=== PATIENT | male | born 1940 | race Caucasian/White ===

== ENCOUNTER 2022-09-11 13:30 | Inpatient (IN) | payer MEDICARE ==
[~2022-09-11] VITALS: Ht 167.6 cm; Wt 92.0 kg
[2022-09-11] MEDS ORDERED: NS IV 1000 ML 1,000 ML IV SCH (13:45)
[2022-09-11 13:49] LABS: BASOPHILS # (AUTO) 0.1 10^3/uL (0.0-0.1); BASOPHILS % (AUTO) 0 % (0-10); EOSINOPHILS % (AUTO) 0 % (0-10); HEMATOCRIT 35 % (40-54); HEMOGLOBIN 11.2 g/dL (13.3-17.7); LYMPHOCYTES % (AUTO) 7 % (12-44); MEAN CORPUSCULAR HEMOGLOBIN 28 pg (25-34); MEAN CORPUSCULAR HGB CONC 32 g/dL (32-36); MEAN CORPUSCULAR VOLUME 89 fL (80-99); MEAN PLATELET VOLUME 10.9 fL (9.0-12.2); MONOCYTES # (AUTO) 1.4 10^3/uL (0.0-1.0); MONOCYTES % (AUTO) 10 % (0-12); NEUTROPHILS # (AUTO) 12.5 10^3/uL (1.8-7.8); NEUTROPHILS % (AUTO) 83 % (42-75); PLATELET COUNT 343 10^3/uL (130-400); WHITE BLOOD COUNT 15.2 10^3/uL (4.3-11.0)
[2022-09-11 13:54] LABS: ALBUMIN 3.2 GM/DL (3.2-4.5)
--- NOTE | 2022-09-11 13:54 | ED General ---
General Chief Complaint: Trauma-Non Activation Stated Complaint: FALL Nursing Triage Note: PT IS BROUGHT ALS BY [employer]. FOR A FALL. PT WAS AT [facility] USING THE BATHROOM WHEN HE FELL. PT WAS FOUND BY EMS ON HIS KNEES WITH THE L SHAPED SIDE RAIL ON THE GROUND. DENIED HEAD INJURY OR LOC TO EMS. PT ALERT AND ORIENTED UPON ARRIVAL. Source of Information: Patient Exam Limitations: No Limitations (BRUCE JONES) History of Present Illness Date Seen by Provider: Sep 11, 2022 Time Seen by Provider: 13:51 Initial Comments Patient is 82-year-old male with a history of diabetes, coronary artery disease, hypertension who presents ED by EMS secondary to a fall. [facility] went to [facility] this morning with daughter. Around 45 minutes ago daughter states patient fell in the bathroom. States he walked to the bathroom without much assistance but was taking smaller strides than normal. Patient went into the bathroom and supposedly fell. Patient Was found on both of his knees and holding onto a rail that broke. This was a unwitnessed fall. He denied of any loss of consciousness or hitting his head. According to EMS who was called to the scene states patient appeared slightly confused. Patient was nable to recall certain events but could not remember how he fell. They checked his blood sugar which read 357. Patient was tachycardic on arrival. Patient on arrival denies of any current complaints. According to daughter patient lives alone at [facility]. Recently returned from [place] and did have a wound to his left foot at that time. She noted patient been having drainage from a left foot ulcer. He does have a history of tremors but more pronounced today. He did appear slightly confused this morning. He does take warfarin which daughter is unsure why he takes. Patient does appear altered. Alert and orient x2. Able to recall his name and date of . Patient cannot recall what happened before the fall or where he is currently at. He does not live in this area. Patient denies visual changes, headache, dizziness, chest pain, cough, abdominal pain, vomiting. Did have a few episodes of diarrhea over the past few days. According to daughter patient has been sleeping 20 hours a day since last week. He has been complaining that he is feels more tired and fatigued. (BRUCE JONES) Allergies and Home Medications Allergies Coded Allergies: No Allergy Information Available (Unverified , 09/11/22) Patient Home Medication List Home Medication List Reviewed: Yes (BRUCE JONES) Acetaminophen (Tylenol Extra Strength) 500 Mg Tablet, 1,000 MG PO Q8H PRN for PAIN-MILD (1-4), (Reported) Entered as Reported by: NESTOR CACERES on 09/13/221327 Last Action: Reviewed Atorvastatin Calcium (Atorvastatin Calcium) 40 Mg Tablet, 20 MG PO DAILY, (Reported) Entered as Reported by: NESTOR CACERES on 09/13/221327 Last Action: Reviewed Diltiazem HCl (Diltiazem 24Hr ER) 240 Mg Cap.er.24h, 240 MG PO BID, (Reported) Entered as Reported by: NESTOR CACERES on 09/13/221327 Last Action: Reviewed Diphenhydramine HCl (Benadryl Allergy) 25 Mg Tablet, 25 MG PO Q6H PRN for ALLERGY SYMPTOMS, (Reported) Entered as Reported by: NESTOR CACERES on 09/13/221327 Last Action: Reviewed Glipizide (Glipizide ER) 10 Mg Tab.er.24, 10 MG PO BID, (Reported) Entered as Reported by: NESTOR CACERES on 09/13/221327 Last Action: Reviewed Hydrochlorothiazide (Hydrochlorothiazide) 12.5 Mg Tablet, 12.5 MG PO DAILY, (Reported) Entered as Reported by: NESTOR CACERES on 09/13/221327 Last Action: Reviewed Lisinopril (Lisinopril) 20 Mg Tablet, 20 MG PO DAILY, (Reported) Entered as Reported by: NESTOR CACERES on 09/13/221327 Last Action: Reviewed Metformin HCl (Metformin HCl) 500 Mg Tablet, 500 MG PO BID, (Reported) Entered as Reported by: NESTOR CACERES on 09/13/221327 Last Action: Reviewed Tamsulosin HCl (Flomax) 0.4 Mg Cap, 0.4 MG PO HS, (Reported) Entered as Reported by: NESTOR CACERES on 09/13/221327 Last Action: Reviewed Timolol Maleate (Timolol Maleate 0.5%) 0.5 % Drops, 1 DROP OU HS, (Reported) Entered as Reported by: NESTOR CACERES on 09/13/221327 Last Action: Reviewed Warfarin Sodium (Warfarin Sodium) 3 Mg Tablet, 3 MG PO HS, (Reported) Entered as Reported by: NESTOR CACERES on 09/13/221327 Last Action: Reviewed Review of Systems Review of Systems Constitutional: No chills, No malaise, No weakness EENTM: No hearing loss, No ear pain, No blurred vision, No hoarseness, No mouth pain, No mouth swelling Respiratory: No cough, No dyspnea on exertion Cardiovascular: No chest pain, No edema Gastrointestinal: No abdominal pain, No diarrhea, No nausea, No vomiting Genitourinary: No decreased output, No discharge Musculoskeletal: No back pain, No joint pain Skin: No change in color Psychiatric/Neurological: Denies Headache, Denies Numbness, Denies Paresthesia; Tremors, Weakness (BRUCE JONES) Past Avrncyr-Zuxnnz-Mztnaz Hx Patient Social History Tobacco Use?: No Substance use?: No Alcohol Use?: No (BRUCE JONES) Immunizations Up To Date First/Initial COVID19 Vaccinat: UNKNOWN Second COVID19 Vaccination Luciano: UNKNOWN COVID19 Vaccine Research Professional: SAMIA (BRUCE JONES) Past Medical History Surgery/Hospitalization HX: HTN, HX OF [facility], AND DM (BRUCE JONES) Physical Exam Vital Signs Vital Signs - First Documented 09/11/22 09/11/22 09/11/22 13:30 13:52 15:57 Temp 38.8 Pulse 124 Resp 18 B/P (MAP) 147/80 (102) Pulse Ox 93 O2 Delivery Room Air O2 Flow Rate 2.00 FiO2 21 (YOVANY,PRIYANKA K DO) Vital Signs Capillary Refill : Less Than 3 Seconds (BRUCE JONES) Height, Weight, BMI Height: '" Weight: lbs. oz. kg; 28.00 BMI Method: General Appearance: No Apparent Distress, WD/WN Eyes: Bilateral Eye Normal Inspection, Bilateral Eye PERRL, Bilateral Eye EOMI HEENT: PERRL/EOMI, TMs Normal, Normal ENT Inspection, Pharynx Normal Neck: Full Range of Motion, Normal Inspection, Non Tender, Supple Respiratory: Chest Non Tender, Lungs Clear, Normal Breath Sounds, No Accessory Muscle Use, No Respiratory Distress Cardiovascular: Regular Rate, Rhythm, No Edema, No Gallop, No JVD Gastrointestinal: Normal Bowel Sounds, No Organomegaly, No Pulsatile Mass, Non Tender, Soft Back: Normal Inspection, No CVA Tenderness, No Vertebral Tenderness Extremity: Normal Capillary Refill, Normal Range of Motion, Other (Ulcer noted to the left plantar foot. Amputation of second toe. Surrounding redness. Odor noted.) Neurologic/Psychiatric: Disoriented, Motor Weakness (Bilateral and upper extremity), Other (Alert and orient x2) Skin: Normal Color, Warm/Dry (BRUCE JONES) Focused Exam Sepsis Stage: Severe Sepsis Possible Source: Bone/Joint (BRUCE JONES) Lactate Level 09/11/22 13:35: Lactic Acid Level 5.13*H 09/11/22 15:55: Lactic Acid Level 1.48 (PRIYANKA PEDROZA DO) Time of Focused Exam: 14:00 Respiratory: Chest Non Tender Cardiovascular: Tachycardia Capillary Refill: Less Than 3 Seconds Peripheral Pulses: 2+ Dorsalis Pedis (R), 2+ Left Dors-Pedis (L), 2+ Radial Pulses (R), 2+ Radial Pulses (L) Skin: ulcerations (Ulceration left foot with erythema), other (BRUCE JONES) Lactic Acid Level Laboratory Tests Test 09/11/22 13:35 09/11/22 15:55 Lactic Acid Level 5.13 MMOL/L (0.50-2.00) *H 1.48 MMOL/L (0.50-2.00) (PRIYANKA PEDROZA DO) Within 3hrs of presentation: Admin fluids, Admin ABX, Blood cultures prior to ABX's, Lactate level, Other (Improvement of his heart rate after 30 mils per kilogram bolus. Patient received cefepime and vancomycin.) (BRUCE JONES) Progress/Results/Core Measures Suspected Sepsis SIRS Temperature: Pulse: 124 Respiratory Rate: 18 Blood Pressure 147 /80 Mean: 102 09/11/22 13:35: Lactic Acid Level 5.13*H 09/11/22 15:55: Lactic Acid Level 1.48 Laboratory Tests 09/11/22 13:35: INR Comment 3.0H (BRUCE JONES) Results/Orders Lab Results Laboratory Tests Test 09/11/22 13:35 09/11/22 13:38 09/11/22 13:40 09/11/22 15:10 Range/Units White Blood Count 15.2 H 4.3-11.0 10^3/uL Red Blood Count 4.00 L 4.30-5.52 10^6/uL Hemoglobin 11.2 L 13.3-17.7 g/dL Hematocrit 35 L 40-54 % Mean Corpuscular Volume 89 80-99 fL Mean Corpuscular Hemoglobin 28 25-34 pg Mean Corpuscular Hemoglobin Concent 32 32-36 g/dL Red Cell Distribution Width 14.1 10.0-14.5 % Platelet Count 343 130-400 10^3/uL Mean Platelet Volume 10.9 9.0-12.2 fL Immature Granulocyte % (Auto) 1 % Neutrophils (%) (Auto) 83 H 42-75 % Lymphocytes (%) (Auto) 7 L 12-44 % Monocytes (%) (Auto) 10 0-12 % Eosinophils (%) (Auto) 0 0-10 % Basophils (%) (Auto) 0 0-10 % Neutrophils # (Auto) 12.5 H 1.8-7.8 10^3/uL Lymphocytes # (Auto) 1.0 1.0-4.0 10^3/uL Monocytes # (Auto) 1.4 H 0.0-1.0 10^3/uL Eosinophils # (Auto) 0.0 0.0-0.3 10^3/uL Basophils # (Auto) 0.1 0.0-0.1 10^3/uL Immature Granulocyte # (Auto) 0.1 0.0-0.1 10^3/uL Neutrophils % (Manual) 82 % Lymphocytes % (Manual) 12 % Monocytes % (Manual) 6 % Platelet Estimate ADEQUATE Blood Morphology Comment NORMAL Prothrombin Time 31.7 H 12.2-14.7 SEC INR Comment 3.0 H 0.8-1.4 Activated Partial Thromboplast Time 55 H 24-35 SEC Sodium Level 139 135-145 MMOL/L Potassium Level 4.9 3.6-5.0 MMOL/L Chloride Level 109 H 98-107 MMOL/L Carbon Dioxide Level 15 L 21-32 MMOL/L Anion Gap 15 H 5-14 MMOL/L Blood Urea Nitrogen 51 H 7-18 MG/DL Creatinine 3.23 H 0.60-1.30 MG/DL Estimat Glomerular Filtration Rate 19 BUN/Creatinine Ratio 16 Glucose Level 321 H 70-105 MG/DL Lactic Acid Level 5.13 *H 0.50-2.00 MMOL/L Calcium Level 9.4 8.5-10.1 MG/DL Corrected Calcium 10.0 8.5-10.1 MG/DL Magnesium Level 1.6 1.6-2.4 MG/DL Total Bilirubin 0.7 0.1-1.0 MG/DL Aspartate Amino Transf (AST/SGOT) 14 5-34 U/L Alanine Aminotransferase (ALT/SGPT) 15 0-55 U/L Alkaline Phosphatase 91 40-136 U/L Total Creatine Kinase 88 30-200 U/L Creatine Kinase MB 2.4 <6.6 NG/ML Myoglobin 233.0 H 10.0-92.0 NG/ML Troponin I < 0.028 <0.028 NG/ML B-Type Natriuretic Peptide 32.7 <100.0 PG/ML Total Protein 7.5 6.4-8.2 GM/DL Albumin 3.2 3.2-4.5 GM/DL Amylase Level 49 25-125 U/L Lipase 21 8-78 U/L Influenza Type A (RT-PCR) Not Detected Not Detecte Influenza Type B (RT-PCR) Not Detected Not Detecte SARS-CoV-2 RNA (RT-PCR) Not Detected Not Detecte Glucometer 291 H 70-110 MG/DL Urine Color YELLOW Urine Clarity CLEAR Urine pH 5.5 5-9 Urine Specific [place] 1.025 H 1.016-1.022 Urine Protein 1+ H NEGATIVE Urine Glucose (UA) 1+ H NEGATIVE Urine Ketones NEGATIVE NEGATIVE Urine Nitrite NEGATIVE NEGATIVE Urine Bilirubin NEGATIVE NEGATIVE Urine Urobilinogen 0.2 < = 1.0 MG/DL Urine Leukocyte Esterase NEGATIVE NEGATIVE Urine RBC (Auto) 1+ H NEGATIVE Urine RBC 5-10 H /HPF Urine WBC NONE /HPF Urine Crystals NONE /LPF Urine Bacteria NEGATIVE /HPF Urine Casts NONE /LPF Urine Mucus NEGATIVE /LPF Urine Culture Indicated NO Test 09/11/22 15:55 Range/Units Lactic Acid Level 1.48 0.50-2.00 MMOL/L (PRIYANKA PEDROZA DO) Micro Results Microbiology 09/11/22 Gram Stain - Final, Resulted 09/11/22 Wound Culture - Preliminary, Resulted Staphylococcus aureus Streptococcus mitis group Gram Negative Cornelius 09/11/22 Blood Culture - Preliminary, Resulted No growth 09/11/22 Blood Culture - Preliminary, Resulted Streptococcus mitis group See Comments (PRIYANKA PEDROZA DO) My Orders Orders - PRIYANKA PEDROZA DO Accucheck Stat ONCE (09/11/22 13:37) Ed Iv/Invasive Line Start (09/11/22 13:37) Ekg Tracing (09/11/22 13:37) O2 (09/11/22 13:37) Monitor-Rhythm Ecg Trace Only (09/11/22 13:37) Chest 1 View, Ap/Pa Only (09/11/22 13:37) Amylase (09/11/22 13:37) Bnp Posey (09/11/22 13:37) Cbc With Automated Diff (09/11/22 13:37) Comprehensive Metabolic Panel (09/11/22 13:37) Creatine Kinase (09/11/22 13:37) Creatine Kinase Mb (09/11/22 13:37) Lactic Acid Analyzer (09/11/22 13:37) Lipase (09/11/22 13:37) Magnesium (09/11/22 13:37) Protime With Inr (09/11/22 13:37) Partial Thromboplastin Time (09/11/22 13:37) Ua Culture If Indicated (09/11/22 13:37) Myoglobin Serum (09/11/22 13:37) Troponin I Posey (09/11/22 13:37) Ed Iv/Invasive Line Start (09/11/22 13:37) Ed Iv/Invasive Line Start (09/11/22 13:37) Ns Iv 1000 Ml (Sodium Chloride 0.9%) (09/11/22 13:45) Ct Head/Cervical Spine Wo (09/11/22 13:37) Pelvis 1 To 2 Views (09/11/22 13:37) Manual Differential (09/11/22 13:35) (PRIYANKA PEDROZA DO) Vital Signs/I&O 09/11/22 09/11/22 09/11/22 09/11/22 13:30 13:52 15:57 16:09 Temp 38.8 38.8 Pulse 124 124 112 Resp 18 26 B/P (MAP) 147/80 (102) 112/75 Pulse Ox 93 94 93 97 O2 Delivery Room Air Nasal Cannula O2 Flow Rate 2.00 FiO2 21 (PRIYANKA PEDROZA DO) Vital Signs/I&O Capillary Refill : Less Than 3 Seconds (BRUCE JONES) Blood Pressure Mean: 102 Point of Care Testing Finger Stick Blood Glucose: 291 Blood Glucose Action Taken: PROVIDER NOTIFIED. (BRUCE JONES) ECG Comment Sinus tachycardia, ventricular premature complexes, rate 125 bpm, QRS duration 103 MS, QTc 423 MS. (BRUCE JONES) Departure Communication (Admissions) Time/Spoke to Admitting Phy: 15:[address] Dwyer hospitalist who accepts patient (BRUCE JONES) Communication (PCP) No previous ER visits. Patient was brought to the ED for [facility] Increased confusion this morning and worse after the fall. Patient was brought to ED by EMS. Blood sugar 357. History of coronary artery disease, hypertension, DVT currently on warfarin, diabetes. Patient on arrival appears disoriented and more confused at times. Able to recall his name and date of but cannot recall what happened today, were he is at. According to daughter patient had a fall in the bathroom. Patient was found on his knees, hold on the rails. Patient denies hitting his head or loss of conscious. Patient had no current complaint for EMS or myself on arrival. On arrival patient was tachycardic but afebrile. Normal blood pressure. Patient with a diabetic wound to left foot with purulent drainage. Concerning for sepsis secondary to osteomyelitis of left foot. X-ray of the left foot without evidence of cortical destruction. unclear length of having this ulcer. He does have normal sensation in lower extremities. Blood cultures were ordered, lactic acid, lab work. Due to unclear cause of his fall. CT scan of the head and neck and Cardiac work-up was started. EKG showed sinus tachycardia without evidence of ST elevation or depression. Cardiac enzymes troponin BNP unremarkable. Chest x-ray unremarkable. CT scan of the head and cervical neck unremarkable. Attempted a NIH stroke scale which was 12. This does not appear to be acute stroke. Significant weakness throughout his extremities. Unclear when his initial symptoms started. Does not appear to have any focal unilateral weakness. Patient does have notable tremoring more prominent today according to daughter. Patient has been feeling weak and fatigue since last Monday or accordign to daughter. Appeared slightly altered this morning unclear start of symptoms. Concerning for more infectious etiology resulting in change in his mental status, fatigue and possible fall. Patient white blood count was 15. Hemoglobin 11. Normal platelets. INR 3.0. Creatinine 3.23, GFR of 19. Concerning for acute kidney injury. Patient Was started on a liter of fluid. Lactic acid of 5. Cardiac enzymes unremarkable. X-ray of the left foot negative for fracture or osteomyelitis. destruction of the first MTP suggesting potential gout. Denies history of gout. Patient was given cefepime and vancomycin for infection. Patient was given 2500 ml of normal saline for the 30 mL/kg fluid. Concerning for severe sepsis. Maintaining adequate blood pressure. Patient had 2 IV accesses. improvement of his heart rate from 125-108 before admission. Ralph catheter was placed without evidence of urinary tract infection. Managing input and output. He was able to produce urine here. No abdominal tenderness, chest pain, headache, dizziness. Patient neuro status continue to improve after fluids. Lactic acid improved to 1. patient was discussed with hospitalist Dr. Dwyer who agrees to accept patient. Concerning for infectious and potentially osteomyelitis of that left foot. 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 Patient and daughter agree with admission. Patient is a full code (BRUCE JONES) Impression Primary Impression: Sepsis Additional Impressions: Foot ulcer [place] (acute kidney injury) Disposition: ADMITTED INPATIENT Condition: Stable Admissions Decision to Admit Reason: Admit from ER (General) Decision to Admit/Date: Sep 11, 2022 Time/Decision to Admit Time: 14:40 (BRUCE JONES) ATTENDING PHYSICIAN NOTE: I WAS PHYSICALLY PRESENT ER PHYSICIAN, BUT I WAS NOT INVOLVED IN ANY DECISION MAKING OR ANY CARE OF THIS PATIENT, AND I AM NOT COLLABORATING PHYSICIAN. (PRIYANKA PEDROZA DO) BRUCE OJNES Sep 11, 2022 13:54 PRIYANKA PEDROZA DO Sep 15, 2022 01:51
[2022-09-11 13:55] LABS: CHLORIDE 109 MMOL/L (98-107); POTASSIUM 4.9 MMOL/L (3.6-5.0); SODIUM 139 MMOL/L (135-145)
[2022-09-11 13:56] LABS: AMYLASE 49 U/L (25-125); CALCIUM 9.4 MG/DL (8.5-10.1)
[2022-09-11 13:57] LABS: GLUCOSE 321 MG/DL (70-105); TOTAL PROTEIN 7.5 GM/DL (6.4-8.2)
[2022-09-11 13:58] LABS: CARBON DIOXIDE 15 MMOL/L (21-32)
[2022-09-11 13:59] LABS: BILIRUBIN,TOTAL 0.7 MG/DL (0.1-1.0)
[2022-09-11 14:00] LABS: ALKALINE PHOSPHATASE 91 U/L (40-136)
[2022-09-11 14:01] LABS: CREATININE SERUM 3.23 MG/DL (0.60-1.30); GFR ESTIMATED 19
[2022-09-11 14:02] LABS: BUN/CREATININE RATIO 16
[2022-09-11 14:04] LABS: ALANINE AMINOTRANSFERASE 15 U/L (0-55); MAGNESIUM 1.6 MG/DL (1.6-2.4)
[2022-09-11 14:05] LABS: CREATINE KINASE 88 U/L (30-200); LIPASE 21 U/L (8-78); LYMPHOCYTES % (MANUAL) 12 %; MONOCYTES % (MANUAL) 6 %; NEUTROPHILS % (MANUAL) 82 %
[2022-09-11 14:06] LABS: PLATELET ESTIMATE ADEQUATE; RBC MORPH NORMAL
[2022-09-11] MEDS ORDERED: NS IV 1000 ML 1,000 ML IV STA (14:06)
[2022-09-11 14:07] LABS: PROTHROMBIN TIME PATIENT 31.7 SEC (12.2-14.7)
[2022-09-11 14:12] LABS: CREATINE KINASE MB 2.4 NG/ML (<6.6)
[2022-09-11] MEDS ORDERED: CEFEPIME INJECTION 1,000 MG in NS (IVPB) 50 ML IV ONE (14:15)
[2022-09-11] MEDS ORDERED: CEFEPIME 1 GM/10 ML (MAXIPIME) VIAL ONE (14:17)
[2022-09-11] MEDS ORDERED: NS (IVPB) 50 ML ONE (14:17)
--- NOTE | 2022-09-11 14:18 | Diagnostic Imaging Report ---
PROCEDURE: CT head and CT cervical spine without contrast. TECHNIQUE: Multiple contiguous axial images were obtained through the brain and cervical spine without the use of intravenous contrast. Sagittal and coronal reformations through the cervical spine were then performed. Auto Exposure Controls were utilized during the CT exam to meet ALARA standards for radiation dose reduction. INDICATION: Head and neck pain after trauma. FINDINGS: There is prominence of ventricles and sulci. There is mild chronic microvascular ischemic disease. There is no hydrocephalus. No midline shift. There is no intracranial mass, hemorrhage or extra-axial fluid collection. There is opacification of frontal sinus and left maxillary sinus. This extends into the ethmoid air cells and left sphenoid sinus. Mastoid air cells are clear. The alignment of cervical spine is normal. The vertebral body heights are well maintained. There is some posterior facet arthropathy. There is multilevel degenerative disc disease. There is no fracture or traumatic subluxation. Odontoids intact and lateral masses well aligned. The prevertebral soft tissues are within normal limits. The lung apices are clear. IMPRESSION: Atrophy and chronic microvascular ischemic disease. Moderately severe paranasal sinus disease as described. Diffuse cervical spondylosis and multilevel degenerative disc disease without acute fracture or traumatic subluxation. Dictated by: Dictated on workstation # [id number]
--- NOTE | 2022-09-11 14:25 | Diagnostic Imaging Report ---
INDICATION: Fall. FINDINGS: Heart size is normal. Lungs are clear. There is no pleural effusion or pneumothorax. Mediastinum is unremarkable. IMPRESSION: No acute cardiopulmonary abnormality. Dictated by: Dictated on workstation # [id number]
--- NOTE | 2022-09-11 14:25 | Diagnostic Imaging Report ---
INDICATION: Fall. FINDINGS: The bony pelvis is intact. Hips are intact. Lumbar spine is intact. No fracture or dislocation. Soft tissues are unremarkable. IMPRESSION: No acute fracture or dislocation. Dictated by: Dictated on workstation # [id number]
[2022-09-11] MEDS ORDERED: NS IV 500 ML 500 ML IV STA (14:51)
[2022-09-11] MEDS ORDERED: LIDOCAINE UROJET 2% GEL 10 ML PKG TOP ONE (15:00)
--- NOTE | 2022-09-11 15:15 | Diagnostic Imaging Report ---
INDICATION: Foot pain. COMPARISON: No prior examination is available for comparison. FINDINGS: There is severe osteoarthritic change in the 1st metatarsal phalangeal joint. There appear to be some erosions. The possibility of gout certainly cannot be excluded. There is no acute fracture. There has been amputation of the left 2nd toe. 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 No definitive radiographic evidence of osteomyelitis although there has been previous amputation of the left 2nd toe. Dictated by: Dictated on workstation # [id number]
[2022-09-11 15:17] LABS: BILIRUBIN,URINE NEGATIVE (NEGATIVE); CLARITY,URINE CLEAR; COLOR,URINE YELLOW; GLUCOSE, URINE (UA) 1+ (NEGATIVE); KETONES,URINE NEGATIVE (NEGATIVE); LEUKOCYTE ESTERASE ,URINE NEGATIVE (NEGATIVE); NITRITE,URINE NEGATIVE (NEGATIVE); PH,URINE 5.5 (5-9); PROTEIN,URINE 1+ (NEGATIVE)
[2022-09-11 15:23] LABS: BACTERIA,URINE NEGATIVE /HPF
[2022-09-11] MEDS ORDERED: BISACODYL 10 MG SUPP (DULCOLAX) PR PRN (15:45)
[2022-09-11] MEDS ORDERED: MELATONIN 3 MG TABLET PO PRN (15:45)
[2022-09-11] MEDS ORDERED: MILK OF MAGNESIA 400 MG/5 ML 30 ML UDC PO PRN (15:45)
[2022-09-11] MEDS ORDERED: polyethylene glycoL POWDER 17 GM (MIRALAX) PACK PO PRN (15:45)
[2022-09-11] MEDS ORDERED: CALCIUM CARBONATE 500 MG (TUMS) TAB.CHEW PO PRN (15:45)
[2022-09-11] MEDS ORDERED: NS IV ONE (15:45)
[2022-09-11] MEDS ORDERED: VANCOMYCIN INJECTION 1,000 MG in NS (IVPB) 250 ML IV ONE (15:45)
[2022-09-11] MEDS ORDERED: ANTACID SUSP 30 ML UDC (MYLANTA) PO PRN (15:45)
[2022-09-11] MEDS ORDERED: ONDANSETRON 4 MG/2 ML (SDV) Z0FRAN IV PRN (15:45)
[2022-09-11] MEDS ORDERED: VANCOMYCIN INJECTION 0.1 MG in NS (IVPB) 250 ML IV SCH (15:45)
[2022-09-11 15:57] VITALS: BP 147/80
[2022-09-11] MEDS ORDERED: RT-ALBUTEROL SULF 2.5 MG/3 ML PRE-MIX VIAL INH PRN (16:00)
[2022-09-11 16:34] VITALS: BP 112/53
[2022-09-11] MEDS ORDERED: VANCOMYCIN 750 MG/NS 250 ML IVPB IV NR ×2 (17:00)
[2022-09-11] MEDS ORDERED: ENOXAPARIN INJECTION 30 MG/0.3 ML SYR SC SCH (17:00)
[2022-09-11] MEDS: NS IV 1000 ML 1,000 ML IV SCH (17:22)
[2022-09-11] MEDS: inSUlin ASPART (NovoLOG) 1 UNIT/0.01 ML (CHARGE PER UNIT) SC SCH ×2 (17:23→20:53)
[2022-09-11 20:00] VITALS: BP 135/74
[2022-09-11] MEDS: ACETAMINOPHEN 325 MG TABLET PO PRN (20:54)
[2022-09-12] VITALS: BP 119/69
[2022-09-12] MEDS: NS IV 1000 ML 1,000 ML IV SCH ×4 (00:02→17:55)
[2022-09-12] MEDS: CEFEPIME INJECTION 1,000 MG in NS (IVPB) 50 ML IV SCH ×2 (02:01→13:39)
[2022-09-12 05:16] LABS: BASOPHILS % (AUTO) 0 % (0-10); EOSINOPHILS # (AUTO) 0.1 10^3/uL (0.0-0.3); EOSINOPHILS % (AUTO) 1 % (0-10); HEMATOCRIT 29 % (40-54); LYMPHOCYTES # (AUTO) 1.7 10^3/uL (1.0-4.0); LYMPHOCYTES % (AUTO) 12 % (12-44); MEAN CORPUSCULAR HEMOGLOBIN 28 pg (25-34); MEAN CORPUSCULAR HGB CONC 32 g/dL (32-36); MEAN CORPUSCULAR VOLUME 88 fL (80-99); MEAN PLATELET VOLUME 10.6 fL (9.0-12.2); MONOCYTES # (AUTO) 1.4 10^3/uL (0.0-1.0); MONOCYTES % (AUTO) 10 % (0-12); NEUTROPHILS # (AUTO) 10.7 10^3/uL (1.8-7.8); NEUTROPHILS % (AUTO) 77 % (42-75); PLATELET COUNT 278 10^3/uL (130-400)
[2022-09-12 05:24] LABS: ALBUMIN 2.4 GM/DL (3.2-4.5)
[2022-09-12 05:25] LABS: CALCIUM 8.3 MG/DL (8.5-10.1)
[2022-09-12 05:26] LABS: TOTAL PROTEIN 5.8 GM/DL (6.4-8.2)
[2022-09-12 05:28] LABS: BILIRUBIN,TOTAL 0.5 MG/DL (0.1-1.0)
[2022-09-12 05:30] LABS: CREATININE SERUM 2.37 MG/DL (0.60-1.30)
[2022-09-12] MEDS: inSUlin ASPART (NovoLOG) 1 UNIT/0.01 ML (CHARGE PER UNIT) SC SCH ×4 (05:40→21:30)
[2022-09-12] MEDS: ACETAMINOPHEN 325 MG TABLET PO PRN ×2 (07:51→21:35)
[2022-09-12] MEDS: metroNIDAZOLE 500MG/100ML IVPB 100 ML IV SCH ×2 (11:36→17:54)
--- NOTE | 2022-09-12 13:06 | History & Physical-Hospitalist ---
MAURICIO PARKINSON 09/12/22 1306: History of Present Illness HPI/Chief Complaint Yemi Freedman is a 82yo male poor historian w/ past medical history of DM and CAD whom presented to ED due to fall and confusion occurring September 11, 2022. Pt denied any LOC but doesn't recall all the details about his fall. Upon being admitted pt was diagnosed Severe Sepsis Secondary to L. Foot Ulcer. Pt didn't state length of time since ulcer first presented, but recently came back from [place] and stated that it was there since. Per ED, pt's daughter claimed there was drainage from the ulcer. Pt was A&O x2, person and place, but didn't know why he was admitted. Pt denied any N/V/D, Fever, Dizziness, Pain, and numbness and tingling. Date Seen 09/12/22 Time Seen by a Provider: 07:00 Attending Physician No,Local Physician PCP Admitting Physician: Arelis Dwyer MD Attending Physician: Kemar Ortiz MD Referring Physician Date of Admission Sep 11, 2022 at 16:19 Home Medications & Allergies Home Medications Reviewed patient Home Medication Reconciliation performed by pharmacy medication reconciliations rim technician and/or nursing. Patients Allergies have been reviewed. Allergies Allergies Coded Allergies No Allergy Information Available (Unverified09/11/22) Past Pdeptkp-Invaha-Qdfryw Hx Patient Social History Tobacco Use?: No Smoking Status: Former Smoker Use of E-Cig and/or Vaping dev: No Substance use?: No Alcohol Use?: Yes Alcohol type: Beer, Hard Liquor Alcohol Frequency: Rarely Pt feels they are or have been: No Immunizations Up To Date First/Initial COVID19 Vaccinat: UNKNOWN Second COVID19 Vaccination Luciano: UNKNOWN Current Status Advance Directives: No Communicates: Verbally Primary Language: Surinamese Preferred Spoken Language: Surinamese Sensory deficits: Vision impairment Implanted or Applied Medical D: None Past Medical History Surgeries: Amputation Coronary Artery Disease, Hypertension Family Medical History No Pertinent Family Hx Review of Systems Constitutional: No chills, No fever Respiratory: No cough, No dyspnea on exertion, No phlegm Cardiovascular: No chest pain, No edema, No palpitations Gastrointestinal: No abdominal pain, No diarrhea, No nausea, No vomiting Musculoskeletal: No gout Physical Exam Physical Exam Vital Signs Vital Signs - First Documented 09/11/22 09/11/22 09/11/22 13:30 13:52 15:57 Temp 38.8 Pulse 124 Resp 18 B/P (MAP) 147/80 (102) Pulse Ox 93 O2 Delivery Room Air O2 Flow Rate 2.00 FiO2 21 Capillary Refill : Less Than 3 Seconds Height, Weight, BMI Height: '" Weight: lbs. oz. kg; 32.64 BMI Method: General Appearance: No Apparent Distress Respiratory: Lungs Clear, Normal Breath Sounds Cardiovascular: No Edema, Normal Peripheral Pulses, Irregularly Irregular Gastrointestinal: Normal Bowel Sounds, No Organomegaly, Non Tender, Soft Extremity: No Calf Tenderness, Other (L. Foot Ulcer w/ Dressing) Neurologic/Psychiatric: Alert Skin: Normal Color, Warm/Dry Lymphatic: No Adenopathy Results Results/Procedures Labs Laboratory Tests 09/11/22 13:35 09/12/22 05:02 Patient resulted labs reviewed. Imaging Date of Exam:09/11/22 FOOT, LEFT, 3 VIEWS INDICATION: Foot pain. COMPARISON: No prior examination is available for comparison. FINDINGS: There is severe osteoarthritic change in the 1st metatarsal phalangeal joint. There appear to be some erosions. The possibility of gout certainly cannot be excluded. There is no acute fracture. There has been amputation of the left 2nd toe. 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 No definitive radiographic evidence of osteomyelitis although there has been previous amputation of the left 2nd toe. Date of Exam:09/11/22 PELVIS 1 TO 2 VIEWS INDICATION: Fall. FINDINGS: The bony pelvis is intact. Hips are intact. Lumbar spine is intact. No fracture or dislocation. Soft tissues are unremarkable. IMPRESSION: No acute fracture or dislocation. Date of Exam:09/11/22 CT HEAD/CERVICAL SPINE WO PROCEDURE: CT head and CT cervical spine without contrast. TECHNIQUE: Multiple contiguous axial images were obtained through the brain and cervical spine without the use of intravenous contrast. Sagittal and coronal reformations through the cervical spine were then performed. Auto Exposure Controls were utilized during the CT exam to meet ALARA standards for radiation dose reduction. INDICATION: Head and neck pain after trauma. FINDINGS: There is prominence of ventricles and sulci. There is mild chronic microvascular ischemic disease. There is no hydrocephalus. No midline shift. There is no intracranial mass, hemorrhage or extra-axial fluid collection. There is opacification of frontal sinus and left maxillary sinus. This extends into the ethmoid air cells and left sphenoid sinus. Mastoid air cells are clear. The alignment of cervical spine is normal. The vertebral body heights are well maintained. There is some posterior facet arthropathy. There is multilevel degenerative disc disease. There is no fracture or traumatic subluxation. Odontoids intact and lateral masses well aligned. The prevertebral soft tissues are within normal limits. The lung apices are clear. IMPRESSION: Atrophy and chronic microvascular ischemic disease. Moderately severe paranasal sinus disease as described. Diffuse cervical spondylosis and multilevel degenerative disc disease without acute fracture or traumatic subluxation. Date of Exam:09/11/22 CHEST 1 VIEW, AP/PA ONLY INDICATION: Fall. FINDINGS: Heart size is normal. Lungs are clear. There is no pleural effusion or pneumothorax. Mediastinum is unremarkable. IMPRESSION: No acute cardiopulmonary abnormality. Assessment/Plan Admission Diagnosis Severe Sepsis Secondary to L. Foot Ulcer Assessment and Plan Yemi Freedman is a 82yo male presenting with Severe Sepsis Secondary to L. Foot Ulcer. Severe Sepsis SIRS +: Elevated WBC, Elevated Pulse Elevated Lactic Acid Started IVF Started Vancomycin and Cefepime Start Metronidazole L. Foot Ulcer PMHx Diabetes Mellitus L. 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 suspicious for gout; no signs of osteomyelitis Ordered MRI - Elevated ESR and C-Reactive Protein suspicious for possible ost eomyelitis General Surgery Consult Atrial Fibrillation Start Diltiazem Start Warfarin DESTINEE Started IVF Anemia Monitor H&H and Transfuse as needed KEMAR ORTIZ MD 09/12/22 1634: History of Present Illness Source: patient, family Exam Limitations: no limitations Time Seen by a Provider: 10:50 Past Fgvgtoh-Mwoohi-Hbvjfp Hx Family Medical History No Pertinent Family Hx Results Results/Procedures Imaging: Reviewed Imaging Report Assessment/Plan Admission Diagnosis Admission Status: Inpatient Order (span 2 midnights) Reason for Inpatient Admission: IV antibiotics Assessment and Plan Admitted with severe sepsis due to diabetic foot infection. Started on IV antibiotics with Vanc and Cefepime. Add Flagyl. MRI ordered. Wound care consulted. Definitive plan pending further workup. Resume home meds for AFib. Diagnosis/Problems Diagnosis/Problems (1) Severe sepsis Status: Acute (2) Diabetic foot infection Status: Acute (3) DESTINEE (acute kidney injury) Status: Acute (4) Lactic acidosis Status: Acute (5) T2DM (type 2 diabetes mellitus) Status: Acute Qualifiers: Diabetes mellitus longterm insulin use: without terminal system operator use Diabetes mellitus complication status: with skin complications Diabetes mellitus complication detail: with foot ulcer Qualified Codes: E11.621 - Type 2 diabetes mellitus with foot ulcer; L97.509 - Non-pressure chronic ulcer of other part of unspecified foot with unspecified severity (6) HTN (hypertension) Status: Chronic (7) HLD (hyperlipidemia) Status: Chronic (8) CAD (coronary artery disease) Status: Chronic (9) History of venous thromboembolism Status: Chronic (10) On Coumadin for atrial fibrillation Status: Chronic (11) Afib Status: Chronic (12) BPH (benign prostatic hyperplasia) Status: Chronic Supervisory-Addendum Brief Verification & Attestation Participated in pt care: history, MDM, physical Personally performed: exam, history, MDM, supervision of care Care discussed with: Medical Student Procedures: n/a Results interpretation: Verified all documentation A medical student performed and documented this service in my presence. I reviewed and verified all information documented by the medical student and made modifications to such information, when appropriate. I personally performed the physical exam and medical decision making. MAURICIO PARKINSON Sep 12, 2022 13:06 KEMAR ORTIZ MD Sep 12, 2022 16:34
--- NOTE | 2022-09-12 14:36 | Wound Care Assessment ---
Wound Care Assessment Date Seen by Provider: Sep 12, 2022 Time Seen by Provider: 14:31 Chief Complaint Deep space infection HPI This pleasant 82 year old gentleman was visiting his daughter (lives in [place]) and fell while attending [facility] services at [facility]. P er daughter he has been somnalent and has a wound on his foot (chronicity uncertain). He did have amputation of L. 2 toe in past due to osteomyelitis and admits to failure of follow up following surgery. He has known DM2 but does not check his FSBS (he states he is a "bad patient"). Labs are concerning for osteomyelitis. He does have some confusion noted per daughter as well. His recently and care at home is uncertain. He is noted to have PEM, sepsis, atrial fibrillation with h/o CAD and DM2. Plain films with some concern for fortunato destruction. MRI has appropriately been ordered and surgery consulted. On exam he is noted to have open wounds at 2 MTH on both plantar and dorsal surfaces. On probing with Qtip, it is noted that these wound communicate with copious amounts of purulent drainage. We will continue with gauze dressing until evaluated by surgery and move forward from that point. He will likely need chronic wound care (whether here or in his home town). Past Medical History: Admits Diabetes Type II, Admits Heart Disease Altered mental status, PEM, Sepsis, Atrial fibrillation Smoking Status: Former Smoker Review of Systems General: Fatigue Cardiovascular: Other (tachycardia) Gastrointestinal: Diarrhea Neurological: Weakness, Confusion Exam Vital Signs Date Time Temp Pulse Resp B/P (MAP) Pulse Ox O2 Delivery O2 Flow Rate FiO2 09/12/22 13:16 80 09/12/22 12:04 36.9 09/12/22 08:00 98 Nasal Cannula 2.00 09/12/22 00:00 119/69 (86) 09/11/22 20:00 16 09/11/22 15:57 21 Capillary Refill : Less Than 3 Seconds General Appearance: no apparent distress HEENT: other (hearing wnl) Neck: full range of motion Cardiovascular: tachycardia Respiratory: no respiratory distress, no accessory muscle use Extremities: pedal edema, swelling Neurologic/Psychiatric: alert, normal mood/affect, other (poor historian) Skin Character: abscess, drainage (purulent), swelling Wound assessment: The epithelialization is none. There is tunneling which communicates from dorsal ulcer to plantar ulcer at 2 MTH. Drainage is purulent and large (foul smelling). Granulation is small and pink. Necrotic is large and slough. The margins show epibole. Bone is exposed on probing. Results Laboratory Tests 09/11/22 15:10: Urine Color YELLOW, Urine Clarity CLEAR, Urine pH 5.5, Urine Specific [place] 1.025H, Urine Protein 1+H, Urine Glucose (UA) 1+H, Urine Ketones NEGATIVE, Urine Nitrite NEGATIVE, Urine Bilirubin NEGATIVE, Urine Urobilinogen 0.2, Urine Leukocyte Esterase NEGATIVE, Urine RBC (Auto) 1+H, Urine RBC 5-10H, Urine WBC NONE, Urine Crystals NONE, Urine Bacteria NEGATIVE, Urine Casts NONE, Urine Mucus NEGATIVE, Urine Culture Indicated NO 09/11/22 15:55: Lactic Acid Level 1.48 09/11/22 16:52: Glucometer 221H 09/11/22 20:16: Glucometer 153H 09/12/22 05:02: White Blood Count 14.0H, Red Blood Count 3.25L, Hemoglobin 9.0L, Hematocrit 29L, Mean Corpuscular Volume 88, Mean Corpuscular Hemoglobin 28, Mean Corpuscular Hemoglobin Concent 32, Red Cell Distribution Width 14.2, Platelet Count 278, Mean Platelet Volume 10.6, Immature Granulocyte % (Auto) 1, Neutrophils (%) (Auto) 77H, Lymphocytes (%) (Auto) 12, Monocytes (%) (Auto) 10, Eosinophils (%) (Auto) 1, Basophils (%) (Auto) 0, Neutrophils # (Auto) 10.7H, Lymphocytes # (Auto) 1.7, Monocytes # (Auto) 1.4H, Eosinophils # (Auto) 0.1, Basophils # (Auto) 0.0, Immature Granulocyte # (Auto) 0.1, Erythrocyte Sedimentation Rate 72H, Sodium Level 144, Potassium Level 4.0, Chloride Level 120#H, Carbon Dioxide Level 16L, Anion Gap 8, Blood Urea Nitrogen 37H, Creatinine 2.37H, Estimat Glomerular Filtration Rate 27, BUN/Creatinine Ratio 16, Glucose Level 103, Calcium Level 8.3L, Corrected Calcium 9.6, Total Bilirubin 0.5, Aspartate Amino Transf (AST/SGOT) 12, Alanine Aminotransferase (ALT/SGPT) 12, Alkaline Phos phatase 65, C-Reactive Protein High Sensitivity 25.11H, Total Protein 5.8L, Albumin 2.4L 09/12/22 11:59: Glucometer 165H Microbiology 09/11/22 Blood Culture - Preliminary, Resulted Gram Positive Cocci in Chains See Comments Microbiology 09/11/22 Blood Culture - Preliminary, Resulted Gram Positive Cocci in Chains See Comments Assessment/Plan/Dx Assessment: 1. WG3 DFU 2 MTH with h/o amputation of 2 digit for osteomyelitis 2. DM2 with hyperglycemia 3. PEM 4. Sepsis with altered mental status likely secondary to osteomyelitis 5. Acute renal injury 6. Atrial fibrillation with RVR 7. Anemia Plan: 1. MRI ordered. General surgery consulted. Agree with broad spectrum antibiotics 2. Defer to primary team. Will check A1C if not already done 3. Protein supplementation with diabetic diet 4. Defer to primary team 5. Defer to primary team 6. Defer to primary team 7. Defer to primary team 8. I do think Mr. Freedman will require nursing home upon discharge to aide with wound care for a period of time. I did encourage him to discuss with his daughter. MONTY CASTRO MD Sep 12, 2022 14:36
[2022-09-12] MEDS ORDERED: TROUGH ORDER-PHARMACY XX ONE (15:00)
[2022-09-12] MEDS: VANCOMYCIN 1 GM/NS 250 ML IVPB IV SCH ×2 (15:56)
--- NOTE | 2022-09-12 17:19 | Diagnostic Imaging Report ---
PROCEDURE: MR imaging left lower extremity without contrast. TECHNIQUE: Multiplanar, multisequence non contrast enhanced MR imaging of the left lower extremity was accomplished. INDICATION: Dermal ulcer. Pain and swelling. COMPARISON: Left foot series of 09/11/2022. FINDINGS: Amputation of the second toe has been performed at the level of the MTP. A dermal ulcer is present with associated heterogeneous T2 hyperintense collection at the amputation stump. The collection measures approximately 1.8 x 2.0 x 1.9 cm and suspicious for abscess formation. The proximal aspect of this presumed abscess abuts the second metatarsal head and there are patchy areas of marrow replacement and T2 hyperintense edema, suggestive of osteomyelitis. The base of the second metatarsal has normal marrow signal. Severe degenerative changes at the first MTP with associated subchondral cystic change and sclerosis on both sides of the joint. Due to the degenerative changes, superimposed infection would be difficult to exclude, although the lack of contact of this first MTP joint with the abscess makes infection unlikely in this region. No osteomyelitis within the lateral aspect of the forefoot. Fatty atrophy of the intrinsic musculature of the foot is likely due to a longstanding chronic denervation injury. No nodular thickening of the plantar fascia to indicate fibromatosis. IMPRESSION: 1. Dermal ulcer at the dorsal aspect of the amputation stump of the second toe. There is likely associated abscess within the soft tissues at the amputation stump and osteomyelitis involving the distal aspect of the second metatarsal. Dictated by: Dictated on workstation # [id number]
[2022-09-12] MEDS: warFARin 3 MG (COUMADIN) TAB PO SCH (17:55)
[2022-09-12 20:00] VITALS: BP 139/70
[2022-09-12] MEDS: HYPOCHLOROUS ACID/NaCl (VASHE) 250 ML IR PRN (21:45)
--- NOTE | 2022-09-12 22:56 | Consultation - Surgery ---
History of Present Illness History of Present Illness Patient Consulted On(ronna/time) 09/12/22 22:51 Date Seen by Provider: Sep 12, 2022 Time Seen by Provider: 20:22 History of Present Illness Consult requested for left foot abscess/osteomyelitis. Patient is an 82 year old male who is visiting his daughter. He was at [employer] and got confused and was on the ground. He was awake and did not have loc. Patient with left foot wound on plantar and dorsal aspect. He had 2nd toe amputation on left previously. Last couple weeks he thinks the area has worsened. He does have puruent drainage from the area currently. He had plain films left foot that are sug gestive of osteo. Mri was done of left foot: Dermal ulcer at the dorsal aspect of the amputation stump of the second toe. There is likely associated abscess within the soft tissues at the amputation stump and osteomyelitis involving the distal aspect of the second metatarsal. He is on coumadin. Allergies and Home Medications Allergies Coded Allergies: No Allergy Information Available (Unverified , 09/11/22) Patient Home Medication List Home Medication List Reviewed: Yes Past Jlvkpku-Wbjkwt-Mxznhq Hx Patient Social History Smoking Status: Former Smoker Alcohol Use?: Yes Have you traveled recently?: Yes Surgeries Surgeries: Amputation Cardiovascular Cardiac Disorders: Coronary Artery Disease, Hypertension Reviewed Nursing Assessment Reviewed/Agree w Nursing PMH: Yes Family Medical History Significant Family History: No Pertinent Family Hx Review of Systems-General Constitutional: No diaphoresis; weakness EENTM: No blurred vision, No double vision Respiratory: No cough, No dyspnea on exertion Cardiovascular: No chest pain, No palpitations Gastrointestinal: No abdominal pain, No nausea, No vomiting Genitourinary: No decreased output, No discharge Musculoskeletal: No back pain, No joint pain Skin: change in color; No change in hair/nails Psychiatric/Neurological: Denies Anxiety, Denies Depressed, Denies Emotional Problems All Other Systems Reviewed Negative Unless Noted: Yes (Negative excepted noted.) Physical Exam-General Problems Physical Exam Vital Signs Vital Signs - First Documented 09/11/22 09/11/22 09/11/22 13:30 13:52 15:57 Temp 38.8 Pulse 124 Resp 18 B/P (MAP) 147/80 (102) Pulse Ox 93 O2 Delivery Room Air O2 Flow Rate 2.00 FiO2 21 Capillary Refill : Less Than 3 Seconds General Appearance: WD/WN, no apparent distress HEENT: PERRL/EOMI, normal ENT inspection Neck: non-tender, supple Respiratory: chest non-tender, no respiratory distress, no accessory muscle use Cardiovascular: regular rate, rhythm, no JVD Gastrointestinal: non tender, no organomegaly Rectal: deferred Back: no CVA tenderness, no vertebral tenderness Extremities: swelling, other (left foot open wound x 2 fluctuance and erythema. left 2nd toe amputated) Neurologic/Psychiatric: alert, normal mood/affect, oriented x 3 Skin: warm/dry, other (erythema left 2nd ray) Lymphatic: no adenopathy Data Review Labs Laboratory Tests 09/12/22 05:02: White Blood Count 14.0H, Red Blood Count 3.25L, Hemoglobin 9.0L, Hematocrit 29L, Mean Corpuscular Volume 88, Mean Corpuscular Hemoglobin 28, Mean Corpuscular Hemoglobin Concent 32, Red Cell Distribution Width 14.2, Platelet Count 278, Mean Platelet Volume 10.6, Immature Granulocyte % (Auto) 1, Neutrophils (%) (Auto) 77H, Lymphocytes (%) (Auto) 12, Monocytes (%) (Auto) 10, Eosinophils (%) (Auto) 1, Basophils (%) (Auto) 0, Neutrophils # (Auto) 10.7H, Lymphocytes # (Auto) 1.7, Monocytes # (Auto) 1.4H, Eosinophils # (Auto) 0.1, Basophils # (Auto) 0.0, Immature Granulocyte # (Auto) 0.1, Erythrocyte Sedimentation Rate 72H, Sodium Level 144, Potassium Level 4.0, Chloride Level 120#H, Carbon Dioxide Level 16L, Anion Gap 8, Blood Urea Nitrogen 37H, Creatinine 2.37H, Estimat Glomerular Filtration Rate 27, BUN/Creatinine Ratio 16, Glucose Level 103, Mean Blood Glucose 174H, Hemoglobin A1c 7.7H, Calcium Level 8.3L, Corrected Calcium 9.6, Total Bilirubin 0.5, Aspartate Amino Transf (AST/SGOT) 12, Alanine Aminotransferase (ALT/SGPT) 12, Alkaline Phosphatase 65, C-Reactive Protein High Sensitivity 25.11H, Total Protein 5.8L, Albumin 2.4L 09/12/22 11:59: Glucometer 165H 09/12/22 15:07: Vancomycin Level Trough 13.5 09/12/22 16:00: Glucometer 170H 09/12/22 21:05: Glucometer 243H Microbiology 09/11/22 Gram Stain, Resulted Pending 09/11/22 Wound Culture - Preliminary, Resulted Culture In Progress 09/11/22 Blood Culture - Preliminary, Resulted No growth Assessment/Plan Assessment/Plan Assessment/Plan left foot abscess with osteomyelitis DM Long-term anticoagulation 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 He is anticoagulated, will hold COumadin and recheck INR in am. WIll need to reverse to go to OR tomorrow. Clear liquids in am then likely NPO at noon. May need FFP to reverse coumadin. Patient and family understand need for surgical intervention and will need wound care postoperatively. They understand and agree with plan. MAKAYLA FLORES DO Sep 12, 2022 22:56
[2022-09-13] VITALS (14 sets, daily range): BP systolic 113–167; BP diastolic 57–97
[2022-09-13] MEDS: CEFEPIME INJECTION 1,000 MG in NS (IVPB) 50 ML IV SCH ×2 (01:58→16:41)
[2022-09-13] MEDS: NS IV 1000 ML 1,000 ML IV SCH (02:16)
[2022-09-13] MEDS: metroNIDAZOLE 500MG/100ML IVPB 100 ML IV SCH ×3 (02:42→18:42)
[2022-09-13 05:26] LABS: BASOPHILS % (AUTO) 0 % (0-10); EOSINOPHILS # (AUTO) 0.2 10^3/uL (0.0-0.3); EOSINOPHILS % (AUTO) 2 % (0-10); HEMATOCRIT 28 % (40-54); HEMOGLOBIN 8.8 g/dL (13.3-17.7); LYMPHOCYTES # (AUTO) 1.5 10^3/uL (1.0-4.0); LYMPHOCYTES % (AUTO) 13 % (12-44); MEAN CORPUSCULAR HEMOGLOBIN 28 pg (25-34); MEAN CORPUSCULAR HGB CONC 32 g/dL (32-36); MEAN CORPUSCULAR VOLUME 88 fL (80-99); MEAN PLATELET VOLUME 10.8 fL (9.0-12.2); MONOCYTES % (AUTO) 8 % (0-12); NEUTROPHILS # (AUTO) 9.3 10^3/uL (1.8-7.8); NEUTROPHILS % (AUTO) 76 % (42-75); PLATELET COUNT 276 10^3/uL (130-400); WHITE BLOOD COUNT 12.1 10^3/uL (4.3-11.0)
[2022-09-13 05:33] LABS: INR 3.4 (0.8-1.4); PROTHROMBIN TIME PATIENT 34.3 SEC (12.2-14.7)
[2022-09-13 05:40] LABS: ALBUMIN 2.2 GM/DL (3.2-4.5); BILIRUBIN,TOTAL 0.4 MG/DL (0.1-1.0); CALCIUM 8.3 MG/DL (8.5-10.1); CREATININE SERUM 2.17 MG/DL (0.60-1.30); POTASSIUM 3.9 MMOL/L (3.6-5.0); TOTAL PROTEIN 5.6 GM/DL (6.4-8.2)
[2022-09-13] MEDS: inSUlin ASPART (NovoLOG) 1 UNIT/0.01 ML (CHARGE PER UNIT) SC SCH ×4 (05:45→21:39)
--- NOTE | 2022-09-13 07:37 | Progress Note - Surgery ---
THUAN PERSAUD 09/13/22 0737: Subjective Date Seen by a Provider: Sep 13, 2022 Time Seen by a Provider: 07:15 Subjective/Events-last exam Patient says he feels fine this morning. He claims he is in no pain and has no pain in his foot or toe. He has a sofia in place and has no complaints. He thi nks his last BM was yesterday but not sure. He is on 2L O2 by [place] but he denies SOB. His INR today is 3.4, it was 3.0 on admission. Order was placed last night for patient to be NPO, Patient was drinking water this morning when I was in the room. Review of Systems General: No Chills, No Night Sweats HEENT: No Head Aches, No Dysphasia Pulmonary: No Dyspnea, No Cough Cardiovascular: No: Chest Pain, Palpitations, Lt Headedness Gastrointestinal: No: Nausea, Vomiting, Abdominal Pain Genitourinary: No Hematuria; Other (sofia in place) Musculoskeletal: No: leg pain, foot pain Neurological: No: Numbness Focused Exam Lactate Level 09/11/22 13:35: Lactic Acid Level 5.13*H 09/11/22 15:55: Lactic Acid Level 1.48 Objective Exam Vital Signs Date Time Temp Pulse Resp B/P (MAP) Pulse Ox O2 Delivery O2 Flow Rate FiO2 09/13/22 04:00 82 23 128/64 (91) 95 Nasal Cannula 2.00 09/13/22 01:00 80 09/13/22 00:00 72 22 113/57 (74) 96 Nasal Cannula 2.00 09/12/22 22:05 98 Nasal Cannula 2.00 09/12/22 20:55 97 Nasal Cannula 2.00 09/12/22 20:00 37.5 96 18 139/70 (93) 93 Room Air 09/12/22 19:00 86 09/12/22 16:33 37.4 09/12/22 13:16 80 09/12/22 12:04 36.9 09/12/22 08:21 37.4 09/12/22 08:00 98 Nasal Cannula 2.00 09/12/22 07:58 107 I & O 09/13/22 07:00 Intake Total 4820 ml Output Total 2150 ml Balance 2670 ml Capillary Refill : Less Than 3 Seconds General Appearance: No Apparent Distress, Chronically ill, Obese HEENT: PERRL/EOMI, Moist Mucous Membranes Neck: Non Tender, Supple Respiratory: Lungs Clear, Normal Breath Sounds Cardiovascular: Regular Rate, Rhythm, No Murmur, Normal Peripheral Pulses, Irregularly Irregular Gastrointestinal: non tender, soft, hernia (umbilical) Extremity: No Calf Tenderness, Other (L. Foot Ulcer w/ Dressing on) Neurologic/Psychiatric: Alert Skin: Normal Color, Warm/Dry Lymphatic: No Adenopathy Results Lab Laboratory Tests 09/12/22 11:59: Glucometer 165H 09/12/22 15:07: Vancomycin Level Trough 13.5 09/12/22 16:00: Glucometer 170H 09/12/22 21:05: Glucometer 243H 09/13/22 05:13: White Blood Count 12.1H, Red Blood Count 3.16L, Hemoglobin 8.8L, Hematocrit 28L, Mean Corpuscular Volume 88, Mean Corpuscular Hemoglobin 28, Mean Corpuscular Hemoglobin Concent 32, Red Cell Distribution Width 14.3, Platelet Count 276, Mean Platelet Volume 10.8, Immature Granulocyte % (Auto) 1, Neutrophils (%) ( Auto) 76H, Lymphocytes (%) (Auto) 13, Monocytes (%) (Auto) 8, Eosinophils (%) (Auto) 2, Basophils (%) (Auto) 0, Neutrophils # (Auto) 9.3H, Lymphocytes # (Auto) 1.5, Monocytes # (Auto) 1.0, Eosinophils # (Auto) 0.2, Basophils # (Auto) 0.0, Immature Granulocyte # (Auto) 0.1, Prothrombin Time 34.3H, INR Comment 3.4H , Sodium Level 142, Potassium Level 3.9, Chloride Level 118H, Carbon Dioxide Level 14L, Anion Gap 10, Blood Urea Nitrogen 28H, Creatinine 2.17H, Estimat Glomerular Filtration Rate 30, BUN/Creatinine Ratio 13, Glucose Level 136H, Calcium Level 8.3L, Corrected Calcium 9.7, Total Bilirubin 0.4, Aspartate Amino Transf (AST/SGOT) 12, Alanine Aminotransferase (ALT/SGPT) 12, Alkaline Janes sphatase 63, Total Protein 5.6L, Albumin 2.2L Microbiology 09/11/22 Gram Stain, Resulted Pending 09/11/22 Wound Culture - Preliminary, Resulted Culture In Progress 09/11/22 Blood Culture - Preliminary, Resulted No growth Assessment/Plan Assessment/Plan Assessment/Plan Left foot abscess with osteomyelitis DM Long-term anticoagulation 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 He is anticoagulated with Coumadin, which was given last night at 1800. INR this AM is increased at 3.4 from 3.0 on admission. Will hold COumadin now. Need to reverse to go to OR today if possible. Clear liquids in am then likely NPO at noon. May need FFP to reverse coumadin. Patient and family understand need for surgical intervention and will need wound care postoperatively. They understand and agree with plan. MAKAYLA NIELSON DO 09/13/22 1452: Subjective Subjective/Events-last exam Doing well. No pain in left foot ath this time. NPO. Received FFP. Plan to or today. Denies n/v fever sweats chills shortness of breath or chest pain at this time. Objective Exam General Appearance: Chronically ill, Obese HEENT: Moist Mucous Membranes Neck: Non Tender, Supple Respiratory: Chest Non Tender, No Accessory Muscle Use Cardiovascular: No JVD, Irregularly Irregular Gastrointestinal: non tender, soft, hernia (umbilical) Extremity: Non Tender, No Calf Tenderness, Other (L. Foot Ulcer/ open wounds) Neurologic/Psychiatric: Alert, Oriented x3 Skin: Normal Color, Warm/Dry Lymphatic: No Adenopathy Assessment/Plan Assessment/Plan Assessment/Plan Left foot abscess with osteomyelitis of 2nd metatarsal head DM Long-term anticoagulation 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 He is anticoagulated with Coumadin, which was given last night at 1800. INR this AM is increased at 3.4 from 3.0 on admission. Will hold COumadin now. Need to reverse to go to OR today, give ffp NPO at noon. Patient and family understand need for surgical intervention and will need wound care postoperatively. They understand and agree with plan. Supervisory-Addendum Brief Verification & Attestation Participated in pt care: history, MDM, physical Personally performed: exam, history, MDM, supervision of care Care discussed with: Medical Student Procedures: n/a Results interpretation: Verified all documentation Verification and Attestation of Medical Student E/M Service A medical student performed and documented this service in my presence. I review ed and verified all information documented by the medical student and made modifications to such information, when appropriate. I personally performed the physical exam and medical decision making. Makayla Nielson, Sep 13, 2022,14:52 THUAN PERSAUD Sep 13, 2022 07:37 MAKAYLA NIELSON DO Sep 13, 2022 14:52
[2022-09-13] MEDS ORDERED: NS IV 500 ML 500 ML IV SCH (08:45)
--- NOTE | 2022-09-13 12:31 | Progress Note - Hospitalist ---
MAURICIO PARKINSON 09/13/22 1231: Subjective HPI/CC On Admission Date Seen by Provider: Sep 13, 2022 Time Seen by Provider: 08:00 Subjective/Events-last exam Pt states that he is doing well today. Tolerating pain; Pain of L. Foot is about 2/10 at rest and doesn't notice increase of pain when dressing are changed. General Surgery started patient on clears last night and planned for NPO status at noon. Pt denies fever, N/V/D, cough, congestion, and chest pain. Review of Systems General: No Chills, No Fatigue Pulmonary: No Dyspnea, No Cough, No Pleuritic Chest Pain Cardiovascular: No: Chest Pain Gastrointestinal: No: Nausea, Vomiting, Abdominal Pain, Diarrhea Focused Exam Lactate Level 09/11/22 13:35: Lactic Acid Level 5.13*H 09/11/22 15:55: Lactic Acid Level 1.48 Objective Exam Vital Signs Vital Signs Date Time Temp Pulse Resp B/P (MAP) Pulse Ox O2 Delivery O2 Flow Rate FiO2 09/13/22 08:00 Nasal Cannula 2.00 09/13/22 07:57 37.3 81 20 127/77 (94) 97 09/11/22 15:57 21 Capillary Refill : Less Than 3 Seconds General Appearance: No Apparent Distress Respiratory: Chest Non Tender, Lungs Clear, Normal Breath Sounds Cardiovascular: Regular Rate, Rhythm, Normal Peripheral Pulses Gastrointestinal: Non Tender, Soft Extremity: Inflammation (Osteomyletis of L. foot; Pain 2/10 ) Neurologic/Psychiatric: Alert, Oriented x3 Lymphatic: No Adenopathy Results/Procedures Lab Laboratory Tests 09/13/22 05:13 Patient resulted labs reviewed. Imaging: Reviewed Imaging Report Assessment/Plan Assessment and Plan Assess & Plan/Chief Complaint Yemi Freedman is a 82yo male presenting with Severe Sepsis Secondary to L. Foot Ulcer. Severe Sepsis SIRS +: Elevated WBC, Elevated Pulse Elevated Lactic Acid Continue IVF Continue Vancomycin and Cefepime Continue Metronidazole L. Foot Ulcer PMHx Diabetes Mellitus L. 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 suspicious for gout; no signs of osteomyelitis Ordered MRI 09/12/22 - Elevated ESR and C-Reactive Protein suspicious for possible osteomyelitis MRI- Abscess at stump and Osteomyelitis at distal 2nd metatarsal General Surgery Consulted Clears until Noon 09/13/22 then NPO FFP Warfarin Reversal Atrial Fibrillation Contine Diltiazem Warfarin Held DESTINEE on CKD BUN and Cr Improving Continue IVF Anemia Monitor H&H and Transfuse as needed KEMAR ORTIZ MD 09/13/22 1620: Subjective HPI/CC On Admission Time Seen by Provider: 10:20 Objective Exam General Appearance: No Apparent Distress, Obese Respiratory: Lungs Clear, No Respiratory Distress Cardiovascular: Regular Rate, Rhythm, No Murmur Gastrointestinal: Normal Bowel Sounds, Soft Extremity: Inflammation (Osteomyletis of L. foot; Pain 2/10 ), Other (bandage in place) Neurologic/Psychiatric: Alert, Oriented x3, Normal Mood/Affect Skin: Other (foot ulcer) Results/Procedures Imaging: Reviewed Imaging Films, Reviewed Imaging Report Assessment/Plan Assessment and Plan Assess & Plan/Chief Complaint MRI revealed abscess and osteomyelitis. Surgery consulted and planning for surgery today. Continue antibiotics. Diagnosis/Problems Diagnosis/Problems (1) Severe sepsis Status: Acute (2) Diabetic foot infection Status: Acute (3) Osteomyelitis of left foot Status: Acute (4) Abscess of left foot Status: Acute (5) T2DM (type 2 diabetes mellitus) Status: Acute Qualifiers: Qualified Codes: E11.621 - Type 2 diabetes mellitus with foot ulcer; L97.509 - Non-pressure chronic ulcer of other part of unspecified foot with unspecified severity (6) Afib Status: Chronic (7) On Coumadin for atrial fibrillation Status: Chronic (8) History of venous thromboembolism Status: Chronic (9) BPH (benign prostatic hyperplasia) Status: Chronic (10) CAD (coronary artery disease) Status: Chronic (11) HLD (hyperlipidemia) Status: Chronic (12) HTN (hypertension) Status: Chronic (13) Acute kidney injury superimposed on chronic kidney disease Status: Acute Supervisory-Addendum Brief Verification & Attestation Participated in pt care: history, MDM, physical Personally performed: exam, history, MDM, supervision of care Care discussed with: Medical Student Procedures: n/a Results interpretation: Verified all documentation A medical student performed and documented this service in my presence. I reviewed and verified all information documented by the medical student and made modifications to such information, when appropriate. I personally performed the physical exam and medical decision making. MAURICIO PARKINSON Sep 13, 2022 12:31 KEMAR ORTIZ MD Sep 13, 2022 16:20
[2022-09-13] MEDS ORDERED: LACTATED RINGERS 1,000 ML IV PRN (12:45)
[2022-09-13] MEDS ORDERED: WARF3TAB56 PO (13:28)
[2022-09-13] MEDS ORDERED: HYDR12.56 PO (13:28)
[2022-09-13] MEDS ORDERED: TIMO5DRO16 OU (13:28)
[2022-09-13] MEDS ORDERED: ATOR40TA70 PO (13:28)
[2022-09-13] MEDS ORDERED: GLIP10TA24 PO (13:28)
[2022-09-13] MEDS ORDERED: DIPH25TA65 PO (13:28)
[2022-09-13] MEDS ORDERED: METF-397 PO (13:28)
[2022-09-13] MEDS ORDERED: DILT240C91 PO (13:28)
[2022-09-13] MEDS ORDERED: TMSL.4C PO (13:28)
[2022-09-13] MEDS ORDERED: ACET-2267 PO (13:28)
[2022-09-13] MEDS ORDERED: LISI20TA26 PO (13:28)
[2022-09-13] MEDS ORDERED: fentaNYL INJ 100 MCG/2 ML AMP ONE (14:20)
[2022-09-13] MEDS ORDERED: BUPIVACAINE 0.5% 30 ML (SENSORCAINE) VIAL ONE (14:24)
[2022-09-13] MEDS ORDERED: NS IV 500 ML 500 ML IV PRN (14:45)
[2022-09-13] MEDS ORDERED: ONDANSETRON 4 MG/2 ML (SDV) Z0FRAN ONE (14:55)
[2022-09-13] MEDS ORDERED: proPOfol 200 MG/20 ML (DIPRIVAN) VIAL IV ONE (14:55)
[2022-09-13] MEDS ORDERED: TROUGH ORDER-PHARMACY XX ONE (15:00)
[2022-09-13] MEDS ORDERED: SEVOFLURANE (ULTANE) 15 ML INHAL SOLN ONE (15:29)
--- NOTE | 2022-09-13 15:33 | Progress Note-Post Operative ---
Post-Operative Progess Note Surgeon (s)/Sort Worker (s) Surgeon MAKAYLA FLORES DO Sort Worker: na Pre-Operative Diagnosis abscess and ulcer left foot, osteomyelitis of 2nd metatrsal head Post-Operative Diagnosis same Procedure & Operative Findings Date of Procedure 09/13/22 Procedure Performed/Findings Left ankle block, incision and drainage of left foot and 2nd metatarsal head amputation Anesthesia Type general Estimated Blood Loss Estimated blood loss (mL): minimal Specimens/Packing Specimens Removed 2nd metatarsal head left, culture abscess Packing: iodoform MAKAYLA FLORES DO Sep 13, 2022 15:33
[2022-09-13] MEDS: warFARin 3 MG (COUMADIN) TAB PO SCH (16:16)
[2022-09-13] MEDS: VANCOMYCIN 1 GM/NS 250 ML IVPB IV SCH ×2 (17:29)
[2022-09-13] MEDS: ACETAMINOPHEN 325 MG TABLET PO PRN (18:41)
--- NOTE | 2022-09-13 18:55 | Anesthesia-General Post-Op ---
General Patient Condition Mental Status/LOC: Same as Preop Cardiovascular: Satisfactory Nausea/Vomiting: Absent Respiratory: Satisfactory Pain: Controlled Complications: Absent Post Op Complications Complications None Follow Up Care/Instructions Patient Instructions None needed. Anesthesia/Patient Condition Patient Condition Patient is doing well, no complaints, stable vital signs, no apparent adverse anesthesia problems. No complications reported per nursing. VIRY SPENCER CRNA Sep 13, 2022 18:55
[2022-09-14] MEDS: metroNIDAZOLE 500MG/100ML IVPB 100 ML IV SCH (02:22)
[2022-09-14] MEDS: CEFEPIME INJECTION 1,000 MG in NS (IVPB) 50 ML IV SCH ×2 (02:23→13:53)
[2022-09-14 03:07] VITALS: BP 133/76
--- NOTE | 2022-09-14 03:26 | OPERATIVE REPORT ---
DATE OF SERVICE: 09/13/2022 P REOPERATIVE DIAGNOSES: 1. Abscess and ulcer, left foot. 2. Osteomyelitis, second metatarsal head. POSTOPERATIVE DIAGNOSES: 1. Abscess and ulcer, left foot. 2. Osteomyelitis, second metatarsal head. PROCEDURE: Left ankle block with incision and drainage of the left foot and second metatarsal head amputation. SURGEON: Makayla Nielson DO. ANESTHESIA: General. ESTIMATED BLOOD LOSS: Minimal. COMPLICATIONS: None. INDICATIONS: The patient is an 82-year-old male with abscess of the left foot. Also, MRI findings consistent with osteomyelitis. He had a previous second toe amputation. He has got an two open wounds, one on the dorsal aspect of the left foot at approximately the second metatarsal head and also one on the plantar surface that is near the second metatarsal head. The patient understands risks and benefits of procedure and wished to proceed. Consent was signed in chart. DESCRIPTION OF PROCEDURE: The patient was taken to the operating suite where he was prepped and draped in sterile fashion. Timeout was performed. Left ankle block was performed using Marcaine, a total of 20 mL was used in total posterior to the medial and lateral malleolus. Local anesthetic was infiltrated and then also infiltrated on the dorsum of the foot, pinning it across the top on the proximal portion. The area of fluctuance was present, which a tear drop incision was made around the area of fluctuance. Cautery was used to dissect down to subcutaneous tissues and purulent material erupted, culture was obtained. All this tissue was debrided and removed. This was extended to the plantar surface excising the open ulceration, this exposed the second metatarsal head well, which was rough and consistent with osteomyelitis. Proximal to this area, a cordless power saw was used to cut through the bone, removing the bone just proximal and the second metatarsal head. Hemostasis was achieved. The wound was irrigated with copious amounts of irrigation and packed with iodoform and sterile bandage was applied. The patient tolerated the procedure well without complications, taken to recovery room in stable condition. Job ID: [id number] DocumentID: [id number] Dictated Date: 09/13/2022 20:38:52 [employer] Specialist Date: 09/13/2022 23:59:00 Dictated By: MAKAYLA NIELSON DO [facility]
[2022-09-14] MEDS: inSUlin ASPART (NovoLOG) 1 UNIT/0.01 ML (CHARGE PER UNIT) SC SCH ×4 (05:23→20:55)
[2022-09-14 05:56] LABS: BASOPHILS % (AUTO) 0 % (0-10); EOSINOPHILS # (AUTO) 0.1 10^3/uL (0.0-0.3); EOSINOPHILS % (AUTO) 1 % (0-10); HEMATOCRIT 29 % (40-54); HEMOGLOBIN 9.2 g/dL (13.3-17.7); LYMPHOCYTES # (AUTO) 1.7 10^3/uL (1.0-4.0); LYMPHOCYTES % (AUTO) 12 % (12-44); MEAN CORPUSCULAR HEMOGLOBIN 28 pg (25-34); MEAN CORPUSCULAR HGB CONC 32 g/dL (32-36); MEAN CORPUSCULAR VOLUME 88 fL (80-99); MEAN PLATELET VOLUME 10.7 fL (9.0-12.2); MONOCYTES % (AUTO) 7 % (0-12); NEUTROPHILS # (AUTO) 11.2 10^3/uL (1.8-7.8); NEUTROPHILS % (AUTO) 79 % (42-75); PLATELET COUNT 311 10^3/uL (130-400); WHITE BLOOD COUNT 14.2 10^3/uL (4.3-11.0)
[2022-09-14 06:00] LABS: INR 2.5 (0.8-1.4); PROTHROMBIN TIME PATIENT 27.3 SEC (12.2-14.7)
[2022-09-14 06:13] LABS: ALBUMIN 2.3 GM/DL (3.2-4.5); BILIRUBIN,TOTAL 0.4 MG/DL (0.1-1.0); CALCIUM 8.5 MG/DL (8.5-10.1); CREATININE SERUM 2.18 MG/DL (0.60-1.30)
--- NOTE | 2022-09-14 07:24 | Progress Note - Surgery ---
THUAN PERSAUD 09/14/22 0723: Subjective Date Seen by a Provider: Sep 14, 2022 Time Seen by a Provider: 07:00 Subjective/Events-last exam Patient says he has no pain in his foot today. He has a sofia catheter in place. Last BM was yesterday afternoon prior to surgery according to patient. His r esponse to most questions was limited and he answered most with, "it's not too bad". Believe this is his baseline. Review of Systems General: No Chills, No Night Sweats HEENT: No Head Aches, No Dysphasia, No Sore Throat Pulmonary: Dyspnea; No Cough Cardiovascular: No: Chest Pain, Palpitations Gastrointestinal: No: Nausea, Vomiting, Abdominal Pain Genitourinary: No Hematuria; Other (sofia in place, no complaints) Musculoskeletal: No: neck pain, back pain Neurological: Confusion; No: Weakness, Numbness Focused Exam Lactate Level 09/11/22 13:35: Lactic Acid Level 5.13*H 09/11/22 15:55: Lactic Acid Level 1.48 Objective Exam Vital Signs Date Time Temp Pulse Resp B/P (MAP) Pulse Ox O2 Delivery O2 Flow Rate FiO2 09/14/22 03:07 37.0 88 22 133/76 (95) 98 Nasal Cannula 2.00 2.00 09/14/22 01:00 88 09/13/22 23:22 36.3 87 22 137/83 (101) 95 Nasal Cannula 2.00 2.00 09/13/22 20:43 124/60 (81) 09/13/22 20:00 Nasal Cannula 2.00 09/13/22 19:22 38.0 110 24 127/66 (86) 93 Nasal Cannula 2.00 09/13/22 19:00 118 09/13/22 18:28 Nasal Cannula 2.00 09/13/22 16:53 37.4 61 22 167/87 (113) 95 Nasal Cannula 2.00 09/13/22 16:46 118 09/13/22 16:35 Nasal Cannula 2.00 09/13/22 16:30 37.2 20 139/82 (101) 96 Nasal Cannula 2.00 09/13/22 16:30 Nasal Cannula 2.00 09/13/22 16:20 20 130/82 (98) 97 Nasal Cannula 2.00 09/13/22 16:15 Nasal Cannula 2.00 09/13/22 16:10 20 139/82 (101) 96 Nasal Cannula 3.00 09/13/22 16:00 Nasal Cannula 3.00 09/13/22 16:00 20 138/97 (111) 97 Nasal Cannula 3.00 09/13/22 15:50 20 120/70 (87) 98 OxyMask 6.00 09/13/22 15:45 OxyMask 6.00 09/13/22 15:38 OxyMask 6.00 09/13/22 15:38 37.2 21 118/77 (91) 100 OxyMask 6.00 09/13/22 13:09 84 09/13/22 12:00 36.8 74 20 142/71 (94) 98 Nasal Cannula 2.00 09/13/22 08:00 Nasal Cannula 2.00 09/13/22 07:57 37.3 81 20 127/77 (94) 97 Nasal Cannula 2.00 09/13/22 07:19 82 I & O 09/14/22 07:00 Intake Total 1740 ml Output Total 1325 ml Balance 415 ml Capillary Refill : Less Than 3 SecondsLess Than 3 Seconds General Appearance: No Apparent Distress, Obese HEENT: PERRL/EOMI, Moist Mucous Membranes Neck: Non Tender, Supple Respiratory: No Accessory Muscle Use, No Respiratory Distress, Wheezing (right lung) Cardiovascular: Regular Rate, Rhythm, No Murmur Gastrointestinal: non tender, soft, hernia (umbilical) Extremity: No Calf Tenderness, Inflammation (Osteomyletis of L. foot; Pain 2/10 ), Other (bandage in place) Neurologic/Psychiatric: Alert, Other (in response to orientation questions he just replied yes) Skin: Warm/Dry, Other (foot ulcer) Lymphatic: No Adenopathy Results Lab Laboratory Tests 09/13/22 11:13: Glucometer 183H 09/13/22 16:45: Vancomycin Level Trough 15.1 09/13/22 21:24: Glucometer 181H 09/14/22 05:05: Glucometer 125H 09/14/22 05:38: White Blood Count 14.2H, Red Blood Count 3.28L, Hemoglobin 9.2L, Hematocrit 29L, Mean Corpuscular Volume 88, Mean Corpuscular Hemoglobin 28, Mean Corpuscular Hemoglobin Concent 32, Red Cell Distribution Width 14.4, Platelet Count 311, Mean Platelet Volume 10.7, Immature Granulocyte % (Auto) 1, Neutrophils (%) (Auto) 79H, Lymphocytes (%) (Auto) 12, Monocytes (%) (Auto) 7, Eosinophils (%) (Auto) 1, Basophils (%) (Auto) 0, Neutrophils # (Auto) 11.2H, Lymphocytes # (Auto) 1.7, Monocytes # (Auto) 1.0, Eosinophils # (Auto) 0.1, Basophils # (Auto) 0.0, Immature Granulocyte # (Auto) 0.1, Prothrombin Time 27.3H, INR Comment 2.5H , Sodium Level 144, Potassium Level 4.0, Chloride Level 119H, Carbon Dioxide L evel 15L, Anion Gap 10, Blood Urea Nitrogen 26H, Creatinine 2.18H, Estimat G lomerular Filtration Rate 30, BUN/Creatinine Ratio 12, Glucose Level 130H, Calcium Level 8.5, Corrected Calcium 9.9, Total Bilirubin 0.4, Aspartate Amino Transf (AST/SGOT) 13, Alanine Aminotransferase (ALT/SGPT) 13, Alkaline Phosphatase 60, Total Protein 6.0L, Albumin 2.3L Microbiology 09/11/22 Gram Stain - Final, Resulted 09/11/22 Wound Culture - Preliminary, Resulted Gram Pos Mixed Bacterial Brie Staphylococcus aureus Testing In Progress 09/11/22 Blood Culture - Preliminary, Resulted No growth Assessment/Plan Assessment/Plan Assessment/Plan S/P I&D, 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 Left foot abscess with osteomyelitis of 2nd metatarsal head DM Long-term anticoagulation 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 He is anticoagulated with Coumadin, which was given last night at 1800. INR this AM is at 2.5 from 3.0 on admission, can restart Coumadin now Advance diet Wound care MAKAYLA NIELSON DO 09/14/222039: Subjective Subjective/Events-last exam No pain in foot currently. Doing well. Going to work with PT today. No new complaints. No family at bedside. Denies n/v fever sweats chills shortness of breath or chest pain. Objective Exam General Appearance: No Apparent Distress, Obese HEENT: PERRL/EOMI, Moist Mucous Membranes Neck: Non Tender, Supple Respiratory: Chest Non Tender, No Accessory Muscle Use, No Respiratory Distress Cardiovascular: Regular Rate, Rhythm, No JVD Gastrointestinal: non tender, soft, hernia (umbilical) Extremity: No Calf Tenderness, Other (bandage intact) Neurologic/Psychiatric: Alert, Normal Mood/Affect Skin: Warm/Dry Lymphatic: No Adenopathy Assessment/Plan Assessment/Plan Assessment/Plan S/P I&D, 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 Left foot abscess with osteomyelitis of 2nd metatarsal head DM Long-term anticoagulation Hx of 2nd left toe ampuation Abscess culture was positive for Staph aureus as well as gram positive mixed brie Antibiotic regimen- vancomycin, flagyl, cefepime doni to cultures He is anticoagulated with Coumadin, which was given last night at 1800. INR this AM is at 2.5 from 3.0 on admission, can restart Coumadin now Pain control Wound care Supervisory-Addendum Brief Verification & Attestation Participated in pt care: history, MDM, physical Personally performed: exam, history, MDM, supervision of care Care discussed with: Medical Student Procedures: n/a Results interpretation: Verified all documentation Verification and Attestation of Medical Student E/M Service A medical student performed and documented this service in my presence. I reviewed and verified all information documented by the medical student and made modifications to such information, when appropriate. I personally performed the physical exam and medical decision making. Makayla Nielson, Sep 14, 2022,20:40 THUAN PERSAUD Sep 14, 2022 07:23 MAKAYLA NIELSON DO Sep 14, 2022 20:40
[2022-09-14 07:25] VITALS: BP 129/64
[2022-09-14 08:28] VITALS: BP 129/64
--- NOTE | 2022-09-14 10:10 | Physical Therapy Evaluation ---
PT Evaluation-General Medical Diagnosis Admission Date Sep 11, 2022 at 16:19 Medical Diagnosis: Severe Sepsis Secondary to L. Foot Ulcer Onset Date: Sep 11, 2022 Therapy Diagnosis Therapy Diagnosis: Gait deficit, strength deficit Precautions Precautions/Isolations: Fall Prevention, Standard Precautions Weight Bear Status Right Lower Extremity: Right Full Weight Bearing Left Lower Extremity: Left Partial Weight Bearing Per Dr. Nielson verbal orders, heel-only weight bearing Referral Physician: Dr. Duke Reason for Referral: Evaluation/Treatment Medical History Reviewed History: Yes Social History Home: Multilevel Current Living Status: Alone Entry Into Home: Level Entry PT Steps Into Home: 0 PT Steps Inside Home: 14 Patient reports he has 14 steps inside his home to a second level and 3 steps down into his bedroom. Prior Prior Level of Function SCALE: Activities may be completed with or without assistive devices. 7-Hxqlsibvtz-xfyvicm completes the activity by him/herself with no assistance from a helper. 5-Set-up or Clean-up Assistance-helper sets up or cleans up; patient completes activity. [place] assists only prior to or following the activity. 4-Supervision or Touching Assistance-helper provides verbal cues and/or touching/steadying and/or contact guard assistance as patient completes activity. Assistance may be provided throughout the activity or intermittently. 3-Partial/Moderate Assistance-helper does LESS THAN HALF the effort. [place] lifts, holds or supports trunk or limbs, but provides less than half the effort. 2-Substantial/Maximal Assistance-helper does MORE THAN HALF the effort. [place] lifts or holds trunk or limbs and provides more than half the effort. 5-Kotfabbsd-yayzve does ALL the effort. Patient does none of the effort to complete the activity. Or, the assistance of 2 or more helpers is required for the patient to complete the activity. If activity was not attempted, code reason: 7-Patient Refused. 9-Not Applicable-not attempted and the patient did not perform the activity before the current illness, exacerbation or injury. 10-Not Attempted due to Environmental Limitations-(lack of equipment, weather restraints, etc.). 88-Not Attempted due to Medical Conditions or Safety Concerns. Bed Mobility: 6 Transfers (B,C,W/C): 6 Gait: 6 Stairs: 6 Indoor Mobility (Ambulation): Independent Stairs: Independent Prior Devices Use: None PT Evaluation-Current Objective Patient Orientation: Person, Place, Time, Situation Attachments: Ralph Catheter, IV ROM/Strength ROM Lower Extremities Left Ankle N/A; all other ROMs WFLs BLEs Strength Lower Extremities BLEs 3+/5 all planes except for left ankle, N/A Sensory Vision: Functional Hearing: Impaired Sensation Right Lower Extremit: Intact Sensation Left Lower Extremity: Intact Transfers Roll Left to Right (QC): 3 Sit to Lying (QC): 3 Lying to Sitting/Side of Bed(Q: 3 Sit to Stand (QC): 3 Chair/Qrb-hu-Hipir Xfer(QC): 3 Toilet Transfer (QC): 3 Gait Does the Patient Walk?: Yes Mode of Locomotion: Walk Anticipated Mode of Locomotion: Walk Walk 10 feet (QC): 3 Distance: 15 x 2 Gait Assistive Device: FWW Balance Sitting Static: Fair Sitting Dynamic: Fair Standing Static: Fair Standing Dynamic: Poor Assessment/Needs Patient performs all observed bed mobility and transfers with min A. Spoke with DR. Nielson regarding WBAT left LE order. Dr. Nielson states he wants the patient heel-only weight bearing. Patient was educated and given demonstration regarding heel only weight bearing with FWW. Patient ambulates 15 feet to the BR with FWW, with min a and verbal cues for safety, progression, heel-only weight bearing. Patient in chair post treatment with all needs met, nurse in the room and call light in reach. Rehab Potential: Fair PT Summer Internship Goals Long-Term Goals PT Summer Internship Goals Time Frame: Oct 01, 2022 Roll Left & Right (QC): 6 Sit to Lying (QC): 6 Lying-Sitting on Side/Bed(QC): 6 Sit to Stand (QC): 6 Chair/Tpo-os-Hndxe Xfer(QC): 6 Toilet Transfer (QC): 6 Does the Patient Walk: Yes Walk 10 feet (QC): 6 Walk 50ft with 2 Turns (QC): 6 Walk 150 ft (QC): 4 1 Step (curb) (QC): 4 4 Steps (QC): 4 PT Plan Problem List Problem List: Activity Tolerance, Functional Strength, Safety, Balance, Gait, Transfer, Bed Mobility, ROM Treatment/Plan Treatment Plan: Continue Plan of Care Treatment Plan: Bed Mobility, Education, Functional Activity Shin, Functional Strength, Group Therapy, Gait, Safety, Therapeutic Exercise, Transfers Treatment Duration: Oct 01, 2022 Frequency: 6 times per week Estimated Hrs Per Day: .25 hour per day Safety Risks/Education Patient Education: Gait Training, Transfer Techniques Teaching Recipient: Patient Teaching Methods: Demonstration, Discussion Response to Teaching: Verbalize Understanding, Return Demonstration Time Time In: 856 Time Out: 920 DATE: Sep 14, 2022 Total Billed Treatment Time: 24 Total Billed Treatment Visit, ASHER FIGUEROA JOHN A PT Sep 14, 2022 10:10
[2022-09-14 11:09] VITALS: BP 148/72
--- NOTE | 2022-09-14 12:08 | Progress Note - Hospitalist ---
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 Pt states that he is doing well and is breathing normal. Pt states L. Foot is about a 2/10. Pt was able to ambulate to restroom today. Pt denies fever, chills, N/V/D, and abdominal pain. Review of Systems General: No Chills HEENT: No Head Aches, No Visual Changes Pulmonary: No Dyspnea, No Cough Cardiovascular: No: Chest Pain Gastrointestinal: No: Nausea, Vomiting, Abdominal Pain, Diarrhea Focused Exam Lactate Level 09/11/22 13:35: Lactic Acid Level 5.13*H 09/11/22 15:55: Lactic Acid Level 1.48 Time of Focused Exam: 14:00 Objective Exam Vital Signs Vital Signs Date Time Temp Pulse Resp B/P (MAP) Pulse Ox O2 Delivery O2 Flow Rate FiO2 09/14/22 11:09 36.6 89 14 148/72 (97) 97 Nasal Cannula 2.00 09/11/22 15:57 21 Capillary Refill : Less Than 3 SecondsLess Than 3 Seconds Results/Procedures Lab Laboratory Tests 09/14/22 05:38 Patient resulted labs reviewed. Imaging: Reviewed Imaging Films, Reviewed Imaging Report Assessment/Plan Assessment and Plan Assess & Plan/Chief Complaint Yemi Freedman is a 82yo male presenting with Severe Sepsis Secondary to Abscess and Osteomyelitis. Severe Sepsis SIRS +: Elevated WBC, Elevated Pulse Elevated Lactic Acid Continue IVF Continue Vancomycin and Cefepime Continue Metronidazole Abscess and Acute Osteomyelitis MRI- Abscess at stump and Osteomyelitis at distal 2nd metatarsal General Surgery Consulted S/P I&D, Amputation distal 2nd metatarsal head Diabetes Mellitus Insulin Determir Insulin Sliding Scale Atrial Fibrillation Continue Diltiazem Restart Warfarin 24hr post Surgery DESTINEE on CKD BUN and Cr Improving Continue IVF Anemia Hgb Improved to 9.2 from 8.8 Monitor H&H and Transfuse as needed KEMAR ORTIZ MD 09/14/22 1540: Subjective HPI/CC On Admission Time Seen by Provider: 09:50 Objective Exam General Appearance: No Apparent Distress, Obese Respiratory: Lungs Clear, No Respiratory Distress Cardiovascular: Regular Rate, Rhythm, No Murmur Gastrointestinal: Normal Bowel Sounds, Soft Extremity: No Pedal Edema, Other (bandage in place) Neurologic/Psychiatric: Alert, Normal Mood/Affect Assessment/Plan Assessment and Plan Assess & Plan/Chief Complaint Continue antibiotics. Cultures growing Staph aureus, Strep mitus, gram negative carissa. Will adjust antibiotics when final cultures return. Increase insulin to improve glycemic control. IRU evaluation ordered. Diagnosis/Problems Diagnosis/Problems (1) Severe sepsis Status: Acute (2) Diabetic foot infection Status: Acute (3) Osteomyelitis of left foot Status: Acute (4) Abscess of left foot Status: Acute (5) T2DM (type 2 diabetes mellitus) Status: Acute Qualifiers: Qualified Codes: E11.621 - Type 2 diabetes mellitus with foot ulcer; L97.509 - Non-pressure chronic ulcer of other part of unspecified foot with unspecified severity (6) Acute kidney injury superimposed on chronic kidney disease Status: Acute (7) Afib Status: Chronic (8) On Coumadin for atrial fibrillation Status: Chronic (9) History of venous thromboembolism Status: Chronic Supervisory-Addendum Brief Verification & Attestation Participated in pt care: history, MDM, physical Personally performed: exam, history, MDM, supervision of care Care discussed with: Medical Student Procedures: n/a Results interpretation: Verified all documentation A medical student performed and documented this service in my presence. I reviewed and verified all information documented by the medical student and made modifications to such information, when appropriate. I personally performed the physical exam and medical decision making. MAURICIO PARKINSON Sep 14, 2022 12:08 KEMAR ORTIZ MD Sep 14, 2022 15:40
[2022-09-14] MEDS: HYPOCHLOROUS ACID/NaCl (VASHE) 250 ML IR PRN ×2 (13:51→22:09)
--- NOTE | 2022-09-14 13:52 | Occupational Therapy Eval ---
OT Evaluation-General/PLF Medical Diagnosis Admission Date Sep 11, 2022 at 16:19 Medical Diagnosis: Severe Sepsis Secondary to L. Foot Ulcer Onset Date: Sep 11, 2022 Therapy Diagnosis Therapy Diagnosis: weakness, need for assistance with personal care Precautions Precautions/Isolations: Fall Prevention, Standard Precautions, Pressure Ulcer Weight Bear Status Weight Bearing Restriction: Non Weight Bearing Location Restriction: LT FOOT (may WB on heel only) Referral Physician: Dr. Duke Referral Reason: Self Care, Evaluation/Treatment, Strengthening/ROM Medical History Additional Medical History DM, CKD Current History 82yo male presenting with Severe Sepsis Secondary to Abscess and Osteomyelitis. 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 7-Otxqykieun-gjvgghj completes the activity by him/herself with no assistance from a helper. 5-Set-up or Clean-up Assistance-helper sets up or cleans up; patient completes activity. [place] assists only prior to or following the activity. 4-Supervision or Touching Assistance-helper provides verbal cues and/or touching/steadying and/or contact guard assistance as patient completes activity. Assistance may be provided throughout the activity or intermittently. 3-Partial/Moderate Assistance-helper does LESS THAN HALF the effort. [place] lifts, holds or supports trunk or limbs, but provides less than half the effort. 2-Substantial/Maximal Assistance-helper does MORE THAN HALF the effort. [place] lifts or holds trunk or limbs and provides more than half the effort. 6-Gqnryqclv-ytyzrz does ALL the effort. Patient does none of the effort to complete the activity. Or, the assistance of 2 or more helpers is required for the patient to complete the activity. If activity was not attempted, code reason: 7-Patient Refused. 9-Not Applicable-not attempted and the patient did not perform the activity before the current illness, exacerbation or injury. 10-Not Attempted due to Environmental Limitations-(lack of equipment, weather restraints, etc.). 88-Not Attempted due to Medical Conditions or Safety Concerns. Self Care: Independent Functional Cognition: Independent Patient reports he is making grandchildren rounds throughout the [facility] OT Current Status Subjective Up in recliner, agreeable to OT Pain Numeric Pain Scale: 2 Mental Status/Objective Patient Orientation: Person, Place, Situation Current Upper Extremity ROM BUE ROM WFLS Upper Extremity Coordination INTACT Upper Extremity Sensation IMPAIRED LE SENSATION Upper Extremity Strength -4/5 BUE ADL-Treatment Eating (QC): 6 Oral Hygiene (QC): 5 (SITTING) Shower/Bathe Self (QC): 7 (WOUND) Upper Body Dressing (QC): 4 Lower Body Dressing (QC): 3 On/Off Footwear (QC): 3 Toileting Hygiene (QC): 3 Education OT Patient Education: Correct positioning, Energy conservation, Exercise program, Modified ADL techniques, Progress toward Goal/Update tx plan, Purpose of tx/functional activities, Reviewed precautions, Rehab process, Safety issues, Transfer techniques Teaching Recipient: Patient, Family (DAUGHTER) Teaching Methods: Demonstration, Discussion Response to Teaching: Reinforcement Needed OT Jail Goals Jail Goals Eating (QC): 6 Oral Hygiene (QC): 6 Toileting Hygiene (QC): 6 Shower/Bathe Self (QC): 6 Upper Body Dressing (QC): 6 Lower Body Dressing (QC): 6 On/Off Footwear (QC): 6 1=Demonstrate adherence to instructed precautions during ADL tasks. 2=Patient will verbalize/demonstrate understanding of assistive devices/modifications for ADL. 3=Patient will improve strength/tolerance for activity to enable patient to perform ADL's. OT Education/Plan Problem List/Assessment Assessment: Decreased Activ Tolerance, Decreased Safety Aware, Decreased UE Strength, Impaired Self-Care Skills Discharge Recommendations Plan/Recommendations: Continue POC Treatment Plan/Plan of Care Treatment,Training & Education: Yes Patient would benefit from OT for education, treatment and training to promote independence in ADL's, mobility, safety and/or upper extremity function for ADL's. Plan of Care: ADL Retraining, Caregiver Training, Functional Mobility, Group Exercise/Act as Ind, UE Funct Exercise/Act Treatment Duration: Sep 24, 2022 Frequency: 3 times per week (3-5 TIMES PER WEEK) Estimated Hrs Per Day: .25 hour per day Rehab Potential: Fair Time Start Time: 11:27 Stop Time: 11:40 DATE: Sep 14, 2022 Total Time Billed (hr/min): 13 Billed Treatment Time EVM 13 MIN JAMISON HERRING OT Sep 14, 2022 13:52
[2022-09-14] MEDS: ceFAZolin INJECTION 2,000 MG in NS (IVPB) 50 ML IV SCH ×2 (13:53→23:53)
[2022-09-14] MEDS ORDERED: TROUGH ORDER-PHARMACY XX ONE (15:00)
[2022-09-14 15:20] VITALS: BP 126/69
[2022-09-14] MEDS: VANCOMYCIN 1 GM/NS 250 ML IVPB IV SCH ×2 (17:06)
[2022-09-14] MEDS: warFARin 3 MG (COUMADIN) TAB PO SCH (17:17)
[2022-09-14 20:06] VITALS: BP 117/73
[2022-09-15] VITALS: BP 119/72
[2022-09-15] MEDS: CEFEPIME INJECTION 1,000 MG in NS (IVPB) 50 ML IV SCH (02:11)
[2022-09-15 04:00] VITALS: BP 126/64
[2022-09-15 05:20] LABS: BASOPHILS % (AUTO) 0 % (0-10); EOSINOPHILS # (AUTO) 0.4 10^3/uL (0.0-0.3); EOSINOPHILS % (AUTO) 3 % (0-10); HEMATOCRIT 26 % (40-54); HEMOGLOBIN 8.2 g/dL (13.3-17.7); LYMPHOCYTES # (AUTO) 1.8 10^3/uL (1.0-4.0); LYMPHOCYTES % (AUTO) 15 % (12-44); MEAN CORPUSCULAR HEMOGLOBIN 28 pg (25-34); MEAN CORPUSCULAR HGB CONC 32 g/dL (32-36); MEAN CORPUSCULAR VOLUME 88 fL (80-99); MEAN PLATELET VOLUME 10.6 fL (9.0-12.2); MONOCYTES # (AUTO) 0.7 10^3/uL (0.0-1.0); MONOCYTES % (AUTO) 6 % (0-12); NEUTROPHILS # (AUTO) 9.5 10^3/uL (1.8-7.8); NEUTROPHILS % (AUTO) 75 % (42-75); PLATELET COUNT 299 10^3/uL (130-400); WHITE BLOOD COUNT 12.6 10^3/uL (4.3-11.0)
[2022-09-15 05:29] LABS: INR 2.6 (0.8-1.4); PROTHROMBIN TIME PATIENT 28.6 SEC (12.2-14.7)
[2022-09-15 05:44] LABS: ALBUMIN 2.1 GM/DL (3.2-4.5); BILIRUBIN,TOTAL 0.2 MG/DL (0.1-1.0); CALCIUM 8.3 MG/DL (8.5-10.1); CREATININE SERUM 2.27 MG/DL (0.60-1.30); POTASSIUM 3.7 MMOL/L (3.6-5.0); TOTAL PROTEIN 5.7 GM/DL (6.4-8.2)
[2022-09-15] MEDS: inSUlin ASPART (NovoLOG) 1 UNIT/0.01 ML (CHARGE PER UNIT) SC SCH (05:53)
[2022-09-15 08:15] VITALS: BP 143/72
--- NOTE | 2022-09-15 08:51 | Progress Note - Surgery ---
THUAN PERSAUD 09/15/22 0851: Subjective Date Seen by a Provider: Sep 15, 2022 Time Seen by a Provider: 07:35 Subjective/Events-last exam Patient resting comfortably in bed. Denies any pain to his left foot or toe. Dressing was taken down today, there was a small amount of purulent fluid presen t in the wound. Patient does not have any other complaints at this time. Review of Systems General: No Chills, No Night Sweats HEENT: No Head Aches, No Visual Changes Pulmonary: No Dyspnea, No Cough Cardiovascular: No: Chest Pain, Palpitations Gastrointestinal: No: Nausea, Vomiting, Abdominal Pain Genitourinary: No Hematuria; Other (sofia in place) Musculoskeletal: No: leg pain, foot pain Neurological: Confusion; No: Change in speech Focused Exam Time of Focused Exam: 14:00 Objective Exam Vital Signs Date Time Temp Pulse Resp B/P (MAP) Pulse Ox O2 Delivery O2 Flow Rate FiO2 09/15/22 08:15 36.7 88 16 143/72 (95) 97 Nasal Cannula 2.00 09/15/22 07:00 77 09/15/22 04:00 36.6 85 20 126/64 (84) 96 Nasal Cannula 2.00 09/15/22 01:00 80 09/15/22 00:00 36.9 83 20 119/72 (88) 97 Nasal Cannula 2.00 09/14/22 20:55 Nasal Cannula 2.00 09/14/22 20:06 36.4 90 22 117/73 (88) 97 Nasal Cannula 2.00 09/14/22 19:00 90 09/14/22 15:20 37.4 90 20 126/69 (88) 98 Nasal Cannula 2.00 09/14/22 13:02 88 09/14/22 11:09 36.6 89 14 148/72 (97) 97 Nasal Cannula 2.00 09/14/22 09:11 95 Nasal Cannula 2.00 I & O 09/15/22 07:00 Intake Total 1930 ml Output Total 1450 ml Balance 480 ml Capillary Refill : Less Than 3 SecondsLess Than 3 Seconds General Appearance: No Apparent Distress, Chronically ill, Obese HEENT: PERRL/EOMI, Moist Mucous Membranes Neck: Non Tender, Supple Respiratory: No Accessory Muscle Use, No Respiratory Distress Cardiovascular: Regular Rate, Rhythm, No Murmur Peripheral Pulses: 2+ Dorsalis Pedis (R), 2+ Left Dors-Pedis (L), 2+ Radial Pulses (R), 2+ Radial Pulses (L) Gastrointestinal: non tender, soft, hernia (umbilical) Extremity: No Calf Tenderness, Other (dressing and bandage taken down this AM, purulent fluid can be expressed from the proximal edge of the wound) Neurologic/Psychiatric: Alert, Normal Mood/Affect Skin: Normal Color, Warm/Dry Lymphatic: No Adenopathy Results Lab Laboratory Tests 09/14/22 11:34: Glucometer 193H 09/14/22 15:15: Vancomycin Level Trough 11.7 09/14/22 15:18: Glucometer 190H 09/14/22 20:27: Glucometer 192H 09/15/22 05:03: White Blood Count 12.6H, Red Blood Count 2.94L, Hemoglobin 8.2L, Hematocrit 26L, Mean Corpuscular Volume 88, Mean Corpuscular Hemoglobin 28, Mean Corpuscular Hemoglobin Concent 32, Red Cell Distribution Width 14.9H, Platelet Count 299, Mean Platelet Volume 10.6, Immature Granulocyte % (Auto) 1, Neutrophils (%) (Auto) 75, Lymphocytes (%) (Auto) 15, Monocytes (%) (Auto) 6, Eosinophils (%) (Auto) 3, Basophils (%) (Auto) 0, Neutrophils # (Auto) 9.5H, Lymphocytes # (Auto) 1.8, Monocytes # (Auto) 0.7, Eosinophils # (Auto) 0.4H, Basophils # (Auto) 0.0, Immature Granulocyte # (Auto) 0.2H, Prothrombin Time 28.6H, INR Comment 2.6H, Sodium Level 141, Potassium Level 3.7, Chloride Level 116H, Carbon Dioxide Level 16L, Anion Gap 9, Blood Urea Nitrogen 28H, Creatinine 2.27H, Estimat Glomerular Filtration Rate 28, BUN/Creatinine Ratio 12, Glucose Level 120H, Calcium Level 8.3L, Corrected Calcium 9.8, Total Bilirubin 0.2, Aspartate Amino Transf (AST/SGOT) 15, Alanine Aminotransferase (ALT/SGPT) 12, Alkaline Phosphatase 58, Total Protein 5.7L, Albumin 2.1L Microbiology 09/13/22 Gram Stain - Final, Resulted 09/13/22 Anaerobic Culture, Resulted Pending 09/13/22 Surgical Culture - Preliminary, Resulted Staphylococcus aureus Streptococcus mitis 09/11/22 Blood Culture - Preliminary, Resulted No growth Assessment/Plan Assessment/Plan Assessment/Plan S/P I&D, 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 Will change if needed based on culture and sensitivity He is anticoagulated with Coumadin, which was given last night at 1800. INR this AM is at 2.6 from 3.0 on admission, can restart Coumadin now Pain control as needed, has not needed anything for pain for last 2 days Wound care MAKAYLA NIELSON DO 09/15/22 0946: Subjective Subjective/Events-last exam Pain controlled. No pain in left foot. Denies n/v fever sweats chills shortness of breath or chest pain. Objective Exam General Appearance: No Apparent Distress, Chronically ill, Obese HEENT: PERRL/EOMI, Normal ENT Inspection Neck: Non Tender, Supple Respiratory: Chest Non Tender, No Accessory Muscle Use, No Respiratory Distress Cardiovascular: Regular Rate, Rhythm, No JVD Gastrointestinal: non tender, soft, hernia (umbilical) Extremity: Normal Inspection, No Calf Tenderness, Other (dressing and bandage taken down this AM, scant purulent fluid can be expressed from the proximal edge of the wound) Neurologic/Psychiatric: Alert, Normal Mood/Affect Skin: Normal Color, Warm/Dry Lymphatic: No Adenopathy Assessment/Plan Assessment/Plan Assessment/Plan S/P I&D, 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 Left foot abscess with osteomyelitis of 2nd metatarsal head DM Long-term anticoagulation Hx of 2nd left toe ampuation Abscess culture was positive for Staph aureus, Strep mitis, and a gram negative carissa Antibiotics He is anticoagulated with Coumadin Pain control as needed, has not needed anything for pain for last 2 days Wound care Supervisory-Addendum Brief Verification & Attestation Participated in pt care: history, MDM, physical Personally performed: exam, history, MDM, supervision of care Care discussed with: Medical Student Procedures: n/a Results interpretation: Verified all documentation Verification and Attestation of Medical Student E/M Service A medical student performed and documented this service in my presence. I reviewed and verified all information documented by the medical student and made modifications to such information, when appropriate. I personally performed the physical exam and medical decision making. Makayla Nielson, Sep 15, 2022,09:46 THUAN PERSAUD Sep 15, 2022 08:51 MAKAYLA NIELSON DO Sep 15, 2022 09:46
[2022-09-15 09:58] VITALS: BP 143/72
--- NOTE | 2022-09-15 10:09 | Physician Query Clarification ---
Physician Query-General Query to Physician: The medical record reflects the following clinical evidence: Clinical Indicators: Documentation by nursing confusion with GCS of 14 on admission, after of treatment several days Treatment oriented x4 with GCS of 15, presented to ER due to fall and confusion, CT head cervical spine with no findings to explain acute confusion Risk Factor(s): Severe diabetic foot infection with sepsis, advanced age Treatment: Neuro monitoring, CT head and spine, IV antibiotics and fluids for sepsis, surgery consult for foot infection management Metabolic encephalopathy, present on admission now resolved Other explanation of clinical findings Unable to determine (no explanation for clinical findings) Please clarify and document your clinical opinion in the progress notes and discharge summary including the definitive and/or presumptive diagnosis, (suspected or probable), related to the above clinical findings. Please include clinical findings supporting your diagnosis. Kristina Chauhan, MSN, RN Clinical [employer] Person [phone] [email or web address] PHYSICIAN RESPONSE: Based on the clinical findings in the record, please respond to the query above on this document as an addendum. Physician Response: Physician Response Septic encephalopathy, resolved If you have questions please contact: Donor Relations Manager: Ext: Thank you for your time and cooperation. Clinical [employer] Person/Donor Relations Manager This is a permanent part of the medical record KRISTINA CHAUHAN Sep 15, 2022 10:09 KEMAR ORTIZ MD October 12, 2022 17:27
--- NOTE | 2022-09-15 13:59 | Discharge Summary ---
MAURICIO PARKINSON 09/15/22 1359: Diagnosis/Chief Complaint Date of Admission Sep 11, 2022 at 16:19 Date of Discharge Sep 15, 2022 at 10:00 Discharge Date: Sep 15, 2022 Admission Diagnosis Severe Sepsis secondary to Left Foot Ulcer Primary Care No,Local Physician Discharge Diagnosis (1) Severe sepsis Status: Acute (2) Diabetic foot infection Status: Acute (3) Osteomyelitis of left foot Status: Acute (4) Abscess of left foot Status: Acute (5) T2DM (type 2 diabetes mellitus) Status: Acute (6) Acute kidney injury superimposed on chronic kidney disease Status: Acute (7) Afib Status: Chronic (8) On Coumadin for atrial fibrillation Status: Chronic (9) History of venous thromboembolism Status: Chronic Discharge Summary Discharge Physical Exam Allergies: Coded Allergies: No Known Drug Allergies (Unverified , 09/15/22) Vitals & I&Os Vital Signs Date Time Temp Pulse Resp B/P (MAP) Pulse Ox O2 Delivery O2 Flow Rate FiO2 09/15/22 09:58 36.7 88 16 143/72 97 Nasal Cannula 2.00 09/11/22 15:57 21 General Appearance: No Apparent Distress Respiratory: Chest Non Tender, Lungs Clear, Normal Breath Sounds Cardiovascular: Regular Rate, Rhythm, Normal Peripheral Pulses Gastrointestinal: Normal Bowel Sounds, Non Tender, Soft Extremity: No Calf Tenderness, Pedal Edema (2+), Other (Tenderness of L. Tibia; 2/10 pain ) Skin: Normal Color, Warm/Dry Neurologic/Psychiatric: Alert, Oriented x3 Hospital Course Yemi Freedman is a 82yo male poor historian w/ past medical history of DM and CAD whom presented to ED due to fall and confusion occurring September 11, 2022. Pt denied any LOC but doesn't recall all the details about his fall. Upon being admitted pt was diagnosed Severe Sepsis Secondary to L. Foot Ulcer. Pt didn't s milligan length of time since ulcer first presented, but recently came back from [place] and stated that it was there since. Per ED, pt's daughter claimed there was drainage from the ulcer. L. Foot X-ray didn't show signs of osteomyelitits, but due to elevated inflammatory markers an MRI was ordered. MRI showed abscess on stump and osteomyelitis of 2nd metatarsal. Surgery consulted 09/12/22; Warfarin was held but due to elevated INR patient received FFP for reversal. I&D of abscess and amputation of metatarsal head was performed by General Surgery 09/13/22. Since procedure pt has been doing well and ambulating on heel of left foot. While Yemi Freedman was admitted, we also treated his Diabetes Mellitus, Atrial Fibrillation, and DESTINEE on CKD. DESTINEE on CKD continued to improve during his stay. Pt in set for inpatient rehab today. Labs (last 24 hrs) Laboratory Tests 09/14/22 15:15: Vancomycin Level Trough 11.7 09/14/22 15:18: Glucometer 190H 09/14/22 20:27: Glucometer 192H 09/15/22 05:03: White Blood Count 12.6H, Red Blood Count 2.94L, Hemoglobin 8.2L, Hematocrit 26L, Mean Corpuscular Volume 88, Mean Corpuscular Hemoglobin 28, Mean Corpuscular Hemoglobin Concent 32, Red Cell Distribution Width 14.9H, Platelet Count 299, Mean Platelet Volume 10.6, Immature Granulocyte % (Auto) 1, Neutrophils (%) (Auto) 75, Lymphocytes (%) (Auto) 15, Monocytes (%) (Auto) 6, Eosinophils (%) (Auto) 3, Basophils (%) (Auto) 0, Neutrophils # (Auto) 9.5H, Lymphocytes # (Auto) 1.8, Monocytes # (Auto) 0.7, Eosinophils # (Auto) 0.4H, Basophils # (Auto) 0.0, Immature Granulocyte # (Auto) 0.2H, Prothrombin Time 28.6H, INR Comment 2.6H, Sodium Level 141, Potassium Level 3.7, Chloride Level 116H, Carbon Dioxide Level 16L, Anion Gap 9, Blood Urea Nitrogen 28H, Creatinine 2.27H, Estimat Glomerular Filtration Rate 28, BUN/Creatinine Ratio 12, Glucose Level 120H, Calcium Level 8.3L, Corrected Calcium 9.8, Total Bilirubin 0.2, Aspartate Amino Transf (AST/SGOT) 15, Alanine Aminotransferase (ALT/SGPT) 12, Alkaline Phosphatase 58, Total Protein 5.7L, Albumin 2.1L Microbiology 09/13/22 Gram Stain - Final, Resulted 09/13/22 Anaerobic Culture, Resulted Pending 09/13/22 Surgical Culture - Preliminary, Resulted Staphylococcus aureus Streptococcus mitis 09/11/22 Blood Culture - Preliminary, Resulted No growth Patient resulted labs reviewed. Imaging: Reviewed Imaging Films, Reviewed Imaging Report Discussion & Recommendations Discharge Planning: <30 minutes discharge planning Discharge Home Medications: Active Scripts Active Reported Benadryl Allergy (Diphenhydramine HCl) 25 Mg Tablet 25 Mg PO Q6H PRN Tylenol Extra Strength (Acetaminophen) 500 Mg Tablet 1,000 Mg PO Q8H PRN Flomax (Tamsulosin HCl) 0.4 Mg Cap 0.4 Mg PO HS Timolol Maleate 0.5% (Timolol Maleate) 0.5 % Drops 1 Drop OU HS Hydrochlorothiazide 12.5 Mg Tablet 12.5 Mg PO DAILY Atorvastatin Calcium 40 Mg Tablet 20 Mg PO DAILY TAKES OF A 40NG Glipizide ER (Glipizide) 10 Mg Tab.er.24 10 Mg PO BID Warfarin Sodium 3 Mg Tablet 3 Mg PO HS Diltiazem 24Hr ER (Diltiazem HCl) 240 Mg Cap.er.24h 240 Mg PO BID Metformin HCl 500 Mg Tablet 500 Mg PO BID Lisinopril 20 Mg Tablet 20 Mg PO DAILY Instructions to patient/family Please see electronic discharge instructions given to patient. KEMAR ORTIZ MD 09/15/22 1440: Diagnosis/Chief Complaint Discharge Time: 10:30 Discharge Summary Discharge Physical Exam Allergies: Coded Allergies: No Known Drug Allergies (Unverified , 09/15/22) Hospital Course Imaging: Reviewed Imaging Films, Reviewed Imaging Report Discussion & Recommendations Discharge Planning: >30 minutes discharge planning Supervisory-Addendum Brief Verification & Attestation Participated in pt care: history, MDM, physical Personally performed: exam, history, MDM, supervision of care Care discussed with: Medical Student Procedures: n/a Results interpretation: Verified all documentation A medical student performed and documented this service in my presence. I revie wed and verified all information documented by the medical student and made modifications to such information, when appropriate. I personally performed the physical exam and medical decision making. Problem Qualifiers (1) T2DM (type 2 diabetes mellitus): Diabetes mellitus longterm insulin use: without longterm use Diabetes mellitus complication status: with skin complications Diabetes mellitus complication detail: with foot ulcer Qualified Codes: E11.621 - Type 2 diabetes mellitus with foot ulcer; L97.509 - Non-pressure chronic ulcer of other part of unspecified foot with unspecified severity MAURICIO PARKINSON Sep 15, 2022 13:59 KEMAR ORTIZ MD Sep 15, 2022 14:40
[2022-09-24] MEDS ORDERED: TIMO5DRO16 OU (12:39)
--- NOTE | 2022-09-26 15:05 | Physician Query Clarification ---
PQ-Further Specificity Admission/Discharge Admission Date: Sep 11, 2022 at 16:19 Discharge Date: Sep 15, 2022 at 10:00 Dr. Castro, The medical record reflects the following clinical scenario: History/Risk Factors: Severe sepsis, DM ulcer Lt foot, abscess Lt 2nd toe amputation site, DM acute osteomyelitis Lt 2nd metatarsal head Clinical Findings: Albumin 2.4 > 2.1 Treatment: Protein supplementation Question: Can you further specify the severity of the PEM per the clinical indicators above? Please document a response in the Progress Notes or Discharge Summary. 1. Severe 2. Moderate 3. Mild 4. Other, with explanation of the clinical findings. 5. Clinically undetermined, no explanation for the clinical findings. PHYSICIAN RESPONSE Can you specify per above: Other, explanation/clinical finding (See explanation) Explanation/Clinical Findings I amended my notes to reflect moderate protein energy malnutrition based on lowest albumin of 2.1. Thanks! In responding to this query, please exercise your independent professional judgment. The purpose of this communication is to more accurately reflect the complexity of your patients condition. The fact that a question is asked does not imply that any particular answer is desired or expected. Thank you for your timely response to this clarification. Requestors name: Jeison THIS PHYSICIAN QUERY FORM IS A PERMANENT PART OF THE MEDICAL RECORD JEISON ROTHMAN Sep 26, 2022 15:05 MONTY CASTRO MD October 06, 2022 09:11
== END 2022-09-15 10:00 | DRG 853 ==
LOC: ER 13:32 → CSD 16:19 → 4TH 09-13 15:00
PROVIDERS: ADMIT Family Medicine; ATTEND Internal Medicine
PROC: 0JBR0ZZ Excision of Left Foot Subcutaneous Tissue and Fascia, Open Approach (ICD-10-PCS; 2022-09-13)
PROC: 0J9R0ZZ Drainage of Left Foot Subcutaneous Tissue and Fascia, Open Approach (ICD-10-PCS; 2022-09-13)
PROC: 0Y6N0ZB Detachment at Left Foot, Partial 2nd Ray, Open Approach (ICD-10-PCS; principal; 2022-09-13 14:51)
DX: A41.01 Sepsis due to Methicillin susceptible Staphylococcus aureus (principal); G93.41 Metabolic encephalopathy; E44.0 Moderate protein-calorie malnutrition; E87.20 Acidosis, unspecified; T87.44 Infection of amputation stump, left lower extremity; L02.612 Cutaneous abscess of left foot; M86.172 Other acute osteomyelitis, left ankle and foot; N17.9 Acute kidney failure, unspecified; A40.8 Other streptococcal sepsis; R65.20 Severe sepsis without septic shock; E11.69 Type 2 diabetes mellitus with other specified complication; Z79.84 Long term (current) use of oral hypoglycemic drugs; E11.65 Type 2 diabetes mellitus with hyperglycemia; I12.9 Hypertensive chronic kidney disease with stage 1 through stage 4 chronic kidney disease, or unspecified chronic kidney disease; E11.22 Type 2 diabetes mellitus with diabetic chronic kidney disease; N18.9 Chronic kidney disease, unspecified; I25.10 Atherosclerotic heart disease of native coronary artery without angina pectoris; I48.91 Unspecified atrial fibrillation; Z79.01 Long term (current) use of anticoagulants; D64.9 Anemia, unspecified; Z68.32 Body mass index [BMI] 32.0-32.9, adult; H54.7 Unspecified visual loss; N40.0 Benign prostatic hyperplasia without lower urinary tract symptoms; Z87.891 Personal history of nicotine dependence; Z86.718 Personal history of other venous thrombosis and embolism; Z20.822 Contact with and (suspected) exposure to COVID-19; Z79.899 Other long term (current) drug therapy
CPT/HCPCS: 36415; 51702; 70450; 71045; 72125; 72170; 73630; 80053; 80202; 81000; 82150; 82550; 82553; 82728; 82947; 83036; 83540; 83550; 83605; 83690; 83735; 83874; 83880; 84484; 85007; 85025; 85027; 85610; 85652; 85730; 86141; 86900; 86901; 87040; 87070; 87075; 87076; 87077; 87185; 87186; 87205; 87636; 88305; 88311; 93005; 93041; 96361; 96365; 96375

== ENCOUNTER 2022-09-15 10:30 | Inpatient (IN) | payer MEDICARE ==
[~2022-09-15] VITALS: Ht 170.2 cm; Wt 87.5 kg
--- NOTE | 2022-09-15 09:10 | Progress Note ---
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 He had an I&D of his foot abscess, and amputation of his 2nd metatarsal on 09/[address] Nielson. Cultures from his wound and 2nd metatarsal on 09/11 have revealed S. aureus and S. mitis in both, with Gram (-) carissa also in the wound culture. Final results and sensitivities are still pending at this time. He has been receiving IV abx. When seen this morning, he was lying in bed doing well on 2L O2. He reports living at home by himself and being independent in all activities. He is not on O2 at home. He reports having some SOB this morning and have 2-3/10 left foot pain at site of amputation. He denied headache, CP, palpitations, SOB, abd pain, N/V/D. He had some difficulties answering questions about his medical history this morning so what information I have comes from a mixture of Pt. and previous reports. MED: Home Meds Active Reported Benadryl Allergy (Diphenhydramine HCl) 25 Mg Tablet 25 Mg PO Q6H PRN Tylenol Extra Strength (Acetaminophen) 500 Mg Tablet 1,000 Mg PO Q8H PRN Flomax (Tamsulosin HCl) 0.4 Mg Cap 0.4 Mg PO HS Timolol Maleate 0.5% (Timolol Maleate) 0.5 % Drops 1 Drop OU HS Hydrochlorothiazide 12.5 Mg Tablet 12.5 Mg PO DAILY Atorvastatin Calcium 40 Mg Tablet 20 Mg PO DAILY TAKES OF A 40NG Glipizide ER (Glipizide) 10 Mg Tab.er.24 10 Mg PO BID Warfarin Sodium 3 Mg Tablet 3 Mg PO HS Diltiazem 24Hr ER (Diltiazem HCl) 240 Mg Cap.er.24h 240 Mg PO BID Metformin HCl 500 Mg Tablet 500 Mg PO BID Lisinopril 20 Mg Tablet 20 Mg PO DAILY ALL: NKDA PMH: CAD, Afib, DM, BPH, HLD, HTN PSH: Left 2nd metatarsal amputation, TURP, Cataract FH: Mother: CVA Father: Heart disease SH: former light smoker, rarely drinks alcohol, no illicit drug use. ROS: (+) SOB, 2-3/10 left foot pain. (-) LH, CP, palpitations, cough, abd pain, N/V/D, weakness/numbness extremities. O: Temp: 36.6 HR: 86 RR: 18 BP: 135/74 Pulse Ox: 97% 2L O2 General: A/O x 3. No acute distress. Patient has some difficulties answering q uestions. appears to be his baseline per previous notes. HEENT: PERRLA, EOMI Neck: supple, no thyromegally Lungs: clear to auscultation bilaterally, no wheezes Heart: RRR, no murmurs Abd: soft, nontender, nondistended Extremities: open wound with serosanguinous drainage present at base of left 2nd metatarsal. No significant erythema spreadig from wound. No peripheral swelling. Skin: Warm, Dry, and intact except as above. 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 mitis, S. aureus) Left Foot abscess --> (prelim report: S. mitis, S. aureus, Gram (-) carissa) Bactermia --> (prelim report: S. mitis) DM CAD HTN HLD BPH Paroxysmal Afib P: PT/OT Wound care for open wound left foot Continue abx. and adjust pending final cultures and sensitivities. Diet as tolerated Restart home medications & monitor INR DVT Proph: coumadin DIALLO PEACE DO 09/16/22 0454: Supervisory-Addendum Brief Verification & Attestation Participated in pt care: history, MDM, physical Personally performed: exam, history, MDM, supervision of care Care discussed with: Medical Student Procedures: n/a Results interpretation: Verified all documentation Verification and Attestation of Medical Student E/M Service A medical student performed and documented this service in my presence. I reviewed and verified all information documented by the medical student and made modifications to such information, when appropriate. I personally performed the physical exam and medical decision making. Diallo Peace, Sep 16, 2022,04:53 FELIX PEREZ Sep 15, 2022 09:10 DIALLO PEACE DO Sep 16, 2022 04:54
[~2022-09-15 10:30] MED LIST: ACET-2267 PO; ALPRAZolam 0.25 MG (XANAX) TAB PO PRN; ATOR40TA70 PO; BISACODYL 10 MG SUPP (DULCOLAX) PR PRN; CALCIUM CARBONATE 500 MG (TUMS) TAB.CHEW PO PRN; DILT240C91 PO; DIPH25TA65 PO; DOCUSATE SODIUM 100 MG (COLACE) CAP PO PRN; FLEET ENEMA ADULT 1 EA BTL PR PRN; GLIP10TA24 PO; HYDR12.56 PO; LACTULOSE SYRUP 10GM/15ML (ENULOSE) 30ML UDC PO PRN; LISI20TA26 PO; LOPERAMIDE 2 MG (IMODIUM) TABLET PO PRN; MELATONIN 3 MG TABLET PO PRN; METF-397 PO; ONDANSETRON 4 MG (ZOFRAN) ORAL DISSOLVE TAB PO PRN; TIMO5DRO5 OU; TMSL.4C PO; WARF3TAB56 PO; diphenhydrAMINE 25 MG TAB (BENADRYL) PO PRN; guaiFENesin/CODEINE (ROBITUSSIN AC) 10ML UDC PO PRN
--- OUTSIDE RECORDS SUMMARY | 2022-09-15 10:58 | XMS REPORT | Clinical Summary ---
Author Author [facility] Address Unknown Phone Unavailable Care Team Providers Care Application Specialist Name Role Phone Yemi Petty DC PCP Unavailable Allergies No known active allergies Medications End Date Status Medication Sig Dispensed Refills Start Date Active brimonidine (ALPHAGAN) Place 1 drop 0 02/16/ 01 0.15 % ophthalmic into both 5 solution eyes daily. Active timolol (TIMOPTIC) 0.5 % Place 1 drop 0 ophthalmic solution into both eyes 2 (two) times daily. Active atorvastatin (LIPITOR) 40 Take 1/2 0 MG tablet tablet every other day. Active docusate sodium (COLACE) Take 1 30 capsule 0 1 100 MG capsule (100 7 capsuleIndications: mg total) by Benign prostatic mouth 2 (two) hyperplasia with urinary times daily. retention Active Blood Glucose Monitoring Use as 1 each 0 1 Suppl w/Device directed, 7 KITIndications: Type 2 E11.65 diabetes mellitus with stage 3 chronic kidney disease, without long-term current use of insulin ([facility]) Active lancetsIndications: Type Use up to 2 100 each 3 1 2 diabetes mellitus with times per day 7 stage 3 chronic kidney to monitor disease, without blood sugar long-term current use of insulin ([facility]) Active glucose blood test Monitor blood 100 each 6 04/21 stripIndications: Type 2 sugar in the 7 diabetes mellitus with am and one stage 3 chronic kidney other time disease, without during the long-term current use of day, E11.65 insulin ([facility]) Active tamsulosin (FLOMAX) 0.4 Take 0.4 mg 0 MG CAPS by mouth daily. Active SITagliptin (JANUVIA) 50 Take 0.5 30 tablet 0 0 MG tabletIndications: tablets (25 9 Uncontrolled type 2 mg total) by diabetes mellitus with mouth daily. stage 3 chronic kidney disease, without long-term current use of insulin Active dilTIAZem (CARDIZEM CD) Take 1 30 capsule 0 120 MG 24 hr capsule (120 9 capsuleIndications: mg total) by Uncontrolled type 2 mouth daily. diabetes mellitus with stage 3 chronic kidney disease, without long-term current use of insulin Active GLIPIZIDE ER PO Take 10 mg by 0 mouth daily. Active lisinopril Take 10 mg by 0 (PRINIVIL,ZESTRIL) 10 MG mouth daily. tablet Active prochlorperazine Take 5 mg by 0 (COMPAZINE) 10 MG tablet mouth every 6 (six) hours as needed for Nausea. Active traMADol (ULTRAM) 50 MG Take 50 mg by 0 tablet mouth at bedtime. Active Problems Problem Noted Date Diagnosed Date Hydronephrosis, left 11/22/2018 Acute on chronic renal failure 11/22/2018 Type 2 diabetes mellitus with renal complication Chronic renal failure, stage 3 (moderate) 11/22/2018 BPH (benign prostatic hyperplasia) 11/22/2018 HTN (hypertension) 11/22/2018 Ureteric stone 11/22/2018 Acute encephalopathy 11/22/2018 Acute hyperkalemia 06/18/2018 DESTINEE (acute kidney injury) 06/17/2018 Complicated UTI (urinary tract infection) 06/16/2018 Right nephrolithiasis 06/16/2018 Uncontrolled type 2 diabetes mellitus with stage 3 ch ronic 04/21/2017 kidney disease, without long-term curre nt use of insulin Benign prostatic hyperplasia with urinary retention 04/05/2017 Overview: Serial retention, TURP in [place] 04/21/17 Family History Medical History Relation Comments Diabetes type II Father Stroke Father Diabetes type II Mother Relation Status Comments Father Mother Social History Date Tobacco Use Types Packs/Day Years Used Smoking Tobacco: Never Smokeless Tobacco: Never Tobacco Cessation: Counseling Given: No Comments Alcohol Use Standard Drinks/Week No 0 (1 standard drink = 0.6 o z pure alcohol) Date Recorded PHQ-2 Answer PHQ-2 Score 0 Control Partners Comments Sexually Active Not Currently Date Recorded Sex and Gender Information Value 06/17/2018 7:52 AM COMPLIANCE PARALEGAL Sex Assigned at Male 06/17/2018 7:52 AM COMPLIANCE PARALEGAL Gender Identity Male 06/17/2018 7:52 AM COMPLIANCE PARALEGAL Sexual Orientation Straight Last Filed Vital Signs Reading Time Taken Comments Vital Sign 140/64 11/24/2018 10:08 AM CDT Blood Pressure 93 11/24/2018 10:08 AM CDT Pulse 36.5 C (97.7 F) 11/24/2018 9:19 AM CDT Temperature 17 11/24/2018 9:19 AM CDT Respiratory Rate 96% 11/24/2018 10:08 AM CDT Oxygen Saturation - - Inhaled Oxygen Concentration 89.9 kg (198 lb 1.6 oz) 11/22/2018 7:47 PM CDT Weight 170.2 cm (5' 7") 11/22/2018 7:47 PM CDT Height 31.03 11/22/2018 7:47 PM CDT Body Mass Index Plan of Treatment Health Maintenance Due Date Last Done Comments Diabetic Eye Exam 1951 Diabetic Foot Exam 1950 Annual Wellness Visit 1959 DTaP,Tdap,and Td Vaccines 1960 (1 - Tdap) Zoster Vaccine (1 of 2) 1991 Pneumo-Vaccine: 65+Yrs (1 2006 - PCV) COVID-19 Vaccine (4 - 06/10/2021 04/15/2021, Booster for Moderna 08/14/2020, series) 07/17/2020 Influenza Vaccine (Season 02/03/2023 Ended) HIB Vaccines Aged Out No longer eligible based on patient's age to complete this topic IPV Vaccines Aged Out No longer eligible based on patient's age to complete this topic Meningococcal Vaccine Aged Out No longer eligib le based on patient's age to complete this topic Rotavirus Vaccines Aged Out No longer eligible based on patient's age to complete this topic Medical Devices Device Identifier Shelf Expiration Date Model / Serial / L ot Implanted Type Area Manufactur er [id number] / / [id number] Percuflex Plus 6 X 24 - [id number] Right: Ureter * Re tired Implanted: Qty: 1 on 06/17/2018 by *Jorge Restrepo MD at [facility] Scientific Results Not on filefrom Last 3 Months Insurance Type Payer Benefit Subscriber ID Effective Phone Address Plan / Dates Group Medicare MEDICARE MEDICARE [id number] 2006- [address] Present [address] [place] [address] [facility] 65 [id number] 2014-P [phone] [address] ([place], [place]) [address] Advance Directives For more information, please contact: [phone] Date Inactivated Comments Code Status Date Activated 11/24/2018 3:31 PM Full Code 11/22/2018 7:52 PM Date Inactivated Comments Code Status Date Activated 11/22/2018 7:38 PM Full Code 06/18/2018 10:45 AM 06/18/2018 10:45 AM Full Code 06/16/2018 3:56 PM Care Teams Start Date End Date Application Specialist Relationship Specialty 04/14/17 Yemi Petty DC PCP - General Internal Medicine
[2022-09-15 11:00] VITALS: BP 135/74
--- NOTE | 2022-09-15 11:40 | Physical Therapy Evaluation ---
PT Evaluation-General Medical Diagnosis Admission Date Sep 15, 2022 at 10:30 Medical Diagnosis: s/p (L) met head amputation Onset Date: Sep 13, 2022 Therapy Diagnosis Therapy Diagnosis: impaired gait/functional mobility, balance deficits, transfer deficits Precautions Precautions/Isolations: Fall Prevention, Standard Precautions wound/incision precautions (L) foot Weight Bear Status Full Weight Bearing (L) japh-nhdu-cgyl weight bearing Referral Physician: Lucy Medical History Pertinent Medical History: Atrial Fib, CAD, DM, HTN Additional Medical History s/p (L) toe amputation in ~2019 per daughter. Current condition started with a blister on the ball of the left foot. Has black sore of great toe IP of (R) foot - nursing notified. Cataract surgery. TURP ~ 10 years ago. Current History Bactermia -- prelim report of (L) foot wound : S. mitis, S. aureus, Gram (-) carissa) HLD, BPH, Paroxysmal Afib Reviewed History: Yes Social History Home: Single Level Current Living Status: Alone Entry Into Home: Level Entry PT Steps Inside Home: 3 (has 3 steps down to 1 bedroom, but has another bedroom available on main level.) Lives in [facility]. Is here visiting daughter - will be able to stay with daughter. She has 1 step to enter her home or level entry in garage. Prior Prior Level of Function SCALE: Activities may be completed with or without assistive devices. 7-Cfxlwmmsbq-fdeuvzp completes the activity by him/herself with no assistance from a helper. 5-Set-up or Clean-up Assistance-helper sets up or cleans up; patient completes activity. Clyde assists only prior to or following the activity. 4-Supervision or Touching Assistance-helper provides verbal cues and/or touching/steadying and/or contact guard assistance as patient completes activity. Assistance may be provided throughout the activity or intermittently. 3-Partial/Moderate Assistance-helper does LESS THAN HALF the effort. Clyde lifts, holds or supports trunk or limbs, but provides less than half the effort. 2-Substantial/Maximal Assistance-helper does MORE THAN HALF the effort. Clyde lifts or holds trunk or limbs and provides more than half the effort. 9-Dfksdexaz-ufqemn does ALL the effort. Patient does none of the effort to c omplete the activity. Or, the assistance of 2 or more helpers is required for the patient to complete the activity. If activity was not attempted, code reason: 7-Patient Refused. 9-Not Applicable-not attempted and the patient did not perform the activity before the current illness, exacerbation or injury. 10-Not Attempted due to Environmental Limitations-(lack of equipment, weather restraints, etc.). 88-Not Attempted due to Medical Conditions or Safety Concerns. Bed Mobility: 6 Transfers (B,C,W/C): 6 Gait: 6 Stairs: 6 Wheelchair Mobility: 9 Indoor Mobility (Ambulation): Independent Stairs: Independent Prior Devices Use: None Patient has DME available that belonged to : w/c, shower chairs. Daughter has an old walker - she will check to see if it is a SW or a FWW. PT Evaluation-Current Subjective Patient has lived alone x 3 years - passed in April 2019. Lives in [place], [place]. Patient rates his current pain at the (L) amputation site as 3-4/10 sitting at rest in w/c. States pain does increase when he stands up. He sleeps in a regular bed and used no AD prior. Has no O2 at home. Has a tub/shower combination with a seat if needed. Is right handed. Wears glasses for reading. He was doing his own cooking, cleaning, laundry, shopping, and drove prior to this surgery. His daughter lives in [place], [place] and patient will be able to stay with her after d/c - daughter states patient is very (I) and will be eager to go to his own home [place], but daughter was told by surgeon that it would be at least 6 weeks until the wound is healed adequately. She is able to take some time off work to stay with him some if needed after d/c. Pain Numeric Pain Scale: 4 Location: Left Location Body Site: Foot Section J - Health Conditions 1. Rarely or not at all 2. Occasionally 3. Frequently 4. Almost constantly 8. Unable to answer Pain Effect on Sleep: 2 Pain Interference with Therapy: 2 Pain Interference w/Day-to-Day: 2 Pt/Family Goals To eventually return to his own home and live (I). Objective Patient Orientation: Person, Place, Time, Situation Attachments: Saline Lock, Oxygen, Ralph Catheter Telemetry, wound dressing (L) foot(saturated with pink drainage). ROM/Strength ROM Lower Extremities WFL at hips/knees/(R) ankle. (L) ankle not tested due to wound dressing at (L) foot. Strength Lower Extremities MMT sitting in w/c: (R) ankle 5/5 DF/PF, (R) knee flexion/ext 4+/5, (R) hip flexion 4/5, (R) hip abd/add 4/5. (L) ankle NT due to dressing from foot amputation. (L) knee flexion 4/5 with palpable crepitus in knee/lower leg, (L) knee extension 4-/5 with palpable crepitus in knee/lower leg. (L) hip flexion 3+/5, (L) hip abd/add 4-/5. Integumentary/Posture Integumentary Amputation 09/13 (L) 2nd met head. Sensory Vision: Wears Glasses Hearing: Functional Hand Dominance: Right Sensation Lower Extremities Patient states he has no numbness/ tingling/ pins and needles in LE's, however is DM with DM wounds. When questioned about neuropathy, patient denied having any. Transfers Roll Left & Right (QC): 6 Sit to Lying (QC): 5 Lying to Sitting/Side of Bed(Q: 4 Sit to Stand (QC): 3 (min-mod (A) of 1 from w/c to FWW /c vc for hand placement) Chair/Ftn-cc-Fbqlm Xfer(QC): 3 (min (A) with FWW) Toilet Transfer (QC): 3 (min (A) with FWW and grab bar) Car Transfer (QC): 3 (min (A) with FWW) Gait Does the Patient Walk?: Yes Mode of Locomotion: Both Anticipated Mode of Locomotion: Both Walk 10 feet (QC): 3 (min (A) with FWW with cues for jzqt-giqt-amlf WB (L)) Walk 50 ft with 2 Turns(QC): 3 (min (A) with FWW and wb cues) Walk 150 ft (QC): 88 (Patient unable to tolerate distance due to low endurance) Walking 10ft/uneven surface-QC: 3 (min (A) with FWW) Distance: ~60' with w/c back up and portable O2 Gait Assistive Device: FWW Comments/Gait Description Slow roberto, cues for hvsf-nguo-dkxc WB on (L) Wheelchair Training Does the Pt Use a Wheelchair?: Yes Wheel 50 ft with 2 turns (QC): 5 Wheel 150 ft (QC): 88 (unable to tolerate distance due to arm fatigue) Type of Wheelchair: Manual Stairs 1 Step (curb) (QC): 3 (min (A)-mod (A) with mod cues for walker placement) 4 Steps (QC): 88 (not attempted due to fatigue ) 12 Steps (QC): 88 Walking Assistive Device: Walker Balance Sitting Static: Good Sitting Dynamic: Fair Standing Static: Fair Standing Dynamic: Fair Picking up an Object (QC): 6 (with machine chocolate molder and FWW) Special Test Comments Gait speed: 6.1m/46 seconds = 0.13 m/sec Elderly Mobility Index: 12/22 Assessment/Needs Patient demonstrates functional mobility/balance/gait deficits following (L) metarsal head amputation on 09/13/22. Patient would benefit from ARU therapy to maximize safety with functional mobility/gait, balance, activity tolerance in preparation for return home with family, then to his home when able. Patient is (L) cqod-eyql-kybw weight bearing following amputation. Amputation incision weaver s demonstrate significant drainage on wound dressing this am. Rehab Potential: Good Post Rehab Potential-Barriers: wound healing at incision, DM Equipment Needs FWW for gait mobility, possibly W/C (has 's w/c at home) PT Retirement Goals Retirement Goals PT Retirement Goals Time Frame: October 06, 2022 Roll Left to Right (QC): 6 Sit to Lying (QC): 6 Lying-Sitting on Side/Bed(QC): 6 Sit to Stand (QC): 6 Chair/Nkv-mc-Ysbyd Xfer(QC): 6 (with FWW) Toilet/Commode Transfer (QC): 6 (with FWW) Car Transfer (QC): 5 (with FWW) Does the Patient Walk: Yes Walk 10 feet (QC): 6 (with FWW) Walk 10ft-Uneven Surface(QC): 5 (with FWW) Walk 50ft with 2 Turns (QC): 6 (with FWW and (L) heel/down only WB ) Walk 150 ft (QC): 4 (with FWW and (L) sbzk-uumu-cclf WB) Does the Pt use WC or Scooter?: Yes Wheel 50 feet with 2 turns (QC: 6 Type: Manual Wheel 150 feet: 6 Type: Manual 1 Step (curb) (QC): 4 (CGA with FWW and gphg-hdxw-wvnt WB on (L)) 4 Steps (QC): 4 (with (B) rails) 12 Steps (QC): 9 Picking up an Object (QC): 6 (with machine chocolate molder) LTG: Elderly Mobility Scale = 10/20 or higher PT Plan Problem List Problem List: Activity Tolerance, Functional Strength, Safety (w/c mobility and management), Balance, Gait, Transfer, Bed Mobility, Other incisional wound (L) foot - DM Treatment/Plan Treatment Plan: Continue Plan of Care Treatment Plan: Bed Mobility, Education, Functional Activity Shin, Functional Strength, Group Therapy, Gait, Safety, Therapeutic Exercise, Transfers, Other (W/C propulsion and management) Treatment Duration: October 06, 2022 Frequency: At least 5 of 7 days/Wk (IRF) Estimated Hrs Per Day: 1.5 hours per day Patient and/or Family Agrees t: Yes Safety Risks/Education Safety Risk Comments: Incisional wound protection, gkjr-pqkb-uoos weight bearing (L) foot Patient Education: Gait Training, Transfer Techniques, Reviewed Precautions, Safety Issues Teaching Recipient: Patient Teaching Methods: Demonstration, Discussion Response to Teaching: Reinforcement Needed Discharge Recommendations Therapy Discharge Recommendati: Home & Family, Post Acute PT Equpiment Recommendations-D/C: Front Wheeled Walker, Manual Wheelchair Barriers to Progress Wound healing (L) foot incision Time Time In: 1045 (Co treat: 10:55) Time Out: 1055 (Co-treat: 12:00) DATE: Sep 15, 2022 Total Billed Treatment Time: 75 Total Billed Treatment 10:45-10:55 -- EVM 10' 10:55-12:00 Cotreatment with OT, (Gt 30, FA 35) -- co-treatment appropriate and necessary due to patient acuity, weight bearing status, activity tolerance deficits, balance deficits and requiring 2 skilled therapists to address multiple issues Suzan Mix PT Sep 15, 2022 11:40
[2022-09-15] MEDS: DOCUSATE SODIUM 100 MG (COLACE) CAP PO SCH ×2 (11:44→20:45)
[2022-09-15] MEDS: SENNA W/DOCUSATE (SENOKOT S) TABLET PO SCH ×2 (11:44→20:45)
[2022-09-15] MEDS: polyethylene glycoL POWDER 17 GM (MIRALAX) PACK PO SCH ×2 (11:44→20:45)
--- NOTE | 2022-09-15 11:50 | PM&R Post Admission Assessment ---
PM&R Date of Visit: Sep 15, 2022 Time of Visit: 11:30 History of Present Illness CC: Debility S/P amputation left 2nd metatarsal HPI: Patient is a 82 year old male with history of CAD, DM, BPH, HLD, HTN, and paroxysmal Afib, who was found to be in severe sepsis 2nd to left foot ulcer/abscess in the ED on 09/11. He was admitted to [facility] from 09/11-09/15 during which time he was found to also have osteomyelitis of his left 2nd metatarsal head. He had an I&D of his foot abscess, and amputation of his 2nd metatarsal on 09/[address] Nielson. Cultures from his wound and 2nd metatarsal on 09/11 have revealed S. aureus and S. mitis in both, with Gram (-) carissa also in the wound culture. Final results and sensitivities are still pending at this time. He has been receiving IV abx. When seen this morning, he was lying in bed doing well on 2L O2. He reports living at home by himself and being independent in all activities. He is not on O2 at home. He reports having some SOB this morning and have 2-3/10 left foot pain at site of amputation. He denied headache, CP, palpitations, SOB, abd pain, N/V/D. He had some difficulties answering questions about his medical history this morning so what information I have comes from a mixture of Pt. and previous reports. MED: Home Meds Active Reported Benadryl Allergy (Diphenhydramine HCl) 25 Mg Tablet 25 Mg PO Q6H PRN Tylenol Extra Strength (Acetaminophen) 500 Mg Tablet 1,000 Mg PO Q8H PRN Flomax (Tamsulosin HCl) 0.4 Mg Cap 0.4 Mg PO HS Timolol Maleate 0.5% (Timolol Maleate) 0.5 % Drops 1 Drop OU HS Hydrochlorothiazide 12.5 Mg Tablet 12.5 Mg PO DAILY Atorvastatin Calcium 40 Mg Tablet 20 Mg PO DAILY TAKES OF A 40NG Glipizide ER (Glipizide) 10 Mg Tab.er.24 10 Mg PO BID Warfarin Sodium 3 Mg Tablet 3 Mg PO HS Diltiazem 24Hr ER (Diltiazem HCl) 240 Mg Cap.er.24h 240 Mg PO BID Metformin HCl 500 Mg Tablet 500 Mg PO BID Lisinopril 20 Mg Tablet 20 Mg PO DAILY ALL: NKDA PMH: CAD, Afib, DM, BPH, HLD, HTN PSH: Left 2nd metatarsal amputation, TURP, Cataract FH: Mother: CVA Father: Heart disease SH: former light smoker, rarely drinks alcohol, no illicit drug use. ROS: (+) SOB, 2-3/10 left foot pain. (-) LH, CP, palpitations, cough, abd pain, N/V/D, weakness/numbness extremities. O: Temp: 36.6 HR: 86 RR: 18 BP: 135/74 Pulse Ox: 97% 2L O2 General: A/O x 3. No acute distress. Patient has some difficulties answering questions. appears to be his baseline per previous notes. HEENT: PERRLA, EOMI Neck: supple, no thyromegally Lungs: clear to auscultation bilaterally, no wheezes Heart: RRR, no murmurs Abd: soft, nontender, nondistended Extremities: open wound with serosanguinous drainage present at base of left 2nd metatarsal. No significant erythema spreadig from wound. No peripheral swelling. Skin: Warm, Dry, and intact except as above. 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 mitis, S. aureus) Left Foot abscess --> (prelim report: S. mitis, S. aureus, Gram (-) carissa) Bactermia --> (prelim report: S. mitis) DM CAD HTN HLD BPH Paroxysmal Afib P: PT/OT Wound care for open wound left foot Continue abx. and adjust pending final cultures and sensitivities. Diet as tolerated Restart home medications & monitor INR DVT Proph: coumadin Past Gmjjkfu-Vhxuxk-Swlhgl Hx Past Med/Social Hx: Reviewed Nursing Past Med/Soc Hx, Reviewed and Corrections made Patient Social History Marrital Status: single Employed/Student: retired Alcohol Use: Denies Use Smoking Status: Former Smoker Past Medical History Surgeries: Amputation, Orthopedic Currently Using CPAP: No Currently Using BIPAP: No Cardiac: Coronary Artery Disease, Hypertension Endocrine: Diabetes, Non-Insulin dep Family History No Pertinent Family Hx Prior Level of Function Bed Mobility: 6 Transfers: 6 Gait: 6 Stairs: 6 Wheelchair Mobility: 9 Indoor Mobility (Ambulation): Independent Stairs: Independent Prior Devices Use: None PM&R Allergy/Meds/Data Review Allergies Coded Allergies: No Known Drug Allergies (Unverified , 09/15/22) Home Medications Scheduled Atorvastatin Calcium (Atorvastatin Calcium), 20 MG PO DAILY, (Reported) Diltiazem HCl (Diltiazem 24Hr ER), 240 MG PO BID, (Reported) Glipizide (Glipizide ER), 10 MG PO BID, (Reported) Hydrochlorothiazide (Hydrochlorothiazide), 12.5 MG PO DAILY, (Reported) Lisinopril (Lisinopril), 20 MG PO DAILY, (Reported) Metformin HCl (Metformin HCl), 500 MG PO BID, (Reported) Tamsulosin HCl (Flomax), 0.4 MG PO HS, (Reported) Timolol Maleate (Timolol Maleate 0.5%), 1 DROP OU HS, (Reported) Warfarin Sodium (Warfarin Sodium), 3 MG PO HS, (Reported) Scheduled PRN Acetaminophen (Tylenol Extra Strength), 1,000 MG PO Q8H PRN for PAIN-MILD (1-4), (Reported) Diphenhydramine HCl (Benadryl Allergy), 25 MG PO Q6H PRN for ALLERGY SYMPTOMS, (Reported) Current Medications Current Medications Reviewed Review of Systems Constitutional: see HPI, malaise, weakness EENTM: no symptoms reported Respiratory: no symptoms reported Cardiovascular: no symptoms reported Gastrointestinal: constipation Genitourinary: no symptoms reported Musculoskeletal: joint pain Skin: see HPI Psychiatric/Neurological: Depressed All Other Systems Reviewed Negative Unless Noted: Yes Physical Exam Physical Exam Vital Signs Vital Signs - First Documented 09/15/22 11:00 Temp 36.6 Pulse 86 Resp 18 B/P (MAP) 135/74 (94) Pulse Ox 97 O2 Delivery Nasal Cannula O2 Flow Rate 2.00 Capillary Refill : Height, Weight, BMI Height: '" Weight: lbs. oz. kg; 33.25 BMI Method: General Appearance: No Apparent Distress, WD/WN, Chronically ill Eyes: Bilateral Eye Normal Inspection, Bilateral Eye PERRL HEENT: PERRL/EOMI, Normal ENT Inspection, Pharynx Normal Neck: Full Range of Motion, Normal Inspection, Non Tender, Supple, Carotid Bruit Respiratory: Chest Non Tender, Lungs Clear, Normal Breath Sounds, No Accessory Muscle Use, No Respiratory Distress Cardiovascular: No Edema, No Gallop, No JVD, No Murmur, Normal Peripheral P ulses, Irregularly Irregular Gastrointestinal: Normal Bowel Sounds, No Organomegaly, No Pulsatile Mass, Non Tender, Soft Back: Normal Inspection, No CVA Tenderness, No Vertebral Tenderness Extremity: Normal Capillary Refill, Normal Inspection, Normal Range of Motion, Non Tender, No Calf Tenderness, No Pedal Edema Neurologic/Psychiatric: Alert, Oriented x3, skip load driver II-XII Norm as Tested, Abnormal Gait, Depressed Affect, Motor Weakness (generalized) Skin: Normal Color, Warm/Dry Lymphatic: No Adenopathy PM&R Medical Assessment & Plan REHAB/MEDICAL ASSESSMENT AND PLAN: REHAB IMPAIRMENT GROUP: Debility following left DM foot ulcer and subsequent amputation ETIOLOGIC DIAGNOSIS: Debility following left DM foot ulcer and subsequent amputation The comorbidities that impact the patients function and/or functional outcome by: advanced age, DM, amputation, weight bearing restrictions, dementia REHAB PLAN: The patient is being admitted to our comprehensive inpatient rehabilitation facility and can tolerate the intensity of service consisting of at least: 180 minutes of therapy a day, 5 out of 7 days a week Rehab treatment will consist of: PT OT will focus on regaining function with use of AD in order to increase ambulation safety and increased stamina with ADL's The patient/family has a good understanding of our discharge process and will benefit from an interdisciplinary inpatient rehabilitation program. The patient has potential to make improvement and is in need of at least two of the following multidisciplinary therapies including but not limited to physical, occupational, speech, and prosthetics and orthotics. Additionally the patient will need services from respiratory, nutritional services, wound care, psychology, etc. (Customize this to each patient). Given the patients complex condition and risk of further medical complications, rehabilitation services cannot be safely or effectively provided at a lower level of care such as a custodial facility. BARRIERS TO DISCHARGE: Lives alone ESTIMATED LOS: 7 days DISPOSITION: Home RELEVANT CHANGES SINCE PREADMISSION SCREENING: I have compared the patients medical and functional status at the time of the preadmission screening and there are: no changes PROGNOSIS: Fair REHABILITATION GOALS: 1. PT OT will focus on regaining function with use of AD in order to increase ambulation safety and increased stamina with ADL's All the above goals were reviewed with the patient and he/she is in agreement. By signing this document, I acknowledge that I have personally performed a full physical examination on this patient within 24 hours of admission to this inpatient rehabilitation facility and have determined the patient to be able to tolerate the above course of treatment at an intensive level for a reasonable period of time. I will be completing a detailed individualized Plan of Care for this patient by day #4 of the patients stay based upon the Preadmission Screen, the Post-Admission Evaluation, and the therapy evaluations. Admission Dx/Comorbidities: (1) Abscess of left foot Status: Acute ICD Codes: L02.612 - Cutaneous abscess of left foot (2) Acute kidney injury superimposed on chronic kidney disease Status: Acute ICD Codes: N17.9 - Acute kidney failure, unspecified; N18.9 - Chronic kidney disease, unspecified (3) On Coumadin for atrial fibrillation Status: Chronic ICD Codes: I48.91 - Unspecified atrial fibrillation; Z79.01 - skilled nursing (curren t) use of anticoagulants (4) History of venous thromboembolism Status: Chronic ICD Codes: Z86.718 - Personal history of other venous thrombosis and embolism (5) BPH (benign prostatic hyperplasia) Status: Chronic ICD Codes: N40.0 - Benign prostatic hyperplasia without lower urinary tract symptoms (6) Afib Status: Chronic ICD Codes: I48.91 - Unspecified atrial fibrillation (7) HLD (hyperlipidemia) Status: Chronic ICD Codes: E78.5 - Hyperlipidemia, unspecified (8) CAD (coronary artery disease) Status: Chronic ICD Codes: I25.10 - Atherosclerotic heart disease of lummi coronary artery without angina pectoris (9) T2DM (type 2 diabetes mellitus) Status: Acute ICD Codes: E11.9 - Type 2 diabetes mellitus without complications Assessment/Plan Assessment and Plan Assess & Plan/Chief Complaint A: 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 mitis, S. aureus) Left Foot abscess --> (prelim report: S. mitis, S. aureus, Gram (-) carissa) Bactermia --> (prelim report: S. mitis) DM CAD HTN HLD BPH Paroxysmal Afib Dementia P: PT/OT Wound care for open wound left foot Continue abx. and adjust pending final cultures and sensitivities. Diet as tolerated Restart home medications & monitor INR DVT Proph: coumadin DIALLO PEACE DO Sep 15, 2022 11:50
[2022-09-15] MEDS ORDERED: MILK OF MAGNESIA 400 MG/5 ML 30 ML UDC PO PRN (12:00)
[2022-09-15] MEDS ORDERED: CALCIUM CARBONATE 500 MG (TUMS) TAB.CHEW PO PRN (12:00)
[2022-09-15] MEDS ORDERED: polyethylene glycoL POWDER 17 GM (MIRALAX) PACK PO PRN (12:00)
[2022-09-15] MEDS ORDERED: ACETAMINOPHEN 325 MG TABLET PO PRN (12:00)
[2022-09-15] MEDS ORDERED: ONDANSETRON 4 MG/2 ML (SDV) Z0FRAN IV PRN (12:00)
[2022-09-15] MEDS ORDERED: ANTACID SUSP 30 ML UDC (MYLANTA) PO PRN (12:00)
[2022-09-15] MEDS ORDERED: MELATONIN 3 MG TABLET PO PRN (12:00)
[2022-09-15] MEDS ORDERED: BISACODYL 10 MG SUPP (DULCOLAX) PR PRN (12:00)
[2022-09-15] MEDS ORDERED: NS IV 500 ML 500 ML IV PRN (12:00)
--- NOTE | 2022-09-15 12:25 | Speech Therapy Progress Note ---
Therapy Progress Note ST received consultation for cognitive services. At this time, speech pathology has not been contacted with specific cognitive concerns which would warrant skilled speech pathology evaluation and treatment. Please re-consult speech pathology as needed and appropriate. Thank you. OPAL HUDSON Sep 15, 2022 12:25
--- NOTE | 2022-09-15 13:22 | Occupational Therapy Eval ---
OT Evaluation-General/PLF Medical Diagnosis Admission Date Sep 15, 2022 at 10:30 Medical Diagnosis: s/p (L) met head amputation Onset Date: Sep 13, 2022 Therapy Diagnosis Therapy Diagnosis: decreased ADL status Precautions Precautions/Isolations: Fall Prevention, Standard Precautions Weight Bear Status Location Restriction: LT FOOT (heel only weight bearing) Referral Physician: Lucy Burns Reason: Evaluation/Treatment Medical History Pertinent Medical History: DM Additional Medical History DM, HTN, L 2nd toe amputation, HTN Current History ED due to fall and confusion 09/11/22, diagnosed with severe sepsis due to L foot ulcer. s/p I&D and amputation of L 2nd metatarsal head due to osteomyelitis. Transfer to ARU 09/15/22 Social History Home: Single Level Current Living Status: Alone Entry Into Home: Level Entry Steps Inside Home: 3 (has 3 steps down to 1 bedroom, but has another bedroom available on main level.) ADL-Prior Level of Function SCALE: Activities may be completed with or without assistive devices. 8-Rhsebyluwv-pkldgud completes the activity by him/herself with no assistance from a helper. 5-Set-up or Clean-up Assistance-helper sets up or cleans up; patient completes activity. [place] assists only prior to or following the activity. 4-Supervision or Touching Assistance-helper provides verbal cues and/or touching/steadying and/or contact guard assistance as patient completes activity. Assistance may be provided throughout the activity or intermittently. 3-Partial/Moderate Assistance-helper does LESS THAN HALF the effort. [place] lifts, holds or supports trunk or limbs, but provides less than half the effort. 2-Substantial/Maximal Assistance-helper does MORE THAN HALF the effort. [place] lifts or holds trunk or limbs and provides more than half the effort. 7-Hojmbyosz-zzusrd does ALL the effort. Patient does none of the effort to complete the activity. Or, the assistance of 2 or more helpers is required for the patient to complete the activity. If activity was not attempted, code reason: 7-Patient Refused. 9-Not Applicable-not attempted and the patient did not perform the activity before the current illness, exacerbation or injury. 10-Not Attempted due to Environmental Limitations-(lack of equipment, weather restraints, etc.). 88-Not Attempted due to Medical Conditions or Safety Concerns. ADL PLOF Comments Pt reports IND with ADLs and functional mobility at PLOF, no AD. Pt has 3 steps down to his bedroom, but has another bedroom available that does not have any steps. He has a tub/shower. Self Care: Independent Functional Cognition: Independent DME/Equipment: Tub/Shower DME/Equipment Comments SC, w/c OT Current Status Subjective Pt agreeable to OT evaluation followed by OT/PT cotreat. reports pain 3/10 in L foot. Post tx, drainage noted on dressing, RN notified. Mental Status/Objective Patient Orientation: Person, Place, Time, Situation Attachments: Ralph Catheter, Oxygen (2L) Current Glasses/Contacts: Yes Hearing Aids: No Dentures/Partials: Yes Hand Dominance: Right Upper Extremity ROM WFL, BUE shoulder flexion to approx 160 degrees, WFL at elbow/wrist/hand. Upper Extremity Coordination WFL Upper Extremity Sensation WFL Upper Extremity Strength grossly 4-/5 BUEs. ADL-Treatment Eating (QC): 6 Oral Hygiene (QC): 4 Shower/Bathe Self (QC): 4 (SBA in stand) Upper Body Dressing (QC): 5 Lower Body Dressing (QC): 3 (Min A threading LLE into pants.) On/Off Footwear (QC): 4 (SBA, pt able to doff/don R gripper sock, L foot not assessed due to recent surgery/dressing on foot.) Toileting Hygiene (QC): 4 (CGA in stand for pant hike.) Other Treatments OT evaluation complete. Pt transferred supine to sit EOB, SBA, then used FWW to transfer from EOB to w/c, min A. Pt taken to ARU. PT evaluation complete (not billed). OT/PT cotreat due to skill of 2 clinicians required which a workplace rehabilitation officer could not perform in order to coordinate UE/LEs, decrease fall risk, and due to pt's limitations in strength, activity tolerance, mobility and transfers. OT focused on UE placement, cues for sequencing and safety and ADLs, PT focused on LE placement, gross overall movement, transfers and mobility. Pt completed functional mobility and transfers including mobility using FWW (even and uneven surface), car transfer, bed mobility, and w/c mobility. Pt taken to room, completed toileting, showering and dressing as outlined above. Pt transferred to recliner. Post tx, pt in recliner, call light in reach and all needs met. RN notified about drainage noted on pt's L foot dressing. min-mod A sit to stand (VCs for hand placement), min A bed to chair transfer, min-mod A toilet transfer, min A car transfer. min A with functional mobility using FWW ~60' (cues for heel only weight bearing LLE) Education OT Patient Education: Correct positioning, Energy conservation, Modified ADL techniques, Progress toward Goal/Update tx plan, Purpose of tx/functional activities, Rehab process Teaching Recipient: Patient Teaching Methods: Discussion Response to Teaching: Verbalize Understanding BIMS CAM BIMS Expression of Ideas and Wants: Without Difficulty Understanding Verbal Content: Understands Brief Interview/Mental Status: Yes IRF LILIANA BIMS: IRF LILIANA BIMS Response (Comments) Value Repitition of Three Words Three 3 Recalls Socks Yes, No Cue Required 2 Recalls Blue Yes, No Cue Required 2 Recalls Bed Yes, No Cue Required 2 Year Correct 3 Month Accurate Within 5 Days 2 Day Correct 1 Total 15 [address] Mental [address] No CAM Mental Status Change/Baseline: 0 Inattention: 0 Disorganized thinkin Altered level of consciousness: 0 OT Short Term Goals Short Term Goals Time Frame: Sep 23, 2022 Shower/bathe self: 5 Lower body dressin Putting on/taking off footwear: 5 OT Gun Fitter Goals Gun Fitter Goals Time Frame: Sep 30, 2022 Eating (QC): 6 Oral Hygiene (QC): 6 Toileting Hygiene (QC): 6 Shower/Bathe Self (QC): 6 Upper Body Dressing (QC): 6 Lower Body Dressing (QC): 6 On/Off Footwear (QC): 6 Additional Goals: 1-Demonstrate ADL Tasks, 2-Verbalize Understanding, 3- ImproveStrength/Shin 1=Demonstrate adherence to instructed precautions during ADL tasks. 2=Patient will verbalize/demonstrate understanding of assistive dev ices/modifications for ADL. 3=Patient will improve strength/tolerance for activity to enable patient to perform ADL's. OT Education/Plan Problem List/Assessment Assessment: Decreased Activ Tolerance, Decreased UE Strength, Impaired Funct Balance, Impaired I ADL's, Impaired Self-Care Skills Discharge Recommendations Plan/Recommendations: Continue POC Equpiment Recommendations-D/C: Extended Bath Bench Treatment Plan/Plan of Care Patient would benefit from OT for education, treatment and training to promote independence in ADL's, mobility, safety and/or upper extremity function for ADL's. Plan of Care: ADL Retraining, Functional Mobility, Group Exercise/Act as Ind, UE Funct Exercise/Act Treatment Duration: Sep 30, 2022 Frequency: At least 5 of 7 days/Wk (IRF) Estimated Hrs Per Day: 1.5 hours per day Agreement: Yes Rehab Potential: Good Time Start Time: 10:30 ([id number] OT eval) Stop Time: 12:00 ([id number] Cotreat) DATE: Sep 15, 2022 Total Time Billed (hr/min): 80 Billed Treatment Time 8135-1247 OT evaluation, [id number] PT eval (not billed), [id number] Cotreat (65') 1, EVM (15'), ADL 2 (35'), FA 2 (30') DEBI GENTILE OT Sep 15, 2022 13:22
--- NOTE | 2022-09-15 13:27 | Wound Care Assessment ---
Wound Care Assessment Date Seen by Provider: Sep 15, 2022 Time Seen by Provider: 13:21 Chief Complaint Osteomyelitis 2 MTH with associated abscess HPI This pleasant 82 year old gentleman was visiting his daughter (lives in [facility]) and fell while attending [facility] services at [facility]. He did have amputation of L. 2 toe in past due to osteomyelitis and admits to failure of follow up following surgery. He has known DM2 but does not check his FSBS (he states he is a "bad patient"). However, A1C 7.7 on inaptient labs. He does have some confusion noted per daughter as well. His recently and care at home is uncertain. He is noted to have PEM, sepsis, CKD, atrial fibrillation with h/o CAD and DM2. 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 He underwent amputation/debridement on 09-13-22. Bone culture positive for S. aureus and S. mitis. He is also noted to have S. mitis on one blood culture. He remains on Vancomycin and Ancef currently. He will require a total of 6 weeks of targeted antibiotics (may transition to oral based on cultures if able upon d/c home). His post surgical wound is open and he will require continued wound care upon discharge. We will implement wound vac during his hospitalization but will leave continuation up to his outpatient wound care provider upon d/c home as he lives out of town and has a long h/o noncompliance in follow up and care. He is currently with Vashe WTD dressings (appropriately). Since I last saw Yemi he has developed a large blister to his dorsal foot (likely related to cellulitic infection). I did deroof this today and had nursing staff place silver alginate. If needed, will dress with Bessie under draping for wound vac use. We will need to monitor his periwound closely with draping due to this skin breakdown. Past Medical History: Admits Diabetes Type II, Admits Heart Disease PEM, Sepsis, Atrial fibrillation, Altered mental status Exam Vital Signs Date Time Temp Pulse Resp B/P (MAP) Pulse Ox O2 Delivery O2 Flow Rate FiO2 09/15/22 11:00 36.6 86 18 135/74 (94) 97 Nasal Cannula 2.00 Capillary Refill : General Appearance: WD/WN HEENT: other (Hearing wnl) Neck: full range of motion Respiratory: no respiratory distress, no accessory muscle use Extremities: pedal edema Neurologic/Psychiatric: alert, normal mood/affect, other (poor historian) Skin Problem Location: lower extremities Skin Character: bullous, drainage (serous), erythema, swelling, thickening Wound assessment: 8x2.1x1.4cm. The epithelialization is none. There is no tunnelling or undermining. Drainage is large and serousanguinous. Granulation is small and pink. Necrotic is small and slough. The Margins show epibole. There is bone exposed Wound assessment (dors. foot): 3.3n8u1w3.1cm. Drainage is large and serous. Granulation is large and pink. Necrotic is small and slough. The margin is flat. Results Assessment: 1. WG3 DFU L. 2 MTH with associated osteomyelitis s/p amputation 2. S. mitis and S. Aureus osteomyelitis 3. Bacteremia (S. mitis) 4. Dm2 with hyperglycemic 5. CAD with atrial fibrillation 6. Sepsis with altered mental status 7. Severe PEM 8. CKD stage 4 9. Anemia of renal disease Plan: 1. Will attempt wound vac. Will need to monitor periwound closely with draping due to blistering from current cellulitic infection. Bessie to dorsal wound (or silver alginate if wound vac fails and Vashe WTD reimplemented) 2. Will need at least 6 weeks of targeted antibiotic therapy. Would be reasonable to transition to oral antibiotics upon d/c home (if able) 3. Defer to Primary team 4. Defer to primary team. Close follow up with PCP as outpatient for diabetic foot care and improved glycemic control 5. Defer to primary team 6. Defer to primary team 7. Glucerna advisable 8. Defer to primary team 9. Defer to primary team . MONTY CASTRO MD Sep 15, 2022 13:27
[2022-09-15] MEDS ORDERED: HYPOCHLOROUS ACID/NaCl (VASHE) 250 ML IR SCH (13:30)
--- NOTE | 2022-09-15 13:59 | Occupational Ther Daily Note ---
OT Current Status-Daily Note Subjective Pt in recliner, agreeable to OT tx. After tx, OT discussed pt's case with freight adjuster, Jose D, who indicates a wound vac is getting placed to pt's foot this afternoon. At this time, pt is to continue with heel only weight bearing, unless otherwise ordered. Plan for next wound vac change will be MondaySeptember 19. OT will coordinate showering with freight adjuster. Mental Status/Objective Patient Orientation: Normal For Age ADL-Treatment Therapy Code Descriptions/Definitions Functional [place] Measure: 0=Not Assessed/NA 4=Minimal Assistance 1=Total Assistance 5=Supervision or Setup 2=Maximal Assistance 6=Modified [place] 3=Moderate Assistance 7=Complete IndependenceSCALE: Activities may be completed with or without assistive devices. 8-Uqkobdnctu-xcskgjr completes the activity by him/herself with no assistance from a helper. 5-Set-up or Clean-up Assistance-helper sets up or cleans up; patient completes activity. [place] assists only prior to or following the activity. 4-Supervision or Touching Assistance-helper provides verbal cues and/or touching/steadying and/or contact guard assistance as patient completes activity. Assistance may be provided throughout the activity or intermittently. 3-Partial/Moderate Assistance-helper does LESS THAN HALF the effort. [place] lifts, holds or supports trunk or limbs, but provides less than half the effort. 2-Substantial/Maximal Assistance-helper does MORE THAN HALF the effort. [place] lifts or holds trunk or limbs and provides more than half the effort. 7-Mmwluttvy-ruqntc does ALL the effort. Patient does none of the effort to complete the activity. Or, the assistance of 2 or more helpers is required for the patient to complete the activity. If activity was not attempted, code reason: 7-Patient Refused. 9-Not Applicable-not attempted and the patient did not perform the activity before the current illness, exacerbation or injury. 10-Not Attempted due to Environmental Limitations-(lack of equipment, weather restraints, etc.). 88-Not Attempted due to Medical Conditions or Safety Concerns. Other Treatment Pt in recliner, agreeable to OT tx. Pt declined ADLs at this time, but agreeable to UE exercises to increase BUE strength and activity tolerance. Pt completed 5/5 theraband exercises with moderate resistance (red) theraband. Pt provided with written HEP and copy placed in pt's chart. Pt encouraged to complete exercises throughout the evening and weekends. Post tx, pt in recliner, call light in reach and all needs met. Education OT Patient Education: Correct positioning, Energy conservation, Modified ADL techniques, Progress toward Goal/Update tx plan, Purpose of tx/functional activities, Rehab process Teaching Recipient: Patient Teaching Methods: Discussion Response to Teaching: Verbalize Understanding OT Short Term Goals Short Term Goals Time Frame: Sep 23, 2022 Shower/bathe self: 5 Lower body dressin Putting on/taking off footwear: 5 OT Assistant Clinical Nurse Manager Goals Assistant Clinical Nurse Manager Goals Time Frame: Sep 30, 2022 Acute change in mental status: 0 Inattention: 0 Disorganized thinkin Altered level of consciousness: 0 Eating (QC): 6 Oral Hygiene (QC): 6 Toileting Hygiene (QC): 6 Shower/Bathe Self (QC): 6 Upper Body Dressing (QC): 6 Lower Body Dressing (QC): 6 On/Off Footwear (QC): 6 Additional Goals: 1-Demonstrate ADL Tasks, 2-Verbalize Understanding, 3- ImproveStrength/Shin 1=Demonstrate adherence to instructed precautions during ADL tasks. 2=Patient will verbalize/demonstrate understanding of assistive devices/modifications for ADL. 3=Patient will improve strength/tolerance for activity to enable patient to perform ADL's. OT Education/Plan Problem List/Assessment Assessment: Decreased Activ Tolerance, Decreased UE Strength, Impaired Funct Balance, Impaired I ADL's, Impaired Self-Care Skills Discharge Recommendations Plan/Recommendations: Continue POC Treatment Plan/Plan of Care Patient would benefit from OT for education, treatment and training to promote independence in ADL's, mobility, safety and/or upper extremity function for ADL's. Plan of Care: ADL Retraining, Functional Mobility, Group Exercise/Act as Ind, UE Funct Exercise/Act Treatment Duration: Sep 30, 2022 Frequency: At least 5 of 7 days/Wk (IRF) Estimated Hrs Per Day: 1.5 hours per day Agreement: Yes Rehab Potential: Good Time Start Time: 13:35 Stop Time: 13:45 DATE: Sep 15, 2022 Total Time Billed (hr/min): 10 Billed Treatment Time 1, EX DEBI GENTILE OT Sep 15, 2022 13:59
--- NOTE | 2022-09-15 14:14 | Physical Therapy Daily Note ---
PT Daily Note-Current Subjective No new complaints. Patient is ready to rest after therapy. Explained that wound care to be completing dressing change on (L) foot following therapy. Pain Section J - Health Conditions 1. Rarely or not at all 2. Occasionally 3. Frequently 4. Almost constantly 8. Unable to answer Pain Effect on Sleep: 2 Pain Interference with Therapy: 2 Pain Interference w/Day-to-Day: 2 Transfers SCALE: Activities may be completed with or without assistive devices. 0-Upnaxtqjzu-piifqwb completes the activity by him/herself with no assistance from a helper. 5-Set-up or Clean-up Assistance-helper sets up or cleans up; patient completes activity. [place] assists only prior to or following the activity. 4-Supervision or Touching Assistance-helper provides verbal cues and/or touching/steadying and/or contact guard assistance as patient completes activity. Assistance may be provided throughout the activity or intermittently. 3-Partial/Moderate Assistance-helper does LESS THAN HALF the effort. [place] lifts, holds or supports trunk or limbs, but provides less than half the effort. 2-Substantial/Maximal Assistance-helper does MORE THAN HALF the effort. [place] lifts or holds trunk or limbs and provides more than half the effort. 2-Qrpsatefw-rtggrj does ALL the effort. Patient does none of the effort to complete the activity. Or, the assistance of 2 or more helpers is required for the patient to complete the activity. If activity was not attempted, code reason: 7-Patient Refused. 9-Not Applicable-not attempted and the patient did not perform the activity before the current illness, exacerbation or injury. 10-Not Attempted due to Environmental Limitations-(lack of equipment, weather restraints, etc.). 88-Not Attempted due to Medical Conditions or Safety Concerns. Sit to Lying (QC): 5 (down to right side) Sit to Stand (QC): 3 (min (A) from recliner) Chair/Ivf-mo-Dbjyf Xfer(QC): 3 (min (A) with FWW and ttfl-kznh-lngixd bearing only on (L)) Weight Bearing Full Weight Bearing (L) upzx-vwes-ppzi weight bearing Exercises LE exercise in sitting: RTB (R) ankle DF/PF x 15 each (B) ham curls x 15 RTB LAQ x 15 (L), x 15 (R) Alternating hip flexion x 15 (B) Isometric hip adduction(pillow squeeze) x 15 Hip abduction with RTB x 15 (B) Assessment Current Status: Fair Progress Patient tolerated LE exercise well without increased pain at (L) foot. Yellow drainage from stump dressing drained to floor when foot of recliner was put down for exercise. PT Skilled Nursing Goals Wax Pot Tender Goals PT Wax Pot Tender Goals Time Frame: October 06, 2022 Roll Left & Right (QC): 6 Sit to Lying (QC): 6 Lying-Sitting on Side/Bed(QC): 6 Sit to Stand (QC): 6 Chair/Sme-bh-Utnzh Xfer(QC): 6 (with FWW) Toilet Transfer (QC): 6 (with FWW) Car Transfer (QC): 5 (with FWW) Does the Patient Walk: Yes Walk 10 feet (QC): 6 (with FWW) Walk 50ft with 2 Turns (QC): 6 (with FWW and (L) heel/down only WB ) Walk 150 ft (QC): 4 (with FWW and (L) jiuy-nceo-rweg WB) Walking 10ft on Uneven Surface: 5 (with FWW) 1 Step (curb) (QC): 4 (CGA with FWW and ehxf-xrng-qdpp WB on (L)) 4 Steps (QC): 4 (with (B) rails) 12 Steps (QC): 9 Picking up an Object (QC): 6 (with supervisor coil winding) Does the Pt use WC or Scooter?: Yes Wheel 50 feet with 2 turns (QC: 6 Type: Manual Wheel 150 feet: 6 Type: Manual PT Plan Treatment/Plan Treatment Plan: Continue Plan of Care Treatment Plan: Bed Mobility, Education, Functional Activity Shin, Functional Strength, Group Therapy, Gait, Safety, Therapeutic Exercise, Transfers, Other (W/C propulsion and management) Treatment Duration: October 06, 2022 Frequency: At least 5 of 7 days/Wk (IRF) Estimated Hrs Per Day: 1.5 hours per day Patient and/or Family Agrees t: Yes Time Time In: 1347 Time Out: 1405 DATE: Sep 15, 2022 Total Billed Treatment Time: 18 Total Billed Treatment 14' - exercise, 4' transfers/bed mobility = 18' total Suzan Mix PT Sep 15, 2022 14:14
[2022-09-15] MEDS ORDERED: VANCOMYCIN INJECTION 1,000 MG in NS (IVPB) 250 ML IV SCH (16:00)
[2022-09-15] MEDS: inSUlin ASPART (NovoLOG) 1 UNIT/0.01 ML (CHARGE PER UNIT) SC SCH ×2 (16:30→20:44)
[2022-09-15] MEDS ORDERED: warFARin 3 MG (COUMADIN) TAB PO SCH (18:00)
[2022-09-15 20:10] VITALS: BP 122/66
[2022-09-15] MEDS ORDERED: ceFAZolin INJECTION 2,000 MG in NS (IVPB) 50 ML IV SCH (23:00)
[2022-09-16 05:05] LABS: BASOPHILS % (AUTO) 0 % (0-10); EOSINOPHILS # (AUTO) 0.4 10^3/uL (0.0-0.3); EOSINOPHILS % (AUTO) 3 % (0-10); HEMATOCRIT 26 % (40-54); HEMOGLOBIN 8.2 g/dL (13.3-17.7); LYMPHOCYTES # (AUTO) 1.7 10^3/uL (1.0-4.0); LYMPHOCYTES % (AUTO) 16 % (12-44); MEAN CORPUSCULAR HEMOGLOBIN 27 pg (25-34); MEAN CORPUSCULAR HGB CONC 32 g/dL (32-36); MEAN CORPUSCULAR VOLUME 86 fL (80-99); MEAN PLATELET VOLUME 10.7 fL (9.0-12.2); MONOCYTES # (AUTO) 0.6 10^3/uL (0.0-1.0); MONOCYTES % (AUTO) 6 % (0-12); NEUTROPHILS # (AUTO) 7.7 10^3/uL (1.8-7.8); NEUTROPHILS % (AUTO) 73 % (42-75); PLATELET COUNT 303 10^3/uL (130-400); WHITE BLOOD COUNT 10.6 10^3/uL (4.3-11.0)
[2022-09-16 05:16] LABS: INR 3.2 (0.8-1.4); PROTHROMBIN TIME PATIENT 32.9 SEC (12.2-14.7)
[2022-09-16 05:25] LABS: ALBUMIN 2.1 GM/DL (3.2-4.5); BILIRUBIN,TOTAL 0.2 MG/DL (0.1-1.0); CALCIUM 8.4 MG/DL (8.5-10.1); CREATININE SERUM 2.28 MG/DL (0.60-1.30); POTASSIUM 3.8 MMOL/L (3.6-5.0); TOTAL PROTEIN 5.6 GM/DL (6.4-8.2)
[2022-09-16] MEDS: inSUlin ASPART (NovoLOG) 1 UNIT/0.01 ML (CHARGE PER UNIT) SC SCH ×4 (05:32→21:28)
[2022-09-16 08:00] VITALS: BP 130/63
[2022-09-16] MEDS: DOCUSATE SODIUM 100 MG (COLACE) CAP PO SCH ×2 (08:16→21:28)
[2022-09-16] MEDS: polyethylene glycoL POWDER 17 GM (MIRALAX) PACK PO SCH ×2 (08:17→21:28)
[2022-09-16] MEDS: SENNA W/DOCUSATE (SENOKOT S) TABLET PO SCH ×2 (08:18→21:29)
[2022-09-16] MEDS: ACETAMINOPHEN 325 MG TABLET PO PRN ×2 (08:45→17:40)
--- NOTE | 2022-09-16 09:27 | Occupational Ther Daily Note ---
OT Current Status-Daily Note Subjective Pt up in recliner, agreeable to OT Tx. Pt states he doesn't typically sleep well at night and sleeps mostly in the mornings. Mental Status/Objective Patient Orientation: Normal For Age Attachments: Ralph Catheter, Other-See Comments (wound vac L foot.) ADL-Treatment Therapy Code Descriptions/Definitions Functional [place] Measure: 0=Not Assessed/NA 4=Minimal Assistance 1=Total Assistance 5=Supervision or Setup 2=Maximal Assistance 6=Modified [place] 3=Moderate Assistance 7=Complete IndependenceSCALE: Activities may be completed with or without assistive devices. 2-Vqvgrcedzl-hrdsgpp completes the activity by him/herself with no assistance from a helper. 5-Set-up or Clean-up Assistance-helper sets up or cleans up; patient completes activity. [place] assists only prior to or following the activity. 4-Supervision or Touching Assistance-helper provides verbal cues and/or touching/steadying and/or contact guard assistance as patient completes activity. Assistance may be provided throughout the activity or intermittently. 3-Partial/Moderate Assistance-helper does LESS THAN HALF the effort. [place] lifts, holds or supports trunk or limbs, but provides less than half the effort. 2-Substantial/Maximal Assistance-helper does MORE THAN HALF the effort. [place] lifts or holds trunk or limbs and provides more than half the effort. 7-Jkydcwqnj-ifmuxw does ALL the effort. Patient does none of the effort to complete the activity. Or, the assistance of 2 or more helpers is required for the patient to complete the activity. If activity was not attempted, code reason: 7-Patient Refused. 9-Not Applicable-not attempted and the patient did not perform the activity before the current illness, exacerbation or injury. 10-Not Attempted due to Environmental Limitations-(lack of equipment, weather restraints, etc.). 88-Not Attempted due to Medical Conditions or Safety Concerns. Other Treatment Pt in recliner, sit to stand with CGA, then CGA transfer to w/c. Pt performed w/c mobility to therapy gym, min A through doorway of gym due to fatigue with task. OT tx focused on increasing BUE strength and activity tolerance. Pt completed arm bike, x10 mins, 3 rest breaks. Pt then completed UE reaching task, placing/removing nuts/bolts from block, x36 total. Pt performed w/c mobility around [facility] common area/2nd floor and back to his room, frequent rest breaks due to fatigue. sit to stand from w/c, CGA, then CGA from w/c to recliner using FWW. Post tx, pt in recliner, call light in reach and all needs met. Pillow placed u nder LLE for comfort, elevation, and decrease pressure on pt's L foot. Education OT Patient Education: Correct positioning, Exercise program, Modified ADL techniques, Progress toward Goal/Update tx plan, Purpose of tx/functional activities, Rehab process Teaching Recipient: Patient Teaching Methods: Discussion Response to Teaching: Verbalize Understanding OT Short Term Goals Short Term Goals Time Frame: Sep 23, 2022 Shower/bathe self: 5 Lower body dressin Putting on/taking off footwear: 5 OT [place] Goals [place] Goals Time Frame: Sep 30, 2022 Acute change in mental status: 0 Inattention: 0 Disorganized thinkin Altered level of consciousness: 0 Eating (QC): 6 Oral Hygiene (QC): 6 Toileting Hygiene (QC): 6 Shower/Bathe Self (QC): 6 Upper Body Dressing (QC): 6 Lower Body Dressing (QC): 6 On/Off Footwear (QC): 6 Additional Goals: 1-Demonstrate ADL Tasks, 2-Verbalize Understanding, 3- ImproveStrength/Shin 1=Demonstrate adherence to instructed precautions during ADL tasks. 2=Patient will verbalize/demonstrate understanding of assistive devices/modifications for ADL. 3=Patient will improve strength/tolerance for activity to enable patient to perform ADL's. OT Education/Plan Problem List/Assessment Assessment: Decreased Activ Tolerance, Decreased UE Strength, Impaired Funct Balance, Impaired I ADL's, Impaired Self-Care Skills Discharge Recommendations Plan/Recommendations: Continue POC Treatment Plan/Plan of Care Patient would benefit from OT for education, treatment and training to promote independence in ADL's, mobility, safety and/or upper extremity function for ADL's. Plan of Care: ADL Retraining, Functional Mobility, Group Exercise/Act as Ind, UE Funct Exercise/Act Treatment Duration: Sep 30, 2022 Frequency: At least 5 of 7 days/Wk (IRF) Estimated Hrs Per Day: 1.5 hours per day Agreement: Yes Rehab Potential: Good Time Start Time: 09:00 Stop Time: 10:30 DATE: Sep 16, 2022 Total Time Billed (hr/min): 90 Billed Treatment Time 1, EX (15'), FA 5 (75') DEBI GENTILE OT Sep 16, 2022 09:27
--- NOTE | 2022-09-16 10:51 | PM&R Progress Note ---
Subjective HPI/CC On Admission Date Seen by Provider: Sep 16, 2022 Time Seen by Provider: 10:45 Subjective/Events-last exam 09/16/2022: No major events overnight Pain controlled Reviewed labs Eating well BM regimen maintained Glucose noted Added Levemir Cannot go back on Metformin or OHA due to CKD Review of Systems General: Fatigue, Malaise Objective Exam Vital Signs Vital Signs Date Time Temp Pulse Resp B/P (MAP) Pulse Ox O2 Delivery O2 Flow Rate FiO2 09/16/22 08:46 Room Air 09/16/22 08:00 37.0 78 20 130/63 (85) 94 09/15/22 19:03 1.50 Capillary Refill : General Appearance: No Apparent Distress, WD/WN, Chronically ill HEENT: PERRL/EOMI, Normal ENT Inspection, Pharynx Normal Neck: Full Range of Motion, Normal Inspection, Non Tender, Supple, Carotid Bruit Respiratory: Chest Non Tender, Lungs Clear, Normal Breath Sounds, No Accessory Muscle Use, No Respiratory Distress Cardiovascular: No Edema, No Gallop, No JVD, No Murmur, Normal Peripheral Pulses, Irregularly Irregular Gastrointestinal: Normal Bowel Sounds, No Organomegaly, No Pulsatile Mass, Non Tender, Soft Back: Normal Inspection, No CVA Tenderness, No Vertebral Tenderness Extremity: Normal Capillary Refill, Normal Inspection, Normal Range of Motion, Non Tender, No Calf Tenderness, No Pedal Edema Neurologic/Psychiatric: Alert, Oriented x3, heating operators engineer II-XII Norm as Tested, Abnormal Gait, Depressed Affect, Motor Weakness (generalized) Skin: Normal Color, Warm/Dry Lymphatic: No Adenopathy Results/Procedures Lab Laboratory Tests 09/16/22 04:57 Patient resulted labs reviewed. FIM Transfers Therapy Code Descriptions/Definitions Functional [place] Measure: 0=Not Assessed/NA 4=Minimal Assistance 1=Total Assistance 5=Supervision or Setup 2=Maximal Assistance 6=Modified [place] 3=Moderate Assistance 7=Complete IndependenceSCALE: Activities may be completed with or without assistive devices. 7-Ehgcdwwryr-hbdbxfy completes the activity by him/herself with no assistance from a helper. 5-Set-up or Clean-up Assistance-helper sets up or cleans up; patient completes activity. [place] assists only prior to or following the activity. 4-Supervision or Touching Assistance-helper provides verbal cues and/or touching/steadying and/or contact guard assistance as patient completes activity. Assistance may be provided throughout the activity or intermittently. 3-Partial/Moderate Assistance-helper does LESS THAN HALF the effort. [place] lifts, holds or supports trunk or limbs, but provides less than half the effort. 2-Substantial/Maximal Assistance-helper does MORE THAN HALF the effort. [place] lifts or holds trunk or limbs and provides more than half the effort. 5-Fwwprqjvw-bzavii does ALL the effort. Patient does none of the effort to complete the activity. Or, the assistance of 2 or more helpers is required for the patient to complete the activity. If activity was not attempted, code reason: 7-Patient Refused. 9-Not Applicable-not attempted and the patient did not perform the activity before the current illness, exacerbation or injury. 10-Not Attempted due to Environmental Limitations-(lack of equipment, weather restraints, etc.). 88-Not Attempted due to Medical Conditions or Safety Concerns. Roll Left to Right (QC): 6 Sit to Lying (QC): 5 (down to right side) Sit to Stand (QC): 3 (min (A) from recliner) Chair/Clx-jg-Krxhi Xfer(QC): 3 (min (A) with FWW and qfxj-anmm-yymruv bearing only on (L)) Car Transfer (QC): 3 (min (A) with FWW) Gait Training Does the Patient Walk?: Yes Walk 10 feet (QC): 3 (min (A) with FWW with cues for mlge-ktwc-eqlz WB (L)) Walk 50 ft with 2 Turns(QC): 3 (min (A) with FWW and wb cues) Walk 150 ft (QC): 88 (Patient unable to tolerate distance due to low endurance) Walking 10ft/uneven surface-QC: 3 (min (A) with FWW) Gait Assistive Device: FWW Wheelchair Training Does the Pt Use a Wheelchair?: Yes Wheel 50 ft with 2 turns (QC): 5 Wheel 150 ft (QC): 88 (unable to tolerate distance due to arm fatigue) Type of Wheelchair: Manual Stair Training 1 Step (curb) (QC): 3 (min (A)-mod (A) with mod cues for walker placement) 4 Steps (QC): 88 (not attempted due to fatigue ) 12 Steps (QC): 88 Balance Picking up an Object (QC): 6 (with manager fine and FWW) ADL-Treatment Eating (QC): 6 Oral Hygiene (QC): 4 Shower/Bathe Self (QC): 4 (SBA in stand) Upper Body Dressing (QC): 5 Lower Body Dressing (QC): 3 (Min A threading LLE into pants.) On/Off Footwear (QC): 4 (SBA, pt able to doff/don R gripper sock, L foot not assessed due to recent surgery/dressing on foot.) Toileting Hygiene (QC): 4 (CGA in stand for pant hike.) Assessment/Plan Assessment and Plan Assess & Plan/Chief Complaint A: 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 mitis, S. aureus) Left Foot abscess --> (prelim report: S. mitis, S. aureus, Gram (-) carissa) Bactermia --> (prelim report: S. mitis) DM CAD HTN HLD BPH Paroxysmal Afib Dementia P: PT/OT Wound care for open wound left foot Continue abx. and adjust pending final cultures and sensitivities. Diet as tolerated Restart home medications & monitor INR DVT Proph: coumadin 09/16/2022: DC Metformin and OHA of home meds and restart a few others Start Levemir Monitor closely (1) Abscess of left foot Status: Acute (2) Acute kidney injury superimposed on chronic kidney disease Status: Acute (3) On Coumadin for atrial fibrillation Status: Chronic (4) History of venous thromboembolism Status: Chronic (5) BPH (benign prostatic hyperplasia) Status: Chronic (6) Afib Status: Chronic (7) HLD (hyperlipidemia) Status: Chronic (8) CAD (coronary artery disease) Status: Chronic (9) T2DM (type 2 diabetes mellitus) Status: Acute DIALLO PEACE DO Sep 16, 2022 10:51
--- NOTE | 2022-09-16 10:52 | Individualized Plan of Care ---
Individualized Plan of Care Rehab Nursing IPOC Order Admission Date Sep 15, 2022 at 10:30 Current Orders Orders Admission Order(Inpt,Obs,Sdc) (09/15/22 06:19) Vital Signs: Per Unit Policy ( 08,16,00 (09/15/22 06:19) Babar Crowe ,21 (09/15/22 06:19) Sequential Compression Device (09/15/22 06:19) Aemt-Inpt Rehab Con (09/15/22 06:19) Rehab Nursing Orders-Ipoc (09/15/22 06:19) Physical Therapy Rehab Orders (09/15/22 06:19) Occupational Therapy Rehab Ord (09/15/22 06:19) Speech Therapy Rehab Orders (09/15/22 06:19) Cbc With Automated Diff (09/16/22 06:00) Comprehensive Metabolic Panel (09/16/22 06:00) Precautions (Aru) (09/15/22 06:19) Weekly Weight WEEK (09/15/22 06:19) Rehab-Intensity Of Therapy (09/15/22 06:19) Initiate Admission Nursing Pro .admission (09/15/22 06:19) Alprazolam Tablet (Xanax Tablet) (09/15/22 06:30) Calcium Carbonate Chew Tablet (Antacid C (09/15/22 06:30) Diphenhydramine Tablet (Benadryl Tablet) (09/15/22 06:30) Docusate Sodium Capsule (Colace Capsule) (09/15/22 09:00) Docusate Sodium Capsule (Colace Capsule) (09/15/22 06:30) Bisacodyl Suppository (Dulcolax Supposit (09/15/22 06:30) Lactulose Oral Solution (Enulose Oral So (09/15/22 06:30) Na Phos/Na Biphos Enema (Fleet Enema Jai (09/15/22 06:30) Guaifenesin/Codeine Syrup (Robitussin Ac (09/15/22 06:30) Loperamide Tablet (Imodium Tablet) (09/15/22 06:30) Melatonin Tablet (Melatonin Tablet) (09/15/22 06:30) Polyethylene Glycol Powder Pkt (Miralax (09/15/22 09:00) Ondansetron Oral Dissolve Tab (Zofran (09/15/22 06:30) Senna S Tablet (Senokot S Tablet) (09/15/22 09:00) Acetaminophen Tablet/Caplet (Tylenol T (09/15/22 06:30) Initiate Admission Nursing Pro .admission (09/15/22 06:19) Admission Arrival Bed Request (09/15/22 10:47) Code/Resuscitation (09/15/22 11:18) Code/Resuscitation (09/15/22 11:48) Accucheck Achs ACHS (09/15/22 11:48) Dressing Order (Intervention) BID (09/15/22 11:48) Cho 60g/M 0snack (16-2000 Tommie) (09/15/22 Lunch) Bisacodyl Suppository (Dulcolax Supposit (09/15/22 12:00) Melatonin Tablet (Melatonin Tablet) (09/15/22 12:00) Magnesium Hydroxide Oral Susp (Mom Oral (09/15/22 12:00) Polyethylene Glycol Powder Pkt (Miralax (09/15/22 12:00) Antacid Suspension (Mylanta Suspension (09/15/22 12:00) Ns Iv 500 Ml (Sodium Chloride 0.9%) (09/15/22 12:00) Insulin Aspart (Novolog) (Novolog (Charg (09/15/22 16:00) Calcium Carbonate Chew Tablet (Antacid C (09/15/22 12:00) Acetaminophen Tablet/Caplet (Tylenol T (09/15/22 12:00) Vancomycin Injection (Vancomycin Injecti (09/15/22 16:00) Ondansetron Injection (Zofran Injectio (09/15/22 12:00) Cefazolin Injection (Ancef Injection) (09/15/22 23:00) Diltiazem Cd 24 Hr Capsule (Cardizem Cd (09/16/22 09:00) Insulin Determir (Per Unit) (Levemir (Pe (09/15/22 21:00) Warfarin Tablet (Coumadin Tablet) (09/15/22 18:00) Consult General Surgery (09/15/22 11:48) Consult Wound Care Physician (09/15/22 11:48) Mat Initiate Protocol (09/15/22 11:48) Protime With Inr (09/16/22 06:00) Wound V.A.C Application Ord/In UD (09/15/22 13:16) Wound V.A.C Nursing Assessment ,18 (09/15/22 13:30) Wound V.A.C Q4hr Inspection-St Q4HR (09/15/22 13:30) Hypochlorous Acid/Sod Chloride (Vashe Wo (09/15/22 13:30) Glucerna WM (09/15/22 13:35) Patient Visit (09/15/22 ) Pt Eval Moderate Complexity (09/15/22 ) Gait Training, Ea 15 Min (09/15/22 ) Functional Activities, Ea 15 (09/15/22 ) Patient Visit (09/15/22 ) Exercise Therap, Ea 15 Min (09/15/22 ) Warfarin Tablet (Coumadin Tablet) (09/17/22 18:00) Ceftriaxone Inj (Rocephin Inj) (09/16/22 12:00) Catheter(Urinary) Discontinue (09/16/22 10:44) Venous Access Request Order (09/16/22 10:45) Atorvastatin Tablet (Lipitor Tablet) (09/17/22 09:00) Diltiazem Cd 24 Hr Capsule (Cardizem Cd (09/16/22 21:00) Diphenhydramine Tablet (Benadryl Tablet) (09/16/22 12:15) Tamsulosin Capsule (Flomax Capsule) (09/16/22 21:00) Timolol 0.5% Ophthalmic Soln (Timoptic 0 (09/16/22 21:00) Pharmacy Consult/Message (09/16/22 12:13) Atorvastatin Tablet (Lipitor Tablet) (09/17/22 09:00) Insulin Determir (Per Unit) (Levemir (Pe (09/16/22 12:15) Rehab Nursing Orders: Ongoing Assess. of Cognitive Status, Ongoing Assess. of Function Status, Bladder Management, Bladder Scan, Bladder Training, Bowel Management, Bowel Training, Disease Management & Educaiton, DVT Prophylaxis, Fall Prevention, Fluid/Electrolyte/Nutrition Mgmt, Infection Prevention, Medication Management & Education, Management of Risks & Complications, Management of Skin Intergrity, Nutrition Management, Pain Management, Patient/Family Support, Safety Management, Weight Bearing Precaution, Wound Management Intensity of Therapy to be met Patient to be seen: Min.3h per day/5 of 7d PT IPOC Problem List: Activity Tolerance, Functional Strength, Safety (w/c mobility and management), Balance, Gait, Transfer, Bed Mobility, Other Treatment Plan: Continue Plan of Care Bed Mobility, Education, Functional Activity Shin, Functional Strength, Group Therapy, Gait, Safety, Therapeutic Exercise, Transfers, Other (W/C propulsion and management) Treatment Duration: October 06, 2022 Frequency: At least 5 of 7 days/Wk (IRF) Estimated Hrs Per Day: 1.5 hours per day OT IPOC Problems: Decreased Activ Tolerance, Decreased UE Strength, Impaired Funct Balance, Impaired I ADL's, Impaired Self-Care Skills OT Treatment, Training and Edu: Yes Plan of Care: ADL Retraining, Functional Mobility, Group Exercise/Act as Ind, UE Funct Exercise/Act Treatment Duration: Sep 30, 2022 Frequency: At least 5 of 7 days/Wk (IRF) Estimated Hrs Per Day: 1.[address] IPOC Speech Therapy Treatment Plan: Continue Plan of Care Treatment Duration: Sep 15, 2022 Frequency: Modified Program (IRF) Estimated Hrs Per Day: Other Aemt/Case Mgmt Aemt/Case Managemen: Discharge Planning Dietitian/Sheet Sorter Dietitian/Sheet Sorter to monitor nutritional status and make changes and/or recommendations as needed and work with speech pathology on dietary upgrades as the occur. Physician IPOC Medical Issues being managed closely and that require the 24 hour availability of a physician: Recent severe sepsis with CKD and DM OOC with left toe amputation with wound vac required will be at high risk for decompensation Medical Issues: Bowel/Bladder Function, DVT Prophylaxis, Falls Precautions, Fluid/Electrolyte/Nutrition Balance, Infection Protection, Pain Management, Weight Bearing Precautions, Wound Care Brief Synthesis of Preadmission Screen, Post-Admission Evaluation, and Therapy Evaluations: PT OT and wound care will need to monitor patient closely and increase stamina and help increase ADL's in order to return home Medical Prognosis: Fair Anticipated Length of Stay: 10 days DIALLO PEACE DO Sep 16, 2022 10:52
--- NOTE | 2022-09-16 11:47 | Occupational Ther Daily Note ---
OT Current Status-Daily Note Subjective Pt up in recliner after receiving Midline placement. Pt agreeable to OT tx. ADL-Treatment Therapy Code Descriptions/Definitions Functional [place] Measure: 0=Not Assessed/NA 4=Minimal Assistance 1=Total Assistance 5=Supervision or Setup 2=Maximal Assistance 6=Modified [place] 3=Moderate Assistance 7=Complete IndependenceSCALE: Activities may be completed with or without assistive devices. 8-Oijtrckqga-nziffhy completes the activity by him/herself with no assistance from a helper. 5-Set-up or Clean-up Assistance-helper sets up or cleans up; patient completes activity. [place] assists only prior to or following the activity. 4-Supervision or Touching Assistance-helper provides verbal cues and/or touching/steadying and/or contact guard assistance as patient completes activity. Assistance may be provided throughout the activity or intermittently. 3-Partial/Moderate Assistance-helper does LESS THAN HALF the effort. [place] lifts, holds or supports trunk or limbs, but provides less than half the effort. 2-Substantial/Maximal Assistance-helper does MORE THAN HALF the effort. [place] lifts or holds trunk or limbs and provides more than half the effort. 1-Fqfqnkfmz-rgnxhv does ALL the effort. Patient does none of the effort to complete the activity. Or, the assistance of 2 or more helpers is required for the patient to complete the activity. If activity was not attempted, code reason: 7-Patient Refused. 9-Not Applicable-not attempted and the patient did not perform the activity before the current illness, exacerbation or injury. 10-Not Attempted due to Environmental Limitations-(lack of equipment, weather restraints, etc.). 88-Not Attempted due to Medical Conditions or Safety Concerns. Other Treatment OT tx with focus on increasing BUE strength and activity tolerance. Review of theraband HEP given previous day complete, pt required skilled VCs with all exercises for correct technique. Pt completed x15 reps, 5/5 theraband exercises, using moderate resistance (red) theraband. OT encouraged pt to continue with theraband exercises in the evening and throughout the weekend, he verbalized understanding. Post tx, pt in recliner, call light in reach and all needs met. OT Short Term Goals Short Term Goals Time Frame: Sep 23, 2022 Shower/bathe self: 5 Lower body dressin Putting on/taking off footwear: 5 OT I&C Tech Goals I&C Tech Goals Time Frame: Sep 30, 2022 Acute change in mental status: 0 Inattention: 0 Disorganized thinkin Altered level of consciousness: 0 Eating (QC): 6 Oral Hygiene (QC): 6 Toileting Hygiene (QC): 6 Shower/Bathe Self (QC): 6 Upper Body Dressing (QC): 6 Lower Body Dressing (QC): 6 On/Off Footwear (QC): 6 Additional Goals: 1-Demonstrate ADL Tasks, 2-Verbalize Understanding, 3- ImproveStrength/Shin 1=Demonstrate adherence to instructed precautions during ADL tasks. 2=Patient will verbalize/demonstrate understanding of assistive devices/modifications for ADL. 3=Patient will improve strength/tolerance for activity to enable patient to perform ADL's. OT Education/Plan Problem List/Assessment Assessment: Decreased Activ Tolerance, Decreased UE Strength, Impaired Funct Balance, Impaired I ADL's, Impaired Self-Care Skills Discharge Recommendations Plan/Recommendations: Continue POC Treatment Plan/Plan of Care Patient would benefit from OT for education, treatment and training to promote independence in ADL's, mobility, safety and/or upper extremity function for ADL's. Plan of Care: ADL Retraining, Functional Mobility, Group Exercise/Act as Ind, UE Funct Exercise/Act Treatment Duration: Sep 30, 2022 Frequency: At least 5 of 7 days/Wk (IRF) Estimated Hrs Per Day: 1.5 hours per day Agreement: Yes Rehab Potential: Good Time Start Time: 11:40 Stop Time: 12:00 DATE: Sep 16, 2022 Total Time Billed (hr/min): 20 Billed Treatment Time 1, EX DEBI GENTILE OT Sep 16, 2022 11:47
[2022-09-16] MEDS: cefTRIAXone 2,000 MG/NS 50 ML IVPB IV SCH ×2 (12:00)
[2022-09-16] MEDS ORDERED: diphenhydrAMINE 25 MG TAB (BENADRYL) PO PRN (12:15)
--- NOTE | 2022-09-16 14:42 | Physical Therapy Daily Note ---
PT Daily Note-Current Subjective Patient states his pain is a 1/10 in the (L) foot. Pain Section J - Health Conditions 1. Rarely or not at all 2. Occasionally 3. Frequently 4. Almost constantly 8. Unable to answer Pain Effect on Sleep: 2 Pain Interference with Therapy: 2 Pain Interference w/Day-to-Day: 2 Mental Status Wound vac (L) foot. Transfers SCALE: Activities may be completed with or without assistive devices. 7-Guiiqefwdo-dmawcsw completes the activity by him/herself with no assistance from a helper. 5-Set-up or Clean-up Assistance-helper sets up or cleans up; patient completes activity. [place] assists only prior to or following the activity. 4-Supervision or Touching Assistance-helper provides verbal cues and/or touching/steadying and/or contact guard assistance as patient completes activity. Assistance may be provided throughout the activity or intermittently. 3-Partial/Moderate Assistance-helper does LESS THAN HALF the effort. [place] lift s, holds or supports trunk or limbs, but provides less than half the effort. 2-Substantial/Maximal Assistance-helper does MORE THAN HALF the effort. [place] lifts or holds trunk or limbs and provides more than half the effort. 2-Guzocroga-zxtsiz does ALL the effort. Patient does none of the effort to complete the activity. Or, the assistance of 2 or more helpers is required for the patient to complete the activity. If activity was not attempted, code reason: 7-Patient Refused. 9-Not Applicable-not attempted and the patient did not perform the activity before the current illness, exacerbation or injury. 10-Not Attempted due to Environmental Limitations-(lack of equipment, weather restraints, etc.). 88-Not Attempted due to Medical Conditions or Safety Concerns. Sit to Stand (QC): 4 (CGA from recliner, CGA x 8 from w/c.) Chair/Zjz-nb-Linup Xfer(QC): 4 (CGA with FWW W/V<>mat with (L) heel down only WB) Weight Bearing Full Weight Bearing (L) mmro-rcmg-kkkt weight bearing Gait Training Does the Patient Walk?: Yes Distance: 10' x 3 Walk 10 feet (QC): 3 (min (A) with mod cues for heel down only WB (L). Unable to maintain WB past 10' due to fatigue.) With wound vac and w/c follow-up. Wheelchair Training Does the Pt Use a Wheelchair?: Yes Wheel 50 ft with 2 turns (QC): 5 (SBA with increased time to complete using (B) UE's/(L) LE) Wheel 150 ft (QC): 5 (SBA with increased time to complete using (B) UE's, (R) LE) Type of Wheelchair: Manual distance of 50', 150', 50 Stair Training 1 Step (curb) (QC): 3 (min (A) in // bars) Exercises 15 reps of the following RTB ex: (R) ham curls, LAQ, knee flexion, DF/PF hip flexion,hip extension, hip abduction (L) ham curls, LAQ, knee flexion, hip flexion,hip extension(band under thigh), hip abduction Standing in // bars on foam: (L) hip flexion x 10 (L) hip abduction x 10 W/C push ups with (L) heel down only WB x 5 // bar to practice UE WB for heel-down only weight bearing (L). Tap ups to blue foam x 10 (B). Step up onto foam block min (A) in // bars. HEP for LE seated ex created, reviewed with patient, and placed in room for weekend/down-time exercise. Assessment Current Status: Fair Progress Decreased ability to maintain WB on (L) today. PT Halfway Goals Halfway Goals PT Specialty Person Goals Time Frame: October 06, 2022 Roll Left & Right (QC): 6 Sit to Lying (QC): 6 Lying-Sitting on Side/Bed(QC): 6 Sit to Stand (QC): 6 Chair/Pfs-bq-Qiqgk Xfer(QC): 6 (with FWW) Toilet Transfer (QC): 6 (with FWW) Car Transfer (QC): 5 (with FWW) Does the Patient Walk: Yes Walk 10 feet (QC): 6 (with FWW) Walk 50ft with 2 Turns (QC): 6 (with FWW and (L) heel/down only WB ) Walk 150 ft (QC): 4 (with FWW and (L) mpxx-wbdj-tuev WB) Walking 10ft on Uneven Surface: 5 (with FWW) 1 Step (curb) (QC): 4 (CGA with FWW and sqby-qstu-rghr WB on (L)) 4 Steps (QC): 4 (with (B) rails) 12 Steps (QC): 9 Picking up an Object (QC): 6 (with mobile home set up person) Does the Pt use WC or Scooter?: Yes Wheel 50 feet with 2 turns (QC: 6 Type: Manual Wheel 150 feet: 6 Type: Manual PT Plan Treatment/Plan Treatment Plan: Continue Plan of Care Treatment Plan: Bed Mobility, Education, Functional Activity Shin, Functional Strength, Group Therapy, Gait, Safety, Therapeutic Exercise, Transfers, Other (W/C propulsion and management) Treatment Duration: October 06, 2022 Frequency: At least 5 of 7 days/Wk (IRF) Estimated Hrs Per Day: 1.5 hours per day Patient and/or Family Agrees t: Yes Time Time In: 1315 Time Out: 1425 DATE: Sep 16, 2022 Total Billed Treatment Time: 70 Total Billed Treatment 35 - exercise, w/c 15, gait 10, FA 10 = 70 Suzan Mix PT Sep 16, 2022 14:42
[2022-09-16 16:09] VITALS: BP 130/63
[2022-09-16 19:20] VITALS: BP 132/78
[2022-09-16] MEDS: TIMOLOL MALEATE 0.5% 5 ML (TIMOPTIC) BTL OU SCH (21:27)
[2022-09-16] MEDS: TAMSULOSIN 0.4 MG (FLOMAX) CAP PO SCH (21:28)
[2022-09-17] MEDS: inSUlin ASPART (NovoLOG) 1 UNIT/0.01 ML (CHARGE PER UNIT) SC SCH ×4 (05:51→21:22)
--- NOTE | 2022-09-17 06:24 | PM&R Progress Note ---
Subjective HPI/CC On Admission Date Seen by Provider: Sep 17, 2022 Time Seen by Provider: 11:00 Subjective/Events-last exam 09/17/2022: Doing well Monitor closely CAMILLA MALDONADO's Sugars good Not on insulin at home 09/16/2022: No major events overnight Pain controlled Reviewed labs Eating well BM regimen maintained Glucose noted Added Levemir Cannot go back on Metformin or OHA due to CKD Review of Systems General: Fatigue, Malaise Objective Exam Vital Signs Vital Signs Date Time Temp Pulse Resp B/P (MAP) Pulse Ox O2 Delivery O2 Flow Rate FiO2 09/17/22 07:45 36.5 90 20 132/63 (86) 93 Room Air 09/16/22 16:09 21 09/16/22 16:07 0.00 Capillary Refill : General Appearance: No Apparent Distress, WD/WN, Chronically ill HEENT: PERRL/EOMI, Normal ENT Inspection, Pharynx Normal Neck: Full Range of Motion, Normal Inspection, Non Tender, Supple, Carotid Bruit Respiratory: Chest Non Tender, Lungs Clear, Normal Breath Sounds, No Accessory Muscle Use, No Respiratory Distress Cardiovascular: No Edema, No Gallop, No JVD, No Murmur, Normal Peripheral Pulses, Irregularly Irregular Gastrointestinal: Normal Bowel Sounds, No Organomegaly, No Pulsatile Mass, Non Tender, Soft Back: Normal Inspection, No CVA Tenderness, No Vertebral Tenderness Extremity: Normal Capillary Refill, Normal Inspection, Normal Range of Motion, Non Tender, No Calf Tenderness, No Pedal Edema Neurologic/Psychiatric: Alert, Oriented x3, roper operator II-XII Norm as Tested, Abnormal Gait, Depressed Affect, Motor Weakness (generalized) Skin: Normal Color, Warm/Dry Lymphatic: No Adenopathy Results/Procedures Lab Patient resulted labs reviewed. FIM Transfers Therapy Code Descriptions/Definitions Functional [place] Measure: 0=Not Assessed/NA 4=Minimal Assistance 1=Total Assistance 5=Supervision or Setup 2=Maximal Assistance 6=Modified [place] 3=Moderate Assistance 7=Complete IndependenceSCALE: Activities may be completed with or without assistive devices. 1-Xsqszuozly-wdduogr completes the activity by him/herself with no assistance from a helper. 5-Set-up or Clean-up Assistance-helper sets up or cleans up; patient completes activity. [place] assists only prior to or following the activity. 4-Supervision or Touching Assistance-helper provides verbal cues and/or touching/steadying and/or contact guard assistance as patient completes activity. Assistance may be provided throughout the activity or intermittently. 3-Partial/Moderate Assistance-helper does LESS THAN HALF the effort. [place] lifts, holds or supports trunk or limbs, but provides less than half the effort. 2-Substantial/Maximal Assistance-helper does MORE THAN HALF the effort. [place] lifts or holds trunk or limbs and provides more than half the effort. 6-Rafpyqdyp-phlzbx does ALL the effort. Patient does none of the effort to complete the activity. Or, the assistance of 2 or more helpers is required for the patient to complete the activity. If activity was not attempted, code reason: 7-Patient Refused. 9-Not Applicable-not attempted and the patient did not perform the activity before the current illness, exacerbation or injury. 10-Not Attempted due to Environmental Limitations-(lack of equipment, weather restraints, etc.). 88-Not Attempted due to Medical Conditions or Safety Concerns. Roll Left to Right (QC): 6 Sit to Lying (QC): 5 (down to right side) Sit to Stand (QC): 4 Chair/Cvx-bf-Bcsiu Xfer(QC): 4 Car Transfer (QC): 3 (min (A) with FWW) Gait Training Does the Patient Walk?: Yes Distance: 10' x 3 Walk 10 feet (QC): 3 Walk 50 ft with 2 Turns(QC): 3 (min (A) with FWW and wb cues) Walk 150 ft (QC): 88 (Patient unable to tolerate distance due to low endurance) Walking 10ft/uneven surface-QC: 3 (min (A) with FWW) Gait Assistive Device: FWW Wheelchair Training Does the Pt Use a Wheelchair?: Yes Wheel 50 ft with 2 turns (QC): 5 Wheel 150 ft (QC): 5 Type of Wheelchair: Manual Stair Training 1 Step (curb) (QC): 3 4 Steps (QC): 88 (not attempted due to fatigue ) 12 Steps (QC): 88 Balance Picking up an Object (QC): 6 (with tool hardener and FWW) ADL-Treatment Eating (QC): 6 Oral Hygiene (QC): 4 Shower/Bathe Self (QC): 4 (SBA in stand) Upper Body Dressing (QC): 5 Lower Body Dressing (QC): 3 (Min A threading LLE into pants.) On/Off Footwear (QC): 4 (SBA, pt able to doff/don R gripper sock, L foot not assessed due to recent surgery/dressing on foot.) Toileting Hygiene (QC): 4 (CGA in stand for pant hike.) Assessment/Plan Assessment and Plan Assess & Plan/Chief Complaint A: 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 mitis, S. aureus) Left Foot abscess --> (prelim report: S. mitis, S. aureus, Gram (-) carissa) Bactermia --> (prelim report: S. mitis) DM CAD HTN HLD BPH Paroxysmal Afib Dementia P: PT/OT Wound care for open wound left foot Continue abx. and adjust pending final cultures and sensitivities. Diet as tolerated Restart home medications & monitor INR DVT Proph: coumadin 09/16/2022: DC Metformin and OHA of home meds and restart a few others Start Levemir Monitor closely 09/17/2022: Monitor closely (1) Abscess of left foot Status: Acute (2) Acute kidney injury superimposed on chronic kidney disease Status: Acute (3) On Coumadin for atrial fibrillation Status: Chronic (4) History of venous thromboembolism Status: Chronic (5) BPH (benign prostatic hyperplasia) Status: Chronic (6) Afib Status: Chronic (7) HLD (hyperlipidemia) Status: Chronic (8) CAD (coronary artery disease) Status: Chronic (9) T2DM (type 2 diabetes mellitus) Status: Acute DIALLO PEACE DO Sep 17, 2022 06:24
[2022-09-17 07:45] VITALS: BP 132/63
[2022-09-17] MEDS: SENNA W/DOCUSATE (SENOKOT S) TABLET PO SCH ×2 (08:07→21:22)
[2022-09-17] MEDS: DOCUSATE SODIUM 100 MG (COLACE) CAP PO SCH ×2 (08:07→21:22)
[2022-09-17] MEDS: ACETAMINOPHEN 325 MG TABLET PO PRN (08:15)
[2022-09-17] MEDS: polyethylene glycoL POWDER 17 GM (MIRALAX) PACK PO SCH ×2 (09:59→21:22)
[2022-09-17] MEDS: cefTRIAXone 2,000 MG/NS 50 ML IVPB IV SCH ×2 (11:32)
[2022-09-17] MEDS ORDERED: warFARin 2.5 MG (COUMADIN) TAB PO SCH (18:00)
[2022-09-17 20:00] VITALS: BP 158/80
[2022-09-17] MEDS: TAMSULOSIN 0.4 MG (FLOMAX) CAP PO SCH (21:22)
[2022-09-17] MEDS: TIMOLOL MALEATE 0.5% 5 ML (TIMOPTIC) BTL OU SCH (21:22)
[2022-09-18] MEDS: inSUlin ASPART (NovoLOG) 1 UNIT/0.01 ML (CHARGE PER UNIT) SC SCH ×4 (07:06→21:32)
--- NOTE | 2022-09-18 07:24 | PM&R Progress Note ---
Subjective HPI/CC On Admission Date Seen by Provider: Sep 18, 2022 Time Seen by Provider: 15:30 Subjective/Events-last exam 09/18/2022: Much improved Daughter at bedside Sugars improved Pain controlled Labs reviewed INR noted 09/17/2022: Doing well Monitor closely DC JOEL's Sugars good Not on insulin at home 09/16/2022: No major events overnight Pain controlled Reviewed labs Eating well BM regimen maintained Glucose noted Added Levemir Cannot go back on Metformin or OHA due to CKD Review of Systems General: Fatigue, Malaise Objective Exam Vital Signs Vital Signs Date Time Temp Pulse Resp B/P (MAP) Pulse Ox O2 Delivery O2 Flow Rate FiO2 09/18/22 21:30 97 Room Air 09/18/22 19:43 36.7 86 22 127/79 (95) 09/18/22 17:02 0.00 09/16/22 16:09 21 Capillary Refill : General Appearance: No Apparent Distress, WD/WN, Chronically ill HEENT: PERRL/EOMI, Normal ENT Inspection, Pharynx Normal Neck: Full Range of Motion, Normal Inspection, Non Tender, Supple, Carotid Bruit Respiratory: Chest Non Tender, Lungs Clear, Normal Breath Sounds, No Accessory Muscle Use, No Respiratory Distress Cardiovascular: No Edema, No Gallop, No JVD, No Murmur, Normal Peripheral Pulses, Irregularly Irregular Gastrointestinal: Normal Bowel Sounds, No Organomegaly, No Pulsatile Mass, Non Tender, Soft Back: Normal Inspection, No CVA Tenderness, No Vertebral Tenderness Extremity: Normal Capillary Refill, Normal Inspection, Normal Range of Motion, Non Tender, No Calf Tenderness, No Pedal Edema Neurologic/Psychiatric: Alert, Oriented x3, metallography teacher II-XII Norm as Tested, Abnormal Gait, Depressed Affect, Motor Weakness (generalized) Skin: Normal Color, Warm/Dry Lymphatic: No Adenopathy Results/Procedures Lab Laboratory Tests 09/18/22 10:40 Patient resulted labs reviewed. FIM Transfers Therapy Code Descriptions/Definitions Functional [place] Measure: 0=Not Assessed/NA 4=Minimal Assistance 1=Total Assistance 5=Supervision or Setup 2=Maximal Assistance 6=Modified [place] 3=Moderate Assistance 7=Complete IndependenceSCALE: Activities may be completed with or without assistive devices. 6-Erbkvihsyl-hcdisws completes the activity by him/herself with no assistance from a helper. 5-Set-up or Clean-up Assistance-helper sets up or cleans up; patient completes activity. [place] assists only prior to or following the activity. 4-Supervision or Touching Assistance-helper provides verbal cues and/or touching/steadying and/or contact guard assistance as patient completes activity. Assistance may be provided throughout the activity or intermittently. 3-Partial/Moderate Assistance-helper does LESS THAN HALF the effort. [place] lifts, holds or supports trunk or limbs, but provides less than half the effort. 2-Substantial/Maximal Assistance-helper does MORE THAN HALF the effort. [place] lifts or holds trunk or limbs and provides more than half the effort. 6-Gbrwchbjt-sanfso does ALL the effort. Patient does none of the effort to complete the activity. Or, the assistance of 2 or more helpers is required for the patient to complete the activity. If activity was not attempted, code reason: 7-Patient Refused. 9-Not Applicable-not attempted and the patient did not perform the activity before the current illness, exacerbation or injury. 10-Not Attempted due to Environmental Limitations-(lack of equipment, weather restraints, etc.). 88-Not Attempted due to Medical Conditions or Safety Concerns. Roll Left to Right (QC): 6 Sit to Lying (QC): 5 (down to right side) Sit to Stand (QC): 4 Chair/Oze-gi-Tcmwv Xfer(QC): 4 Car Transfer (QC): 3 (min (A) with FWW) Gait Training Does the Patient Walk?: Yes Distance: 10' x 3 Walk 10 feet (QC): 3 Walk 50 ft with 2 Turns(QC): 3 (min (A) with FWW and wb cues) Walk 150 ft (QC): 88 (Patient unable to tolerate distance due to low endurance) Walking 10ft/uneven surface-QC: 3 (min (A) with FWW) Gait Assistive Device: FWW Wheelchair Training Does the Pt Use a Wheelchair?: Yes Wheel 50 ft with 2 turns (QC): 5 Wheel 150 ft (QC): 5 Type of Wheelchair: Manual Stair Training 1 Step (curb) (QC): 3 4 Steps (QC): 88 (not attempted due to fatigue ) 12 Steps (QC): 88 Balance Picking up an Object (QC): 6 (with training executive and FWW) ADL-Treatment Eating (QC): 6 Oral Hygiene (QC): 4 Shower/Bathe Self (QC): 4 (SBA in stand) Upper Body Dressing (QC): 5 Lower Body Dressing (QC): 3 (Min A threading LLE into pants.) On/Off Footwear (QC): 4 (SBA, pt able to doff/don R gripper sock, L foot not assessed due to recent surgery/dressing on foot.) Toileting Hygiene (QC): 4 (CGA in stand for pant hike.) Assessment/Plan Assessment and Plan Assess & Plan/Chief Complaint A: 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 mitis, S. aureus) Left Foot abscess --> (prelim report: S. mitis, S. aureus, Gram (-) carissa) Bactermia --> (prelim report: S. mitis) DM CAD HTN HLD BPH Paroxysmal Afib Dementia P: PT/OT Wound care for open wound left foot Continue abx. and adjust pending final cultures and sensitivities. Diet as tolerated Restart home medications & monitor INR DVT Proph: coumadin 09/16/2022: DC Metformin and OHA of home meds and restart a few others Start Levemir Monitor closely 09/17/2022: Monitor closely 09/18/2022: Insulin Monitor closely (1) Abscess of left foot Status: Acute (2) Acute kidney injury superimposed on chronic kidney disease Status: Acute (3) On Coumadin for atrial fibrillation Status: Chronic (4) History of venous thromboembolism Status: Chronic (5) BPH (benign prostatic hyperplasia) Status: Chronic (6) Afib Status: Chronic (7) HLD (hyperlipidemia) Status: Chronic (8) CAD (coronary artery disease) Status: Chronic (9) T2DM (type 2 diabetes mellitus) Status: Acute DIALLO PEACE DO Sep 18, 2022 07:24
[2022-09-18 07:40] VITALS: BP 131/60
[2022-09-18] MEDS: SENNA W/DOCUSATE (SENOKOT S) TABLET PO SCH ×2 (07:45→21:32)
[2022-09-18] MEDS: DOCUSATE SODIUM 100 MG (COLACE) CAP PO SCH ×2 (07:45→21:32)
[2022-09-18] MEDS: polyethylene glycoL POWDER 17 GM (MIRALAX) PACK PO SCH ×2 (07:45→21:32)
[2022-09-18 10:43] LABS: BASOPHILS % (AUTO) 0 % (0-10); EOSINOPHILS # (AUTO) 0.3 10^3/uL (0.0-0.3); EOSINOPHILS % (AUTO) 3 % (0-10); HEMATOCRIT 27 % (40-54); HEMOGLOBIN 8.5 g/dL (13.3-17.7); LYMPHOCYTES # (AUTO) 1.7 10^3/uL (1.0-4.0); LYMPHOCYTES % (AUTO) 21 % (12-44); MEAN CORPUSCULAR HEMOGLOBIN 28 pg (25-34); MEAN CORPUSCULAR HGB CONC 32 g/dL (32-36); MEAN CORPUSCULAR VOLUME 87 fL (80-99); MEAN PLATELET VOLUME 10.8 fL (9.0-12.2); MONOCYTES # (AUTO) 0.7 10^3/uL (0.0-1.0); MONOCYTES % (AUTO) 8 % (0-12); NEUTROPHILS # (AUTO) 5.4 10^3/uL (1.8-7.8); NEUTROPHILS % (AUTO) 66 % (42-75); PLATELET COUNT 345 10^3/uL (130-400); WHITE BLOOD COUNT 8.2 10^3/uL (4.3-11.0)
[2022-09-18 10:54] LABS: ALBUMIN 2.3 GM/DL (3.2-4.5); POTASSIUM 3.8 MMOL/L (3.6-5.0)
[2022-09-18 10:55] LABS: CALCIUM 8.3 MG/DL (8.5-10.1); INR 3.4 (0.8-1.4); PROTHROMBIN TIME PATIENT 34.3 SEC (12.2-14.7)
[2022-09-18 10:57] LABS: TOTAL PROTEIN 5.9 GM/DL (6.4-8.2)
[2022-09-18 10:58] LABS: BILIRUBIN,TOTAL 0.2 MG/DL (0.1-1.0)
[2022-09-18 11:00] LABS: CREATININE SERUM 2.08 MG/DL (0.60-1.30)
[2022-09-18] MEDS: ACETAMINOPHEN 325 MG TABLET PO PRN (11:07)
[2022-09-18] MEDS: cefTRIAXone 2,000 MG/NS 50 ML IVPB IV SCH ×2 (11:18)
[2022-09-18] MEDS: warFARin 1 MG (COUMADIN) TAB PO SCH (17:59)
[2022-09-18 19:43] VITALS: BP 127/79
[2022-09-18] MEDS: TAMSULOSIN 0.4 MG (FLOMAX) CAP PO SCH (21:32)
[2022-09-18] MEDS: TIMOLOL MALEATE 0.5% 5 ML (TIMOPTIC) BTL OU SCH (21:33)
--- NOTE | 2022-09-19 05:14 | PM&R Progress Note ---
Subjective HPI/CC On Admission Date Seen by Provider: Sep 19, 2022 Time Seen by Provider: 09:00 Subjective/Events-last exam 09/19/2022: Doing better Improved overall Sugars improved DM education since only safe treatment for DM with CKD is insulin 09/18/2022: Much improved Daughter at bedside Sugars improved Pain controlled Labs reviewed INR noted 09/17/2022: Doing well Monitor closely DC JOEL's Sugars good Not on insulin at home 09/16/2022: No major events overnight Pain controlled Reviewed labs Eating well BM regimen maintained Glucose noted Added Levemir Cannot go back on Metformin or OHA due to CKD Review of Systems General: Fatigue, Malaise Objective Exam Vital Signs Vital Signs Date Time Temp Pulse Resp B/P (MAP) Pulse Ox O2 Delivery O2 Flow Rate FiO2 09/19/22 21:20 96 Room Air 09/19/22 20:25 36.4 88 20 154/74 (100) 09/18/22 17:02 0.00 09/16/22 16:09 21 Capillary Refill : General Appearance: No Apparent Distress, WD/WN, Chronically ill HEENT: PERRL/EOMI, Normal ENT Inspection, Pharynx Normal Neck: Full Range of Motion, Normal Inspection, Non Tender, Supple, Carotid Bruit Respiratory: Chest Non Tender, Lungs Clear, Normal Breath Sounds, No Accessory Muscle Use, No Respiratory Distress Cardiovascular: No Edema, No Gallop, No JVD, No Murmur, Normal Peripheral Pulses, Irregularly Irregular Gastrointestinal: Normal Bowel Sounds, No Organomegaly, No Pulsatile Mass, Non Tender, Soft Back: Normal Inspection, No CVA Tenderness, No Vertebral Tenderness Extremity: Normal Capillary Refill, Normal Inspection, Normal Range of Motion, Non Tender, No Calf Tenderness, No Pedal Edema Neurologic/Psychiatric: Alert, Oriented x3, latcher II-XII Norm as Tested, Abnormal Gait, Depressed Affect, Motor Weakness (generalized) Skin: Normal Color, Warm/Dry Lymphatic: No Adenopathy Results/Procedures Lab Patient resulted labs reviewed. FIM Transfers Therapy Code Descriptions/Definitions Functional [place] Measure: 0=Not Assessed/NA 4=Minimal Assistance 1=Total Assistance 5=Supervision or Setup 2=Maximal Assistance 6=Modified [place] 3=Moderate Assistance 7=Complete IndependenceSCALE: Activities may be completed with or without assistive devices. 7-Jqxzpajgua-aijshpz completes the activity by him/herself with no assistance from a helper. 5-Set-up or Clean-up Assistance-helper sets up or cleans up; patient completes activity. [place] assists only prior to or following the activity. 4-Supervision or Touching Assistance-helper provides verbal cues and/or touching/steadying and/or contact guard assistance as patient completes activity. Assistance may be provided throughout the activity or intermittently. 3-Partial/Moderate Assistance-helper does LESS THAN HALF the effort. [place] lifts, holds or supports trunk or limbs, but provides less than half the effort. 2-Substantial/Maximal Assistance-helper does MORE THAN HALF the effort. [place] lifts or holds trunk or limbs and provides more than half the effort. 8-Dznpdhbwr-fnsivr does ALL the effort. Patient does none of the effort to complete the activity. Or, the assistance of 2 or more helpers is required for the patient to complete the activity. If activity was not attempted, code reason: 7-Patient Refused. 9-Not Applicable-not attempted and the patient did not perform the activity before the current illness, exacerbation or injury. 10-Not Attempted due to Environmental Limitations-(lack of equipment, weather restraints, etc.). 88-Not Attempted due to Medical Conditions or Safety Concerns. Roll Left to Right (QC): 6 Sit to Lying (QC): 5 (down to right side) Sit to Stand (QC): 4 Chair/Tzd-xv-Wywaa Xfer(QC): 4 Car Transfer (QC): 3 (min (A) with FWW) Gait Training Does the Patient Walk?: Yes Distance: 10' x 3 Walk 10 feet (QC): 3 Walk 50 ft with 2 Turns(QC): 3 (min (A) with FWW and wb cues) Walk 150 ft (QC): 88 (Patient unable to tolerate distance due to low endurance) Walking 10ft/uneven surface-QC: 3 (min (A) with FWW) Gait Assistive Device: FWW Wheelchair Training Does the Pt Use a Wheelchair?: Yes Wheel 50 ft with 2 turns (QC): 5 Wheel 150 ft (QC): 5 Type of Wheelchair: Manual Stair Training 1 Step (curb) (QC): 3 4 Steps (QC): 88 (not attempted due to fatigue ) 12 Steps (QC): 88 Balance Picking up an Object (QC): 6 (with director of casework and FWW) ADL-Treatment Eating (QC): 6 Oral Hygiene (QC): 4 Shower/Bathe Self (QC): 4 (SBA in stand) Upper Body Dressing (QC): 5 Lower Body Dressing (QC): 3 (Min A threading LLE into pants.) On/Off Footwear (QC): 4 (SBA, pt able to doff/don R gripper sock, L foot not assessed due to recent surgery/dressing on foot.) Toileting Hygiene (QC): 4 (CGA in stand for pant hike.) Assessment/Plan Assessment and Plan Assess & Plan/Chief Complaint A: 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 mitis, S. aureus) Left Foot abscess --> (prelim report: S. mitis, S. aureus, Gram (-) carissa) Bactermia --> (prelim report: S. mitis) DM CAD HTN HLD BPH Paroxysmal Afib Dementia P: PT/OT Wound care for open wound left foot Continue abx. and adjust pending final cultures and sensitivities. Diet as tolerated Restart home medications & monitor INR DVT Proph: coumadin 09/16/2022: DC Metformin and OHA of home meds and restart a few others Start Levemir Monitor closely 09/17/2022: Monitor closely 09/18/2022: Insulin Monitor closely 09/19/2022: DM education (1) Abscess of left foot Status: Acute (2) Acute kidney injury superimposed on chronic kidney disease Status: Acute (3) On Coumadin for atrial fibrillation Status: Chronic (4) History of venous thromboembolism Status: Chronic (5) BPH (benign prostatic hyperplasia) Status: Chronic (6) Afib Status: Chronic (7) HLD (hyperlipidemia) Status: Chronic (8) CAD (coronary artery disease) Status: Chronic (9) T2DM (type 2 diabetes mellitus) Status: Acute DIALLO PEACE DO Sep 19, 2022 05:14
[2022-09-19] MEDS: inSUlin ASPART (NovoLOG) 1 UNIT/0.01 ML (CHARGE PER UNIT) SC SCH ×4 (06:15→21:24)
[2022-09-19 08:00] VITALS: BP 132/69
[2022-09-19] MEDS: polyethylene glycoL POWDER 17 GM (MIRALAX) PACK PO SCH ×2 (08:14→21:24)
[2022-09-19] MEDS: DOCUSATE SODIUM 100 MG (COLACE) CAP PO SCH ×2 (08:14→21:24)
[2022-09-19] MEDS: SENNA W/DOCUSATE (SENOKOT S) TABLET PO SCH ×2 (08:14→21:24)
--- NOTE | 2022-09-19 08:38 | Occupational Ther Daily Note ---
OT Current Status-Daily Note Subjective Pt in bed, agreeable to OT Tx with focus on ADLs. Mental Status/Objective Patient Orientation: Normal For Age ADL-Treatment Therapy Code Descriptions/Definitions Functional [place] Measure: 0=Not Assessed/NA 4=Minimal Assistance 1=Total Assistance 5=Supervision or Setup 2=Maximal Assistance 6=Modified [place] 3=Moderate Assistance 7=Complete IndependenceSCALE: Activities may be completed with or without assistive devices. 1-Cjxurjmovt-stcsmye completes the activity by him/herself with no assistance from a helper. 5-Set-up or Clean-up Assistance-helper sets up or cleans up; patient completes activity. [place] assists only prior to or following the activity. 4-Supervision or Touching Assistance-helper provides verbal cues and/or touching/steadying and/or contact guard assistance as patient completes activity. Assistance may be provided throughout the activity or intermittently. 3-Partial/Moderate Assistance-helper does LESS THAN HALF the effort. [place] lifts, holds or supports trunk or limbs, but provides less than half the effort. 2-Substantial/Maximal Assistance-helper does MORE THAN HALF the effort. [place] lifts or holds trunk or limbs and provides more than half the effort. 4-[place]he[place]-ndiody does ALL the effort. Patient does none of the effort to complete the activity. Or, the assistance of 2 or more helpers is required for the patient to complete the activity. If activity was not attempted, code reason: 7-Patient Refused. 9-Not Applicable-not attempted and the patient did not perform the activity before the current illness, exacerbation or injury. 10-Not Attempted due to Environmental Limitations-(lack of equipment, weather restraints, etc.). 88-Not Attempted due to Medical Conditions or Safety Concerns. Eating (QC): 6 Oral Hygiene (QC): 6 (seated) Shower/Bathe Self (QC): 5 (set up to cover wound vac and midline) Upper Body Dressing (QC): 5 Lower Body Dressing (QC): 4 (SBA, 1 VC for orientation of brief.) On/Off Footwear: 5 Other Treatment Pt in bed, transferred supine to sit EOB, IND. Pt used FWW to transfer into bathroom and onto SC (CGA-SBA), pt appeared to maintain Heel only WB through L foot during mobility without cues. Pt doffed clothes, OT covered wound vac and midline prior to shower (both remained dry post shower). Pt completed showering, then donned clothes. Pt used FWW to transfer to /, performed w/c mobility to therapy gym, SBA. OT tx focused on increasing BUE Strength and activity tolerance. Pt completed UE reaching task, placing/removing 1" pegs from foam pegboard, alternating hands, 1lb wrist weight BUES. Pt then completed x10 mins on arm bike, 10 Watt resistance, several rest breaks required. OT assisted pt back to his room via w/c, pt transferred from / to recliner using FWW SBA. Post tx, pt in recliner, call light in reach and all needs met. Education OT Patient Education: Correct positioning, Energy conservation, Modified ADL techniques, Progress toward Goal/Update tx plan, Purpose of tx/functional activities, Rehab process Teaching Recipient: Patient Teaching Methods: Discussion Response to Teaching: Verbalize Understanding OT Short Term Goals Short Term Goals Time Frame: Sep 23, 2022 Shower/bathe self: 5 Lower body dressin Putting on/taking off footwear: 5 OT Tomato Paste Maker Goals Fpc Goals Time Frame: Sep 30, 2022 Acute change in mental status: 0 Inattention: 0 Disorganized thinkin Altered level of consciousness: 0 Eating (QC): 6 Oral Hygiene (QC): 6 Toileting Hygiene (QC): 6 Shower/Bathe Self (QC): 6 Upper Body Dressing (QC): 6 Lower Body Dressing (QC): 6 On/Off Footwear (QC): 6 Additional Goals: 1-Demonstrate ADL Tasks, 2-Verbalize Understanding, 3- ImproveStrength/Shin 1=Demonstrate adherence to instructed precautions during ADL tasks. 2=Patient will verbalize/demonstrate understanding of assistive dev ices/modifications for ADL. 3=Patient will improve strength/tolerance for activity to enable patient to perform ADL's. OT Education/Plan Problem List/Assessment Assessment: Decreased Activ Tolerance, Decreased UE Strength, Impaired Funct Balance, Impaired I ADL's, Impaired Self-Care Skills Discharge Recommendations Plan/Recommendations: Continue POC Treatment Plan/Plan of Care Patient would benefit from OT for education, treatment and training to promote independence in ADL's, mobility, safety and/or upper extremity function for ADL 's. Plan of Care: ADL Retraining, Functional Mobility, Group Exercise/Act as Ind, UE Funct Exercise/Act Treatment Duration: Sep 30, 2022 Frequency: At least 5 of 7 days/Wk (IRF) Estimated Hrs Per Day: 1.5 hours per day Agreement: Yes Rehab Potential: Good Time Start Time: 07:45 Stop Time: 09:15 DATE: Sep 19, 2022 Total Time Billed (hr/min): 90 Billed Treatment Time 1, ADL 3 (45'), FA 2 (30'), EX (15') DEBI GENTILE OT Sep 19, 2022 08:37
--- NOTE | 2022-09-19 11:05 | Physical Therapy Daily Note ---
PT Daily Note-Current Subjective pt was in recliner asleep upon arrival. pt willing for therapy. pt reports 3 pain level from walking to and from the shower this morning in his amputated foot. Pain Section J - Health Conditions 1. Rarely or not at all 2. Occasionally 3. Frequently 4. Almost constantly 8. Unable to answer Pain Effect on Sleep: 2 Pain Interference with Therapy: 2 Pain Interference w/Day-to-Day: 2 Transfers SCALE: Activities may be completed with or without assistive devices. 9-Msrhgfvtnm-flfdrab completes the activity by him/herself with no assistance from a helper. 5-Set-up or Clean-up Assistance-helper sets up or cleans up; patient completes activity. [place] assists only prior to or following the activity. 4-Supervision or Touching Assistance-helper provides verbal cues and/or touching/steadying and/or contact guard assistance as patient completes activity. Assistance may be provided throughout the activity or intermittently. 3-Partial/Moderate Assistance-helper does LESS THAN HALF the effort. [place] lifts, holds or supports trunk or limbs, but provides less than half the effort. 2-Substantial/Maximal Assistance-helper does MORE THAN HALF the effort. [place] lifts or holds trunk or limbs and provides more than half the effort. 5-Kaoqamonn-knvcay does ALL the effort. Patient does none of the effort to complete the activity. Or, the assistance of 2 or more helpers is required for the patient to complete the activity. If activity was not attempted, code reason: 7-Patient Refused. 9-Not Applicable-not attempted and the patient did not perform the activity before the current illness, exacerbation or injury. 10-Not Attempted due to Environmental Limitations-(lack of equipment, weather restraints, etc.). 88-Not Attempted due to Medical Conditions or Safety Concerns. Weight Bearing Full Weight Bearing (L) gugl-edsy-nzgx weight bearing Exercises Seated Therapy Exercises: LE Protocol, Ankle pumps, Sit to stand, Long arc quads, Chair press-ups, Hip flexion, Kicking activity, Hamstring Curls, Glut set Treatments pt was able to ambulate 15 ft with RW and CGA to and from the bathroom for a total of 30ft with rest sitting after 15ft feet. pt was able to do sitting ther- ex with red thera band in all planes of motion for a total of 3 sets x 10 reps each with rest in between each set this day secondary to fatigue. Assessment Current Status: Good Progress PT Character Impersonator Goals Half-Way Goals PT Half-Way Goals Time Frame: October 06, 2022 Roll Left & Right (QC): 6 Sit to Lying (QC): 6 Lying-Sitting on Side/Bed(QC): 6 Sit to Stand (QC): 6 Chair/Mxa-st-Wookj Xfer(QC): 6 (with FWW) Toilet Transfer (QC): 6 (with FWW) Car Transfer (QC): 5 (with FWW) Does the Patient Walk: Yes Walk 10 feet (QC): 6 (with FWW) Walk 50ft with 2 Turns (QC): 6 (with FWW and (L) heel/down only WB ) Walk 150 ft (QC): 4 (with FWW and (L) iymj-zfma-vlyy WB) Walking 10ft on Uneven Surface: 5 (with FWW) 1 Step (curb) (QC): 4 (CGA with FWW and ehwp-sexa-bdwx WB on (L)) 4 Steps (QC): 4 (with (B) rails) 12 Steps (QC): 9 Picking up an Object (QC): 6 (with alteration worker) Does the Pt use WC or Scooter?: Yes Wheel 50 feet with 2 turns (QC: 6 Type: Manual Wheel 150 feet: 6 Type: Manual PT Plan Treatment/Plan Treatment Plan: Continue Plan of Care Treatment Plan: Bed Mobility, Education, Functional Activity Shin, Functional Strength, Group Therapy, Gait, Safety, Therapeutic Exercise, Transfers, Other (W/C propulsion and management) Treatment Duration: October 06, 2022 Frequency: At least 5 of 7 days/Wk (IRF) Estimated Hrs Per Day: 1.5 hours per day Patient and/or Family Agrees t: Yes Time Time In: 1031 Time Out: 1131 DATE: Sep 19, 2022 Total Billed Treatment Time: 60 Total Billed Treatment 1, gt, fa, ex x 2. pt was left in recliner with call light and all needs met. Sonja Peña MANAGER SCIENTIFIC Sep 19, 2022 11:05
[2022-09-19] MEDS: cefTRIAXone 2,000 MG/NS 50 ML IVPB IV SCH ×2 (11:17)
--- NOTE | 2022-09-19 13:09 | Physical Therapy Daily Note ---
PT Daily Note-Current Subjective pt in recliner upon entering after just finishing lunch. pt willing for therapy and reports pain in left foot of 2 in general. Pain Section J - Health Conditions 1. Rarely or not at all 2. Occasionally 3. Frequently 4. Almost constantly 8. Unable to answer Pain Effect on Sleep: 2 Pain Interference with Therapy: 2 Pain Interference w/Day-to-Day: 2 Mental Status Patient Orientation: Person, Place, Time, Situation Transfers SCALE: Activities may be completed with or without assistive devices. 3-Owxehogyxv-cdxsxci completes the activity by him/herself with no assistance from a helper. 5-Set-up or Clean-up Assistance-helper sets up or cleans up; patient completes activity. [place] assists only prior to or following the activity. 4-Supervision or Touching Assistance-helper provides verbal cues and/or touching/steadying and/or contact guard assistance as patient completes activity. Assistance may be provided throughout the activity or intermittently. 3-Partial/Moderate Assistance-helper does LESS THAN HALF the effort. [place] lifts, holds or supports trunk or limbs, but provides less than half the effort. 2-Substantial/Maximal Assistance-helper does MORE THAN HALF the effort. [place] lifts or holds trunk or limbs and provides more than half the effort. 6-Rnnzsbbtu-cszvjj does ALL the effort. Patient does none of the effort to complete the activity. Or, the assistance of 2 or more helpers is required for the patient to complete the activity. If activity was not attempted, code reason: 7-Patient Refused. 9-Not Applicable-not attempted and the patient did not perform the activity before the current illness, exacerbation or injury. 10-Not Attempted due to Environmental Limitations-(lack of equipment, weather restraints, etc.). 88-Not Attempted due to Medical Conditions or Safety Concerns. Weight Bearing Full Weight Bearing (L) zwlt-uhns-xwfj weight bearing Exercises Supine Ex: Ankle pumps, Quad Set, Heel Slides, Short Arc Quads, Straight leg raise, Hip abd/add Treatments pt is able to execute ther-ex in sitting in all planes of motion with VC of 30% this day for correct mm movement for max benefit this day. pt is able to preform 2 sets of 20 this day with rest in between secondary to fatigue. Assessment Current Status: Good Progress PT Speech Language Pathologist Prn Goals Speech Language Pathologist Prn Goals PT Fci Goals Time Frame: October 06, 2022 Roll Left & Right (QC): 6 Sit to Lying (QC): 6 Lying-Sitting on Side/Bed(QC): 6 Sit to Stand (QC): 6 Chair/Yvo-bt-Geujj Xfer(QC): 6 (with FWW) Toilet Transfer (QC): 6 (with FWW) Car Transfer (QC): 5 (with FWW) Does the Patient Walk: Yes Walk 10 feet (QC): 6 (with FWW) Walk 50ft with 2 Turns (QC): 6 (with FWW and (L) heel/down only WB ) Walk 150 ft (QC): 4 (with FWW and (L) qpdy-casm-tyfc WB) Walking 10ft on Uneven Surface: 5 (with FWW) 1 Step (curb) (QC): 4 (CGA with FWW and pmry-zszy-zcti WB on (L)) 4 Steps (QC): 4 (with (B) rails) 12 Steps (QC): 9 Picking up an Object (QC): 6 (with triple valve mechanic) Does the Pt use WC or Scooter?: Yes Wheel 50 feet with 2 turns (QC: 6 Type: Manual Wheel 150 feet: 6 Type: Manual PT Plan Treatment/Plan Treatment Plan: Continue Plan of Care Treatment Plan: Bed Mobility, Education, Functional Activity Shin, Functional Strength, Group Therapy, Gait, Safety, Therapeutic Exercise, Transfers, Other (W/C propulsion and management) Treatment Duration: October 06, 2022 Frequency: At least 5 of 7 days/Wk (IRF) Estimated Hrs Per Day: 1.5 hours per day Patient and/or Family Agrees t: Yes Time Time In: 1230 Time Out: 0100 DATE: Sep 19, 2022 Total Billed Treatment Time: 30 Total Billed Treatment 1, EX x 2 pt left in recliner with call light and all needs met. Sonja Peña KNOCKER OUT Sep 19, 2022 13:09
[2022-09-19] MEDS: warFARin 1 MG (COUMADIN) TAB PO SCH (17:19)
[2022-09-19 20:25] VITALS: BP 154/74
[2022-09-19] MEDS: metroNIDAZOLE 500 MG/100 ML IVPB (PRE-MIX) IV SCH (21:09)
[2022-09-19] MEDS: TAMSULOSIN 0.4 MG (FLOMAX) CAP PO SCH (21:24)
[2022-09-19] MEDS: ACETAMINOPHEN 325 MG TABLET PO PRN (21:24)
[2022-09-19] MEDS: TIMOLOL MALEATE 0.5% 5 ML (TIMOPTIC) BTL OU SCH (21:26)
[2022-09-20] MEDS: inSUlin ASPART (NovoLOG) 1 UNIT/0.01 ML (CHARGE PER UNIT) SC SCH ×4 (05:44→20:27)
[2022-09-20] MEDS: ACETAMINOPHEN 325 MG TABLET PO PRN (05:49)
--- NOTE | 2022-09-20 06:16 | PM&R Progress Note ---
Subjective HPI/CC On Admission Date Seen by Provider: Sep 20, 2022 Time Seen by Provider: 09:00 Subjective/Events-last exam 09/20/2022: No major events Participation with therapy is good DM education for insulin teaching ordered 09/19/2022: Doing better Improved overall Sugars improved DM education since only safe treatment for DM with CKD is insulin 09/18/2022: Much improved Daughter at bedside Sugars improved Pain controlled Labs reviewed INR noted 09/17/2022: Doing well Monitor closely DC JOEL's Sugars good Not on insulin at home 09/16/2022: No major events overnight Pain controlled Reviewed labs Eating well BM regimen maintained Glucose noted Added Levemir Cannot go back on Metformin or OHA due to CKD Review of Systems General: Fatigue, Malaise Objective Exam Vital Signs Vital Signs Date Time Temp Pulse Resp B/P (MAP) Pulse Ox O2 Delivery O2 Flow Rate FiO2 09/20/22 21:55 Room Air 09/20/22 20:26 36.8 79 16 128/68 (88) 97 09/18/22 17:02 0.00 09/16/22 16:09 21 Capillary Refill : General Appearance: No Apparent Distress, WD/WN, Chronically ill HEENT: PERRL/EOMI, Normal ENT Inspection, Pharynx Normal Neck: Full Range of Motion, Normal Inspection, Non Tender, Supple, Carotid Bruit Respiratory: Chest Non Tender, Lungs Clear, Normal Breath Sounds, No Accessory Muscle Use, No Respiratory Distress Cardiovascular: No Edema, No Gallop, No JVD, No Murmur, Normal Peripheral Pulses, Irregularly Irregular Gastrointestinal: Normal Bowel Sounds, No Organomegaly, No Pulsatile Mass, Non Tender, Soft Back: Normal Inspection, No CVA Tenderness, No Vertebral Tenderness Extremity: Normal Capillary Refill, Normal Inspection, Normal Range of Motion, Non Tender, No Calf Tenderness, No Pedal Edema Neurologic/Psychiatric: Alert, Oriented x3, mail list librarian II-XII Norm as Tested, Abnormal Gait, Depressed Affect, Motor Weakness (generalized) Skin: Normal Color, Warm/Dry Lymphatic: No Adenopathy Results/Procedures Lab Laboratory Tests 09/20/22 07:35 Patient resulted labs reviewed. FIM Transfers Therapy Code Descriptions/Definitions Functional [place] Measure: 0=Not Assessed/NA 4=Minimal Assistance 1=Total Assistance 5=Supervision or Setup 2=Maximal Assistance 6=Modified [place] 3=Moderate Assistance 7=Complete IndependenceSCALE: Activities may be completed with or without assistive devices. 1-Ierkxnbxwf-pdwplka completes the activity by him/herself with no assistance from a helper. 5-Set-up or Clean-up Assistance-helper sets up or cleans up; patient completes activity. [place] assists only prior to or following the activity. 4-Supervision or Touching Assistance-helper provides verbal cues and/or touching/steadying and/or contact guard assistance as patient completes activity. Assistance may be provided throughout the activity or intermittently. 3-Partial/Moderate Assistance-helper does LESS THAN HALF the effort. [place] lifts, holds or supports trunk or limbs, but provides less than half the effort. 2-Substantial/Maximal Assistance-helper does MORE THAN HALF the effort. [place] lifts or holds trunk or limbs and provides more than half the effort. 1-Gyikkidxs-srywaz does ALL the effort. Patient does none of the effort to complete the activity. Or, the assistance of 2 or more helpers is required for the patient to complete the activity. If activity was not attempted, code reason: 7-Patient Refused. 9-Not Applicable-not attempted and the patient did not perform the activity before the current illness, exacerbation or injury. 10-Not Attempted due to Environmental Limitations-(lack of equipment, weather restraints, etc.). 88-Not Attempted due to Medical Conditions or Safety Concerns. Roll Left to Right (QC): 6 Sit to Lying (QC): 5 (down to right side) Sit to Stand (QC): 4 Chair/Hrs-iz-Lupob Xfer(QC): 4 Car Transfer (QC): 3 (min (A) with FWW) Gait Training Does the Patient Walk?: Yes Distance: 10' x 3 Walk 10 feet (QC): 3 Walk 50 ft with 2 Turns(QC): 3 (min (A) with FWW and wb cues) Walk 150 ft (QC): 88 (Patient unable to tolerate distance due to low endurance) Walking 10ft/uneven surface-QC: 3 (min (A) with FWW) Gait Assistive Device: FWW Wheelchair Training Does the Pt Use a Wheelchair?: Yes Wheel 50 ft with 2 turns (QC): 5 Wheel 150 ft (QC): 5 Type of Wheelchair: Manual Stair Training 1 Step (curb) (QC): 3 4 Steps (QC): 88 (not attempted due to fatigue ) 12 Steps (QC): 88 Balance Picking up an Object (QC): 6 (with registered travel nurse and FWW) ADL-Treatment Eating (QC): 6 Oral Hygiene (QC): 6 Shower/Bathe Self (QC): 5 Upper Body Dressing (QC): 5 Lower Body Dressing (QC): 4 On/Off Footwear (QC): 5 Toileting Hygiene (QC): 4 (CGA in stand for pant hike.) Assessment/Plan Assessment and Plan Assess & Plan/Chief Complaint A: 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 mitis, S. aureus) Left Foot abscess --> (prelim report: S. mitis, S. aureus, Gram (-) carissa) Bactermia --> (prelim report: S. mitis) DM CAD HTN HLD BPH Paroxysmal Afib Dementia P: PT/OT Wound care for open wound left foot Continue abx. and adjust pending final cultures and sensitivities. Diet as tolerated Restart home medications & monitor INR DVT Proph: coumadin 09/16/2022: DC Metformin and OHA of home meds and restart a few others Start Levemir Monitor closely 09/17/2022: Monitor closely 09/18/2022: Insulin Monitor closely 09/19/2022: DM education 09/20/2022: Change abx to PO DM education for insulin (1) Abscess of left foot Status: Acute (2) Acute kidney injury superimposed on chronic kidney disease Status: Acute (3) On Coumadin for atrial fibrillation Status: Chronic (4) History of venous thromboembolism Status: Chronic (5) BPH (benign prostatic hyperplasia) Status: Chronic (6) Afib Status: Chronic (7) HLD (hyperlipidemia) Status: Chronic (8) CAD (coronary artery disease) Status: Chronic (9) T2DM (type 2 diabetes mellitus) Status: Acute DIALLO PEACE DO Sep 20, 2022 06:16
[2022-09-20 07:33] VITALS: BP 129/70
[2022-09-20 07:45] LABS: BASOPHILS % (AUTO) 0 % (0-10); EOSINOPHILS # (AUTO) 0.3 10^3/uL (0.0-0.3); EOSINOPHILS % (AUTO) 3 % (0-10); HEMATOCRIT 27 % (40-54); HEMOGLOBIN 8.9 g/dL (13.3-17.7); LYMPHOCYTES # (AUTO) 1.9 10^3/uL (1.0-4.0); LYMPHOCYTES % (AUTO) 24 % (12-44); MEAN CORPUSCULAR HEMOGLOBIN 28 pg (25-34); MEAN CORPUSCULAR HGB CONC 33 g/dL (32-36); MEAN CORPUSCULAR VOLUME 86 fL (80-99); MEAN PLATELET VOLUME 10.6 fL (9.0-12.2); MONOCYTES # (AUTO) 0.8 10^3/uL (0.0-1.0); MONOCYTES % (AUTO) 10 % (0-12); NEUTROPHILS # (AUTO) 4.8 10^3/uL (1.8-7.8); NEUTROPHILS % (AUTO) 61 % (42-75); PLATELET COUNT 326 10^3/uL (130-400); WHITE BLOOD COUNT 7.8 10^3/uL (4.3-11.0)
[2022-09-20 07:59] LABS: INR 2.7 (0.8-1.4); PROTHROMBIN TIME PATIENT 29.3 SEC (12.2-14.7)
[2022-09-20 08:07] LABS: ALBUMIN 2.3 GM/DL (3.2-4.5); BILIRUBIN,TOTAL 0.2 MG/DL (0.1-1.0); CALCIUM 8.4 MG/DL (8.5-10.1); CREATININE SERUM 2.02 MG/DL (0.60-1.30); POTASSIUM 3.8 MMOL/L (3.6-5.0); TOTAL PROTEIN 5.9 GM/DL (6.4-8.2)
--- NOTE | 2022-09-20 08:59 | Physical Therapy Daily Note ---
PT Daily Note-Current Subjective pt in bed upon arrival. pt willing of fro therapy. pt stated no pain upon arrival. and 2/10 after ambulating this day. Pain Section J - Health Conditions 1. Rarely or not at all 2. Occasionally 3. Frequently 4. Almost constantly 8. Unable to answer Pain Effect on Sleep: 2 Pain Interference with Therapy: 2 Pain Interference w/Day-to-Day: 2 Mental Status Patient Orientation: Person, Place, Time, Situation Transfers SCALE: Activities may be completed with or without assistive devices. 2-Lpvsaxamrm-ntzolsj completes the activity by him/herself with no assistance from a helper. 5-Set-up or Clean-up Assistance-helper sets up or cleans up; patient completes activity. [place] assists only prior to or following the activity. 4-Supervision or Touching Assistance-helper provides verbal cues and/or touching/steadying and/or contact guard assistance as patient completes activity. Assistance may be provided throughout the activity or intermittently. 3-Partial/Moderate Assistance-helper does LESS THAN HALF the effort. [place] lifts, holds or supports trunk or limbs, but provides less than half the effort. 2-Substantial/Maximal Assistance-helper does MORE THAN HALF the effort. [place] lifts or holds trunk or limbs and provides more than half the effort. 0-Byejyajmy-dcwkll does ALL the effort. Patient does none of the effort to complete the activity. Or, the assistance of 2 or more helpers is required for the patient to complete the activity. If activity was not attempted, code reason: 7-Patient Refused. 9-Not Applicable-not attempted and the patient did not perform the activity before the current illness, exacerbation or injury. 10-Not Attempted due to Environmental Limitations-(lack of equipment, weather restraints, etc.). 88-Not Attempted due to Medical Conditions or Safety Concerns. Weight Bearing Full Weight Bearing (L) mgiv-itwi-nyem weight bearing Gait Training Gait Assistive Device: Walker Standard Exercises Seated Therapy Exercises: LE Protocol, Ankle pumps, Sit to stand, Long arc quads, Chair press-ups, Hamstring Curls, Glut set Treatments pt is able to ambulate 15 ft x 2 and 30ft x 2 for a total of 90ft with RW and CGA with VC of aprox 80% for only heal wb on the left side. pt was Demetris to ret in between each ambulation. pt also preformed sitting ther-ex with and without gravity in all planes of motion for 3 sets x 10 each with red thera-band. Assessment Current Status: Good Progress PT Intermediate Goals Risk Control Consultant Goals PT Intermediate Goals Time Frame: October 06, 2022 Roll Left & Right (QC): 6 Sit to Lying (QC): 6 Lying-Sitting on Side/Bed(QC): 6 Sit to Stand (QC): 6 Chair/Ubf-ew-Qykgp Xfer(QC): 6 (with FWW) Toilet Transfer (QC): 6 (with FWW) Car Transfer (QC): 5 (with FWW) Does the Patient Walk: Yes Walk 10 feet (QC): 6 (with FWW) Walk 50ft with 2 Turns (QC): 6 (with FWW and (L) heel/down only WB ) Walk 150 ft (QC): 4 (with FWW and (L) vywm-eusz-dfuc WB) Walking 10ft on Uneven Surface: 5 (with FWW) 1 Step (curb) (QC): 4 (CGA with FWW and dzud-kiqf-yejf WB on (L)) 4 Steps (QC): 4 (with (B) rails) 12 Steps (QC): 9 Picking up an Object (QC): 6 (with cook cold meat) Does the Pt use WC or Scooter?: Yes Wheel 50 feet with 2 turns (QC: 6 Type: Manual Wheel 150 feet: 6 Type: Manual PT Plan Treatment/Plan Treatment Plan: Continue Plan of Care Treatment Plan: Bed Mobility, Education, Functional Activity Shin, Functional Strength, Group Therapy, Gait, Safety, Therapeutic Exercise, Transfers, Other (W/C propulsion and management) Treatment Duration: October 06, 2022 Frequency: At least 5 of 7 days/Wk (IRF) Estimated Hrs Per Day: 1.5 hours per day Patient and/or Family Agrees t: Yes Time Time In: 800 Time Out: 900 DATE: Sep 20, 2022 Total Billed Treatment Time: 60 Total Billed Treatment 1,fa, ex x 2, gt Sonja Peña COKE WORKER Sep 20, 2022 08:59
[2022-09-20] MEDS: metroNIDAZOLE 500 MG/100 ML IVPB (PRE-MIX) IV SCH ×2 (09:23→20:24)
[2022-09-20] MEDS: polyethylene glycoL POWDER 17 GM (MIRALAX) PACK PO SCH ×2 (09:23→20:13)
[2022-09-20] MEDS: SENNA W/DOCUSATE (SENOKOT S) TABLET PO SCH ×2 (09:23→21:13)
[2022-09-20] MEDS: DOCUSATE SODIUM 100 MG (COLACE) CAP PO SCH ×2 (09:23→21:13)
--- NOTE | 2022-09-20 10:31 | Occupational Ther Daily Note ---
OT Current Status-Daily Note Subjective Pt in recliner, agreeable to OT Tx. Pt's daughter present throughout session, OT provided education on pt's current level of assistance with ADLS and mobility, she verbalized understanding. Pt's daughter requests further education on wound care and diabetic training, RN and SW notified. Mental Status/Objective Patient Orientation: Normal For Age Attachments: IV, Other-See Comments (wound vac L foot) ADL-Treatment Therapy Code Descriptions/Definitions Functional [place] Measure: 0=Not Assessed/NA 4=Minimal Assistance 1=Total Assistance 5=Supervision or Setup 2=Maximal Assistance 6=Modified [place] 3=Moderate Assistance 7=Complete IndependenceSCALE: Activities may be completed with or without assistive devices. 9-Wahexwffcs-mhanvnh completes the activity by him/herself with no assistance from a helper. 5-Set-up or Clean-up Assistance-helper sets up or cleans up; patient completes activity. [place] assists only prior to or following the activity. 4-Supervision or Touching Assistance-helper provides verbal cues and/or touching/steadying and/or contact guard assistance as patient completes activity. Assistance may be provided throughout the activity or intermittently. 3-Partial/Moderate Assistance-helper does LESS THAN HALF the effort. [place] lifts, holds or supports trunk or limbs, but provides less than half the effort. 2-Substantial/Maximal Assistance-helper does MORE THAN HALF the effort. [place] lifts or holds trunk or limbs and provides more than half the effort. 8-Facyhgepo-ixicop does ALL the effort. Patient does none of the effort to complete the activity. Or, the assistance of 2 or more helpers is required for the patient to complete the activity. If activity was not attempted, code reason: 7-Patient Refused. 9-Not Applicable-not attempted and the patient did not perform the activity before the current illness, exacerbation or injury. 10-Not Attempted due to Environmental Limitations-(lack of equipment, weather restraints, etc.). 88-Not Attempted due to Medical Conditions or Safety Concerns. Oral Hygiene (QC): 6 Toileting Hygiene (QC): 4 (Supervision) Toilet Transfer (QC): 4 (Supervision, assistance with managing IV and wound vac lines.) Other Treatment Pt up in recliner, agreeable to OT tx. Pt transferred from recliner to w/c with supervision (Assist managing lines). Pt completed grooming tasks seated at sink independently, then transferred to toilet with supervision. Pt completed toileting, then transferred to w/c. Pt propelled w/c to therapy gym. OT tx focused on increasing BUE Strength and activity tolerance. Pt completed arm bike [id number], 15-20 Watt resistance, multiple rest breaks. OT/PT cotreat due to skill of 2 clinicians required which a rehabilitation program manager could not perform in order to coordinate UE/LEs, decrease fall risk, and due to pt's limitations in stranding tolerance, standing balance, mobility/transfers. OT focused on UE placement, cues for sequencing and safety and ADLs, PT focused on LE placement, gross overall movement, transfers/mobility, and standing balance. Pt stood at white board in therapy gym, using GBs on wall. Pt completed x4 magnetic tangram patterns in standing, seated rest breaks between patterns. Pt used FWW to perform functional mobility back to his room, CGA. Post tx, pt in recliner, call light in reach and all needs met. Education OT Patient Education: Correct positioning, Energy conservation, Modified ADL techniques, Progress toward Goal/Update tx plan, Purpose of tx/functional activities, Rehab process Teaching Recipient: Patient Teaching Methods: Discussion Response to Teaching: Verbalize Understanding OT Short Term Goals Short Term Goals Time Frame: Sep 23, 2022 Shower/bathe self: 5 Lower body dressin Putting on/taking off footwear: 5 OT Oil Furnace Installer Goals Half-Way Goals Time Frame: Sep 30, 2022 Acute change in mental status: 0 Inattention: 0 Disorganized thinkin Altered level of consciousness: 0 Eating (QC): 6 Oral Hygiene (QC): 6 Toileting Hygiene (QC): 6 Shower/Bathe Self (QC): 6 Upper Body Dressing (QC): 6 Lower Body Dressing (QC): 6 On/Off Footwear (QC): 6 Additional Goals: 1-Demonstrate ADL Tasks, 2-Verbalize Understanding, 3- ImproveStrength/Shin 1=Demonstrate adherence to instructed precautions during ADL tasks. 2=Patient will verbalize/demonstrate understanding of assistive devices/modifications for ADL. 3=Patient will improve strength/tolerance for activity to enable patient to perform ADL's. OT Education/Plan Problem List/Assessment Assessment: Decreased Activ Tolerance, Decreased UE Strength, Impaired Funct Balance, Impaired I ADL's, Impaired Self-Care Skills Discharge Recommendations Plan/Recommendations: Continue POC Treatment Plan/Plan of Care Patient would benefit from OT for education, treatment and training to promote independence in ADL's, mobility, safety and/or upper extremity function for ADL's. Plan of Care: ADL Retraining, Functional Mobility, Group Exercise/Act as Ind, UE Funct Exercise/Act Treatment Duration: Sep 30, 2022 Frequency: At least 5 of 7 days/Wk (IRF) Estimated Hrs Per Day: 1.5 hours per day Agreement: Yes Rehab Potential: Good Time Start Time: 09:30 Stop Time: 11:00 DATE: Sep 20, 2022 Total Time Billed (hr/min): 90 Billed Treatment Time OT tx 60', Cotreat 30' 1, ADL 3 (45'), EX (15'), FA 2 (30') DEBI GENTILE OT Sep 20, 2022 10:31
--- NOTE | 2022-09-20 11:42 | Physical Therapy Daily Note ---
PT Daily Note-Current Subjective pt in therapy room when treating. pt stated dull pain of 2 in left foot. pt willing for therapy. Pain Section J - Health Conditions 1. Rarely or not at all 2. Occasionally 3. Frequently 4. Almost constantly 8. Unable to answer Pain Effect on Sleep: 2 Pain Interference with Therapy: 2 Pain Interference w/Day-to-Day: 2 Mental Status Patient Orientation: Person, Place, Time, Situation Transfers SCALE: Activities may be completed with or without assistive devices. 3-Ctnhnrooqs-ppeuwhv completes the activity by him/herself with no assistance fr om a helper. 5-Set-up or Clean-up Assistance-helper sets up or cleans up; patient completes activity. [place] assists only prior to or following the activity. 4-Supervision or Touching Assistance-helper provides verbal cues and/or touching/steadying and/or contact guard assistance as patient completes activity. Assistance may be provided throughout the activity or intermittently. 3-Partial/Moderate Assistance-helper does LESS THAN HALF the effort. [place] lifts, holds or supports trunk or limbs, but provides less than half the effort. 2-Substantial/Maximal Assistance-helper does MORE THAN HALF the effort. [place] lifts or holds trunk or limbs and provides more than half the effort. 4-Gsexqylfa-kzllsr does ALL the effort. Patient does none of the effort to complete the activity. Or, the assistance of 2 or more helpers is required for the patient to complete the activity. If activity was not attempted, code reason: 7-Patient Refused. 9-Not Applicable-not attempted and the patient did not perform the activity before the current illness, exacerbation or injury. 10-Not Attempted due to Environmental Limitations-(lack of equipment, weather restraints, etc.). 88-Not Attempted due to Medical Conditions or Safety Concerns. Weight Bearing Full Weight Bearing (L) hfvm-umej-oqhx weight bearing Gait Training Walk 10 feet (QC): 6 Walk 50 ft with 2 Turns(QC): 6 Walk 150 ft (QC): 6 Treatments OT/PT cotreat due to skill of 2 clinicians required which a rehab office coordinator could not perform in order to coordinate UE/LEs, decrease fall risk, and due to pt's limitations in stranding tolerance, standing balance, mobility/transfers. OT focused on UE placement, cues for sequencing and safety and ADLs, PT focused on LE placement, gross overall movement, transfers/mobility, and standing balance. pt is able to stand for longer periods of time and will in turn make his ambulation distance loner and is proven to be gaining strength. Assessment Current Status: Excellent Progress PT Belly Dancer Goals Belly Dancer Goals PT [facility] Goals Time Frame: October 06, 2022 Roll Left & Right (QC): 6 Sit to Lying (QC): 6 Lying-Sitting on Side/Bed(QC): 6 Sit to Stand (QC): 6 Chair/Tjl-xj-Hpqpg Xfer(QC): 6 (with FWW) Toilet Transfer (QC): 6 (with FWW) Car Transfer (QC): 5 (with FWW) Does the Patient Walk: Yes Walk 10 feet (QC): 6 (with FWW) Walk 50ft with 2 Turns (QC): 6 (with FWW and (L) heel/down only WB ) Walk 150 ft (QC): 4 (with FWW and (L) lwpx-nsyd-yyfz WB) Walking 10ft on Uneven Surface: 5 (with FWW) 1 Step (curb) (QC): 4 (CGA with FWW and owtx-pbcg-eoit WB on (L)) 4 Steps (QC): 4 (with (B) rails) 12 Steps (QC): 9 Picking up an Object (QC): 6 (with major appliance assembly supervisor) Does the Pt use WC or Scooter?: Yes Wheel 50 feet with 2 turns (QC: 6 Type: Manual Wheel 150 feet: 6 Type: Manual PT Plan Treatment/Plan Treatment Plan: Continue Plan of Care Treatment Plan: Bed Mobility, Education, Functional Activity Shin, Functional Strength, Group Therapy, Gait, Safety, Therapeutic Exercise, Transfers, Other (W/C propulsion and management) Treatment Duration: October 06, 2022 Frequency: At least 5 of 7 days/Wk (IRF) Estimated Hrs Per Day: 1.5 hours per day Patient and/or Family Agrees t: Yes Time Time In: 1030 Time Out: 1100 DATE: Sep 20, 2022 Total Billed Treatment Time: 30 Total Billed Treatment 1, fa, gt Sonja Peña FAMILY CONSULTANT Sep 20, 2022 11:41
[2022-09-20] MEDS: cefTRIAXone 2,000 MG/NS 50 ML IVPB IV SCH ×2 (12:02)
[2022-09-20] MEDS: warFARin 1 MG (COUMADIN) TAB PO SCH (17:18)
[2022-09-20 20:26] VITALS: BP 128/68
[2022-09-20] MEDS: TAMSULOSIN 0.4 MG (FLOMAX) CAP PO SCH (20:30)
[2022-09-20] MEDS: TIMOLOL MALEATE 0.5% 5 ML (TIMOPTIC) BTL OU SCH (20:31)
[2022-09-21] MEDS: inSUlin ASPART (NovoLOG) 1 UNIT/0.01 ML (CHARGE PER UNIT) SC SCH ×4 (05:07→20:58)
--- NOTE | 2022-09-21 05:52 | PM&R Progress Note ---
Subjective HPI/CC On Admission Date Seen by Provider: Sep 21, 2022 Time Seen by Provider: 11:45 Subjective/Events-last exam 09/21/2022: No major events Sugars are improved No pain reported 09/20/2022: No major events Participation with therapy is good DM education for insulin teaching ordered 09/19/2022: Doing better Improved overall Sugars improved DM education since only safe treatment for DM with CKD is insulin 09/18/2022: Much improved Daughter at bedside Sugars improved Pain controlled Labs reviewed INR noted 09/17/2022: Doing well Monitor closely DC JOEL's Sugars good Not on insulin at home 09/16/2022: No major events overnight Pain controlled Reviewed labs Eating well BM regimen maintained Glucose noted Added Levemir Cannot go back on Metformin or OHA due to CKD Review of Systems General: Fatigue, Malaise Objective Exam Vital Signs Vital Signs Date Time Temp Pulse Resp B/P (MAP) Pulse Ox O2 Delivery O2 Flow Rate FiO2 09/21/22 21:00 93 Room Air 09/21/22 19:35 36.5 82 20 122/66 (84) 09/21/22 10:29 0.00 0.00 09/16/22 16:09 21 Capillary Refill : General Appearance: No Apparent Distress, WD/WN, Chronically ill HEENT: PERRL/EOMI, Normal ENT Inspection, Pharynx Normal Neck: Full Range of Motion, Normal Inspection, Non Tender, Supple, Carotid Bruit Respiratory: Chest Non Tender, Lungs Clear, Normal Breath Sounds, No Accessory Muscle Use, No Respiratory Distress Cardiovascular: No Edema, No Gallop, No JVD, No Murmur, Normal Peripheral Pulses, Irregularly Irregular Gastrointestinal: Normal Bowel Sounds, No Organomegaly, No Pulsatile Mass, Non Tender, Soft Back: Normal Inspection, No CVA Tenderness, No Vertebral Tenderness Extremity: Normal Capillary Refill, Normal Inspection, Normal Range of Motion, Non Tender, No Calf Tenderness, No Pedal Edema Neurologic/Psychiatric: Alert, Oriented x3, polysomnographer II-XII Norm as Tested, Abnormal Gait, Depressed Affect, Motor Weakness (generalized) Skin: Normal Color, Warm/Dry Lymphatic: No Adenopathy Results/Procedures Lab Patient resulted labs reviewed. FIM Transfers Therapy Code Descriptions/Definitions Functional [place] Measure: 0=Not Assessed/NA 4=Minimal Assistance 1=Total Assistance 5=Supervision or Setup 2=Maximal Assistance 6=Modified [place] 3=Moderate Assistance 7=Complete IndependenceSCALE: Activities may be completed with or without assistive devices. 3-Uqtjwslevp-xfstqjc completes the activity by him/herself with no assistance from a helper. 5-Set-up or Clean-up Assistance-helper sets up or cleans up; patient completes activity. [place] assists only prior to or following the activity. 4-Supervision or Touching Assistance-helper provides verbal cues and/or touching/steadying and/or contact guard assistance as patient completes activity. Assistance may be provided throughout the activity or intermittently. 3-Partial/Moderate Assistance-helper does LESS THAN HALF the effort. [place] lifts, holds or supports trunk or limbs, but provides less than half the effort. 2-Substantial/Maximal Assistance-helper does MORE THAN HALF the effort. [place] lifts or holds trunk or limbs and provides more than half the effort. 2-Nmhovpboo-dqxfkw does ALL the effort. Patient does none of the effort to complete the activity. Or, the assistance of 2 or more helpers is required for the patient to complete the activity. If activity was not attempted, code reason: 7-Patient Refused. 9-Not Applicable-not attempted and the patient did not perform the activity before the current illness, exacerbation or injury. 10-Not Attempted due to Environmental Limitations-(lack of equipment, weather restraints, etc.). 88-Not Attempted due to Medical Conditions or Safety Concerns. Roll Left to Right (QC): 6 Sit to Lying (QC): 5 (down to right side) Sit to Stand (QC): 4 Chair/Pyg-dd-Dmgiz Xfer(QC): 4 Car Transfer (QC): 3 (min (A) with FWW) Gait Training Does the Patient Walk?: Yes Walk 10 feet (QC): 6 Walk 50 ft with 2 Turns(QC): 6 Walk 150 ft (QC): 6 Walking 10ft/uneven surface-QC: 3 (min (A) with FWW) Gait Assistive Device: Walker Standard Wheelchair Training Does the Pt Use a Wheelchair?: Yes Wheel 50 ft with 2 turns (QC): 5 Wheel 150 ft (QC): 5 Type of Wheelchair: Manual Stair Training 1 Step (curb) (QC): 3 4 Steps (QC): 88 (not attempted due to fatigue ) 12 Steps (QC): 88 Balance Picking up an Object (QC): 6 (with window glazier helper and FWW) ADL-Treatment Eating (QC): 6 Oral Hygiene (QC): 6 Shower/Bathe Self (QC): 5 Upper Body Dressing (QC): 5 Lower Body Dressing (QC): 4 On/Off Footwear (QC): 5 Toileting Hygiene (QC): 4 (Supervision) Toilet Transfer (QC): 4 (Supervision, assistance with managing IV and wound vac lines.) Assessment/Plan Assessment and Plan Assess & Plan/Chief Complaint A: 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 mitis, S. aureus) Left Foot abscess --> (prelim report: S. mitis, S. aureus, Gram (-) carissa) Bactermia --> (prelim report: S. mitis) DM CAD HTN HLD BPH Paroxysmal Afib Dementia P: PT/OT Wound care for open wound left foot Continue abx. and adjust pending final cultures and sensitivities. Diet as tolerated Restart home medications & monitor INR DVT Proph: coumadin 09/16/2022: DC Metformin and OHA of home meds and restart a few others Start Levemir Monitor closely 09/17/2022: Monitor closely 09/18/2022: Insulin Monitor closely 09/19/2022: DM education 09/20/2022: Change abx to PO DM education for insulin 09/21/2022: Monitor INR (1) Abscess of left foot Status: Acute (2) Acute kidney injury superimposed on chronic kidney disease Status: Acute (3) On Coumadin for atrial fibrillation Status: Chronic (4) History of venous thromboembolism Status: Chronic (5) BPH (benign prostatic hyperplasia) Status: Chronic (6) Afib Status: Chronic (7) HLD (hyperlipidemia) Status: Chronic (8) CAD (coronary artery disease) Status: Chronic (9) T2DM (type 2 diabetes mellitus) Status: Acute DIALLO PEACE DO Sep 21, 2022 05:52
[2022-09-21] MEDS: AUGMENTIN 875 MG TAB (AMOXICILLIN/CLAVULANATE) PO SCH ×2 (07:45→17:51)
[2022-09-21] MEDS: DOCUSATE SODIUM 100 MG (COLACE) CAP PO SCH ×2 (07:50→21:00)
[2022-09-21] MEDS: polyethylene glycoL POWDER 17 GM (MIRALAX) PACK PO SCH ×2 (07:50→21:01)
[2022-09-21] MEDS: SENNA W/DOCUSATE (SENOKOT S) TABLET PO SCH ×2 (07:51→21:01)
[2022-09-21 07:58] VITALS: BP 160/87
[2022-09-21] MEDS: ACETAMINOPHEN 325 MG TABLET PO PRN ×2 (07:58→12:56)
--- NOTE | 2022-09-21 08:17 | Occupational Ther Daily Note ---
OT Current Status-Daily Note Subjective Pt up in recliner, agreeable to OT Tx. ADL-Treatment Therapy Code Descriptions/Definitions Functional [place] Measure: 0=Not Assessed/NA 4=Minimal Assistance 1=Total Assistance 5=Supervision or Setup 2=Maximal Assistance 6=Modified [place] 3=Moderate Assistance 7=Complete IndependenceSCALE: Activities may be completed with or without assistive devices. 4-Fibbfxdzli-rrzpmjk completes the activity by him/herself with no assistance from a helper. 5-Set-up or Clean-up Assistance-helper sets up or cleans up; patient completes activity. [place] assists only prior to or following the activity. 4-Supervision or Touching Assistance-helper provides verbal cues and/or touching/steadying and/or contact guard assistance as patient completes activity. Assistance may be provided throughout the activity or intermittently. 3-Partial/Moderate Assistance-helper does LESS THAN HALF the effort. [place] lifts, holds or supports trunk or limbs, but provides less than half the effort. 2-Substantial/Maximal Assistance-helper does MORE THAN HALF the effort. [place] lifts or holds trunk or limbs and provides more than half the effort. 9-Eagbyyipy-zgmsaz does ALL the effort. Patient does none of the effort to co mplete the activity. Or, the assistance of 2 or more helpers is required for the patient to complete the activity. If activity was not attempted, code reason: 7-Patient Refused. 9-Not Applicable-not attempted and the patient did not perform the activity before the current illness, exacerbation or injury. 10-Not Attempted due to Environmental Limitations-(lack of equipment, weather restraints, etc.). 88-Not Attempted due to Medical Conditions or Safety Concerns. Eating (QC): 6 Upper Body Dressing (QC): 5 Lower Body Dressing (QC): 4 (SBA due to VCs for orientation of brief.) On/Off Footwear: 5 Toileting Hygiene (QC): 4 (SUP) Toilet Transfer (QC): 4 (SUP) Other Treatment Pt took medications provided by ILDA TORRES. Pt transferred from recliner to w/c using FWW, supervision, assist with managing wound vac. OT tx focused on increasing BUE Strength and activity tolerance. Pt performed w/c mobility using BUEs to therapy gym, IND. Pt completed arm bike x15 mins, 20 Watt resistance, several rest breaks. Pt completed UE reaching task, placing/removing 1" pegs from foam pegboard, alternating hands, 1lb wrist weight BUEs. Pt completed 2x20 dowel exercises (no weight): shoulder flexion, bicep curl, & front punch. Pt propelled w/c back to his room, used FWW to transfer onto toilet with SUP, completed toileting, then used FWW to transfer from toilet to recliner, SUP (OT managed wound vac line during mobility). Pt changed shirt and pants. Post tx, pt in recliner, call light in reach and all needs met. Education OT Patient Education: Correct positioning, Energy conservation, Modified ADL techniques, Progress toward Goal/Update tx plan, Purpose of tx/functional activities, Rehab process Teaching Recipient: Patient Teaching Methods: Discussion Response to Teaching: Verbalize Understanding OT Short Term Goals Short Term Goals Time Frame: Sep 23, 2022 Shower/bathe self: 5 Lower body dressin Putting on/taking off footwear: 5 OT [facility]ci Goals Fci Goals Time Frame: Sep 30, 2022 Acute change in mental status: 0 Inattention: 0 Disorganized thinkin Altered level of consciousness: 0 Eating (QC): 6 Oral Hygiene (QC): 6 Toileting Hygiene (QC): 6 Shower/Bathe Self (QC): 6 Upper Body Dressing (QC): 6 Lower Body Dressing (QC): 6 On/Off Footwear (QC): 6 Additional Goals: 1-Demonstrate ADL Tasks, 2-Verbalize Understanding, 3- ImproveStrength/Shin 1=Demonstrate adherence to instructed precautions during ADL tasks. 2=Patient will verbalize/demonstrate understanding of assistive devices/modifications for ADL. 3=Patient will improve strength/tolerance for activity to enable patient to perform ADL's. OT Education/Plan Problem List/Assessment Assessment: Decreased Activ Tolerance, Decreased UE Strength, Impaired Funct Balance, Impaired I ADL's, Impaired Self-Care Skills Discharge Recommendations Plan/Recommendations: Continue POC Treatment Plan/Plan of Care Patient would benefit from OT for education, treatment and training to promote independence in ADL's, mobility, safety and/or upper extremity function for ADL's. Plan of Care: ADL Retraining, Functional Mobility, Group Exercise/Act as Ind, UE Funct Exercise/Act Treatment Duration: Sep 30, 2022 Frequency: At least 5 of 7 days/Wk (IRF) Estimated Hrs Per Day: 1.5 hours per day Agreement: Yes Rehab Potential: Good Time Start Time: 07:45 Stop Time: 09:15 DATE: Sep 21, 2022 Total Time Billed (hr/min): 90 Billed Treatment Time 1, EX 2 (30'), ADL (20'), FA 3 (40') DEBI GENTILE OT Sep 21, 2022 08:17
[2022-09-21 10:23] VITALS: BP 160/87
[2022-09-21 10:29] VITALS: BP 160/87
--- NOTE | 2022-09-21 10:52 | Physical Therapy Daily Note ---
PT Daily Note-Current Subjective pt in recliner upon arrival. pt willing for therapy. pt stated he was a "tad" light headed during therapy. States WNL and nursing was notified. Pain Section J - Health Conditions 1. Rarely or not at all 2. Occasionally 3. Frequently 4. Almost constantly 8. Unable to answer Pain Effect on Sleep: 2 Pain Interference with Therapy: 2 Pain Interference w/Day-to-Day: 2 Transfers SCALE: Activities may be completed with or without assistive devices. 9-Hxymlwwman-xobntgu completes the activity by him/herself with no assistance from a helper. 5-Set-up or Clean-up Assistance-helper sets up or cleans up; patient completes activity. [place] assists only prior to or following the activity. 4-Supervision or Touching Assistance-helper provides verbal cues and/or touching/steadying and/or contact guard assistance as patient completes ac tivity. Assistance may be provided throughout the activity or intermittently. 3-Partial/Moderate Assistance-helper does LESS THAN HALF the effort. [place] lifts, holds or supports trunk or limbs, but provides less than half the effort. 2-Substantial/Maximal Assistance-helper does MORE THAN HALF the effort. [place] lifts or holds trunk or limbs and provides more than half the effort. 5-Gzgczgupf-wkdgwc does ALL the effort. Patient does none of the effort to complete the activity. Or, the assistance of 2 or more helpers is required for the patient to complete the activity. If activity was not attempted, code reason: 7-Patient Refused. 9-Not Applicable-not attempted and the patient did not perform the activity before the current illness, exacerbation or injury. 10-Not Attempted due to Environmental Limitations-(lack of equipment, weather restraints, etc.). 88-Not Attempted due to Medical Conditions or Safety Concerns. Weight Bearing Full Weight Bearing (L) klpa-vtlt-gqmz weight bearing Gait Training Walk 10 feet (QC): 6 Walk 50 ft with 2 Turns(QC): 6 Walk 150 ft (QC): 6 Stair Training 1 Step (curb) (QC): 6 4 Steps (QC): 6 Exercises Seated Therapy Exercises: LE Protocol, Sit to stand, Long arc quads, Hip flexion, Hamstring Curls, Hip abd/add Treatments ptis able to ambulate 160ft with RW and WC follow behind. pt did take 2 standing rest breaks during ambulation for fatigue but is able to resume after 60 sec resting. pt did requires sitting rest after the initial 160ft in wc and is able to resume ambulation and is able to ambulate 75ft more. pt did requires VC for WB on left foot and safety and directional changes of arox 40% this day. pt is able to preform sitting ther-ex with and without gravity with BLE in all planes of motion for 3 sets of 12 reps. pt did require vc of 20% for correct mm moveme nt of ther-ex for max benefit of EX. Assessment Current Status: Good Progress PT Business Account Specialist Goals Business Account Specialist Goals PT Business Account Specialist Goals Time Frame: October 06, 2022 Roll Left & Right (QC): 6 Sit to Lying (QC): 6 Lying-Sitting on Side/Bed(QC): 6 Sit to Stand (QC): 6 Chair/Tsg-bw-Nyqxf Xfer(QC): 6 (with FWW) Toilet Transfer (QC): 6 (with FWW) Car Transfer (QC): 5 (with FWW) Does the Patient Walk: Yes Walk 10 feet (QC): 6 (with FWW) Walk 50ft with 2 Turns (QC): 6 (with FWW and (L) heel/down only WB ) Walk 150 ft (QC): 4 (with FWW and (L) ghzu-tztc-frah WB) Walking 10ft on Uneven Surface: 5 (with FWW) 1 Step (curb) (QC): 4 (CGA with FWW and msjj-zkxb-yfok WB on (L)) 4 Steps (QC): 4 (with (B) rails) 12 Steps (QC): 9 Picking up an Object (QC): 6 (with reliability technologist) Does the Pt use WC or Scooter?: Yes Wheel 50 feet with 2 turns (QC: 6 Type: Manual Wheel 150 feet: 6 Type: Manual PT Plan Treatment/Plan Treatment Plan: Continue Plan of Care Treatment Plan: Bed Mobility, Education, Functional Activity Shin, Functional Strength, Group Therapy, Gait, Safety, Therapeutic Exercise, Transfers, Other (W/C propulsion and management) Treatment Duration: October 06, 2022 Frequency: At least 5 of 7 days/Wk (IRF) Estimated Hrs Per Day: 1.5 hours per day Patient and/or Family Agrees t: Yes Time Time In: 930 Time Out: 1100 DATE: Sep 21, 2022 Total Billed Treatment Time: 90 Total Billed Treatment 1, GTx 3, EX x 3 Sonja Peña INPATIENT CODER Sep 21, 2022 10:52
[2022-09-21] MEDS ORDERED: CATHETER FLUSH 10 ML SYR IVP PRN (11:45)
[2022-09-21] MEDS: CATHETER FLUSH 10 ML SYR IVP SCH ×2 (13:00→21:01)
[2022-09-21] MEDS: warFARin 1 MG (COUMADIN) TAB PO SCH (17:51)
[2022-09-21 19:35] VITALS: BP 122/66
[2022-09-21] MEDS: TAMSULOSIN 0.4 MG (FLOMAX) CAP PO SCH (20:57)
[2022-09-21] MEDS: TIMOLOL MALEATE 0.5% 5 ML (TIMOPTIC) BTL OU SCH (21:00)
[2022-09-22] MEDS: ACETAMINOPHEN 325 MG TABLET PO PRN ×2 (03:51→21:15)
[2022-09-22 06:03] LABS: INR 2.1 (0.8-1.4); PROTHROMBIN TIME PATIENT 24.1 SEC (12.2-14.7)
[2022-09-22 06:05] LABS: POTASSIUM 3.7 MMOL/L (3.6-5.0)
[2022-09-22 06:06] LABS: CALCIUM 8.3 MG/DL (8.5-10.1)
[2022-09-22] MEDS: inSUlin ASPART (NovoLOG) 1 UNIT/0.01 ML (CHARGE PER UNIT) SC SCH ×7 (06:10→21:14)
[2022-09-22 06:11] LABS: CREATININE SERUM 2.02 MG/DL (0.60-1.30)
--- NOTE | 2022-09-22 06:15 | PM&R Progress Note ---
Subjective HPI/CC On Admission Date Seen by Provider: Sep 22, 2022 Time Seen by Provider: 08:30 Subjective/Events-last exam 09/22/2022: No major issues I will see him in clinic until he recovers enough to leave his daughter's house and go back home 4 hours away INR noted 09/21/2022: No major events Sugars are improved No pain reported 09/20/2022: No major events Participation with therapy is good DM education for insulin teaching ordered 09/19/2022: Doing better Improved overall Sugars improved DM education since only safe treatment for DM with CKD is insulin 09/18/2022: Much improved Daughter at bedside Sugars improved Pain controlled Labs reviewed INR noted 09/17/2022: Doing well Monitor closely DC JOEL's Sugars good Not on insulin at home 09/16/2022: No major events overnight Pain controlled Reviewed labs Eating well BM regimen maintained Glucose noted Added Levemir Cannot go back on Metformin or OHA due to CKD Review of Systems General: Fatigue, Malaise Objective Exam Vital Signs Vital Signs Date Time Temp Pulse Resp B/P (MAP) Pulse Ox O2 Delivery O2 Flow Rate FiO2 09/22/22 21:30 95 Room Air 09/22/22 19:50 36.7 86 18 132/64 (86) 09/21/22 10:29 0.00 0.00 Capillary Refill : General Appearance: No Apparent Distress, WD/WN, Chronically ill HEENT: PERRL/EOMI, Normal ENT Inspection, Pharynx Normal Neck: Full Range of Motion, Normal Inspection, Non Tender, Supple, Carotid Bruit Respiratory: Chest Non Tender, Lungs Clear, Normal Breath Sounds, No Accessory Muscle Use, No Respiratory Distress Cardiovascular: No Edema, No Gallop, No JVD, No Murmur, Normal Peripheral Pulses, Irregularly Irregular Gastrointestinal: Normal Bowel Sounds, No Organomegaly, No Pulsatile Mass, Non Tender, Soft Back: Normal Inspection, No CVA Tenderness, No Vertebral Tenderness Extremity: Normal Capillary Refill, Normal Inspection, Normal Range of Motion, Non Tender, No Calf Tenderness, No Pedal Edema Neurologic/Psychiatric: Alert, Oriented x3, ems helicopter pilot II-XII Norm as Tested, Abnormal Gait, Depressed Affect, Motor Weakness (generalized) Skin: Normal Color, Warm/Dry Lymphatic: No Adenopathy Results/Procedures Lab Laboratory Tests 09/22/22 05:28 Patient resulted labs reviewed. FIM Transfers Therapy Code Descriptions/Definitions Functional [place] Measure: 0=Not Assessed/NA 4=Minimal Assistance 1=Total Assistance 5=Supervision or Setup 2=Maximal Assistance 6=Modified [place] 3=Moderate Assistance 7=Complete IndependenceSCALE: Activities may be completed with or without assistive devices. 1-Tmaergjhix-fxcjpof completes the activity by him/herself with no assistance from a helper. 5-Set-up or Clean-up Assistance-helper sets up or cleans up; patient completes activity. [place] assists only prior to or following the activity. 4-Supervision or Touching Assistance-helper provides verbal cues and/or touching/steadying and/or contact guard assistance as patient completes activity. Assistance may be provided throughout the activity or intermittently. 3-Partial/Moderate Assistance-helper does LESS THAN HALF the effort. [place] lifts, holds or supports trunk or limbs, but provides less than half the effort. 2-Substantial/Maximal Assistance-helper does MORE THAN HALF the effort. [place] lifts or holds trunk or limbs and provides more than half the effort. 5-Zvyuvktgl-zmmfwk does ALL the effort. Patient does none of the effort to complete the activity. Or, the assistance of 2 or more helpers is required for the patient to complete the activity. If activity was not attempted, code reason: 7-Patient Refused. 9-Not Applicable-not attempted and the patient did not perform the activity before the current illness, exacerbation or injury. 10-Not Attempted due to Environmental Limitations-(lack of equipment, weather restraints, etc.). 88-Not Attempted due to Medical Conditions or Safety Concerns. Roll Left to Right (QC): 6 Sit to Lying (QC): 5 (down to right side) Sit to Stand (QC): 4 Chair/Ltk-st-Mibqq Xfer(QC): 4 Car Transfer (QC): 3 (min (A) with FWW) Gait Training Does the Patient Walk?: Yes Walk 10 feet (QC): 6 Walk 50 ft with 2 Turns(QC): 6 Walk 150 ft (QC): 6 Walking 10ft/uneven surface-QC: 3 (min (A) with FWW) Gait Assistive Device: Walker Standard Wheelchair Training Does the Pt Use a Wheelchair?: Yes Wheel 50 ft with 2 turns (QC): 5 Wheel 150 ft (QC): 5 Type of Wheelchair: Manual Stair Training 1 Step (curb) (QC): 6 4 Steps (QC): 6 12 Steps (QC): 88 Balance Picking up an Object (QC): 6 (with commission clerk and FWW) ADL-Treatment Eating (QC): 6 Oral Hygiene (QC): 6 Shower/Bathe Self (QC): 5 Upper Body Dressing (QC): 5 Lower Body Dressing (QC): 4 (SBA due to VCs for orientation of brief.) On/Off Footwear (QC): 5 Toileting Hygiene (QC): 4 (SUP) Toilet Transfer (QC): 4 (SUP) Assessment/Plan Assessment and Plan Assess & Plan/Chief Complaint A: 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 mitis, S. aureus) Left Foot abscess --> (prelim report: S. mitis, S. aureus, Gram (-) carissa) Bactermia --> (prelim report: S. mitis) DM CAD HTN HLD BPH Paroxysmal Afib Dementia P: PT/OT Wound care for open wound left foot Continue abx. and adjust pending final cultures and sensitivities. Diet as tolerated Restart home medications & monitor INR DVT Proph: coumadin 09/16/2022: DC Metformin and OHA of home meds and restart a few others Start Levemir Monitor closely 09/17/2022: Monitor closely 09/18/2022: Insulin Monitor closely 09/19/2022: DM education 09/20/2022: Change abx to PO DM education for insulin 09/21/2022: Monitor INR 09/22/2022: Supportive care I will see him in clinic as outpatient after DC (1) Abscess of left foot Status: Acute (2) Acute kidney injury superimposed on chronic kidney disease Status: Acute (3) On Coumadin for atrial fibrillation Status: Chronic (4) History of venous thromboembolism Status: Chronic (5) BPH (benign prostatic hyperplasia) Status: Chronic (6) Afib Status: Chronic (7) HLD (hyperlipidemia) Status: Chronic (8) CAD (coronary artery disease) Status: Chronic (9) T2DM (type 2 diabetes mellitus) Status: Acute DIALLO PEACE DO Sep 22, 2022 06:15
[2022-09-22] MEDS: CATHETER FLUSH 10 ML SYR IVP SCH ×3 (06:28→21:15)
[2022-09-22 07:37] VITALS: BP 115/70
[2022-09-22] MEDS: AUGMENTIN 875 MG TAB (AMOXICILLIN/CLAVULANATE) PO SCH ×2 (07:55→17:04)
[2022-09-22] MEDS: SENNA W/DOCUSATE (SENOKOT S) TABLET PO SCH ×2 (07:55→21:15)
[2022-09-22] MEDS: DOCUSATE SODIUM 100 MG (COLACE) CAP PO SCH ×2 (07:56→21:15)
[2022-09-22] MEDS: polyethylene glycoL POWDER 17 GM (MIRALAX) PACK PO SCH ×2 (07:56→21:15)
--- NOTE | 2022-09-22 08:21 | Occupational Ther Daily Note ---
OT Current Status-Daily Note Subjective Pt in bed, agreeable to OT Tx with focus on showering. viticulture teacher plans to change wound vac after OT tx. Mental Status/Objective Patient Orientation: Normal For Age Attachments: Other-See Comments (wound vac) ADL-Treatment Therapy Code Descriptions/Definitions Functional [place] Measure: 0=Not Assessed/NA 4=Minimal Assistance 1=Total Assistance 5=Supervision or Setup 2=Maximal Assistance 6=Modified [place] 3=Moderate Assistance 7=Complete IndependenceSCALE: Activities may be completed with or without assistive devices. 5-Uatrucajpn-pqbxvwt completes the activity by him/herself with no assistance from a helper. 5-Set-up or Clean-up Assistance-helper sets up or cleans up; patient completes activity. [place] assists only prior to or following the activity. 4-Supervision or Touching Assistance-helper provides verbal cues and/or touching/steadying and/or contact guard assistance as patient completes activity. Assistance may be provided throughout the activity or intermittently. 3-Partial/Moderate Assistance-helper does LESS THAN HALF the effort. [place] lifts, holds or supports trunk or limbs, but provides less than half the effort. 2-Substantial/Maximal Assistance-helper does MORE THAN HALF the effort. [place] lifts or holds trunk or limbs and provides more than half the effort. 2-Shglbscli-wucthu does ALL the effort. Patient does none of the effort to complete the activity. Or, the assistance of 2 or more helpers is required for the patient to complete the activity. If activity was not attempted, code reason: 7-Patient Refused. 9-Not Applicable-not attempted and the patient did not perform the activity before the current illness, exacerbation or injury. 10-Not Attempted due to Environmental Limitations-(lack of equipment, weather restraints, etc.). 88-Not Attempted due to Medical Conditions or Safety Concerns. Eating (QC): 6 Oral Hygiene (QC): 6 Shower/Bathe Self (QC): 5 (set up to cover wound vac) Upper Body Dressing (QC): 6 Lower Body Dressing (QC): 5 (OT managed wound vac lines.) On/Off Footwear: 6 Toileting Hygiene (QC): 6 Other Treatment Pt in bed, agreeable to OT Tx. Pt transferred supine to sit EOB, IND, then used FWW to gather clothes and transfer into bathroom. Pt completed showering, dressing, and grooming tasks at HI, then transferred to recliner. OT assisted with managing wound vac tubing during LE dressing. L foot and L midline covered prior to shower and remained dry post shower. After seated rest break, pt used FWW to perform functional mobility to therapy gym, IND. OT tx focused on increasing BUE strength and activity tolerance. Pt completed arm bike, x15 mins, 15-20 Watt resistance with several rest breaks. Pt then completed functional standing task, completing ladder golf activity. Pt completed 6 rounds total, x6 tosses each time, no LOB noted during task. Pt took seated rest break between each round. Pt used FWW to return to his room, IND, transferring to recliner. Post tx, pt in recliner, call light in reach and all needs met. Education OT Patient Education: Correct positioning, Energy conservation, Modified ADL techniques, Progress toward Goal/Update tx plan, Purpose of tx/functional activities, Rehab process Teaching Recipient: Patient Teaching Methods: Discussion Response to Teaching: Verbalize Understanding OT Short Term Goals Short Term Goals Time Frame: Sep 23, 2022 Shower/bathe self: 5 Lower body dressin Putting on/taking off footwear: 5 OT Custodial Officer Goals Custodial Officer Goals Time Frame: Sep 30, 2022 Acute change in mental status: 0 Inattention: 0 Disorganized thinkin Altered level of consciousness: 0 Eating (QC): 6 Oral Hygiene (QC): 6 Toileting Hygiene (QC): 6 Shower/Bathe Self (QC): 6 Upper Body Dressing (QC): 6 Lower Body Dressing (QC): 6 On/Off Footwear (QC): 6 Additional Goals: 1-Demonstrate ADL Tasks, 2-Verbalize Understanding, 3- ImproveStrength/Shin 1=Demonstrate adherence to instructed precautions during ADL tasks. 2=Patient will verbalize/demonstrate understanding of assistive devices/modifications for ADL. 3=Patient will improve strength/tolerance for activity to enable patient to perform ADL's. OT Education/Plan Problem List/Assessment Assessment: Decreased Activ Tolerance, Decreased UE Strength, Impaired I ADL's Discharge Recommendations Plan/Recommendations: Continue POC Treatment Plan/Plan of Care Patient would benefit from OT for education, treatment and training to promote independence in ADL's, mobility, safety and/or upper extremity function for ADL's. Plan of Care: ADL Retraining, Functional Mobility, Group Exercise/Act as Ind, UE Funct Exercise/Act Treatment Duration: Sep 30, 2022 Frequency: At least 5 of 7 days/Wk (IRF) Estimated Hrs Per Day: 1.5 hours per day Agreement: Yes Rehab Potential: Good Time Start Time: 07:30 Stop Time: 09:00 DATE: Sep 22, 2022 Total Time Billed (hr/min): 90 Billed Treatment Time 1, ADL 3 (45'), EX (15'), FA 2 (30') DEBI GENTILE OT Sep 22, 2022 08:21
[2022-09-22] MEDS ORDERED: MILK OF MAGNESIA 400 MG/5 ML 30 ML UDC PO NR (11:30)
--- NOTE | 2022-09-22 12:15 | Physical Therapy Daily Note ---
PT Daily Note-Current Subjective pt in recliner upon arrival. Pain Section J - Health Conditions 1. Rarely or not at all 2. Occasionally 3. Frequently 4. Almost constantly 8. Unable to answer Pain Effect on Sleep: 2 Pain Interference with Therapy: 2 Pain Interference w/Day-to-Day: 2 Transfers SCALE: Activities may be completed with or without assistive devices. 2-Irabvihpit-ymfjyhl completes the activity by him/herself with no assistance from a helper. 5-Set-up or Clean-up Assistance-helper sets up or cleans up; patient completes activity. [place] assists only prior to or following the activity. 4-Supervision or Touching Assistance-helper provides verbal cues and/or touching/steadying and/or contact guard assistance as patient completes activity. Assistance may be provided throughout the activity or intermittently. 3-Partial/Moderate Assistance-helper does LESS THAN HALF the effort. [place] lifts, holds or supports trunk or limbs, but provides less than half the effort. 2-Substantial/Maximal Assistance-helper does MORE THAN HALF the effort. [place] lifts or holds trunk or limbs and provides more than half the effort. 1-Vrlhwochs-ckmyqt does ALL the effort. Patient does none of the effort to complete the activity. Or, the assistance of 2 or more helpers is required for the patient to complete the activity. If activity was not attempted, code reason: 7-Patient Refused. 9-Not Applicable-not attempted and the patient did not perform the activity before the current illness, exacerbation or injury. 10-Not Attempted due to Environmental Limitations-(lack of equipment, weather restraints, etc.). 88-Not Attempted due to Medical Conditions or Safety Concerns. Weight Bearing Full Weight Bearing (L) qjwq-oeew-eyud weight bearing Exercises NuStep Minutes: 5 NuStep Workload: 3 Treatments pt ambulated 157ft with RW and supervision with no LOB or rest breaks this day. pt is also able to preform Nu-STep for endurance training with 1 rest after 3 mins and is able to start again for a total of 5 mins Assessment Current Status: Good Progress PT Power Equipment Mechanics Instructor Goals Power Equipment Mechanics Instructor Goals PT Power Equipment Mechanics Instructor Goals Time Frame: October 06, 2022 Roll Left & Right (QC): 6 Sit to Lying (QC): 6 Lying-Sitting on Side/Bed(QC): 6 Sit to Stand (QC): 6 Chair/Gvo-xv-Txwrv Xfer(QC): 6 (with FWW) Toilet Transfer (QC): 6 (with FWW) Car Transfer (QC): 5 (with FWW) Does the Patient Walk: Yes Walk 10 feet (QC): 6 (with FWW) Walk 50ft with 2 Turns (QC): 6 (with FWW and (L) heel/down only WB ) Walk 150 ft (QC): 4 (with FWW and (L) ckui-dhhe-xxur WB) Walking 10ft on Uneven Surface: 5 (with FWW) 1 Step (curb) (QC): 4 (CGA with FWW and sgyr-gwcl-tgoc WB on (L)) 4 Steps (QC): 4 (with (B) rails) 12 Steps (QC): 9 Picking up an Object (QC): 6 (with pharmacy account director) Does the Pt use WC or Scooter?: Yes Wheel 50 feet with 2 turns (QC: 6 Type: Manual Wheel 150 feet: 6 Type: Manual PT Plan Treatment/Plan Treatment Plan: Continue Plan of Care Treatment Plan: Bed Mobility, Education, Functional Activity Shin, Functional Strength, Group Therapy, Gait, Safety, Therapeutic Exercise, Transfers, Other (W/C propulsion and management) Treatment Duration: October 06, 2022 Frequency: At least 5 of 7 days/Wk (IRF) Estimated Hrs Per Day: 1.5 hours per day Patient and/or Family Agrees t: Yes Time Time In: 1030 Time Out: 1100 DATE: Sep 22, 2022 Total Billed Treatment Time: 30 Total Billed Treatment 1, EX, GT Sonja Peña [facility] Sep 22, 2022 12:15
--- NOTE | 2022-09-22 14:44 | Physical Therapy Daily Note ---
PT Daily Note-Current Subjective No new c/o. Had wound vac dressing changed this a.m. - daughter was present for that process. Pain Section J - Health Conditions 1. Rarely or not at all 2. Occasionally 3. Frequently 4. Almost constantly 8. Unable to answer Pain Effect on Sleep: 2 Pain Interference with Therapy: 2 Pain Interference w/Day-to-Day: 2 Appearance Resting in recliner with legs elevated and (L) foot wound vac in place. Transfers SCALE: Activities may be completed with or without assistive devices. 0-Qkcqegsgav-jlujrxv completes the activity by him/herself with no assistance from a helper. 5-Set-up or Clean-up Assistance-helper sets up or cleans up; patient completes activity. [place] assists only prior to or following the activity. 4-Supervision or Touching Assistance-helper provides verbal cues and/or touching/steadying and/or contact guard assistance as patient completes activity. Assistance may be provided throughout the activity or intermittently. 3-Partial/Moderate Assistance-helper does LESS THAN HALF the effort. [place] lifts, holds or supports trunk or limbs, but provides less than half the effort. 2-Substantial/Maximal Assistance-helper does MORE THAN HALF the effort. [place] lifts or holds trunk or limbs and provides more than half the effort. 0-Whvmpqsjv-lbqhoe does ALL the effort. Patient does none of the effort to complete the activity. Or, the assistance of 2 or more helpers is required for the patient to complete the activity. If activity was not attempted, code reason: 7-Patient Refused. 9-Not Applicable-not attempted and the patient did not perform the activity before the current illness, exacerbation or injury. 10-Not Attempted due to Environmental Limitations-(lack of equipment, weather restraints, etc.). 88-Not Attempted due to Medical Conditions or Safety Concerns. Sit to Stand (QC): 6 (to FWW) Chair/Wvs-ug-Drctf Xfer(QC): 6 (multiple transfers during therapy session to/from w/c and recliner with FWW) Car Transfer (QC): 5 (SBA-(I) using FWW with ARU "car".) able to maintain (L) heel-down only WB during transfer activities Weight Bearing Full Weight Bearing (L) ifsj-khvj-owqm weight bearing Gait Training Does the Patient Walk?: Yes Distance: 150' including stair ambulation without rest, 40' on uneven surfaces, 125' Walk 10 feet (QC): 6 (with FWW) Walk 50 ft with 2 Turns(QC): 6 (with FWW) Walk 150 ft (QC): 6 (with FWW) Walking 10ft/uneven surface-QC: 6 (with FWW) Gait Assistive Device: FWW with (L) heel-down only WB Wheelchair Training Does the Pt Use a Wheelchair?: No Stair Training 1 Step (curb) (QC): 6 (up/down curb step x 4 with FWW and (L) heel/down only WB (assist to hold wound vac only.)) 4 Steps (QC): 6 (with (B) rails(assist to hold wound vac only)) Exercises Seated ex with RTB: LAQ x 20 (B) Knee flexion x 20 (B) hip flexion x 20 (B) hip extension x 20 (B) Hip abduction x 20 Hip adduction isometric ball squeeze x 20 (R) ankle PF x 20 (R) ankle DF x 20 (R) quad set x 10 with ankle elevated on therapist's knee with last rep held :10 for hamstring stretch (L) anklePF/DF x 20 without RTB (L) quad set x 10 with ankle elevated on therapist's knee with last rep held :10 for hamstring stretch- heel elevated on therapist's knee for hamstring stretch Intermittent rest breaks for mild SOB and H20 breaks. Assessment Current Status: Excellent Progress Patient's upright mobility has improved greatly with maintaining WBS (L) LE. Will advance HEP tomorrow prior to D/C on Monday. PT Usp Goals Usp Goals PT Usp Goals Time Frame: October 06, 2022 Roll Left & Right (QC): 6 Sit to Lying (QC): 6 Lying-Sitting on Side/Bed(QC): 6 Sit to Stand (QC): 6 Chair/Snw-hg-Zmgga Xfer(QC): 6 (with FWW) Toilet Transfer (QC): 6 (with FWW) Car Transfer (QC): 5 (with FWW) Does the Patient Walk: Yes Walk 10 feet (QC): 6 (with FWW) Walk 50ft with 2 Turns (QC): 6 (with FWW and (L) heel/down only WB ) Walk 150 ft (QC): 4 (with FWW and (L) fpjh-zviz-oxhh WB) Walking 10ft on Uneven Surface: 5 (with FWW) 1 Step (curb) (QC): 4 (CGA with FWW and jmdb-lpcw-ngxw WB on (L)) 4 Steps (QC): 4 (with (B) rails) 12 Steps (QC): 9 Picking up an Object (QC): 6 (with passport support associate) Does the Pt use WC or Scooter?: Yes Wheel 50 feet with 2 turns (QC: 6 Type: Manual Wheel 150 feet: 6 Type: Manual PT Plan Problem List Problem List: Activity Tolerance, Functional Strength, Balance, Gait, Transfer, Bed Mobility, ROM Treatment/Plan Treatment Plan: Continue Plan of Care Treatment Plan: Bed Mobility, Education, Functional Activity Shin, Functional Strength, Group Therapy, Gait, Safety, Therapeutic Exercise, Transfers, Other (W/C propulsion and management) Treatment Duration: October 06, 2022 Frequency: At least 5 of 7 days/Wk (IRF) Estimated Hrs Per Day: 1.5 hours per day Patient and/or Family Agrees t: Yes Discharge Recommendations Therapy Discharge Recommendati: Home & Family Discharge Status/Home Program HEP for LE strengthening. Time Time In: 1300 Time Out: 1400 DATE: Sep 22, 2022 Total Billed Treatment Time: 60 Total Billed Treatment 2GT = 30', 1EX=20', 1 FA=10' = 60' total Suzan Mix PT Sep 22, 2022 14:44
[2022-09-22] MEDS: warFARin 1 MG (COUMADIN) TAB PO SCH (17:04)
[2022-09-22 19:50] VITALS: BP 132/64
[2022-09-22] MEDS: TIMOLOL MALEATE 0.5% 5 ML (TIMOPTIC) BTL OU SCH (21:14)
[2022-09-22] MEDS: TAMSULOSIN 0.4 MG (FLOMAX) CAP PO SCH (21:15)
[2022-09-23] MEDS: inSUlin ASPART (NovoLOG) 1 UNIT/0.01 ML (CHARGE PER UNIT) SC SCH ×7 (06:02→21:37)
[2022-09-23] MEDS: CATHETER FLUSH 10 ML SYR IVP SCH ×3 (07:06→21:37)
[2022-09-23 07:21] VITALS: BP 157/84
[2022-09-23] MEDS: SENNA W/DOCUSATE (SENOKOT S) TABLET PO SCH ×2 (07:32→21:38)
[2022-09-23] MEDS: polyethylene glycoL POWDER 17 GM (MIRALAX) PACK PO SCH ×2 (07:32→21:38)
[2022-09-23] MEDS: DOCUSATE SODIUM 100 MG (COLACE) CAP PO SCH ×2 (07:32→21:37)
[2022-09-23] MEDS: AUGMENTIN 875 MG TAB (AMOXICILLIN/CLAVULANATE) PO SCH ×2 (07:32→17:12)
--- NOTE | 2022-09-23 07:52 | Occupational Ther Daily Note ---
OT Current Status-Daily Note Subjective Pt agreeable to OT Tx. Mental Status/Objective Attachments: Other-See Comments (wound vac) ADL-Treatment Therapy Code Descriptions/Definitions Functional [place] Measure: 0=Not Assessed/NA 4=Minimal Assistance 1=Total Assistance 5=Supervision or Setup 2=Maximal Assistance 6=Modified [place] 3=Moderate Assistance 7=Complete IndependenceSCALE: Activities may be completed with or without assistive devices. 8-Xxsrekmobu-moodkge completes the activity by him/herself with no assistance from a helper. 5-Set-up or Clean-up Assistance-helper sets up or cleans up; patient completes activity. [place] assists only prior to or following the activity. 4-Supervision or Touching Assistance-helper provides verbal cues and/or touching/steadying and/or contact guard assistance as patient completes activity. Assistance may be provided throughout the activity or intermittently. 3-Partial/Moderate Assistance-helper does LESS THAN HALF the effort. [place] lifts, holds or supports trunk or limbs, but provides less than half the effort. 2-Substantial/Maximal Assistance-helper does MORE THAN HALF the effort. [place] lifts or holds trunk or limbs and provides more than half the effort. 7-Fnbyaxzsj-wlfcvc does ALL the effort. Patient does none of the effort to complete the activity. Or, the assistance of 2 or more helpers is required for the patient to complete the activity. If activity was not attempted, code reason: 7-Patient Refused. 9-Not Applicable-not attempted and the patient did not perform the activity before the current illness, exacerbation or injury. 10-Not Attempted due to Environmental Limitations-(lack of equipment, weather restraints, etc.). 88-Not Attempted due to Medical Conditions or Safety Concerns. Eating (QC): 6 Oral Hygiene (QC): 6 Shower/Bathe Self (QC): 5 (Pt has demonstrated the ability to complete with set up assist to cover wound vac. Pt declined showering on this date due to wound vac) Upper Body Dressing (QC): 6 Lower Body Dressing (QC): 6 On/Off Footwear: 6 Toileting Hygiene (QC): 6 Toilet Transfer (QC): 6 Other Treatment Pt in recliner, used FWW to transfer into bathroom and onto toilet, IND, IND with grooming tasks. Pt used FWW to gather clothes from closet, changed clothes at EOB, IND. Pt declined showering today, as he completed yesterday prior to wound vac change. Next wound vac change scheduled for Sun prior to d/c. Pt pre fers to wait for another shower. Pt has demonstrated ability to reach all parts of body, no LOB noted, set up would be required for showering in order to cover L foot wound. Pt used FWW to perform functional mobility to therapy gym, IND. OT tx focused on increasing BUE Strength, activity tolerance, and standing tolerance. Pt completed arm bike 15-20 Watt resistance, x18 mins, several rest breaks required. Pt then completed functional standing, UE reaching task at dry erase board. Pt complete magnetic puzzle, 100 pieces, reaching in all planes. Pt appeared to place pieces together based on shape instead of by color/textures on the piece itself. Pt took several seated rest breaks between stands. Pt used FWW to return to his room, IND, transferring to recliner. Post tx, pt in recliner, call light in reach and all needs met. Education OT Patient Education: Correct positioning, Energy conservation, Modified ADL techniques, Progress toward Goal/Update tx plan, Purpose of tx/functional activities, Rehab process Teaching Recipient: Patient Teaching Methods: Discussion Response to Teaching: Verbalize Understanding BIMS CAM BIMS Expression of Ideas and Wants: Without Difficulty Understanding Verbal Content: Understands Brief Interview/Mental Status: Yes IRF LILIANA BIMS: IRF LILIANA BIMS Response (Comments) Value Repitition of Three Words Three 3 Recalls Socks Yes, No Cue Required 2 Recalls Blue Yes, No Cue Required 2 Recalls Bed Yes, No Cue Required 2 Year Correct 3 Month Accurate Within 5 Days 2 Day Correct 1 Total 15 Should Staff Asses. Mental St.: No CAM Mental Status Change/Baseline: 0 Inattention: 0 Disorganized thinkin Altered level of consciousness: 0 OT Short Term Goals Short Term Goals Time Frame: Sep 23, 2022 Shower/bathe self: 5 Lower body dressin Putting on/taking off footwear: 5 OT Group Home Goals Group Home Goals Time Frame: Sep 30, 2022 Acute change in mental status: 0 Inattention: 0 Disorganized thinkin Altered level of consciousness: 0 Eating (QC): 6 (met) Oral Hygiene (QC): 6 (met) Toileting Hygiene (QC): 6 (met) Shower/Bathe Self (QC): 6 (not met) Upper Body Dressing (QC): 6 (met) Lower Body Dressing (QC): 6 (met) On/Off Footwear (QC): 6 (met) Additional Goals: 1-Demonstrate ADL Tasks, 2-Verbalize Understanding, 3-Impr oveStrength/Shin 1=Demonstrate adherence to instructed precautions during ADL tasks. 2=Patient will verbalize/demonstrate understanding of assistive devices/modifications for ADL. 3=Patient will improve strength/tolerance for activity to enable patient to perform ADL's. OT Education/Plan Problem List/Assessment Assessment: Decreased Activ Tolerance, Decreased UE Strength, Impaired I ADL's Discharge Recommendations Plan/Recommendations: Continue POC Treatment Plan/Plan of Care Patient would benefit from OT for education, treatment and training to promote independence in ADL's, mobility, safety and/or upper extremity function for ADL's. Plan of Care: ADL Retraining, Functional Mobility, Group Exercise/Act as Ind, UE Funct Exercise/Act Treatment Duration: Sep 30, 2022 Frequency: At least 5 of 7 days/Wk (IRF) Estimated Hrs Per Day: 1.5 hours per day Agreement: Yes Rehab Potential: Good Time Start Time: 07:35 Stop Time: 09:05 DATE: Sep 23, 2022 Total Time Billed (hr/min): 90 Billed Treatment Time 1, ADL (15'), EX (20'), FA 4 (55') DEBI GENTILE OT Sep 23, 2022 07:52
--- NOTE | 2022-09-23 08:39 | Wound Care Assessment ---
Wound Care Assessment Date Seen by Provider: Sep 23, 2022 Time Seen by Provider: 08:34 Chief Complaint Osteomyelitis 2 MTH with associated abscess HPI This pleasant 82 year old gentleman was visiting his daughter (lives in [facility]) and fell while attending [facility] services at [facility]. He did have amputation of L. 2 toe in past due to osteomyelitis and admits to failure of follow up following surgery. He has known DM2 but does not check his FSBS (he states he is a "bad patient"). However, A1C 7.7 on inpatient labs. He does have some confusion noted per daughter as well. His recently and care at home is uncertain. He is noted to have PEM, sepsis, CKD, atrial fibrillation with h/o CAD and DM2. 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 He underwent amputation/debridement on 09-13-22. Bone culture positive for S. aureus and S. mitis. He is also noted to have S. mitis on one blood culture. He has appropriately transitioned to Augmentin oral. He will require a total of 6 weeks of targeted antibiotics. His post surgical wound is open and he will require continued wound care upon discharge. We will continue wound vac during his hospitalization and plan to see him in follow up while he is staying in town with his daughter (visit already set up for next week). He has improved granulation with the vac this week. Bone remains exposed on exam. Acute osteo on pathology did extend to margin. Past Medical History: Admits Diabetes Type II, Admits Heart Disease Smoking Status: Former Smoker Alcohol Use: Denies Use Exam Vital Signs Date Time Temp Pulse Resp B/P (MAP) Pulse Ox O2 Delivery O2 Flow Rate FiO2 09/23/22 07:21 36.5 78 20 157/84 (108) 91 Room Air 09/21/22 10:29 0.00 0.00 Capillary Refill : General Appearance: WD/WN, no apparent distress, obese HEENT: other (hearing adequate) Neck: full range of motion Cardiovascular: no edema Respiratory: no respiratory distress, no accessory muscle use Extremities: pedal edema Neurologic/Psychiatric: alert, normal mood/affect Skin Problem Location: lower extremities Wound assessment (from 09/22/22): 6x2x1.8cm. The epithelialization is none. There is no tunneling or undermining. Drainage is large and serosanguinous. Granulation is medium and pink. Necrotic is medium and slough. Margins show epibole. Results Laboratory Tests 09/22/22 10:50: Glucometer 202H 09/22/22 15:14: Glucometer 196H 09/22/22 21:08: Glucometer 159H 09/23/22 05:49: Glucometer 110 Assessment/Plan/Dx Assessment: 1. Acute osteomyelitis 2 MTH (stump) s/p debridement (strep mitis) 2. Diabetic foot ulcer 3. DM2 with hyperglycemia 4. PEM 5. h/o CAD with atrial fibrillation 6. CKD stage 4 7. Anemia of renal disease/post-operative anemia 8. Generalized weakness/debility Plan: 1. Continue Augmentin (total antibiotic course of at least 6 weeks). Outpatient wound vac with wound care follow up. 2. Tight glycemic control needed for wound healing 3. Defer to PCP 4. Protein supplementation will be needed. Follow up labs as outpatient for progress on this front 5. defer to PCP. Vascular work up needed as outpatient as well. 6. Defer to PCP 7. Defer to PCP 8. Continued therapy. HH upon d/c planned 9. Disp: Agree with staying with family for now. This will require regular follow ups if healing is possibility. Long h/o noncompliance when living on his own ([facility]). MONTY CASTRO MD Sep 23, 2022 08:39
--- NOTE | 2022-09-23 10:52 | Physical Therapy Daily Note ---
PT Daily Note-Current Subjective Pt found seated in recliner upon entry. Agreed to PT. States that he is having a little bit of pain in his affected foot. Does not describe or rate pain. Pain Section J - Health Conditions 1. Rarely or not at all 2. Occasionally 3. Frequently 4. Almost constantly 8. Unable to answer Pain Effect on Sleep: 2 Pain Interference with Therapy: 2 Pain Interference w/Day-to-Day: 2 Mental Status Patient Orientation: Person, Place Attachments: Drains Transfers SCALE: Activities may be completed with or without assistive devices. 6-Kmqdijamiw-lhbayjc completes the activity by him/herself with no assistance from a helper. 5-Set-up or Clean-up Assistance-helper sets up or cleans up; patient completes activity. [place] assists only prior to or following the activity. 4-Supervision or Touching Assistance-helper provides verbal cues and/or touching/steadying and/or contact guard assistance as patient completes activity. Assistance may be provided throughout the activity or intermittently. 3-Partial/Moderate Assistance-helper does LESS THAN HALF the effort. [place] lifts, holds or supports trunk or limbs, but provides less than half the effort. 2-Substantial/Maximal Assistance-helper does MORE THAN HALF the effort. [place] lifts or holds trunk or limbs and provides more than half the effort. 7-Nraufkdrd-yyksky does ALL the effort. Patient does none of the effort to complete the activity. Or, the assistance of 2 or more helpers is required for the patient to complete the activity. If activity was not attempted, code reason: 7-Patient Refused. 9-Not Applicable-not attempted and the patient did not perform the activity before the current illness, exacerbation or injury. 10-Not Attempted due to Environmental Limitations-(lack of equipment, weather restraints, etc.). 88-Not Attempted due to Medical Conditions or Safety Concerns. Roll Left & Right (QC): 6 Sit to Lying (QC): 6 Lying to Sitting/Side of Bed(Q: 6 Sit to Stand (QC): 6 Chair/Dit-cc-Zjnij Xfer(QC): 6 Toilet Transfer (QC): 6 Car Transfer (QC): 6 Pt independent /c all completed transfers. FWW used to complete bed to chair transfer. No verbal cues required. Weight Bearing Full Weight Bearing (L) dtdo-nmhq-qdvt weight bearing Gait Training Does the Patient Walk?: Yes Distance: 30, 150, 50 Walk 10 feet (QC): 6 Walk 50 ft with 2 Turns(QC): 6 Walk 150 ft (QC): 6 Walking 10ft/uneven surface-QC: 6 Gait Persons Needed: 1 Gait Assistive Device: FWW Pt independent /c ambulation using a FWW. Able to ambulate up to 150 feet before requiring a seated rest break. No loss of balance displayed throughout visit. Slight soreness reported in affected foot post-ambulation. Wheelchair Training Does the Pt Use a Wheelchair?: No Stair Training Stair Training: Handrails/: 2 handrails #of Steps: 12 1 Step (curb) (QC): 6 4 Steps (QC): 6 12 Steps (QC): 6 Stairs: Pattern: Step to Pt completed 12 step total /c use of 2 handrails. Uses step to pattern while ascending/descending steps. No loss of balance displayed while completing. Balance Picking up an Object (QC): 6 Special Test Comments Pt independent /c picking up small object from floor. No assistive device required to complete. Exercises Seated exercises: Marching /c RTB x 15 Hamstring curls /c RTB x 15 Hip abd /c RTB x 15 Hip add /c ball x 15 TA /c swissball x 15 Heel/toe raises x 15 Standing exercises: Hip 3-ways x 10 ea B (2 hands) Side-stepping x 3 trips at // (2 hands) NuStep Minutes: 10 NuStep Workload: 5 Assessment Current Status: Good Progress Pt displays ability to safely complete transfers and ambulation independently. Ambulates /c use of FWW up to 150 feet before requiring a short seated rest break. No loss of balance displayed throughout ambulation. Pt demonstrates endurance deficits and shortness of breath /c ambulation and nu step. Continue to progress pt as tolerated per POC to improve strength, endurance, and decrease pain. PT Care Home Goals Churn Tender Goals PT Care Home Goals Time Frame: October 06, 2022 Roll Left & Right (QC): 6 Sit to Lying (QC): 6 Lying-Sitting on Side/Bed(QC): 6 Sit to Stand (QC): 6 Chair/Owl-pu-Cknqp Xfer(QC): 6 (with FWW) Toilet Transfer (QC): 6 (with FWW) Car Transfer (QC): 5 (with FWW) Does the Patient Walk: Yes Walk 10 feet (QC): 6 (with FWW) Walk 50ft with 2 Turns (QC): 6 (with FWW and (L) heel/down only WB ) Walk 150 ft (QC): 4 (with FWW and (L) cnls-lryu-ruqb WB) Walking 10ft on Uneven Surface: 5 (with FWW) 1 Step (curb) (QC): 4 (CGA with FWW and msfs-yvxy-hjxa WB on (L)) 4 Steps (QC): 4 (with (B) rails) 12 Steps (QC): 9 Picking up an Object (QC): 6 (with wad printing machine operator) Does the Pt use WC or Scooter?: Yes Wheel 50 feet with 2 turns (QC: 6 Type: Manual Wheel 150 feet: 6 Type: Manual PT Plan Treatment/Plan Treatment Plan: Continue Plan of Care Treatment Plan: Bed Mobility, Education, Functional Activity Shin, Functional Strength, Group Therapy, Gait, Safety, Therapeutic Exercise, Transfers, Other (W/C propulsion and management) Treatment Duration: October 06, 2022 Frequency: At least 5 of 7 days/Wk (IRF) Estimated Hrs Per Day: 1.5 hours per day Patient and/or Family Agrees t: Yes Time Time In: 0930 Time Out: 1100 DATE: Sep 23, 2022 Total Billed Treatment Time: 90 Total Billed Treatment 1 visit GT x 2 FA x 2 EX x 2 YOHANA TENA HOSPITALIST PHYSICIAN Sep 23, 2022 10:52
--- NOTE | 2022-09-23 12:30 | PM&R Progress Note ---
Subjective HPI/CC On Admission Date Seen by Provider: Sep 23, 2022 Time Seen by Provider: 12:00 Subjective/Events-last exam 09/23/2022: No major issues Reviewed sugars INR will be checked tomorrow No falls 09/22/2022: No major issues I will see him in clinic until he recovers enough to leave his daughter's house and go back home 4 hours away INR noted 09/21/2022: No major events Sugars are improved No pain reported 09/20/2022: No major events Participation with therapy is good DM education for insulin teaching ordered 09/19/2022: Doing better Improved overall Sugars improved DM education since only safe treatment for DM with CKD is insulin 09/18/2022: Much improved Daughter at bedside Sugars improved Pain controlled Labs reviewed INR noted 09/17/2022: Doing well Monitor closely DC JOEL's Sugars good Not on insulin at home 09/16/2022: No major events overnight Pain controlled Reviewed labs Eating well BM regimen maintained Glucose noted Added Levemir Cannot go back on Metformin or OHA due to CKD Review of Systems General: Fatigue, Malaise Musculoskeletal: leg pain Objective Exam Vital Signs Vital Signs Date Time Temp Pulse Resp B/P (MAP) Pulse Ox O2 Delivery O2 Flow Rate FiO2 09/23/22 09:10 Nasal Cannula 3.00 09/23/22 07:21 36.5 78 20 157/84 (108) 91 Capillary Refill : General Appearance: No Apparent Distress, WD/WN, Chronically ill HEENT: PERRL/EOMI, Normal ENT Inspection, Pharynx Normal Neck: Full Range of Motion, Normal Inspection, Non Tender, Supple, Carotid Bruit Respiratory: Chest Non Tender, Lungs Clear, Normal Breath Sounds, No Accessory Muscle Use, No Respiratory Distress Cardiovascular: No Edema, No Gallop, No JVD, No Murmur, Normal Peripheral Pulses, Irregularly Irregular Gastrointestinal: Normal Bowel Sounds, No Organomegaly, No Pulsatile Mass, Non Tender, Soft Back: Normal Inspection, No CVA Tenderness, No Vertebral Tenderness Extremity: Normal Capillary Refill, Normal Inspection, Normal Range of Motion, Non Tender, No Calf Tenderness, No Pedal Edema Neurologic/Psychiatric: Alert, Oriented x3, wellness nurse rn II-XII Norm as Tested, Abnormal Gait, Depressed Affect, Motor Weakness (generalized) Skin: Normal Color, Warm/Dry Lymphatic: No Adenopathy Results/Procedures Lab Patient resulted labs reviewed. FIM Transfers Therapy Code Descriptions/Definitions Functional [place] Measure: 0=Not Assessed/NA 4=Minimal Assistance 1=Total Assistance 5=Supervision or Setup 2=Maximal Assistance 6=Modified [place] 3=Moderate Assistance 7=Complete IndependenceSCALE: Activities may be completed with or without assistive devices. 9-Rdilgpoucd-ievmqml completes the activity by him/herself with no assistance from a helper. 5-Set-up or Clean-up Assistance-helper sets up or cleans up; patient completes activity. [place] assists only prior to or following the activity. 4-Supervision or Touching Assistance-helper provides verbal cues and/or touching/steadying and/or contact guard assistance as patient completes activi ty. Assistance may be provided throughout the activity or intermittently. 3-Partial/Moderate Assistance-helper does LESS THAN HALF the effort. [place] lifts, holds or supports trunk or limbs, but provides less than half the effort. 2-Substantial/Maximal Assistance-helper does MORE THAN HALF the effort. [place] lifts or holds trunk or limbs and provides more than half the effort. 8-Ckrmvlwyy-pdswtt does ALL the effort. Patient does none of the effort to complete the activity. Or, the assistance of 2 or more helpers is required for the patient to complete the activity. If activity was not attempted, code reason: 7-Patient Refused. 9-Not Applicable-not attempted and the patient did not perform the activity before the current illness, exacerbation or injury. 10-Not Attempted due to Environmental Limitations-(lack of equipment, weather restraints, etc.). 88-Not Attempted due to Medical Conditions or Safety Concerns. Roll Left to Right (QC): 6 Sit to Lying (QC): 6 Sit to Stand (QC): 6 Chair/Ric-vh-Nhzdi Xfer(QC): 6 Car Transfer (QC): 6 Gait Training Does the Patient Walk?: Yes Distance: 30, 150, 50 Walk 10 feet (QC): 6 Walk 50 ft with 2 Turns(QC): 6 Walk 150 ft (QC): 6 Walking 10ft/uneven surface-QC: 6 Gait Persons Needed: 1 Gait Assistive Device: FWW Wheelchair Training Does the Pt Use a Wheelchair?: No Wheel 50 ft with 2 turns (QC): 5 Wheel 150 ft (QC): 5 Type of Wheelchair: Manual Stair Training Stair Training: Handrails/: 2 handrails #of Steps: 12 1 Step (curb) (QC): 6 4 Steps (QC): 6 12 Steps (QC): 6 Stairs: Pattern: Step to Balance Picking up an Object (QC): 6 ADL-Treatment Eating (QC): 6 Oral Hygiene (QC): 6 Shower/Bathe Self (QC): 5 (Pt has demonstrated the ability to complete with set up assist to cover wound vac. 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 mitis, S. aureus) Left Foot abscess --> (prelim report: S. mitis, S. aureus, Gram (-) carissa) Bactermia --> (prelim report: S. mitis) DM CAD HTN HLD BPH Paroxysmal Afib Dementia P: PT/OT Wound care for open wound left foot Continue abx. and adjust pending final cultures and sensitivities. Diet as tolerated Restart home medications & monitor INR DVT Proph: coumadin 09/16/2022: DC Metformin and OHA of home meds and restart a few others Start Levemir Monitor closely 09/17/2022: Monitor closely 09/18/2022: Insulin Monitor closely 09/19/2022: DM education 09/20/2022: Change abx to PO DM education for insulin 09/21/2022: Monitor INR 09/22/2022: Supportive care I will see him in clinic as outpatient after DC 09/23/2022: Improved overall (1) Abscess of left foot Status: Acute (2) Acute kidney injury superimposed on chronic kidney disease Status: Acute (3) On Coumadin for atrial fibrillation Status: Chronic (4) History of venous thromboembolism Status: Chronic (5) BPH (benign prostatic hyperplasia) Status: Chronic (6) Afib Status: Chronic (7) HLD (hyperlipidemia) Status: Chronic (8) CAD (coronary artery disease) Status: Chronic (9) T2DM (type 2 diabetes mellitus) Status: Acute PEACE,DIALLO DO Sep 23, 2022 12:30
[2022-09-23] MEDS: warFARin 1 MG (COUMADIN) TAB PO SCH (17:13)
[2022-09-23 20:10] VITALS: BP 70/64
[2022-09-23] MEDS: TIMOLOL MALEATE 0.5% 5 ML (TIMOPTIC) BTL OU SCH (21:36)
[2022-09-23] MEDS: ACETAMINOPHEN 325 MG TABLET PO PRN (21:37)
[2022-09-23] MEDS: TAMSULOSIN 0.4 MG (FLOMAX) CAP PO SCH (21:37)
[2022-09-24 05:50] LABS: INR 2.1 (0.8-1.4); PROTHROMBIN TIME PATIENT 23.8 SEC (12.2-14.7)
[2022-09-24 05:51] LABS: CALCIUM 8.5 MG/DL (8.5-10.1)
[2022-09-24 05:55] LABS: CREATININE SERUM 1.9 MG/DL (0.60-1.30)
[2022-09-24] MEDS: inSUlin ASPART (NovoLOG) 1 UNIT/0.01 ML (CHARGE PER UNIT) SC SCH ×7 (06:08→20:47)
--- NOTE | 2022-09-24 06:10 | PM&R Progress Note ---
Subjective HPI/CC On Admission Date Seen by Provider: Sep 24, 2022 Time Seen by Provider: 11:00 Subjective/Events-last exam 09/24/2022: Doing well Ready for DC tomorrow 09/23/2022: No major issues Reviewed sugars INR will be checked tomorrow No falls 09/22/2022: No major issues I will see him in clinic until he recovers enough to leave his daughter's house and go back home 4 hours away INR noted 09/21/2022: No major events Sugars are improved No pain reported 09/20/2022: No major events Participation with therapy is good DM education for insulin teaching ordered 09/19/2022: Doing better Improved overall Sugars improved DM education since only safe treatment for DM with CKD is insulin 09/18/2022: Much improved Daughter at bedside Sugars improved Pain controlled Labs reviewed INR noted 09/17/2022: Doing well Monitor closely DC JOEL's Sugars good Not on insulin at home 09/16/2022: No major events overnight Pain controlled Reviewed labs Eating well BM regimen maintained Glucose noted Added Levemir Cannot go back on Metformin or OHA due to CKD Review of Systems General: Fatigue, Malaise Objective Exam Vital Signs Vital Signs Date Time Temp Pulse Resp B/P (MAP) Pulse Ox O2 Delivery O2 Flow Rate FiO2 09/24/22 10:04 Room Air 09/24/22 07:14 36.5 77 16 137/76 (96) 93 09/23/22 09:10 3.00 Capillary Refill : General Appearance: No Apparent Distress, WD/WN, Chronically ill HEENT: PERRL/EOMI, Normal ENT Inspection, Pharynx Normal Neck: Full Range of Motion, Normal Inspection, Non Tender, Supple, Carotid Bruit Respiratory: Chest Non Tender, Lungs Clear, Normal Breath Sounds, No Accessory Muscle Use, No Respiratory Distress Cardiovascular: No Edema, No Gallop, No JVD, No Murmur, Normal Peripheral Pulses, Irregularly Irregular Gastrointestinal: Normal Bowel Sounds, No Organomegaly, No Pulsatile Mass, Non Tender, Soft Back: Normal Inspection, No CVA Tenderness, No Vertebral Tenderness Extremity: Normal Capillary Refill, Normal Inspection, Normal Range of Motion, Non Tender, No Calf Tenderness, No Pedal Edema Neurologic/Psychiatric: Alert, Oriented x3, face and fill packer II-XII Norm as Tested, Abnormal Gait, Depressed Affect, Motor Weakness (generalized) Skin: Normal Color, Warm/Dry Lymphatic: No Adenopathy Results/Procedures Lab Laboratory Tests 09/24/22 05:22 Patient resulted labs reviewed. FIM Transfers Therapy Code Descriptions/Definitions Functional [place] Measure: 0=Not Assessed/NA 4=Minimal Assistance 1=Total Assistance 5=Supervision or Setup 2=Maximal Assistance 6=Modified [place] 3=Moderate Assistance 7=Complete IndependenceSCALE: Activities may be completed with or without assistive devices. 0-Zosolttngm-slrmjbd completes the activity by him/herself with no assistance from a helper. 5-Set-up or Clean-up Assistance-helper sets up or cleans up; patient completes activity. [place] assists only prior to or following the activity. 4-Supervision or Touching Assistance-helper provides verbal cues and/or touching/steadying and/or contact guard assistance as patient completes activity. Assistance may be provided throughout the activity or intermittently. 3-Partial/Moderate Assistance-helper does LESS THAN HALF the effort. [place] lifts, holds or supports trunk or limbs, but provides less than half the effort. 2-Substantial/Maximal Assistance-helper does MORE THAN HALF the effort. [place] lifts or holds trunk or limbs and provides more than half the effort. 7-Gehqaopdm-evbmgy does ALL the effort. Patient does none of the effort to complete the activity. Or, the assistance of 2 or more helpers is required for the patient to complete the activity. If activity was not attempted, code reason: 7-Patient Refused. 9-Not Applicable-not attempted and the patient did not perform the activity before the current illness, exacerbation or injury. 10-Not Attempted due to Environmental Limitations-(lack of equipment, weather restraints, etc.). 88-Not Attempted due to Medical Conditions or Safety Concerns. Roll Left to Right (QC): 6 Sit to Lying (QC): 6 Sit to Stand (QC): 6 Chair/Sjp-pz-Illeb Xfer(QC): 6 Car Transfer (QC): 6 Gait Training Does the Patient Walk?: Yes Distance: 30, 150, 50 Walk 10 feet (QC): 6 Walk 50 ft with 2 Turns(QC): 6 Walk 150 ft (QC): 6 Walking 10ft/uneven surface-QC: 6 Gait Persons Needed: 1 Gait Assistive Device: FWW Wheelchair Training Does the Pt Use a Wheelchair?: No Wheel 50 ft with 2 turns (QC): 5 Wheel 150 ft (QC): 5 Type of Wheelchair: Manual Stair Training Stair Training: Handrails/: 2 handrails #of Steps: 12 1 Step (curb) (QC): 6 4 Steps (QC): 6 12 Steps (QC): 6 Stairs: Pattern: Step to Balance Picking up an Object (QC): 6 ADL-Treatment Eating (QC): 6 Oral Hygiene (QC): 6 Shower/Bathe Self (QC): 5 (Pt has demonstrated the ability to complete with set up assist to cover wound vac. 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 mitis, S. aureus) Left Foot abscess --> (prelim report: S. mitis, S. aureus, Gram (-) carissa) Bactermia --> (prelim report: S. mitis) DM CAD HTN HLD BPH Paroxysmal Afib Dementia P: PT/OT Wound care for open wound left foot Continue abx. and adjust pending final cultures and sensitivities. Diet as tolerated Restart home medications & monitor INR DVT Proph: coumadin 09/16/2022: DC Metformin and OHA of home meds and restart a few others Start Levemir Monitor closely 09/17/2022: Monitor closely 09/18/2022: Insulin Monitor closely 09/19/2022: DM education 09/20/2022: Change abx to PO DM education for insulin 09/21/2022: Monitor INR 09/22/2022: Supportive care I will see him in clinic as outpatient after DC 09/23/2022: Improved overall 09/24/2022: No issues DC tomorrow (1) Abscess of left foot Status: Acute (2) Acute kidney injury superimposed on chronic kidney disease Status: Acute (3) On Coumadin for atrial fibrillation Status: Chronic (4) History of venous thromboembolism Status: Chronic (5) BPH (benign prostatic hyperplasia) Status: Chronic (6) Afib Status: Chronic (7) HLD (hyperlipidemia) Status: Chronic (8) CAD (coronary artery disease) Status: Chronic (9) T2DM (type 2 diabetes mellitus) Status: Acute Qualifiers: Diabetes mellitus long-term insulin use: with termite control service representative use Diabetes mellitus complication status: with circulatory complication Diabetes mellitus complication detail: with peripheral angiopathy with gangrene Qualified Codes: E11.52 - Type 2 diabetes mellitus with diabetic peripheral angiopathy with flores grene; Z79.4 - FPC (current) use of insulin DIALLO PEACE DO Sep 24, 2022 06:10
[2022-09-24 07:14] VITALS: BP 137/76
[2022-09-24] MEDS: CATHETER FLUSH 10 ML SYR IVP SCH ×3 (07:19→20:48)
[2022-09-24] MEDS: SENNA W/DOCUSATE (SENOKOT S) TABLET PO SCH ×2 (08:06→20:47)
[2022-09-24] MEDS: AUGMENTIN 875 MG TAB (AMOXICILLIN/CLAVULANATE) PO SCH ×2 (08:06→16:51)
[2022-09-24] MEDS: ACETAMINOPHEN 325 MG TABLET PO PRN ×3 (08:06→20:46)
[2022-09-24] MEDS: DOCUSATE SODIUM 100 MG (COLACE) CAP PO SCH ×2 (08:06→20:47)
[2022-09-24] MEDS: polyethylene glycoL POWDER 17 GM (MIRALAX) PACK PO SCH ×2 (08:07→20:47)
[2022-09-24] MEDS ORDERED: WARF3TAB56 PO (12:39)
[2022-09-24] MEDS ORDERED: TMSL.4C PO (12:39)
[2022-09-24] MEDS ORDERED: SENN-271 PO (12:39)
[2022-09-24] MEDS ORDERED: INSU100I88 SQ (12:39)
[2022-09-24] MEDS ORDERED: INSU100I14 SQ (12:39)
[2022-09-24] MEDS ORDERED: [UNRECOGNIZED DRUG - CODE] MC (12:39)
[2022-09-24] MEDS ORDERED: TIMO5DRO5 OU (12:39)
[2022-09-24] MEDS ORDERED: ACET-2267 PO (12:39)
[2022-09-24] MEDS ORDERED: DIPH25TA65 PO (12:39)
[2022-09-24] MEDS ORDERED: ATOR40TA70 PO (12:39)
[2022-09-24] MEDS ORDERED: DILT240C91 PO (12:39)
[2022-09-24] MEDS ORDERED: NEED-475 MC (12:40)
--- NOTE | 2022-09-24 12:42 | D/C HH Face to Face Order ---
D/C Face to Face Orders Reconcile Patient Problems Problems Reviewed?: Yes Instructions for Patient [facility] Patient Instructions/FollowUp: Dr Ayala in 5 days Physician to follow Patient: Lucy Discharge Diet for Home: ADA Diet Patient Problems: Toe amputations Patient Data-Allergies,Ht & Wt Patient Allergies: Coded Allergies: No Known Drug Allergies (Unverified , 09/15/22) Home Health Need/Face to Face Date of Face to Face: Sep 24, 2022 Clinical Findings: Generalized weakness and fatigue, Instability, Muscle weakness, Pain with ambulation I have seen Pt [id number]: Yes Discharged To: Home Diagnosis/Conditions: DM Patient is Homebound due to: CognItive deficits, Raimundo fall risk due to instabilty, Muscle weakness Homebound Status Due to the above stated illness, injury or surgical procedure (medical condition or diagnosis) and associated clinical findings, the patient is cathy ebound because of his/her inability to leave home except with aid of a supportive device and/or person AND leaving the home requires a considerable and taxing effort or is medically contraindicated. Pt req the following assistanc: Walker Home Health Nursing Orders Home Health Services Order: Nursing Services, Police Sergeant-Evaluate & Treat, Physical Therapy-Evaluate & Treat, Wound Care-Eval/Treat Home Health Infusion Therapy Line Start Date: Sep 16, 2022 Certify Stmt I certify that this patient is under my care and that I, a nurse practitioner or a physician; a urgent care physician assistant working with me, had a face to face encounter that - meets the physician face to face encounter requirements with this patient as dated. DIALLO AYALA DO Sep 24, 2022 12:42
[2022-09-24] MEDS: warFARin 1 MG (COUMADIN) TAB PO SCH (16:52)
[2022-09-24 20:13] VITALS: BP 138/77
[2022-09-24] MEDS: TIMOLOL MALEATE 0.5% 5 ML (TIMOPTIC) BTL OU SCH (20:46)
[2022-09-24] MEDS: TAMSULOSIN 0.4 MG (FLOMAX) CAP PO SCH (20:46)
[2022-09-25] MEDS: inSUlin ASPART (NovoLOG) 1 UNIT/0.01 ML (CHARGE PER UNIT) SC SCH ×4 (06:00→12:02)
--- NOTE | 2022-09-25 06:24 | PM&R Progress Note ---
Subjective HPI/CC On Admission Date Seen by Provider: Sep 25, 2022 Time Seen by Provider: 11:30 Subjective/Events-last exam 09/25/2022: 09/24/2022: Doing well Ready for DC tomorrow 09/23/2022: No major issues Reviewed sugars INR will be checked tomorrow No falls 09/22/2022: No major issues I will see him in clinic until he recovers enough to leave his daughter's house and go back home 4 hours away INR noted 09/21/2022: No major events Sugars are improved No pain reported 09/20/2022: No major events Participation with therapy is good DM education for insulin teaching ordered 09/19/2022: Doing better Improved overall Sugars improved DM education since only safe treatment for DM with CKD is insulin 09/18/2022: Much improved Daughter at bedside Sugars improved Pain controlled Labs reviewed INR noted 09/17/2022: Doing well Monitor closely DC JOEL's Sugars good Not on insulin at home 09/16/2022: No major events overnight Pain controlled Reviewed labs Eating well BM regimen maintained Glucose noted Added Levemir Cannot go back on Metformin or OHA due to CKD Review of Systems General: Fatigue, Malaise Neurological: Weakness Objective Exam Vital Signs Vital Signs Date Time Temp Pulse Resp B/P (MAP) Pulse Ox O2 Delivery O2 Flow Rate FiO2 09/24/22 20:47 97 Room Air 09/24/22 20:13 36.6 78 20 138/77 (97) 09/23/22 09:10 3.00 Capillary Refill : General Appearance: No Apparent Distress, WD/WN, Chronically ill HEENT: PERRL/EOMI, Normal ENT Inspection, Pharynx Normal Neck: Full Range of Motion, Normal Inspection, Non Tender, Supple, Carotid Bruit Respiratory: Chest Non Tender, Lungs Clear, Normal Breath Sounds, No Accessory Muscle Use, No Respiratory Distress Cardiovascular: No Edema, No Gallop, No JVD, No Murmur, Normal Peripheral Pulses, Irregularly Irregular Gastrointestinal: Normal Bowel Sounds, No Organomegaly, No Pulsatile Mass, Non Tender, Soft Back: Normal Inspection, No CVA Tenderness, No Vertebral Tenderness Extremity: Normal Capillary Refill, Normal Inspection, Normal Range of Motion, Non Tender, No Calf Tenderness, No Pedal Edema Neurologic/Psychiatric: Alert, Oriented x3, controller operations and hr manager II-XII Norm as Tested, Abnormal Gait, Depressed Affect, Motor Weakness (generalized) Skin: Normal Color, Warm/Dry Lymphatic: No Adenopathy Results/Procedures Lab Patient resulted labs reviewed. FIM Transfers Therapy Code Descriptions/Definitions Functional [place] Measure: 0=Not Assessed/NA 4=Minimal Assistance 1=Total Assistance 5=Supervision or Setup 2=Maximal Assistance 6=Modified [place] 3=Moderate Assistance 7=Complete IndependenceSCALE: Activities may be completed with or without assistive devices. 4-Jxycgvotqe-jtnbjgk completes the activity by him/herself with no assistance from a helper. 5-Set-up or Clean-up Assistance-helper sets up or cleans up; patient completes activity. [place] assists only prior to or following the activity. 4-Supervision or Touching Assistance-helper provides verbal cues and/or touc asa/steadying and/or contact guard assistance as patient completes activity. Assistance may be provided throughout the activity or intermittently. 3-Partial/Moderate Assistance-helper does LESS THAN HALF the effort. [place] lifts, holds or supports trunk or limbs, but provides less than half the effort. 2-Substantial/Maximal Assistance-helper does MORE THAN HALF the effort. [place] lifts or holds trunk or limbs and provides more than half the effort. 5-Watmyrbdp-oobmnl does ALL the effort. Patient does none of the effort to complete the activity. Or, the assistance of 2 or more helpers is required for the patient to complete the activity. If activity was not attempted, code reason: 7-Patient Refused. 9-Not Applicable-not attempted and the patient did not perform the activity before the current illness, exacerbation or injury. 10-Not Attempted due to Environmental Limitations-(lack of equipment, weather restraints, etc.). 88-Not Attempted due to Medical Conditions or Safety Concerns. Roll Left to Right (QC): 6 Sit to Lying (QC): 6 Sit to Stand (QC): 6 Chair/Sql-di-Prwpw Xfer(QC): 6 Car Transfer (QC): 6 Gait Training Does the Patient Walk?: Yes Distance: 30, 150, 50 Walk 10 feet (QC): 6 Walk 50 ft with 2 Turns(QC): 6 Walk 150 ft (QC): 6 Walking 10ft/uneven surface-QC: 6 Gait Persons Needed: 1 Gait Assistive Device: FWW Wheelchair Training Does the Pt Use a Wheelchair?: No Wheel 50 ft with 2 turns (QC): 5 Wheel 150 ft (QC): 5 Type of Wheelchair: Manual Stair Training Stair Training: Handrails/: 2 handrails #of Steps: 12 1 Step (curb) (QC): 6 4 Steps (QC): 6 12 Steps (QC): 6 Stairs: Pattern: Step to Balance Picking up an Object (QC): 6 ADL-Treatment Eating (QC): 6 Oral Hygiene (QC): 6 Shower/Bathe Self (QC): 5 (Pt has demonstrated the ability to complete with set up assist to cover wound vac. 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 mitis, S. aureus) Left Foot abscess --> (prelim report: S. mitis, S. aureus, Gram (-) carissa) Bactermia --> (prelim report: S. mitis) DM CAD HTN HLD BPH Paroxysmal Afib Dementia P: PT/OT Wound care for open wound left foot Continue abx. and adjust pending final cultures and sensitivities. Diet as tolerated Restart home medications & monitor INR DVT Proph: coumadin 09/16/2022: DC Metformin and OHA of home meds and restart a few others Start Levemir Monitor closely 09/17/2022: Monitor closely 09/18/2022: Insulin Monitor closely 09/19/2022: DM education 09/20/2022: Change abx to PO DM education for insulin 09/21/2022: Monitor INR 09/22/2022: Supportive care I will see him in clinic as outpatient after DC 09/23/2022: Improved overall 09/24/2022: No issues DC tomorrow 09/25/2022: (1) Abscess of left foot Status: Acute (2) Acute kidney injury superimposed on chronic kidney disease Status: Acute (3) On Coumadin for atrial fibrillation Status: Chronic (4) History of venous thromboembolism Status: Chronic (5) BPH (benign prostatic hyperplasia) Status: Chronic (6) Afib Status: Chronic (7) HLD (hyperlipidemia) Status: Chronic (8) CAD (coronary artery disease) Status: Chronic (9) T2DM (type 2 diabetes mellitus) Status: Acute Qualifiers: Diabetes mellitus extermination inspector insulin use: with extermination inspector use Diabetes mellitus complication status: with circulatory complication Diabetes mellitus complication detail: with peripheral angiopathy with gangrene Qualified Codes: E11.52 - Type 2 diabetes mellitus with diabetic peripheral angiopathy with gangrene; Z79.4 - alf (current) use of insulin DIALLO PEACE DO Sep 25, 2022 06:24
--- NOTE | 2022-09-25 06:24 | Discharge Summary ---
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 mitis, S. aureus) Left Foot abscess --> (prelim report: S. mitis, S. aureus, Gram (-) carissa) Bactermia --> (prelim report: S. mitis) DM CAD HTN HLD BPH Paroxysmal Afib Dementia P: PT/OT Wound care for open wound left foot Continue abx. and adjust pending final cultures and sensitivities. Diet as tolerated Restart home medications & monitor INR DVT Proph: coumadin 09/16/2022: DC Metformin and OHA of home meds and restart a few others Start Levemir Monitor closely 09/17/2022: Monitor closely 09/18/2022: Insulin Monitor closely 09/19/2022: DM education 09/20/2022: Change abx to PO DM education for insulin 09/21/2022: Monitor INR 09/22/2022: Supportive care I will see him in clinic as outpatient after DC 09/23/2022: Improved overall 09/24/2022: No issues DC tomorrow (1) Abscess of left foot Status: Acute (2) Acute kidney injury superimposed on chronic kidney disease Status: Acute (3) On Coumadin for atrial fibrillation Status: Chronic (4) History of venous thromboembolism Status: Chronic (5) BPH (benign prostatic hyperplasia) Status: Chronic (6) Afib Status: Chronic (7) HLD (hyperlipidemia) Status: Chronic (8) CAD (coronary artery disease) Status: Chronic (9) T2DM (type 2 diabetes mellitus) Status: Acute Qualifiers: Diabetes mellitus terminal system operator insulin use: with terminal system operator use Diabetes mellitus complication status: with circulatory complication Diabetes mellitus complication detail: with peripheral angiopathy with gangrene Qualified Codes: E11.52 - Type 2 diabetes mellitus with diabetic peripheral angiopathy with gangrene; Z79.4 - snf (current) use of insulin DIALLO PEACE DO Discharge Summary Discharge Physical Examination Allergies: Coded Allergies: No Known Drug Allergies (Unverified , 09/15/22) Vitals & I&Os Vital Signs Date Time Temp Pulse Resp B/P (MAP) Pulse Ox O2 Delivery O2 Flow Rate FiO2 09/25/22 09:18 Room Air 09/25/22 07:21 36.5 84 16 167/77 (107) 95 09/23/22 09:10 3.00 General Appearance: Alert, Oriented X3, Cooperative Respiratory: Clear to Auscultation Cardiovascular: Regular Rate Psych/Mental Status: Mental Status NL Hospital Course Was the Problem List Reviewed?: Yes Lengthy course after he was admitted for left foot ulceration with sepsis requiring amputation and wound vac maintenance. IV abx completed after bacteremia noted on Cx. Insulin started since CKD low creat clearance did not allow safe maintenance of Metformin and OHA and DM education was given for new insulin administration. INR maintained between 2-3 and patient was ready for DC with HH and f/u me. Labs (last 24 hrs) Laboratory Tests 09/15/22 16:10: Glucometer 190H 09/15/22 20:30: Glucometer 200H 09/16/22 04:57: White Blood Count 10.6, Red Blood Count 3.02L, Hemoglobin 8.2L, Hematocrit 26L, Mean Corpuscular Volume 86, Mean Corpuscular Hemoglobin 27, Mean Corpuscular Hemoglobin Concent 32, Red Cell Distribution Width 15.0H, Platelet Count 303, M herman Platelet Volume 10.7, Immature Granulocyte % (Auto) 2, Neutrophils (%) (Auto) 73, Lymphocytes (%) (Auto) 16, Monocytes (%) (Auto) 6, Eosinophils (%) (Auto) 3, Basophils (%) (Auto) 0, Neutrophils # (Auto) 7.7, Lymphocytes # (Auto) 1.7, Monocytes # (Auto) 0.6, Eosinophils # (Auto) 0.4H, Basophils # (Auto) 0.0, Immature Granulocyte # (Auto) 0.2H, Prothrombin Time 32.9H, INR Comment 3.2H, Sodium Level 139, Potassium Level 3.8, Chloride Level 114H, Carbon Dioxide Level 16L, Anion Gap 9, Blood Urea Nitrogen 29H, Creatinine 2.28H, Estimat Glomerular Filtration Rate 28, BUN/Creatinine Ratio 13, Glucose Level 131H, Calcium Level 8.4L, Corrected Calcium 9.9, Total Bilirubin 0.2, Aspartate Amino Transf (AST/SGOT) 16, Alanine Aminotransferase (ALT/SGPT) 10, Alkaline Phosphatase 57, Total Protein 5.6L, Albumin 2.1L 09/16/22 11:49: Glucometer 208H 09/16/22 16:24: Glucometer 159H 09/16/22 20:47: Glucometer 179H 09/17/22 05:49: Glucometer 77 09/17/22 10:46: Glucometer 208H 09/17/22 15:45: Glucometer 174H 09/17/22 20:22: Glucometer 280H 09/18/22 06:13: Glucometer 159H 09/18/22 10:40: White Blood Count 8.2, Red Blood Count 3.07L, Hemoglobin 8.5L, Hematocrit 27L, Mean Corpuscular Volume 87, Mean Corpuscular Hemoglobin 28, Mean Corpuscular Hemoglobin Concent 32, Red Cell Distribution Width 14.8H, Platelet Count 345, Mean Platelet Volume 10.8, Immature Granulocyte % (Auto) 2, Neutrophils (%) (Auto) 66, Lymphocytes (%) (Auto) 21, Monocytes (%) (Auto) 8, Eosinophils (%) (Auto) 3, Basophils (%) (Auto) 0, Neutrophils # (Auto) 5.4, Lymphocytes # (Auto) 1.7, Monocytes # (Auto) 0.7, Eosinophils # (Auto) 0.3, Basophils # (Auto) 0.0, Immature Granulocyte # (Auto) 0.2H, Prothrombin Time 34.3H, INR Comment 3.4H, Sodium Level 142, Potassium Level 3.8, Chloride Level 113H, Carbon Dioxide Level 19L, Anion Gap 10, Blood Urea Nitrogen 18, Creatinine 2.08H, Estimat Glomerular Filtration Rate 31, BUN/Creatinine Ratio 9, Glucose Level 249H, Calcium Level 8.3L, Corrected Calcium 9.7, Total Bilirubin 0.2, Aspartate Amino Transf (AST/SGOT) 18, Alanine Aminotransferase (ALT/SGPT) 9, Alkaline Phosphatase 62, Total Protein 5.9L, Albumin 2.3L 09/18/22 11:14: Glucometer 216H 09/18/22 15:21: Glucometer 199H 09/18/22 20:02: Glucometer 185H 09/19/22 06:14: Glucometer 131H 09/19/22 11:04: Glucometer 224H 09/19/22 16:51: Glucometer 186H 09/19/22 21:16: Glucometer 266H 09/20/22 05:18: Glucometer 141H 09/20/22 07:35: White Blood Count 7.8, Red Blood Count 3.17L, Hemoglobin 8.9L, Hematocrit 27L, Mean Corpuscular Volume 86, Mean Corpuscular Hemoglobin 28, Mean Corpuscular Hemoglobin Concent 33, Red Cell Distribution Width 14.6H, Platelet Count 326, Mean Platelet Volume 10.6, Immature Granulocyte % (Auto) 2, Neutrophils (%) (Auto) 61, Lymphocytes (%) (Auto) 24, Monocytes (%) (Auto) 10, Eosinophils (%) (Auto) 3, Basophils (%) (Auto) 0, Neutrophils # (Auto) 4.8, Lymphocytes # (Auto) 1.9, Monocytes # (Auto) 0.8, Eosinophils # (Auto) 0.3, Basophils # (Auto) 0.0, Immature Granulocyte # (Auto) 0.1, Prothrombin Time 29.3H, INR Comment 2.7H, Sodium Level 141, Potassium Level 3.8, Chloride Level 110H, Carbon Dioxide Level 20L, Anion Gap 11, Blood Urea Nitrogen 17, Creatinine 2.02H, Estimat Glomerular Filtration Rate 33, BUN/Creatinine Ratio 8, Glucose Level 189H, Calcium Level 8.4L, Corrected Calcium 9.8, Total Bilirubin 0.2, Aspartate Amino Transf (AST/SGOT) 19, Alanine Aminotransferase (ALT/SGPT) 9, Alkaline Phosphatase 65, Total Protein 5.9L, Albumin 2.3L 09/20/22 11:29: Glucometer 186H 09/20/22 15:17: Glucometer 214H 09/20/22 20:18: Glucometer 215H 09/21/22 05:03: Glucometer 142H 09/21/22 11:02: Glucometer 229H 09/21/22 15:10: Glucometer 209H 09/21/22 20:50: Glucometer 203H 09/22/22 05:28: Prothrombin Time 24.1H, INR Comment 2.1H, Sodium Level 140, Potassium Level 3.7, Chloride Level 110H, Carbon Dioxide Level 20L, Anion Gap 10, Blood Urea Nitrogen 18, Creatinine 2.02H, Estimat Glomerular Filtration Rate 33, BUN/Creatinine Ratio 9, Glucose Level 149H, Calcium Level 8.3L 09/22/22 10:50: Glucometer 202H 09/22/22 15:14: Glucometer 196H 09/22/22 21:08: Glucometer 159H 09/23/22 05:49: Glucometer 110 09/23/22 10:52: Glucometer 203H 09/23/22 15:08: Glucometer 181H 09/23/22 21:11: Glucometer 193H 09/24/22 05:22: Hemoglobin 8.6L, Prothrombin Time 23.8H, INR Comment 2.1H, Sodium Level 141, Potassium Level 4.0, Chloride Level 110H, Carbon Dioxide Level 21, Anion Gap 10, Blood Urea Nitrogen 17, Creatinine 1.90H, Estimat Glomerular Filtration Rate 35, BUN/Creatinine Ratio 9, Glucose Level 124H, Calcium Level 8.5 09/24/22 11:01: Glucometer 169H 09/24/22 15:27: Glucometer 187H 09/24/22 20:10: Glucometer 155H 09/25/22 05:37: Glucometer 103 09/25/22 10:00: Glucometer 202H Pending Labs Laboratory Tests 09/15/22 16:10: Glucometer 190 09/15/22 20:30: Glucometer 200 09/16/22 04:57: White Blood Count 10.6, Red Blood Count 3.02, Hemoglobin 8.2, Hematocrit 26, Mean Corpuscular Volume 86, Mean Corpuscular Hemoglobin 27, Mean Corpuscular Hemoglobin Concent 32, Red Cell Distribution Width 15.0, Platelet Count 303, Mean Platelet Volume 10.7, Immature Granulocyte % (Auto) 2, Neutrophils (%) (Auto) 73, Lymphocytes (%) (Auto) 16, Monocytes (%) (Auto) 6, Eosinophils (%) (Auto) 3, Basophils (%) (Auto) 0, Neutrophils # (Auto) 7.7, Lymphocytes # (Auto) 1.7, Monocytes # (Auto) 0.6, Eosinophils # (Auto) 0.4, Basophils # (Auto) 0.0, Immature Granulocyte # (Auto) 0.2, Prothrombin Time 32.9, INR Comment 3.2, Sodium Level 139, Potassium Level 3.8, Chloride Level 114, Carbon Dioxide Level 16, Anion Gap 9, Blood Urea Nitrogen 29, Creatinine 2.28, Estimat Glomerular Filtration Rate 28, BUN/Creatinine Ratio 13, Glucose Level 131, Calcium Level 8.4, Corrected Calcium 9.9, Total Bilirubin 0.2, Aspartate Amino Transf (AST/SGOT) 16, Alanine Aminotransferase (ALT/SGPT) 10, Alkaline Phosphatase 57, Total Protein 5.6, Albumin 2.1 09/16/22 11:49: Glucometer 208 09/16/22 16:24: Glucometer 159 09/16/22 20:47: Glucometer 179 09/17/22 05:49: Glucometer 77 09/17/22 10:46: Glucometer 208 09/17/22 15:45: Glucometer 174 09/17/22 20:22: Glucometer 280 09/18/22 06:13: Glucometer 159 09/18/22 10:40: White Blood Count 8.2, Red Blood Count 3.07, Hemoglobin 8.5, Hematocrit 27, Mean Corpuscular Volume 87, Mean Corpuscular Hemoglobin 28, Mean Corpuscular Hemoglobin Concent 32, Red Cell Distribution Width 14.8, Platelet Count 345, Mean Platelet Volume 10.8, Immature Granulocyte % (Auto) 2, Neutrophils (%) (Auto) 66, Lymphocytes (%) (Auto) 21, Monocytes (%) (Auto) 8, Eosinophils (%) (Auto) 3, Basophils (%) (Auto) 0, Neutrophils # (Auto) 5.4, Lymphocytes # (Auto) 1.7, Monocytes # (Auto) 0.7, Eosinophils # (Auto) 0.3, Basophils # (Auto) 0.0, Immature Granulocyte # (Auto) 0.2, Prothrombin Time 34.3, INR Comment 3.4, Sodium Level 142, Potassium Level 3.8, Chloride Level 113, Carbon Dioxide Level 19, Anion Gap 10, Blood Urea Nitrogen 18, Creatinine 2.08, Estimat Glomerular Filtration Rate 31, BUN/Creatinine Ratio 9, Glucose Level 249, Calcium Level 8.3, Corrected Calcium 9.7, Total Bilirubin 0.2, Aspartate Amino Transf (AST/SGOT) 18, Alanine Aminotransferase (ALT/SGPT) 9, Alkaline Phosphatase 62, Total Protein 5.9, Albumin 2.3 09/18/22 11:14: Glucometer 216 09/18/22 15:21: Glucometer 199 09/18/22 20:02: Glucometer 185 09/19/22 06:14: Glucometer 131 09/19/22 11:04: Glucometer 224 09/19/22 16:51: Glucometer 186 09/19/22 21:16: Glucometer 266 09/20/22 05:18: Glucometer 141 09/20/22 07:35: White Blood Count 7.8, Red Blood Count 3.17, Hemoglobin 8.9, Hematocrit 27, Mean Corpuscular Volume 86, Mean Corpuscular Hemoglobin 28, Mean Corpuscular Hemoglobin Concent 33, Red Cell Distribution Width 14.6, Platelet Count 326, Mean Platelet Volume 10.6, Immature Granulocyte % (Auto) 2, Neutrophils (%) (Auto) 61, Lymphocytes (%) (Auto) 24, Monocytes (%) (Auto) 10, Eosinophils (%) (Auto) 3, Basophils (%) (Auto) 0, Neutrophils # (Auto) 4.8, Lymphocytes # (Auto) 1.9, Monocytes # (Auto) 0.8, Eosinophils # (Auto) 0.3, Basophils # (Auto) 0.0, Immature Granulocyte # (Auto) 0.1, Prothrombin Time 29.3, INR Comment 2.7, Sodium Level 141, Potassium Level 3.8, Chloride Level 110, Carbon Dioxide Level 20, Anion Gap 11, Blood Urea Nitrogen 17, Creatinine 2.02, Estimat Glomerular Filtration Rate 33, BUN/Creatinine Ratio 8, Glucose Level 189, Calcium Level 8.4, Corrected Calcium 9.8, Total Bilirubin 0.2, Aspartate Amino Transf (AST/SGOT) 19, Alanine Aminotransferase (ALT/SGPT) 9, Alkaline Phosphatase 65, Total Protein 5.9, Albumin 2.3 09/20/22 11:29: Glucometer 186 09/20/22 15:17: Glucometer 214 09/20/22 20:18: Glucometer 215 09/21/22 05:03: Glucometer 142 09/21/22 11:02: Glucometer 229 09/21/22 15:10: Glucometer 209 09/21/22 20:50: Glucometer 203 09/22/22 05:28: Prothrombin Time 24.1, INR Comment 2.1, Sodium Level 140, Potassium Level 3.7, Chloride Level 110, Carbon Dioxide Level 20, Anion Gap 10, Blood Urea Nitrogen 18, Creatinine 2.02, Estimat Glomerular Filtration Rate 33, BUN/Creatinine Ratio 9, Glucose Level 149, Calcium Level 8.3 09/22/22 10:50: Glucometer 202 09/22/22 15:14: Glucometer 196 09/22/22 21:08: Glucometer 159 09/23/22 05:49: Glucometer 110 09/23/22 10:52: Glucometer 203 09/23/22 15:08: Glucometer 181 09/23/22 21:11: Glucometer 193 09/24/22 05:22: Hemoglobin 8.6, Prothrombin Time 23.8, INR Comment 2.1, Sodium Level 141, Potassium Level 4.0, Chloride Level 110, Carbon Dioxide Level 21, Anion Gap 10, Blood Urea Nitrogen 17, Creatinine 1.90, Estimat Glomerular Filtration Rate 35, BUN/Creatinine Ratio 9, Glucose Level 124, Calcium Level 8.5 09/24/22 11:01: Glucometer 169 09/24/22 15:27: Glucometer 187 09/24/22 20:10: Glucometer 155 09/25/22 05:37: Glucometer 103 09/25/22 10:00: Glucometer 202 Discharge Home Medications: Active Scripts Active Advocate Pen Wilkinson (Wilkinson, Insulin Disposable) 31 Gauge X 3/16" Dis.needle Each [facility] Blood Glucose Monitoring (Blood-Glucose Meter) 1 Each Kit Each [facility] provide lancets #100 ad glucometer strips #100 dx E11.65 Novolog Flexpen (Insulin Aspart) 100 Unit/Ml (3 Ml) Solution 3 Units SQ AC Levemir Flexpen (Insulin Detemir) 100 Unit/Ml (3 Ml) Insuln.pen 10 Unit SQ BID Stool Softener-Laxative Tablet (Sennosides/Docusate Sodium) 8.6 Mg-50 Mg Tablet 1 Ea PO BID PRN Benadryl Allergy (Diphenhydramine HCl) 25 Mg Tablet 25 Mg PO Q6H PRN Tylenol Extra Strength (Acetaminophen) 500 Mg Tablet 1,000 Mg PO Q8H PRN Flomax (Tamsulosin HCl) 0.4 Mg Cap 0.4 Mg PO HS Timolol Maleate 0.5% (Timolol Maleate) 0.5 % Drops 1 Drop OU HS Atorvastatin Calcium 40 Mg Tablet 20 Mg PO DAILY Warfarin Sodium 3 Mg Tablet 3 Mg PO HS Diltiazem 24Hr ER (Diltiazem HCl) 240 Mg Cap.er.24h 240 Mg PO BID Instructions to patient/family Please see electronic discharge instructions given to patient. Diagnosis/Problems Diagnosis/Problems (1) Abscess of left foot Status: Acute (2) Acute kidney injury superimposed on chronic kidney disease Status: Acute (3) On Coumadin for atrial fibrillation Status: Chronic (4) History of venous thromboembolism Status: Chronic (5) BPH (benign prostatic hyperplasia) Status: Chronic (6) Afib Status: Chronic (7) HLD (hyperlipidemia) Status: Chronic (8) CAD (coronary artery disease) Status: Chronic (9) T2DM (type 2 diabetes mellitus) Status: Acute Qualifiers: Qualified Codes: E11.52 - Type 2 diabetes mellitus with diabetic peripheral angiopathy with gangrene; Z79.4 - terminal make up operator (current) use of insulin DIALLO PEACE DO Sep 25, 2022 06:24
[2022-09-25 07:21] VITALS: BP 167/77
[2022-09-25] MEDS: CATHETER FLUSH 10 ML SYR IVP SCH (07:40)
[2022-09-25] MEDS: AUGMENTIN 875 MG TAB (AMOXICILLIN/CLAVULANATE) PO SCH (09:11)
[2022-09-25] MEDS: DOCUSATE SODIUM 100 MG (COLACE) CAP PO SCH (09:11)
[2022-09-25] MEDS: ACETAMINOPHEN 325 MG TABLET PO PRN (09:12)
[2022-09-25] MEDS: polyethylene glycoL POWDER 17 GM (MIRALAX) PACK PO SCH (09:15)
[2022-09-25] MEDS: SENNA W/DOCUSATE (SENOKOT S) TABLET PO SCH (09:15)
[2022-09-25 14:56] VITALS: BP 167/77
--- NOTE | 2022-09-26 08:49 | Therapy Team Discharge Summary ---
Therapy Discharge Summary Discharge Recommendations Date of Discharge Sep 25, 2022 at 14:50 Physical Therapy Patient admitted to ARU 09/15/22 s/p amputation of (L) foot 2nd metatarsal head. Patient was (L) heel-down only weight bearing at the time of D/C. Functionally, patient was (I) without cues for all bed mobility and transfers using a FWW at the time of D/C. Patient able to walk up to 150' (I) with FWW and able to walk 10' on uneven surface (I) with FWW. Patient also able to ascend/descend 12 steps total with (B) handrails (I) with (L) heel-down only weight bearing (L) without any LOB and able to ascend/descend a curb step with FWW (I) at the time of D/C. Patient was able to pick item off floor (I) without using an AD at D/C. Patient progressed past that need of w/c at time of D/C from ARU, but demonstrated that he could propel manual w/c with SBA (assist with wound vac) earlier in ARU stay. Roll Left to Right (QC): 6 Sit to Lying (QC): 6 Lying to Sitting/Side of Bed(Q: 6 Sit to Stand (QC): 6 Chair/Fqq-ia-Rulav Xfer(QC): 6 Toilet Transfer (QC): 5 Car Transfer (QC): 6 Does the Patient Walk: Yes Mode of Locomotion: Both Anticipated Mode of Locomotion: Both Walk 10 feet (QC): 6 Walk 50 ft with 2 Turns(QC): 6 Walk 150 ft (QC): 6 Walking 10ft on uneven surface: 6 Distance: ~60' with w/c back up and portable O2 Gait Assistive Device: FWW Does the Pt Use a Wheelchair: No Wheel 50 ft with 2 turns (QC): 5 Wheel 150 ft (QC): 5 Type of Wheelchair: Manual #of Steps: 12 1 Step (curb) (QC): 6 4 Steps (QC): 6 12 Steps (QC): 6 Walking Assistive Device: Walker Balance Sitting Static: Good Balance Sitting Dynamic: Fair Balance-Standing Static: Fair Picking up an Object (QC): 6 Occupational Therapy Decreased Activ Tolerance, Decreased UE Strength, Impaired I ADL's Eating (QC): 6 Oral Hygiene (QC): 6 Shower/Bathe Self (QC): 5 (Pt has demonstrated the ability to complete with set up assist to cover wound vac. Pt declined showering on this date due to wound vac) Upper Body Dressing (QC): 6 Lower Body Dressing (QC): 6 On/Off Footwear (QC): 6 Toileting Hygiene (QC): 6 PT Clinical Nursing Instructor Goals Clinical Nursing Instructor Goals PT Assisted Goals Time Frame: October 06, 2022 Roll Left to Right (QC): 6 Sit to Lying (QC): 6 Lying-Sitting on Side/Bed(QC): 6 Sit to Stand (QC): 6 Chair/Ahj-so-Mtunx Xfer(QC): 6 (with FWW) Toilet/Commode Transfer (QC): 6 (with FWW) Car Transfer (QC): 5 (with FWW) Does the Patient Walk: Yes Walk 10 feet (QC): 6 (with FWW) Walk 10ft-Uneven Surface(QC): 5 (with FWW) Walk 50ft with 2 Turns (QC): 6 (with FWW and (L) heel/down only WB ) Walk 150 ft (QC): 4 (with FWW and (L) fokb-euji-ifub WB) Does the Pt use WC or Scooter?: Yes Wheel 50 feet with 2 turns (QC: 6 Type: Manual Wheel 150 feet: 6 Type: Manual 1 Step (curb) (QC): 4 (CGA with FWW and jqmw-yukv-ssdn WB on (L)) 4 Steps (QC): 4 (with (B) rails) 12 Steps (QC): 9 Picking up an Object (QC): 6 (with principal solutions architect) OT Clinical Nursing Instructor Goals Assisted Goals Time Frame: Sep 30, 2022 Acute change in mental status: 0 Inattention: 0 Disorganized thinkin Altered level of consciousness: 0 Eating (QC): 6 (met) Oral Hygiene (QC): 6 (met) Toileting Hygiene (QC): 6 (met) Shower/Bathe Self (QC): 6 (not met) Upper Body Dressing (QC): 6 (met) Lower Body Dressing (QC): 6 (met) On/Off Footwear (QC): 6 (met) Additional Goals: 1-Demonstrate ADL Tasks, 2-Verbalize Understanding, 3- ImproveStrength/Shin 1=Demonstrate adherence to instructed precautions during ADL tasks. 2=Patient will verbalize/demonstrate understanding of assistive devices/modifications for ADL. 3=Patient will improve strength/tolerance for activity to enable patient to perform ADL's. Suzan Mix PT Sep 26, 2022 08:49
--- NOTE | 2022-09-26 09:36 | Therapy Team Discharge Summary ---
Therapy Discharge Summary Discharge Recommendations Date of Discharge Sep 25, 2022 at 14:50 Physical Therapy Roll Left to Right (QC): 6 Sit to Lying (QC): 6 Lying to Sitting/Side of Bed(Q: 6 Sit to Stand (QC): 6 Chair/Xix-af-Vctzt Xfer(QC): 6 Toilet Transfer (QC): 5 Car Transfer (QC): 6 Does the Patient Walk: Yes Mode of Locomotion: Both Anticipated Mode of Locomotion: Both Walk 10 feet (QC): 6 Walk 50 ft with 2 Turns(QC): 6 Walk 150 ft (QC): 6 Walking 10ft on uneven surface: 6 Distance: ~60' with w/c back up and portable O2 Gait Assistive Device: FWW Does the Pt Use a Wheelchair: No Wheel 50 ft with 2 turns (QC): 5 Wheel 150 ft (QC): 5 Type of Wheelchair: Manual #of Steps: 12 1 Step (curb) (QC): 6 4 Steps (QC): 6 12 Steps (QC): 6 Walking Assistive Device: Walker Balance Sitting Static: Good Balance Sitting Dynamic: Fair Balance-Standing Static: Fair Picking up an Object (QC): 6 Occupational Therapy Pt admitted to [facility] s/p L 2nd metatarsal head amputation. At [facility], pt was independent with ADLs and functional mobility without AD. Upon initial evaluation, pt was independent with eating, required SBA-CGA with oral care, showering, footwear and toileting, set up UE dressing and min A LE dressing. OT tx focused on increasing BUE Strength and activity tolerance and increasing safety and independence with ADLS and functional mobility. Pt made good progress towards goals, attaining IND level with all ADLS except showering. Pt required set up with showering at discharge in order to cover wound vac. Pt discharging home with daughter, d/c from OT. Decreased Activ Tolerance, Decreased UE Strength, Impaired I ADL's Eating (QC): 6 Oral Hygiene (QC): 6 Shower/Bathe Self (QC): 5 (Pt has demonstrated the ability to complete with set up assist to cover wound vac. Pt declined showering on this date due to wound vac) Upper Body Dressing (QC): 6 Lower Body Dressing (QC): 6 On/Off Footwear (QC): 6 Toileting Hygiene (QC): 6 PT Mcc Goals Dining Room Manager Goals PT Mcc Goals Time Frame: October 06, 2022 Roll Left to Right (QC): 6 Sit to Lying (QC): 6 Lying-Sitting on Side/Bed(QC): 6 Sit to Stand (QC): 6 Chair/Kbs-jo-Dwvut Xfer(QC): 6 (with FWW) Toilet/Commode Transfer (QC): 6 (with FWW) Car Transfer (QC): 5 (with FWW) Does the Patient Walk: Yes Walk 10 feet (QC): 6 (with FWW) Walk 10ft-Uneven Surface(QC): 5 (with FWW) Walk 50ft with 2 Turns (QC): 6 (with FWW and (L) heel/down only WB ) Walk 150 ft (QC): 4 (with FWW and (L) kmud-rwoz-ionw WB) Does the Pt use WC or Scooter?: Yes Wheel 50 feet with 2 turns (QC: 6 Type: Manual Wheel 150 feet: 6 Type: Manual 1 Step (curb) (QC): 4 (CGA with FWW and wtxl-ymyl-xnax WB on (L)) 4 Steps (QC): 4 (with (B) rails) 12 Steps (QC): 9 Picking up an Object (QC): 6 (with manufacturing cost estimator) OT Mcc Goals Dining Room Manager Goals Time Frame: Sep 30, 2022 Acute change in mental status: 0 Inattention: 0 Disorganized thinkin Altered level of consciousness: 0 Eating (QC): 6 (met) Oral Hygiene (QC): 6 (met) Toileting Hygiene (QC): 6 (met) Shower/Bathe Self (QC): 6 (not met) Upper Body Dressing (QC): 6 (met) Lower Body Dressing (QC): 6 (met) On/Off Footwear (QC): 6 (met) Additional Goals: 1-Demonstrate ADL Tasks, 2-Verbalize Understanding, 3- ImproveStrength/Shin 1=Demonstrate adherence to instructed precautions during ADL tasks. 2=Patient will verbalize/demonstrate understanding of assistive devices/modifications for ADL. 3=Patient will improve strength/tolerance for activity to enable patient to perform ADL's. DEBI GENTILE OT Sep 26, 2022 09:36
== END 2022-09-25 14:50 | disposition home health service (06) | DRG 559 ==
PROVIDERS: ADMIT Internal Medicine; ATTEND Internal Medicine
DX: Z47.81 Encounter for orthopedic aftercare following surgical amputation (principal); A40.8 Other streptococcal sepsis; A41.01 Sepsis due to Methicillin susceptible Staphylococcus aureus; E43 Unspecified severe protein-calorie malnutrition; L02.612 Cutaneous abscess of left foot; N18.4 Chronic kidney disease, stage 4 (severe); Z89.422 Acquired absence of other left toe(s); I12.9 Hypertensive chronic kidney disease with stage 1 through stage 4 chronic kidney disease, or unspecified chronic kidney disease; E11.22 Type 2 diabetes mellitus with diabetic chronic kidney disease; E11.65 Type 2 diabetes mellitus with hyperglycemia; D63.1 Anemia in chronic kidney disease; F03.90 Unspecified dementia, unspecified severity, without behavioral disturbance, psychotic disturbance, mood disturbance, and anxiety; I48.0 Paroxysmal atrial fibrillation; I25.10 Atherosclerotic heart disease of native coronary artery without angina pectoris; N40.0 Benign prostatic hyperplasia without lower urinary tract symptoms; E78.5 Hyperlipidemia, unspecified; Z68.31 Body mass index [BMI] 31.0-31.9, adult; Z79.84 Long term (current) use of oral hypoglycemic drugs; Z79.01 Long term (current) use of anticoagulants; Z79.899 Other long term (current) drug therapy; Z86.718 Personal history of other venous thrombosis and embolism; Z87.891 Personal history of nicotine dependence
CPT/HCPCS: 36410; 36415; 76937; 80048; 80053; 82947; 85018; 85025; 85610; 94760

== ENCOUNTER → 2022-09-27 | Outpatient (CLI) | payer MEDICARE ==
[~2022-09-27] MED LIST changes: -ALPRAZolam 0.25 MG (XANAX) TAB PO PRN; -BISACODYL 10 MG SUPP (DULCOLAX) PR PRN; -CALCIUM CARBONATE 500 MG (TUMS) TAB.CHEW PO PRN; -DOCUSATE SODIUM 100 MG (COLACE) CAP PO PRN; -FLEET ENEMA ADULT 1 EA BTL PR PRN; +INSU100I14 SQ; +INSU100I88 SQ; -LACTULOSE SYRUP 10GM/15ML (ENULOSE) 30ML UDC PO PRN; -LOPERAMIDE 2 MG (IMODIUM) TABLET PO PRN; -MELATONIN 3 MG TABLET PO PRN; +NEED-475 MC; -ONDANSETRON 4 MG (ZOFRAN) ORAL DISSOLVE TAB PO PRN; +SENN-271 PO; +[UNRECOGNIZED DRUG - CODE] MC; -diphenhydrAMINE 25 MG TAB (BENADRYL) PO PRN; -guaiFENesin/CODEINE (ROBITUSSIN AC) 10ML UDC PO PRN
[2022-09-27 13:39] LABS: BASOPHILS % (AUTO) 1 % (0-10); EOSINOPHILS # (AUTO) 0.1 10^3/uL (0.0-0.3); EOSINOPHILS % (AUTO) 2 % (0-10); HEMATOCRIT 34 % (40-54); HEMOGLOBIN 10.6 g/dL (13.3-17.7); LYMPHOCYTES # (AUTO) 1.5 10^3/uL (1.0-4.0); LYMPHOCYTES % (AUTO) 21 % (12-44); MEAN CORPUSCULAR HEMOGLOBIN 27 pg (25-34); MEAN CORPUSCULAR HGB CONC 31 g/dL (32-36); MEAN CORPUSCULAR VOLUME 87 fL (80-99); MEAN PLATELET VOLUME 10.7 fL (9.0-12.2); MONOCYTES # (AUTO) 0.8 10^3/uL (0.0-1.0); MONOCYTES % (AUTO) 11 % (0-12); NEUTROPHILS # (AUTO) 4.8 10^3/uL (1.8-7.8); NEUTROPHILS % (AUTO) 65 % (42-75); PLATELET COUNT 303 10^3/uL (130-400); WHITE BLOOD COUNT 7.3 10^3/uL (4.3-11.0)
[2022-09-27 14:01] LABS: ALBUMIN 3.2 GM/DL (3.2-4.5); BILIRUBIN,TOTAL 0.3 MG/DL (0.1-1.0); CALCIUM 9.1 MG/DL (8.5-10.1); CREATININE SERUM 2.43 MG/DL (0.60-1.30); POTASSIUM 4.4 MMOL/L (3.6-5.0); TOTAL PROTEIN 7.7 GM/DL (6.4-8.2)
[2022-09-27 14:13] LABS: ERYTHROCYTE SEDIMENTATION RATE 23 MM/HR (0-30)
[2022-09-27 14:16] LABS: INR 1.8 (0.8-1.4); PROTHROMBIN TIME PATIENT 20.9 SEC (12.2-14.7)
== END ==
LOC: WOUNDCARE 12:03
PROVIDERS: ATTEND Family Medicine
DX: E11.621 Type 2 diabetes mellitus with foot ulcer (principal); L97.524 Non-pressure chronic ulcer of other part of left foot with necrosis of bone; E11.65 Type 2 diabetes mellitus with hyperglycemia; B95.4 Other streptococcus as the cause of diseases classified elsewhere; L02.612 Cutaneous abscess of left foot; M86.172 Other acute osteomyelitis, left ankle and foot; E44.0 Moderate protein-calorie malnutrition; E11.22 Type 2 diabetes mellitus with diabetic chronic kidney disease; N18.30 Chronic kidney disease, stage 3 unspecified; Z79.01 Long term (current) use of anticoagulants; E11.40 Type 2 diabetes mellitus with diabetic neuropathy, unspecified; D46.4 Refractory anemia, unspecified; E11.52 Type 2 diabetes mellitus with diabetic peripheral angiopathy with gangrene; I96 Gangrene, not elsewhere classified
CPT/HCPCS: 11042; 80053; 82306; 82607; 82728; 83540; 83550; 84134; 85025; 85610; 85652; 86141; 87070; 87205; A6266; G0463; 36415

== ENCOUNTER → 2022-10-04 | Outpatient (CLI) | payer MEDICARE ==
--- NOTE | 2022-10-05 12:45 | Diagnostic Imaging Report ---
PROCEDURE: MRI left joint lower extremity without contrast. TECHNIQUE: Multiplanar, multisequence non contrast-enhanced MRI of the left lower extremity was accomplished. INDICATION: Amputation 2nd toe. Infection question osteomyelitis. EXAMINATION: Left lower extremity MRI without contrast 10/04/2022 FINDINGS: There is diffuse thickening of the distal Achilles tendon consistent with findings of tendinosis. A small intrasubstance partial tear along the lateral aspect of the distal Achilles tendon is suspected. No full-thickness tear or retraction is appreciated. The plantar fascia appears thickened perhaps due to prior injury or prior history of plantar fasciitis. There is no acute abnormality in the region. The peroneal tendons appear intact. The anterior tibial tendon and extensor hallucis longus tendon intact. The extensor digitorum longus tendon contains a longitudinal tear distally. Surrounding fluid suggesting tenosynovitis. The flexor tendons appear intact. The anterior and posterior inferior tibiofibular ligaments intact. Anterior talofibular ligament and posterior talofibular ligament intact. Deltoid ligament appears intact. The calcaneofibular ligament also intact. Visualized osseous structures demonstrate focal T2 hyperintensity within the visualized base of the 2nd metatarsal. Please see the separate MRI of the forefoot for better detail and description of this abnormality. IMPRESSION: 1. 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 No discontinuity. 2. Longitudinal split tear of the the extensor digitorum longus tendon which demonstrates surrounding fluid suggesting tenosynovitis. 3. Ligaments intact. 4. Abnormal signal intensity at the base of the 2nd metatarsal. Please see the separate MRI of the forefoot obtained on the same date. Dictated by: Dictated on workstation # [id number]
--- NOTE | 2022-10-05 13:29 | Diagnostic Imaging Report ---
EXAMINATION: MRI of the left lower extremity without contrast, 10/04/2022. TECHNIQUE: Multiplanar, multisequence non-contrast enhanced MR imaging of the left lower extremity was accomplished. INDICATION: Second toe amputation. Ulceration of the forefoot. Rule out osteomyelitis. FINDINGS: There are post-amputation changes along the distal second metatarsal. There is diffuse surrounding soft tissue abnormality extending from the distal tip of the residual metatarsal to the skin in the distal forefoot consistent with the history of ulceration. This is diffusely T2 hyperintense and T1 hypointense with central foci of hypointensity suspicious for subcutaneous air, which extend throughout the dorsum of the midfoot. This tracks proximally to overlie the mid to proximal metatarsal level. Diffuse surrounding fluid is noted along the course with abscess not excluded on this noncontrast examination. This predominantly extends along the course of the distal extensor digitorum longus tendons. There is diffuse abnormal signal intensity throughout the much of the residual second metatarsal with hypointensity on T1-weighted imaging consistent with osteomyelitis. Similar findings are seen within the first metatarsal head and at the base of the first proximal phalanx. Some of these findings represent subchondral cystic change associated with degenerative disease; however, superimposed osteomyelitis is suspected. IMPRESSION: 1. Findings of osteomyelitis involving much of the second metatarsal as well as the first metatarsal head and adjacent base of the first proximal phalanx. 2. Diffuse abnormal soft tissue findings predominantly overlying the distal aspect of the residual second metatarsal and extending across the dorsum of the forefoot partially surrounding the distal extensor digitorum longus tendon suggesting tenosynovitis. Superimposed abscess is not excluded on this noncontrast examination. 3. Suspected subcutaneous air as described above which could be due to focal ulceration; however, a process such as necrotizing fasciitis should be clinically excluded. Postcontrast imaging could better evaluate for possible abscess as clinically indicated. Dictated by: Dictated on workstation # [id number]
== END ==
LOC: RAD 12:16
PROVIDERS: ATTEND Family Medicine
DX: L97.524 Non-pressure chronic ulcer of other part of left foot with necrosis of bone (principal); L02.612 Cutaneous abscess of left foot; M86.172 Other acute osteomyelitis, left ankle and foot; B95.4 Other streptococcus as the cause of diseases classified elsewhere; E44.0 Moderate protein-calorie malnutrition; E11.22 Type 2 diabetes mellitus with diabetic chronic kidney disease; N18.30 Chronic kidney disease, stage 3 unspecified; E11.621 Type 2 diabetes mellitus with foot ulcer; E11.65 Type 2 diabetes mellitus with hyperglycemia; E11.40 Type 2 diabetes mellitus with diabetic neuropathy, unspecified; D46.4 Refractory anemia, unspecified; Z79.01 Long term (current) use of anticoagulants
CPT/HCPCS: 73721

== ENCOUNTER → 2022-10-04 | Outpatient (CLI) | payer MEDICARE ==
[~2022-10-04] MED LIST changes: +ACHD5005 PO; +AUGMENTIN 875/125 PO; +ENOX80DI12 SQ; +TIMO5DRO16 OU; -TIMO5DRO5 OU
== END ==
LOC: WOUNDCARE 09:00
PROVIDERS: ATTEND Family Medicine
DX: M86.172 Other acute osteomyelitis, left ankle and foot (principal); L97.524 Non-pressure chronic ulcer of other part of left foot with necrosis of bone; L02.612 Cutaneous abscess of left foot; B95.4 Other streptococcus as the cause of diseases classified elsewhere; E44.0 Moderate protein-calorie malnutrition; E11.621 Type 2 diabetes mellitus with foot ulcer; N18.30 Chronic kidney disease, stage 3 unspecified; E11.65 Type 2 diabetes mellitus with hyperglycemia; E11.40 Type 2 diabetes mellitus with diabetic neuropathy, unspecified; D46.4 Refractory anemia, unspecified; Z79.01 Long term (current) use of anticoagulants; E11.52 Type 2 diabetes mellitus with diabetic peripheral angiopathy with gangrene
CPT/HCPCS: 11043; G0463

== ENCOUNTER → 2022-10-11 | Outpatient (CLI) | payer MEDICARE ==
[~2022-10-11] MED LIST changes: -ACHD5005 PO; -AUGMENTIN 875/125 PO; -ENOX80DI12 SQ
== END ==
LOC: WOUNDCARE 10:22
PROVIDERS: ATTEND Family Medicine
DX: I96 Gangrene, not elsewhere classified (principal); L97.524 Non-pressure chronic ulcer of other part of left foot with necrosis of bone; L02.612 Cutaneous abscess of left foot; M86.172 Other acute osteomyelitis, left ankle and foot; B95.4 Other streptococcus as the cause of diseases classified elsewhere; N18.30 Chronic kidney disease, stage 3 unspecified; E44.0 Moderate protein-calorie malnutrition; E11.621 Type 2 diabetes mellitus with foot ulcer; E11.65 Type 2 diabetes mellitus with hyperglycemia; E11.40 Type 2 diabetes mellitus with diabetic neuropathy, unspecified; D46.4 Refractory anemia, unspecified; Z79.01 Long term (current) use of anticoagulants; Z68.29 Body mass index [BMI] 29.0-29.9, adult
CPT/HCPCS: 99213

== ENCOUNTER 2022-10-13 06:39 | Outpatient (CLI) | payer MEDICARE ==
[~2022-10-13] VITALS: Ht 170.2 cm; Wt 86.2 kg
[2022-10-14] MEDS ORDERED: INSU100I88 SQ (11:30)
[2022-10-14] MEDS ORDERED: ENOX80DI12 SQ (11:30)
[2022-10-14] MEDS ORDERED: AUGMENTIN 875/125 PO (11:30)
[2022-10-14] MEDS ORDERED: INSU100I14 SQ (11:30)
[2022-10-17] MEDS ORDERED: ACHD5005 PO (14:36)
== END 2022-10-14 11:52 | disposition home or self-care (01) ==
LOC: PREOP 06:39
PROVIDERS: ATTEND Surgery
DX: Z01.818 Encounter for other preprocedural examination (principal)

== ENCOUNTER 2022-10-17 10:49 | Day surgery (SDC) | payer MEDICARE ==
[2022-10-17] VITALS (12 sets, daily range): BP systolic 132–158; BP diastolic 74–90
[~2022-10-17] VITALS: Ht 170.1 cm; Wt 86.2 kg
[~2022-10-17 10:49] MED LIST changes: +AUGMENTIN 875/125 PO; +ENOX80DI12 SQ
[2022-10-17] MEDS ORDERED: ceFAZolin INJECTION 2,000 MG in NS (IVPB) 50 ML IV ONE (11:15)
[2022-10-17] MEDS ORDERED: LACTATED RINGERS 1,000 ML IV PRN (11:15)
--- NOTE | 2022-10-17 11:22 | Progress Note-Pre Operative ---
Pre-Operative Progress Note Date H&P Reviewed: October 17, 2022 Time H&P Reviewed: 11:22 History & Physical: H&P Reviewed, Patient Examed, No changes noted Pre-Operative Diagnosis: left foot osteomyelitis MAKAYLA FLORES DO October 17, 2022 11:22
[2022-10-17] MEDS ORDERED: BUP/EPI 0.5% 1:200,000 (SENSORCAINE) 30 ML VIAL ONE (11:27)
[2022-10-17] MEDS ORDERED: fentaNYL INJ 100 MCG/2 ML AMP ONE (11:31)
[2022-10-17] MEDS ORDERED: ONDANSETRON 4 MG/2 ML (SDV) Z0FRAN ONE (11:31)
[2022-10-17] MEDS ORDERED: proPOfol 200 MG/20 ML (DIPRIVAN) VIAL IV ONE (11:31)
[2022-10-17] MEDS ORDERED: LIDOCAINE PF 2% 5 ML (XYLOCAINE) VIAL ONE (11:31)
[2022-10-17] MEDS ORDERED: SEVOFLURANE (ULTANE) 15 ML INHAL SOLN ONE (12:14)
[2022-10-17] MEDS ORDERED: ONDANSETRON 4 MG/2 ML (SDV) Z0FRAN IVP PRN (12:30)
[2022-10-17] MEDS ORDERED: PROMETHAZINE INJ 25 MG/ML (PHENERGAN) AMP IVP ONE (12:30)
[2022-10-17] MEDS ORDERED: HYDROmorphone 2 MG/ML VIAL (DILAUDID) IV ONE (12:30)
[2022-10-17] MEDS ORDERED: morphine INJ 10 MG/ML 1ML (SYR OR VIAL) IVP ONE (12:30)
--- NOTE | 2022-10-17 13:49 | Anesthesia-General Post-Op ---
General Patient Condition Mental Status/LOC: Same as Preop Cardiovascular: Satisfactory Nausea/Vomiting: Absent Respiratory: Satisfactory Pain: Controlled Complications: Absent Post Op Complications Complications None Follow Up Care/Instructions Patient Instructions None needed. Anesthesia/Patient Condition Patient Condition Patient is doing well, no complaints, stable vital signs, no apparent adverse anesthesia problems. No complications reported per nursing. VIRY SPENCER CRNA October 17, 2022 13:49
[2022-10-17] MEDS ORDERED: ACHD5005 PO ×2 (14:36)
--- NOTE | 2022-10-17 14:38 | Discharge Inst-Simple/Standard ---
Discharge Inst-Standard Discharge Medications New, Converted or Re-Newed RX: Transmitted to Pharmacy Patient Instructions/Follow Up Plan of Care/Instructions/FU: Wound care tomorrow at scheduled appointment Nisreen 1-2 weeks. Activity as Tolerated: No Discharge Diet: Regular Diet Other Inst to Patient Follow up Appt: Make appointment for 1-2 week Nisreen. Wound care tomorrow at scheduled appointment. Instructions: No strenuous activity. May shower in 24 hours, no tub bath or soaking. Use incentive spirometer at home as directed. No Smoking Skin/Wound Care: Need daily wound care of irrigation and packing. Symptoms to Report: Appetite Changes, Extremity Discoloration, Numbness/Tingling, Swelling Increased, Bleeding Excessive, Eyesight Changes, Pain Increased, Urine Color Change, Constipation(Persistent), Fever over 101 degree F, Pain/Pressure in chest, Urinating Difficulty, Cough Up/Vomit Blood, Heart Beat Irreg/Pounding, Pain/Pressure in jaw, Vaginal Bleeding Increase, Cramps in feet or legs, Lightheadedness, Pain/Pressure in shoulder, Diarrhea(Persistent), Memory Changes Suddenly, Questions/Concerns, Weight gain consecutive days, Dizziness/Fainting, Nausea/Vomiting, Shortness of Breath, Weight gain over 2 pounds If questions or concerns contact your physician Or seek help at emergency department. MAKAYLA FLORES DO October 17, 2022 14:38
--- NOTE | 2022-10-18 02:46 | OPERATIVE REPORT ---
DATE OF SERVICE: 10/17/2022 PREOPERATIVE DIAGNOSIS: Left foot osteomyelitis. POSTOPERATIVE DIAGNOSES: Left foot osteomyelitis, abscess of left foot. PROCEDURE: Cautery debridement and incision and drainage of left foot, 11.5 x 2.5 x 1.4 cm. SURGEON: Makayla Nielson DO ANESTHESIA: General. ESTIMATED BLOOD LOSS: Minimal. COMPLICATIONS: None. INDICATIONS: The patient is an 82-year-old male who has continued development of osteomyelitis of the left foot. He also has abscess as well. He previously underwent amputation of left second toe. He understands risks and benefits of procedure, he would not consent to further amputation. He only wants the area debrided and drained. Consent was signed in chart. DESCRIPTION OF PROCEDURE: The patient was taken to the operating suite, prepped and draped in sterile fashion. Timeout was performed. Cautery was used to start to take off granulation tissue on the left foot at approximately the second toe distribution area. Some purulent material erupted, culture was obtained. A tract was found within this area. A DeBakey was then used to follow the tract and this tract was then continued to be opened proximally on the dorsum of the foot. As we continued to do this, cautery was used to debride the abscess tissue, achieving hemostasis. The overall dimensions he ended up being 11.5 x 2.5 x 1.4 cm. The wound was then irrigated with copious amounts of irrigation. No other areas of loculated fluid were present. The wound was then packed with iodoform gauze. The patient tolerated the procedure well without complications, taken to recovery room in stable condition. Job ID: [id number] DocumentID: [id number] Dictated Date: 10/17/2022 21:04:06 Vacuum Cleaner Operator Date: 10/18/2022 02:45:00 Dictated By: MAKAYLA NIELSON DO [facility]
== END 2022-10-17 15:10 ==
LOC: SDC 10:49
PROVIDERS: ATTEND Surgery
DX: L02.612 Cutaneous abscess of left foot (principal); M86.672 Other chronic osteomyelitis, left ankle and foot; Z79.01 Long term (current) use of anticoagulants
CPT/HCPCS: 82947; 87070; 87075; 87076; 87077; 87081; 87186; 87205

== ENCOUNTER → 2022-10-18 | Outpatient (CLI) | payer MEDICARE ==
[~2022-10-18] MED LIST changes: +ACHD5005 PO
== END ==
LOC: WOUNDCARE 10:25
PROVIDERS: ATTEND Family Medicine
DX: L97.524 Non-pressure chronic ulcer of other part of left foot with necrosis of bone (principal); L02.612 Cutaneous abscess of left foot; M86.172 Other acute osteomyelitis, left ankle and foot; B95.4 Other streptococcus as the cause of diseases classified elsewhere; E44.0 Moderate protein-calorie malnutrition; E11.22 Type 2 diabetes mellitus with diabetic chronic kidney disease; N18.30 Chronic kidney disease, stage 3 unspecified; E11.621 Type 2 diabetes mellitus with foot ulcer; E11.65 Type 2 diabetes mellitus with hyperglycemia; E11.40 Type 2 diabetes mellitus with diabetic neuropathy, unspecified; D46.4 Refractory anemia, unspecified; E11.52 Type 2 diabetes mellitus with diabetic peripheral angiopathy with gangrene; Z79.01 Long term (current) use of anticoagulants
CPT/HCPCS: 99213

== ENCOUNTER → 2022-10-25 | Outpatient (CLI) | payer MEDICARE ==
[~2022-10-25] MED LIST changes: +ACET325T38 PO; +AMOX1TAB12 PO; +ATOR20TA66 PO; +DILT240C90 PO; +ERGO1250 PO; +INSU100I23 SQ; +TIMO1DRO12 OP
[2022-10-25 10:21] LABS: HEMATOCRIT 32 % (40-54); HEMOGLOBIN 10.2 g/dL (13.3-17.7); MEAN CORPUSCULAR HEMOGLOBIN 27 pg (25-34); MEAN CORPUSCULAR HGB CONC 32 g/dL (32-36); MEAN CORPUSCULAR VOLUME 86 fL (80-99); MEAN PLATELET VOLUME 10.7 fL (9.0-12.2); PLATELET COUNT 243 10^3/uL (130-400); WHITE BLOOD COUNT 6.5 10^3/uL (4.3-11.0)
[2022-10-25 10:37] LABS: ALBUMIN 3.2 GM/DL (3.2-4.5); POTASSIUM 3.8 MMOL/L (3.6-5.0)
[2022-10-25 10:38] LABS: INR 1.6 (0.8-1.4); PROTHROMBIN TIME PATIENT 18.9 SEC (12.2-14.7)
[2022-10-25 10:40] LABS: TOTAL PROTEIN 6.9 GM/DL (6.4-8.2)
[2022-10-25 10:41] LABS: BILIRUBIN,TOTAL 0.4 MG/DL (0.1-1.0)
[2022-10-25 10:43] LABS: CREATININE SERUM 1.96 MG/DL (0.60-1.30)
== END ==
LOC: LAB 09:59
PROVIDERS: ATTEND Internal Medicine
DX: N17.9 Acute kidney failure, unspecified (principal); E11.9 Type 2 diabetes mellitus without complications; I10 Essential (primary) hypertension
CPT/HCPCS: 36415; 80053; 85027; 85610

== ENCOUNTER → 2022-10-25 | Outpatient (CLI) | payer MEDICARE | LOC: WOUNDCARE 10:17 | PROVIDERS: ATTEND Family Medicine | DX: I96 Gangrene, not elsewhere classified (principal); L97.524 Non-pressure chronic ulcer of other part of left foot with necrosis of bone; L02.612 Cutaneous abscess of left foot; M86.172 Other acute osteomyelitis, left ankle and foot; B95.4 Other streptococcus as the cause of diseases classified elsewhere; E44.0 Moderate protein-calorie malnutrition; N18.30 Chronic kidney disease, stage 3 unspecified; E11.621 Type 2 diabetes mellitus with foot ulcer; E11.65 Type 2 diabetes mellitus with hyperglycemia; E11.40 Type 2 diabetes mellitus with diabetic neuropathy, unspecified; Z79.01 Long term (current) use of anticoagulants; Z68.29 Body mass index [BMI] 29.0-29.9, adult | CPT/HCPCS: 11042; 11045; G0463 ==

== ENCOUNTER 2022-10-26 11:48 | Day surgery (SDC) | payer MEDICARE ==
[~2022-10-26] VITALS: Ht 170 cm; Wt 84.8 kg
[2022-10-26] VITALS (11 sets, daily range): BP systolic 122–179; BP diastolic 73–94
[~2022-10-26 11:48] MED LIST changes: -ACET325T38 PO; -AMOX1TAB12 PO; -ATOR20TA66 PO; -DILT240C90 PO; -ERGO1250 PO; -INSU100I23 SQ; -TIMO1DRO12 OP
[2022-10-26] MEDS ORDERED: NS IV 1000 ML 1,000 ML ONE (12:03)
[2022-10-26] MEDS ORDERED: LIDOCAINE 1% INJ 20 ML VIAL ONE (12:03)
[2022-10-26] MEDS ORDERED: HEParin (CATH LAB) 2,000 ML IV ONE (12:03)
[2022-10-26] MEDS ORDERED: NS IV 1000 ML 1,000 ML IV SCH ×2 (12:15→14:30)
[2022-10-26 12:34] LABS: HEMATOCRIT 32 % (40-54); HEMOGLOBIN 10.1 g/dL (13.3-17.7); MEAN CORPUSCULAR HEMOGLOBIN 27 pg (25-34); MEAN CORPUSCULAR HGB CONC 32 g/dL (32-36); MEAN CORPUSCULAR VOLUME 85 fL (80-99); MEAN PLATELET VOLUME 10.8 fL (9.0-12.2); PLATELET COUNT 247 10^3/uL (130-400); WHITE BLOOD COUNT 7.4 10^3/uL (4.3-11.0)
--- NOTE | 2022-10-26 12:39 | Diagnostic Imaging Report ---
CHEST 1 VIEW, AP/PA ONLY Indication: Hypertension Comparison: 09/11/2022 Findings: No focal airspace disease in the visualized lungs. No pleural effusion or pneumothorax. Normal cardiomediastinal silhouette. Impression: 1. No acute cardiopulmonary process by portable radiography. Dictated by: Dictated on workstation # [id number]
[2022-10-26 12:42] LABS: ALBUMIN 3.2 GM/DL (3.2-4.5)
[2022-10-26 12:43] LABS: CALCIUM 9.1 MG/DL (8.5-10.1)
[2022-10-26 12:44] LABS: INR 1.5 (0.8-1.4); PROTHROMBIN TIME PATIENT 18.5 SEC (12.2-14.7)
[2022-10-26 12:46] LABS: BILIRUBIN,TOTAL 0.5 MG/DL (0.1-1.0)
[2022-10-26 12:48] LABS: CREATININE SERUM 1.87 MG/DL (0.60-1.30)
[2022-10-26] MEDS ORDERED: ACET325T38 PO (12:56)
[2022-10-26] MEDS ORDERED: TMSL.4C PO (12:56)
[2022-10-26] MEDS ORDERED: AMOX1TAB12 PO (12:56)
[2022-10-26] MEDS ORDERED: ACHD5005 PO (12:56)
[2022-10-26] MEDS ORDERED: ATOR20TA66 PO (12:56)
[2022-10-26] MEDS ORDERED: INSU100I23 SQ (12:56)
[2022-10-26] MEDS ORDERED: TIMO1DRO12 OP (12:56)
[2022-10-26] MEDS ORDERED: ERGO1250 PO (12:56)
[2022-10-26] MEDS ORDERED: WARF3TAB56 PO (12:56)
[2022-10-26] MEDS ORDERED: DILT240C90 PO (12:56)
[2022-10-26] MEDS ORDERED: INSU100I88 SQ (12:56)
[2022-10-26] MEDS ORDERED: MIDAZOLAM 5 MG/5 ML (VERSED) VIAL ONE (13:30)
[2022-10-26] MEDS ORDERED: fentaNYL INJ 100 MCG/2 ML AMP ONE (13:30)
--- NOTE | 2022-10-26 13:34 | Cardiac Procedure Note-CS/ASA ---
Pre-Procedure Note Pre-Op Procedure Note Date of Available H&P: October 25, 2022 Date H&P Reviewed: October 26, 2022 Time H&P Reviewed: 13:34 History & Physical: H&P Reviewed, Patient Examed, No changes noted Pre-Operative Diagnosis: left foot osteomyelitis, PAD Moderate Sedation PreProcedure Time 13:34 ASA Score 3 Airway Lungs Heart ASA score ASA 1: a normal healthy patient ASA 2: a patient with a mild systemic disease (mid diabetes, controlled hypertension, obesity ASA 3: a patient with a severe systemic disease that limits activity (angina, COPD, prior Myocardial infarction) ASA 4: a patient with an incapacitating disease that is a constant threat to life (CHF, renal failure) ASA 5: a moribund patient not expected to survive 24 hrs. (ruptured aneurysm) ASA 6: a declared brain- patient whose organs are being harvested. For emergent operations, add the letter E after the classification Mallampati Classification Grade 3 Sedation Plan Analgesia, Amnesia, Plan communicated to team members, Discussed options with patient/fam, Discussed risks with patient/fam The patient is an appropriate candidate to undergo the planned procedure, sedation, and anesthesia. The patient immediately re-assessed prior to indication. FELIPE SMITH MD October 26, 2022 13:34
[2022-10-26] MEDS ORDERED: HEParin 1000 UNIT/ML (10ML VIAL) FOR BOLUS ONE (14:09)
--- NOTE | 2022-10-26 14:20 | Discharge Inst-Post CATH ---
Discharge Inst-CATH/EP Problems Reviewed?: Yes Post Cardiac Cath/EP D/C Inst Follow Up/Plan Appointment with Dr. Cruz's office in 4 weeks <b>CARDIAC CATH/EP PROCEDURE DISCHARGE INSTRUCTIONS</b> ACTIVITY * Go Home directly and rest. * Limit activity of the leg (or wrist if it was used) for 7 days including aerobics, swimming, jogging, bicycling, etc. * Restrict stair-climbing for 7 days if possible, if not, climb up with your non-cath leg, then bring together on the same step. * Avoid lifting, pushing, pulling or excessive movement of the affected extremity for 7 days. * Customary sexual activity may be resumed after 2 days-use caution not to use a position that strains or causes pain to the affected extremity. * No driving for 24 hours. * NO SMOKING. * Avoid straining for bowel movements for 7 days. * Gentle walking on level ground is allowed. * Returning to work will depend on the type of procedure and the results. Your doctor will discuss this with you. CALL YOUR DOCTOR FOR ANY OF THE FOLLOWING: *If bleeding from the puncture site occurs- Apply gentle pressure to site with clean cloth and call your doctor or EMS. * If a knot or lump forms under the skin, increases in size, or causes pain. * If bruising appears to be worsening or moving further down your leg instead of disappearing. * Temperature above 101 F. CARE OF YOUR GROIN INCISION; * Bruising or purple discoloration of the skin near the puncture site is common. * You may shower only, no bathtub bathing for 5 days. Be careful to avoid slipping as your leg may feel stiff. * If a closure device was used on your femoral artery, please see the attached guide regarding care of the device and your leg. * Leave dressing on FOR 24 hours. CARE OF YOUR WRIST INCISION; * Bruising or purple discoloration of the skin near the puncture site is common. * You may shower. * DO NOT submerge wrist. * Leave dressing on FOR 24 hours. FELIPE CRUZ MD October 26, 2022 14:20
--- NOTE | 2022-10-26 14:24 | Peripheral Report ---
Peripheral Report Physician (s)/Registered Nurse (s) Physician FELIPE SMITH MD Pre-Procedure Diagnosis Pre-Procedure Diagnosis: left foot osteomyelitis, PAD Post-Procedure Note Procedure Start Date: October 26, 2022 Name of Procedure: Bilateral lower extremities runoff Third order Additional imaging x2 Findings/Procedure Note PROCEDURE NOTE: 82-year-old gentleman with peripheral arterial disease, has nonhealing ulcer on his sole. Had amputation of his second toe. Abnormal PARESH, scheduled for peripheral angiogram After explaining the procedure to the patient, all pros and cons were explained, all questions were answered. The patient signed the consent and then he was placed on the cardiac catheterization laboratory. The patient was placed on the cardiac catheterization laboratory. Groin was prepped SL fashion local anesthesia was used. Sheath placed in the right femoral artery, runoff to the right leg was done. Rim catheter was placed at the left common iliac artery and runoff to the left leg was done then I advanced a straight catheter down to the popliteal artery and did DSA imaging to the trifurcation then repeated DSA imaging at the level of the foot. The catheter was flushed and pressure was recorded at the popliteal artery pulled back to the mid SFA then proximal SFA then left common iliac artery. There is no significant gradient during the pullback At the end of the procedure sheath was removed and closure device deployed FINDINGS: Right lower extremity: Right SFA and popliteal artery are calcified with no obstructive disease Trifurcation is normal with slow flow below the trifurcation Left lower extremity: Left common iliac and common femoral artery slightly tortuous calcified with no obstructive disease Left SFA and popliteal artery are heavily calcified with no obstructive disease Left tibioperoneal trunk, anterior tibial, posterior tibial and peroneal artery are calcified with no obstructive disease down to the foot CONCLUSIONS: Heavily calcified arteries in the lower extremities with no significant obstructive disease down to the foot DISCUSSION AND RECOMMENDATIONS: Abnormal PARESH is probably due to endothelial dysfunction. Conservative management is recommended Anesthesia Type: Conscious Sedation Estimated blood loss (mL): 15 ml Contrast Amount: 20 ml Post-Procedure Diagnosis Post-operative diagnosis: Nonhealing foot ulcer Peripheral arterial disease Hypertension Hyperlipidemia FELIPE SMITH MD October 26, 2022 14:24
[2022-10-26] MEDS ORDERED: PATIENT MAY USE OWN MEDS, ALL PO SCH (14:30)
== END 2022-10-26 18:55 | disposition home or self-care (01) ==
LOC: CATH 11:48 → SDC 14:44 → CATH 18:55
PROVIDERS: ATTEND Internal Medicine Cardiovascular Disease
DX: I70.249 Atherosclerosis of native arteries of left leg with ulceration of unspecified site (principal); L97.929 Non-pressure chronic ulcer of unspecified part of left lower leg with unspecified severity; I70.239 Atherosclerosis of native arteries of right leg with ulceration of unspecified site; L97.919 Non-pressure chronic ulcer of unspecified part of right lower leg with unspecified severity; I10 Essential (primary) hypertension; I65.23 Occlusion and stenosis of bilateral carotid arteries; E78.2 Mixed hyperlipidemia; E11.621 Type 2 diabetes mellitus with foot ulcer; E11.69 Type 2 diabetes mellitus with other specified complication; M86.9 Osteomyelitis, unspecified; Z79.4 Long term (current) use of insulin; Z79.01 Long term (current) use of anticoagulants; Z86.718 Personal history of other venous thrombosis and embolism
CPT/HCPCS: 36247; 36248; 71045; 75716; 80053; 80061; 85027; 85610; 85730; 87081; 93005; C1760; C1769; C1887 ×2; C1894; 36415

== ENCOUNTER 2023-05-03 17:44 | Emergency (ER) | payer MEDICARE ==
[~2023-05-03] VITALS: Ht 170 cm; Wt 86.0 kg
[~2023-05-03 17:44] MED LIST changes: +ACET325T38 PO; +AMOX1TAB12 PO; +ATOR20TA66 PO; +DILT240C90 PO; +ERGO1250 PO; +INSU100I23 SQ; +TIMO1DRO12 OP
[2023-05-03] MEDS ORDERED: NS IV 1000 ML 1,000 ML IV STA (18:25)
[2023-05-03] MEDS ORDERED: VALACYCLOVIR 500 MG TABLET PO STA (18:25)
--- NOTE | 2023-05-03 18:30 | ED General ---
General Chief Complaint: Respiratory Problems Stated Complaint: SOB Nursing Triage Note: PT AMB TO [facility] 10 WITH CANE WITH C/O INCREASED SOB TODAY AND SHINGLES. PT SEEN AT URGENT CARE FOR SHINGLES BUT SENT HERE FOR HYPOTENSION Source of Information: Patient Exam Limitations: No Limitations History of Present Illness Date Seen by Provider: May 03, 2023 Time Seen by Provider: 18:28 Initial Comments Patient is an 83yo male who presents to the ED transferred from Urgent Care for concern of low blood pressure. He went today for a rash onset within the last 1-2 days over his right shoulder. Pain in that area since Monday. Timing/Duration: 4-5 Days Severity: Moderate Associated Systoms: Malaise (decreased appetite) Allergies and Home Medications Allergies Coded Allergies: No Known Drug Allergies (Unverified , 10/14/22) Patient Home Medication List Home Medication List Reviewed: Yes Acetaminophen (Tylenol) 325 Mg Tablet, 650 MG PO Q6H PRN for PAIN-MILD (1-4), (Reported) Entered as Reported by: TIFFANIE BRONSON on 10/26/22 1256 Amoxicillin/Potassium Clav (Amox Tr-K Clv 875-125 mg Tab) 875 Mg-125 Mg Tablet, 1 EACH PO BID, (Reported) Entered as Reported by: TIFFANIE BRONSON on 10/26/22 1256 Atorvastatin Calcium (Atorvastatin Calcium) 20 Mg Tablet, 20 MG PO DAILY, (Reported) Entered as Reported by: TIFFANIE BRONSON on 10/26/22 1256 Diltiazem HCl (Diltiazem 24Hr Cd) 240 Mg Cap.er.24h, 240 MG PO BID, (Reported) Entered as Reported by: TIFFANIE BRONSON on 10/26/22 1256 Ergocalciferol (Vitamin D2) (Vitamin D2) 1,250 Mcg (95816 Unit) Capsule, 1,250 MCG PO MONDAY, (Reported) Entered as Reported by: TIFFANIE BRONSON on 10/26/22 1256 Hydrocodone/Acetaminophen (Hydrocodone-Acetamin 5-325 mg) 5 Mg-325 Mg Tablet, 1 TAB PO Q4H PRN for PAIN-MODERATE (5-7), (Reported) Entered as Reported by: TIFFANIE BRONSON on 10/26/22 1256 Insulin Detemir (Levemir Flexpen) 100 Unit/Ml (3 Ml) Insuln.pen, 15 UNIT SQ BID, (Reported) Entered as Reported by: TIFFANIE BRONSON on 10/26/22 125 Insulin Lispro (Humalog Kwikpen) 100 Unit/Ml Insuln.pen, 6 UNIT SQ BIDAC, (Reported) Entered as Reported by: TIFFANIE BRONSON on 10/26/22 125 Tamsulosin HCl (Flomax) 0.4 Mg Cap, 0.4 MG PO DAILY, (Reported) Entered as Reported by: TIFFANIE BRONSON on 10/26/22 125 Timolol Maleate/Pf (Timolol Maleate 0.5% Eye Drop) 0.5 % Droperette, 1 DROP OP DAILY, (Reported) Entered as Reported by: TIFFANIE BRONSON on 10/26/22 125 Warfarin Sodium (Warfarin Sodium) 3 Mg Tablet, 3 MG PO HS, (Reported) Entered as Reported by: TIFFANIE BRONSON on 10/26/22 125 Review of Systems Review of Systems Constitutional: see HPI, malaise EENTM: no symptoms reported Respiratory: short of breath (chronic) Cardiovascular: no symptoms reported Gastrointestinal: loss of appetite Genitourinary: no symptoms reported Musculoskeletal: no symptoms reported Skin: rash Psychiatric/Neurological: No Symptoms Reported Past Bhnvkum-Hbefor-Bqnsmm Hx Patient Social History Tobacco Use?: No Use of E-Cig and/or Vaping dev: No Substance use?: No Alcohol Use?: No Pt feels they are or have been: No Immunizations Up To Date Tetanus Booster (TDap): Unknown Influenza Vaccine Up-to-Date: No; Not Current First/Initial COVID19 Vaccinat: YES Second COVID19 Vaccination Luciano: YES Third COVID19 Vaccination Date: YES Seasonal Allergies Seasonal Allergies: Yes Past Medical History Surgery/Hospitalization HX: HTN, DM, HIGH CHOLESTEROL, AFIB, DVT. TURP, CATARACT SURGERY. Surgeries: Yes Eye Surgery Respiratory: No Currently Using CPAP: No Currently Using BIPAP: No Cardiac: Yes Hypertension Neurological: No Sexually Transmitted Disease: No Genitourinary: No Benign Prostatic Hyperpl Gastrointestinal: Yes Abdominal Hernia Musculoskeletal: Yes Amputee Diabetes, Non-Insulin dep HEENT: Yes Cataract Loss of Vision: Bilateral Hearing Impairment: Hard of Hearing Cancer: No Psychosocial: No Integumentary: No Blood Disorders: No Adverse Reaction/Blood Tranf: No Family Medical History No Pertinent Family Hx Physical Exam Vital Signs Vital Signs - First Documented 05/03/23 17:50 Temp 36.0 Pulse 89 Resp 24 B/P (MAP) 154/89 (110) Pulse Ox 95 O2 Delivery Room Air Capillary Refill : Height, Weight, BMI Height: '" Weight: lbs. oz. kg; 29.00 BMI Method: General Appearance: No Apparent Distress, WD/WN Progress/Results/Core Measures Suspected Sepsis SIRS Temperature: Pulse: 89 Respiratory Rate: 24 Laboratory Tests 05/03/23 18:35: White Blood Count 5.4 Blood Pressure 154 /89 Mean: 110 Laboratory Tests 05/03/23 18:35: Creatinine 2.97H, Platelet Count 151, Total Bilirubin 0.4 Results/Orders Lab Results Laboratory Tests Test 05/03/23 18:35 Range/Units White Blood Count 5.4 4.3-11.0 10^3/uL Red Blood Count 4.71 4.30-5.52 10^6/uL Hemoglobin 13.5 13.3-17.7 g/dL Hematocrit 43 40-54 % Mean Corpuscular Volume 92 80-99 fL Mean Corpuscular Hemoglobin 29 25-34 pg Mean Corpuscular Hemoglobin Concent 31 L 32-36 g/dL Red Cell Distribution Width 14.8 H 10.0-14.5 % Platelet Count 151 130-400 10^3/uL Mean Platelet Volume 12.1 9.0-12.2 fL Immature Granulocyte % (Auto) 0 % Neutrophils (%) (Auto) 60 42-75 % Lymphocytes (%) (Auto) 22 12-44 % Monocytes (%) (Auto) 14 H 0-12 % Eosinophils (%) (Auto) 2 0-10 % Basophils (%) (Auto) 1 0-10 % Neutrophils # (Auto) 3.2 1.8-7.8 10^3/uL Lymphocytes # (Auto) 1.2 1.0-4.0 10^3/uL Monocytes # (Auto) 0.8 0.0-1.0 10^3/uL Eosinophils # (Auto) 0.1 0.0-0.3 10^3/uL Basophils # (Auto) 0.0 0.0-0.1 10^3/uL Immature Granulocyte # (Auto) 0.0 0.0-0.1 10^3/uL Sodium Level 137 135-145 MMOL/L Potassium Level 4.7 3.6-5.0 MMOL/L Chloride Level 111 H 98-107 MMOL/L Carbon Dioxide Level 15 L 21-32 MMOL/L Anion Gap 11 5-14 MMOL/L Blood Urea Nitrogen 43 H 7-18 MG/DL Creatinine 2.97 H 0.60-1.30 MG/DL Estimat Glomerular Filtration Rate 20 BUN/Creatinine Ratio 14 Glucose Level 128 H 70-105 MG/DL Calcium Level 9.3 8.5-10.1 MG/DL Corrected Calcium 9.5 8.5-10.1 MG/DL Total Bilirubin 0.4 0.1-1.0 MG/DL Aspartate Amino Transf (AST/SGOT) 57 H 5-34 U/L Alanine Aminotransferase (ALT/SGPT) 68 H 0-55 U/L Alkaline Phosphatase 120 40-136 U/L Total Protein 7.7 6.4-8.2 GM/DL Albumin 3.8 3.2-4.5 GM/DL My Orders Orders - XAVIRE SAM MD Ed Iv/Invasive Line Start (05/03/23 18:25) Cbc And Automated Diff (05/03/23 18:25) Comprehensive Metabolic Panel (05/03/23 18:25) Ns Iv 1000 Ml (Ns Iv 1000 Ml) (05/03/23 18:25) Valacyclovir Tablet (Valacyclovir Tablet (05/03/23 18:25) Chest 1 View, Ap/Pa Only (05/03/23 18:31) Lactated Ringers 1,000 Ml (Lactated Ring (05/03/23 19:30) Vital Signs/I&O 05/03/23 17:50 Temp 36.0 Pulse 89 Resp 24 B/P (MAP) 154/89 (110) Pulse Ox 95 O2 Delivery Room Air Capillary Refill : Blood Pressure Mean: 110 Progress Note : Time: 20:37 Progress Note Patient seen and evaluated by me. Evaluation today includes history and physical exam, CBC, comprehensive metabolic panel, single view chest x-ray. Pertinent physical exam findings reveal elderly gentleman in no acute distress, stable vital signs, room air oxygen 91 to 92% which she states is chronic for him. Very dry oral mucosa. He has occasional scattered crackles in the right lung base; no evidence of respiratory distress, tachypnea, increased work of breathing. Heart is regular, not tachycardic. He is afebrile. Blood pressure 125/68. No focal neurologic deficits noted. Patient has significant shingles r harman to the right chest wall, shoulder and lateral neck. In a pattern consistent with zoster. Multiple lesions that are both vesicular and crusting.. Differential diagnosis varicella pneumonia, dehydration Labs independently reviewed and interpreted by me. His CBC is normal. His comprehensive metabolic panel shows decreased CO2 at 15, elevated BUN and creatinine 43 and 2.97 which is fairly significantly above his normal baseline on comparison labs from earlier in the spring of this year. He has a little tiny bit of elevation in his liver functions AST of 57, ALT of 68. Chest x-ray independently reviewed by me shows no evidence of consolidation, effusion. As the patient is clinically dry and his labs are little abnormal I administered 1 L of normal saline and 1 L of lactated Ringer's. Patient was given his first dose of valacyclovir. It sounds like his rash has definitely started within the last 72 hours. I have sent a prescription for the valacyclovir to [facility] pharmacy for the patient, 1000 mg 3 times daily for 1 week. His daughter is at the bedside, shared decision making. I feel like as long as she is able to keep an eye on him and encourage fluids so that he is hydrated he does have a primary physician here in town that he can follow-up with, Dr. Peace. I sent a prescription for some tramadol should he have increasing pain related to the zoster. Patient has no evidence of pneumonia on chest x-ray. I reviewed return precautions with the patient and his daughter. They are provided in written form as well. All questions are sought and answered. Patient is improved at discharge. Diagnostic Imaging Diagonstic Imaging: Xray Plain Films/CT/US/NM/MRI: chest Comments [facility] [address], [facility]. [place], [place] NAME: CRYSTALLALY Heri [facility] REC#: [id number] PT STATUS: REG ER : 1940 PHYSICIAN: XAVIER SAM MD ADMIT DATE: 05/03/23/ER Draft Date of Exam:05/03/23 CHEST 1 VIEW, AP/PA ONLY INDICATION: Hypoxemia. EXAMINATION: Portable chest at 6:32 PM. FINDINGS: Heart size and pulmonary vascularity are normal. Lungs are clear. There is no effusion or pneumothorax. IMPRESSION: Negative chest. Dictated on workstation # [id number] Dict: 05/03/231849 Trans: 05/03/231853 [facility] [id number] Interpreted by: KANDACE HANDLEY MD Electronically signed by: Departure Impression Primary Impression: Varicella-zoster infection Additional Impression: Dehydration Disposition: 01 HOME, SELF-CARE Condition: Improved Departure-Patient Inst. Decision time for Depature: 20:35 Referrals: DIALLO PEACE DO (PCP/Family) Primary Care Physician Patient Instructions: Shingles (DC) Add. Discharge Instructions: He can take extra strength Tylenol 2 tablets every 6 hours as needed for pain. I have prescribed an additional medication, tramadol. He can take a tramadol with the Tylenol every 6 hours or the 2 Tylenol. The valacyclovir I have sent to the [facility] pharmacy. It will be 1000 mg 3 times daily for a week. He does not need any additional medications for treatment. When the rash has healed, all of the lesions have "crusted" and healed he can use a lidocaine patch over the area of pain as needed. Lidocaine patches are available [id number]. Please follow packaging instructions. If he needs any additional pain management as a result of having the shingles please follow-up with Dr. Peace in clinic. He needs to drink plenty of fluids to stay well-hydrated. For any new, concerning or emergent complaints please return to the emergency department for reevaluation - especially worsening or concerning shortness of breath. Scripts Valacyclovir HCl (Valacyclovir) 1,000 Mg Tablet 1000 MG PO TID for 7 Days, #21 TAB Prov: XAVIER SAM MD 05/03/23 Copy Copies To 1: DIALLO PEACE KATHRYN M MD May 03, 2023 18:30
[2023-05-03 18:45] LABS: BASOPHILS % (AUTO) 1 % (0-10); EOSINOPHILS # (AUTO) 0.1 10^3/uL (0.0-0.3); EOSINOPHILS % (AUTO) 2 % (0-10); HEMATOCRIT 43 % (40-54); HEMOGLOBIN 13.5 g/dL (13.3-17.7); LYMPHOCYTES # (AUTO) 1.2 10^3/uL (1.0-4.0); LYMPHOCYTES % (AUTO) 22 % (12-44); MEAN CORPUSCULAR HEMOGLOBIN 29 pg (25-34); MEAN CORPUSCULAR HGB CONC 31 g/dL (32-36); MEAN CORPUSCULAR VOLUME 92 fL (80-99); MEAN PLATELET VOLUME 12.1 fL (9.0-12.2); MONOCYTES # (AUTO) 0.8 10^3/uL (0.0-1.0); MONOCYTES % (AUTO) 14 % (0-12); NEUTROPHILS # (AUTO) 3.2 10^3/uL (1.8-7.8); NEUTROPHILS % (AUTO) 60 % (42-75); PLATELET COUNT 151 10^3/uL (130-400); WHITE BLOOD COUNT 5.4 10^3/uL (4.3-11.0)
--- NOTE | 2023-05-03 18:54 | Diagnostic Imaging Report ---
INDICATION: Hypoxemia. EXAMINATION: Portable chest at 6:32 PM. FINDINGS: Heart size and pulmonary vascularity are normal. Lungs are clear. There is no effusion or pneumothorax. IMPRESSION: Negative chest. Dictated by: Dictated on workstation # [id number]
[2023-05-03 19:08] LABS: ALBUMIN 3.8 GM/DL (3.2-4.5); BILIRUBIN,TOTAL 0.4 MG/DL (0.1-1.0); CALCIUM 9.3 MG/DL (8.5-10.1); CREATININE SERUM 2.97 MG/DL (0.60-1.30); POTASSIUM 4.7 MMOL/L (3.6-5.0); TOTAL PROTEIN 7.7 GM/DL (6.4-8.2)
[2023-05-03] MEDS ORDERED: LACTATED RINGERS 1,000 ML 1,000 ML IV SCH (19:30)
[2023-05-03] MEDS ORDERED: VALA10007 PO (20:37)
[2023-05-03 21:08] VITALS: BP 153/81
== END 2023-05-03 21:13 | disposition home or self-care (01) ==
LOC: EDUNIT# 17:44 → ER 17:46
DX: B01.9 Varicella without complication (principal); B02.9 Zoster without complications; E86.0 Dehydration; R79.81 Abnormal blood-gas level; R74.01 Elevation of levels of liver transaminase levels
CPT/HCPCS: 36415; 71045; 80053; 85025

== ENCOUNTER → 2023-05-11 | Outpatient (CLI) | payer MEDICARE ==
[~2023-05-11] MED LIST changes: +VALA10007 PO
== END ==
LOC: LAB 15:32
PROVIDERS: ATTEND Internal Medicine
DX: E11.65 Type 2 diabetes mellitus with hyperglycemia (principal)
CPT/HCPCS: 36415; 83036